=== PATIENT | female | born 1945 | race Hispanic/Latino ===

== ENCOUNTER 2018-05-22 11:59 | Emergency (ER) | payer OTHER ==
--- OUTSIDE RECORDS SUMMARY | 2018-05-22 12:01 | XMS REPORT | Clinical Summary ---
:1945 Author Organization [facility] Address [address] [place] [address] Phone Care Team Providers Name Role Phone Unavailable Primary Care Provider Unavailable Allergies Active Allergy Reactions Severity Noted Date Comments Penicillins 11/24/2016 Current Medications Prescription Sig. Disp. Refills Start Date End Date Status lisinopril Take 20 mg by mouth Active (PRINIVIL,ZESTRIL) 20 MG daily. tablet saxagliptin-metformin Take by mouth. Active (KOMBIGLYZE XR) 2.5-1,000 mg TM24 gabapentin (NEURONTIN) Take 400 mg by Active 400 MG capsule mouth 2 (two) times daily. propranolol (INDERAL) 10 Take 10 mg by mouth Active MG tablet 3 (three) times daily. omeprazole (PRILOSEC) 40 Take 40 mg by mouth Active MG capsule daily. dicyclomine (BENTYL) 10 Take 10 mg by mouth Active MG capsule 4 (four) times daily before meals and nightly. rifAXIMin 550 mg Tab Take 550 mg by Active mouth 2 (two) times daily. Active Problems Problem Noted Date Cirrhosis (HCC) 11/24/2016 Last Assessment & Plan: Not biopsy proven, but diagnosis was based on radiology. Presumably from [place]. She has risk factors with DM type 2, Hypertension, hyperlipidemia, and she has family history of cirrhosis. We will do labs to exclude other causes of liver disease and calculate MELD score. We will do contrast imaging of liver. Portal hypertension (HCC) 11/24/2016 Last Assessment & Plan: No ascites; advised low sodium diet. 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 Will need repeat EGD in 4 weeks Screening for cancer 11/24/2016 Last Assessment & Plan: Cirrhosis, regardless of etiology, is a risk factor for development of hepatocellular carcinoma. The annual incidence of HCC varies from 1.5-7%. Thus, we recommend surveillance for HCC be performed using contrast MRI or CT imaging and alphafetoprotein every 6 months. Screening for endocrine/metabolic/immunity disorders 11/24/2016 Last Assessment & Plan: Serological tests will be completed to determine the presence of immunity to hepatitis A and B. If found susceptible she will be referred to her primary care provider to consider the administration of the appropriate vaccines. Metabolic syndrome 11/24/2016 Last Assessment & Plan: She has features of metabolic syndrome. She has lost 15 lbs recently with life style modification. Advised low carb high protein diet. Fatigue 11/24/2016 Family History Medical History Relation Name Comments Cirrhosis Brother Diabetes Sister Relation Name Status Comments Brother Sister Social History Tobacco Use Types Packs/Day Years Used Date Never Smoker Alcohol Use Drinks/Week oz/Week Comments No Sex Assigned at Date Recorded Not on file Last Filed Vital Signs Not on file Plan of Treatment Health Maintenance Due Date Last Done Comments INFLUENZA VACCINE 05/15/2018 Results Not on fileafter 05/21/2017
--- OUTSIDE RECORDS SUMMARY | 2018-05-22 12:02 | XMS REPORT ---
:1945 Author Organization [facility] Address [address] [place] [address] Dr. Villa [address] [place] [id number] Care Team Providers Name Role Phone KEEVIOLET ARAVIND VARELA Unavailable Unavailable Problems This patient has no known problems. Allergies, Adverse Reactions, Alerts This patient has no known allergies or adverse reactions. Medications This patient has no known medications. Results Test Description Test Time Test Comments Text Results Atomic Results Result Comments MARCO TITER AND PATTERN 2016-11-29 15:09:00 Test Item Value Reference Range Comments MARCO TITER (BEAKER) (test trpl=2902) >=:2560 MARCO PATTERN (BEAKER) (test dqji=8312) Homogeneous ANTI-NUCLEAR ANTIBODY (MARCO)2016-11-29 15:08:00 Test Item Value Reference Range Comments ANTI-NUCLEAR ANTIBODY (MARCO) (BEAKER) (test Positive Negative bboj=706) [id number] 14:16:00 Test Item Value Reference Range Comments THYROID STIMULATING HORMONE (BEAKER) (test 2.05 uIU/mL 0.35-4.94 edbn=209) [id number] 14:00:00 Test Item Value Reference Range Comments FERRITIN (BEAKER) (test nbub=009) 8 ng/mL 5-275 Effective 07/02/2014: Reference Range ChangeNew: Male 5-275 Previous: Male 22-322 Female 5-275 Female 10-291CBC W/PLT COUNT & AUTO [id number] 13:04:00 Test Item Value Reference Range Comments WHITE BLOOD CELL COUNT (BEAKER) (test iinw=504) 6.0 K/ L 4.0-10.0 RED BLOOD CELL COUNT (BEAKER) (test vbcc=652) 3.28 M/ L 4.00-5.00 HEMOGLOBIN (BEAKER) (test iurv=611) 7.4 GM/DL 12.0-15.0 HEMATOCRIT (BEAKER) (test wvfx=145) 21.4 % 36.0-45.0 MEAN CORPUSCULAR VOLUME (BEAKER) (test nnre=068) 65.0 fL 82.0-99.0 MEAN CORPUSCULAR HEMOGLOBIN (BEAKER) (test 22.5 pg 27.0-33.0 wcqt=978) MEAN CORPUSCULAR HEMOGLOBIN CONC (BEAKER) (test 34.6 GM/DL 32.0-36.0 drqj=596) RED CELL DISTRIBUTION WIDTH (BEAKER) (test 18.1 % 10.3-14.2 gxcb=377) PLATELET COUNT (BEAKER) (test htbi=021) 128 K/CU MM 150-430 MEAN PLATELET VOLUME (BEAKER) (test gary=163) 5.6 fL 6.5-10.5 NUCLEATED RED BLOOD CELLS (BEAKER) (test 0 /100 WBC 0-0 ejyh=235) NEUTROPHILS RELATIVE PERCENT (BEAKER) (test 77 % zaya=965) LYMPHOCYTES RELATIVE PERCENT (BEAKER) (test 13 % dbrq=037) MONOCYTES RELATIVE PERCENT (BEAKER) (test 8 % uqol=767) EOSINOPHILS RELATIVE PERCENT (BEAKER) (test 2 % rjae=220) BASOPHILS RELATIVE PERCENT (BEAKER) (test 0 % abrb=293) NEUTROPHILS ABSOLUTE COUNT (BEAKER) (test 4.56 K/ L 1.80-8.00 miar=257) LYMPHOCYTES ABSOLUTE COUNT (BEAKER) (test 0.79 K/ L 1.48-4.50 nhkv=574) MONOCYTES ABSOLUTE COUNT (BEAKER) (test 0.46 K/ L 0.00-1.30 bour=246) EOSINOPHILS ABSOLUTE COUNT (BEAKER) (test 0.12 K/ L 0.00-0.50 dvdf=378) BASOPHILS ABSOLUTE COUNT (BEAKER) (test 0.03 K/ L 0.00-0.20 fprv=800) 0.00ALPHA FETOPROTEIN (AFP), TUMOR [id number] 12:58:00 Test Item Value Reference Range Comments ALPHA-FETOPROTEIN (BEAKER) (test yybc=4114) < ng/mL <10.0 Effective 07/02/2014: Reference Range ChangeNew: <10.0 Previous: 0.0- 8.0HEPATITIS B SURFACE [id number] 12:57:00 Test Item Value Reference Range Comments HEPATITIS B SURFACE ANTIGEN (2) (BEAKER) (test Nonreactive Nonreactive pmzz=8553) HEPATITIS C [id number] 12:57:00 Test Item Value Reference Range Comments HEPATITIS C ANTIBODY (BEAKER) (test mpjg=487) Nonreactive Nonreactive HEPATITIS B SURFACE [id number] 12:57:00 Test Item Value Reference Range Comments HEPATITIS B SURFACE ANTIBODY (BEAKER) (test < mIU/mL <8.0 trvt=519) HEPATITIS A ANTIBODY, [id number] 12:57:00 Test Item Value Reference Range Comments HEPATITIS A IGG ANTIBODY (BEAKER) (test ybha=9090) Reactive Nonreactive IMMUNOGLOBULIN G (IGG)2016-11-24 12:55:00 Test Item Value Reference Range Comments IMMUNOGLOBULIN G (IGG) (BEAKER) (test wejk=981) 1397 mg/dL 540-1822 IRON, TIBC, % SAT. (WITHOUT FERRITIN)2016-11-24 12:55:00 Test Item Value Reference Range Comments IRON (BEAKER) (test krbp=844) 23 ug/dL 40-160 TOTAL IRON BINDING CAPACITY (BEAKER) (test 429 ug/dL 250-450 qgxd=104) IRON % SATURATION (2) (BEAKER) (test ullj=8650) 5 % 20-55 HEPATITIS A ANTIBODY, [id number] 12:54:00 Test Item Value Reference Range Comments HEPATITIS A IGM ANTIBODY (BEAKER) (test Nonreactive Nonreactive zbmr=424) HEPATITIS B CORE ANTIBODY, [id number] 12:54:00 Test Item Value Reference Range Comments HEPATITIS B CORE TOTAL ANTIBODY (BEAKER) (test Nonreactive Nonreactive dflm=769) COMPREHENSIVE METABOLIC [id number] 12:25:00 Test Item Value Reference Range Comments TOTAL PROTEIN (BEAKER) 8.4 gm/dL 6.0-8.3 (test qshb=875) ALBUMIN (BEAKER) (test 4.0 g/dL 3.5-5.0 gefe=3472) ALKALINE PHOSPHATASE 100 U/L 40-150 (BEAKER) (test svub=433) BILIRUBIN TOTAL (BEAKER) 0.9 mg/dL 0.2-1.2 (test ohoe=457) SODIUM (BEAKER) (test 135 meq/L 136-145 ilgm=490) POTASSIUM (BEAKER) (test 4.1 meq/L 3.5-5.1 rpne=086) CHLORIDE (BEAKER) (test 101 meq/L 98-107 nxnw=536) CO2 (BEAKER) (test 19 meq/L 22-29 jaew=712) BLOOD UREA NITROGEN 16 mg/dL 7-21 (BEAKER) (test ikum=939) CREATININE (BEAKER) (test 0.74 mg/dL 0.57-1.25 scdu=912) GLUCOSE RANDOM (BEAKER) 138 mg/dL 70-105 (test yewk=376) CALCIUM (BEAKER) (test 9.7 mg/dL 8.4-10.2 bzwc=691) AST (SGOT) (BEAKER) (test 33 U/L 5-34 zguc=661) ALT (SGPT) (BEAKER) (test 29 U/L 6-55 vssz=450) EGFR (BEAKER) (test 77 mL/min/1.73 sq m ESTIMATED GFR IS NOT mgbo=8574) ACCURATE CREATININE CLEARANCE IN PREDICTING GLOMERULAR FILTRATION RATE. ESTIMATED GFR IS NOT APPLICABLE FOR DIALYSIS PATIENTS. BILIRUBIN, [id number] 12:25:00 Test Item Value Reference Range Comments BILIRUBIN DIRECT (BEAKER) (test uxyn=665) 0.5 mg/dL 0.1-0.5 PROTHROMBIN [id number] 12:15:00 Test Item Value Reference Range Comments PROTIME (BEAKER) (test bixd=211) 14.3 seconds 11.7-14.7 INR (BEAKER) (test roel=436) 1.1 <=5.9 RECOMMENDED COUMADIN/WARFARIN INR THERAPY RANGESSTANDARD DOSE: 2.0 - 3.0 Includes: PROPHYLAXIS forvenous thrombosis, systemic embolization; TREATMENT for venous thrombosis and/or pulmonary embolus.HIGH RISK: Target INR is 2.5-3.5 for patients with mechanical heart valves.[id number] 11:49:00 Test Item Value Reference Range Comments POC-CREATININE (BEAKER) 0.5 mg/dL 0.6-1.3 TESTED AT [facility] 6720 (test vzuq=5196) [facility] [address] POC-EGFR (BEAKER) (test 121 mL/min/1.73M2 dpuj=1011)
[2018-05-22] MEDS ORDERED: NA CHLORIDE 0.9% 1,000 ML ONE (12:39)
[2018-05-22 13:03] LABS: Protime INR 1.18
[2018-05-22 13:10] LABS: ALT/SGPT 33 U/L (12-78); AST/SGOT 38 U/L (15-37); Albumin 3.6 g/dL (3.4-5.0); Alkaline Phosphatase 101 U/L (45-117); BUN Blood Urea Nitrogen 16 mg/dL (7-18); Bicarbonate 27 mmol/L (21-32); Bilirubin Direct 0.6 mg/dL (0-0.2); Bilirubin Total 1.4 mg/dL (0.2-1.0); Glucose Level 162 mg/dL (74-106); Lipase 153 U/L (73-393); Potassium 3.9 mmol/L (3.5-5.1); Protein, Total 8.7 g/dL (6.4-8.2); Sodium Level 140 mmol/L (136-145)
[2018-05-22 13:14] LABS: Absolute Lymphocytes (CBC) 0.7 K/uL (0.7-4.9); Absolute Monocytes 0.3 K/uL (0.1-1.3); Absolute Neutrophil 2.4 K/uL (1.8-8.0); Basophils % 1.1 % (0-1.3); Eosinophils % 2.3 % (0-4.4); Lymphocytes % 19.3 % (15.3-44.8); MCH 21.8 pg (27.0-35.0); MCV 65.8 fL (80-100); MPV 8.6 fL (7.6-11.3)
--- NOTE | 2018-05-22 13:18 | ER ---
Nurse's Notes [facility] Name: Vijaya Oneal Age: 72 yrs Sex: Female : 1945 Arrival Date: 05/22/2018 Time: 12:03 Bed 5 Private MD: Bharat Hernandez Diagnosis: Esophageal varices Presentation: 05/22 12:05 Presenting complaint: Pt's daughter states "she has esophageal banding every 2 months aa5 and yesterday she felt like something got stuck in her throat since yesterday and every time she eats something she's throwing it back up, this has happened to her before and Dr. Servin said to take her to the ER next time it happened so here we are". Pt c/o throat pain, pt states "it feels like I am choking at times". Transition of care: patient was not received from another setting of care. Onset of symptoms was May 21, 2018. Risk Assessment: Do you want to hurt yourself or someone else? Patient reports no desire to harm self or others. Initial Sepsis Screen: Does the patient meet any 2 criteria? No. Patient's initial sepsis screen is negative. Does the patient have a suspected source of infection? No. Patient's initial sepsis screen is negative. Care prior to arrival: None. 12:05 Method Of Arrival: Ambulatory aa5 12:05 Acuity: NELLY 2 aa5 Historical: - Allergies: 12:07 PENICILLINS; aa5 - PMHx: 12:07 Anemia; Cirrhosis; Diabetes - NIDDM; Hypertension; neuropathy; aa5 - PSHx: 12:07 ; Hysterectomy; Cholecystectomy; Tonsillectomy; aa5 - Immunization history:: Adult Immunizations unknown. - Social history:: Smoking status: Patient/guardian denies using tobacco. - Ebola Screening: : No symptoms or risks identified at this time. Screenin:18 Abuse screen: Denies threats or abuse. Denies injuries from another. Nutritional bp screening: No deficits noted. Tuberculosis screening: No symptoms or risk factors identified. Fall Risk None identified. Assessment: 12:16 General: Appears in no apparent distress. comfortable, Behavior is calm, cooperative, bp appropriate for age. Pain: Denies pain. Neuro: Level of Consciousness is awake, alert, obeys commands, Oriented to person, place, time, situation, Appropriate for age. Cardiovascular: Rhythm is sinus tachycardia. Respiratory: Airway is patent Respiratory effort is even, unlabored, Respiratory pattern is regular, symmetrical. GI: No signs and/or symptoms were reported involving the gastrointestinal system. : No signs and/or symptoms were reported regarding the genitourinary system. EENT: NO DROOLING, HOARSENESS OR ALTERED VOICE TONES NOTED. Derm: No deficits noted. Musculoskeletal: Circulation, motion, and sensation intact. Range of motion: intact in all extremities. 13:41 Reassessment: Patient and/or family updated on plan of care and expected duration. Pain hj level reassessed. Patient is alert, oriented x 3, equal unlabored respirations, skin warm/dry/pink. D/C instructions given;. Vital Signs: 12:08 BP 150 / 85; Pulse 109; Resp 18 S; Temp 97.6(TE); Pulse Ox 99% on R/A; Weight 52.16 kg aa5 (R); Height 5 ft. 1 in. (154.94 cm) (R); Pain 10/10; 13:40 BP 148 / 86; Pulse 92; Resp 18; Pulse Ox 100% on R/A; hj 12:08 Body Mass Index 21.73 (52.16 kg, 154.94 cm) aa5 ED Course: 12:03 Patient arrived in ED. mr 12:03 Bhraat Hernandez MD is Private Physician. mr 12:07 Triage completed. aa5 12:07 Arm band placed on. aa5 12:10 Jose Juan Duval RN is Primary Nurse. hj 12:11 Jose Juan Duval RN is Primary Nurse. hj 12:11 Tonny Cardenas MD is Attending Physician. gs 12:15 Primary Nurse role handed off by Jose Juan Duval RN bp 12:15 Chester Malcolm, LC is Primary Nurse. bp 12:18 Patient has correct armband on for positive identification. Placed in gown. Bed in low bp position. Call light in reach. Side rails up X2. Adult w/ patient. 12:47 Initial lab(s) drawn, by me, sent to lab. Inserted saline lock: 22 gauge in right hj antecubital area, using aseptic technique. Blood collected. 13:16 Cally Servin MD is Referral Physician. gs 13:39 No provider procedures requiring assistance completed. IV discontinued, intact, hj bleeding controlled, No redness/swelling at site. Pressure dressing applied. Administered Medications: 12:23 Drug: NS 0.9% 1000 ml Route: IV; Rate: 125 ml/hr; Site: right antecubital; hj 13:41 Follow up: IV Status: Order to discontinue infusion; IV Intake: 400ml hj Intake: 13:41 IV: 400ml; Total: 400ml. hj Outcome: 13:17 Discharge ordered by MD. 13:39 Discharged to home via wheelchair, with family. 13:39 Condition: stable 13:39 Discharge instructions given to patient, family, Instructed on discharge instructions, follow up and referral plans. Demonstrated understanding of instructions, follow-up care. 13:47 Patient left the ED. Signatures: Mary IveyderNorma bernard, RN RN aa5 Jose Juan Duval RN RN hj Starr, Gregory, MD MD Chester Malcolm RN RN bp Corrections: (The following items were deleted from the chart) 12:09 12:05 Presenting complaint: Pt's daughter states "she has esophageal banding every 2 aa5 months and yesterday she felt like something got stuck in her throat since yesterday and every time she eats something she's throwing it back up, this has happened to her before and Dr. Servin said to take her to the ER next time it happened so here we are" aa5 12:09 12:05 Acuity: NELLY 3 aa5 aa5
--- NOTE | 2018-05-22 13:18 | EDPHYS ---
Physician Documentation [facility] Name: Vijaya Oneal Age: 72 yrs Sex: Female : 1945 Arrival Date: 05/22/2018 Time: 12:03 Bed 5 Private MD: Bharat Hernandez ED Physician Tonny Cardenas HPI: 05/22 13:23 This 72 yrs old Female presents to ER via Ambulatory with complaints of gs Difficulty Swallowing. 13:23 The patient presents with dysphagia, of both solids and liquids. The patient describes gs throat pain as scratchy. Onset: The symptoms/episode began/occurred 2 day(s) ago, after eating. Severity of symptoms: At their worst the symptoms were moderate, in the emergency department the symptoms are unchanged. Associated signs and symptoms: Pertinent positives: vomiting. The patient has experienced similar episodes in the past, multiple times. The patient has not recently seen a physician. Historical: - Allergies: 12:07 PENICILLINS; aa5 - PMHx: 12:07 Anemia; Cirrhosis; Diabetes - NIDDM; Hypertension; neuropathy; aa5 - PSHx: 12:07 ; Hysterectomy; Cholecystectomy; Tonsillectomy; aa5 - Immunization history:: Adult Immunizations unknown. - Social history:: Smoking status: Patient/guardian denies using tobacco. - Ebola Screening: : No symptoms or risks identified at this time. ROS: 13:23 All other systems are negative. gs Exam: 13:23 Head/Face: Normocephalic, atraumatic. Eyes: Pupils equal round and reactive to light, gs extra-ocular motions intact. Lids and lashes normal. Conjunctiva and sclera are non-icteric and not injected. Cornea within normal limits. Periorbital areas with no swelling, redness, or edema. ENT: Nares patent. No nasal discharge, no septal abnormalities noted. Tympanic membranes are normal and external auditory canals are clear. Oropharynx with no redness, swelling, or masses, exudates, or evidence of obstruction, uvula midline. Mucous membranes moist. Neck: Trachea midline, no thyromegaly or masses palpated, and no cervical lymphadenopathy. Supple, full range of motion without nuchal rigidity, or vertebral point tenderness. No Meningismus. Chest/axilla: Normal chest wall appearance and motion. Nontender with no deformity. No lesions are appreciated. Cardiovascular: Regular rate and rhythm with a normal S1 and S2. No gallops, murmurs, or rubs. Normal PMI, no JVD. No pulse deficits. Respiratory: Lungs have equal breath sounds bilaterally, clear to auscultation and percussion. No rales, rhonchi or wheezes noted. No increased work of breathing, no retractions or nasal flaring. Abdomen/GI: Soft, non-tender, with normal bowel sounds. No distension or tympany. No guarding or rebound. No evidence of tenderness throughout. Back: No spinal tenderness. No costovertebral tenderness. Full range of motion. Skin: Warm, dry with normal turgor. Normal color with no rashes, no lesions, and no evidence of cellulitis. MS/ Extremity: Pulses equal, no cyanosis. Neurovascular intact. Full, normal range of motion. Neuro: Awake and alert, GCS 15, oriented to person, place, time, and situation. Cranial nerves II-XII grossly intact. Motor strength 5/5 in all extremities. Sensory grossly intact. Cerebellar exam normal. Normal gait. 13:23 Constitutional: The patient appears alert, awake. Vital Signs: 12:08 BP 150 / 85; Pulse 109; Resp 18 S; Temp 97.6(TE); Pulse Ox 99% on R/A; Weight 52.16 kg aa5 (R); Height 5 ft. 1 in. (154.94 cm) (R); Pain 10/10; 13:40 BP 148 / 86; Pulse 92; Resp 18; Pulse Ox 100% on R/A; hj 12:08 Body Mass Index 21.73 (52.16 kg, 154.94 cm) aa5 MDM: 12:21 Patient medically screened. 13:23 Differential diagnosis: stricture, esophageal fb, pharyngeal abrasion. Data reviewed: vital signs, nurses notes. Physician consultation: Leroy Quiñonez MD and will see patient in office, later today, for egd. 13:25 ED course: no active vomiting well hydrated. 05/22 12:23 Order name: Basic Metabolic Panel; Complete Time: 13:15 05/22 12:23 Order name: CBC with Diff 05/22 12:23 Order name: Hepatic Function; Complete Time: 13:15 05/22 12:23 Order name: Lipase; Complete Time: 13:15 05/22 12:23 Order name: PT-INR; Complete Time: 13:15 05/22 13:16 Order name: CBC Smear Scan EDKS 05/22 12:23 Order name: IV Saline Lock; Complete Time: 12:47 05/22 12:23 Order name: Labs collected and sent; Complete Time: 12:47 Administered Medications: 12:23 Drug: NS 0.9% 1000 ml Route: IV; Rate: 125 ml/hr; Site: right antecubital; hj 13:41 Follow up: IV Status: Order to discontinue infusion; IV Intake: 400ml hj Disposition: 05/22/18 13:17 Discharged to Home. Impression: Esophageal varices. - Condition is Stable. - Discharge Instructions: Dysphagia, Esophageal Varices. - Medication Reconciliation Form, Thank You Letter, Antibiotic Education, Prescription Opioid Use form. - Follow up: Cally Servin MD; When: Today. Signatures: Dispatcher [employer] [facility] Norma Carrington RN RN aa5 Jose Juan Duval RN RN hj Starr, Gregory, MD MD Corrections: (The following items were deleted from the chart) 13:47 13:17 05/22/2018 13:17 Discharged to Home. Impression: Esophageal varices. Condition is hj Stable. Forms are Medication Reconciliation Form, Thank You Letter, Antibiotic Education, Prescription Opioid Use. Follow up: Cally Servin; When: Today. gs
[2018-05-22 13:52] VITALS: TEMP 97.6
[2018-05-22 13:53] VITALS: BP 148/86; O2SAT 100
[2018-05-22 16:04] LABS: Anisocytosis 1+; Blood Morphology Comment NOTED (NOT SEEN); Hypochromasia 1+; Platelet Estimate DECR; Poikilocytosis 1+; Urine White Blood Cell Casts OK
[2018-05-22 16:05] LABS: Target Cells 1+
== END 2018-05-22 13:47 | disposition home or self-care (01) ==
LOC: ER 11:59
DX: I85.00 Esophageal varices without bleeding (principal); I10 Essential (primary) hypertension; K74.60 Unspecified cirrhosis of liver; Z88.0 Allergy status to penicillin
CPT/HCPCS: 36415; 80048; 80076; 83690; 85025; 85610; 96360; 99284; J7030

== ENCOUNTER 2018-09-11 09:29 | Day surgery (SDC) | payer OTHER ==
--- OUTSIDE RECORDS SUMMARY | 2018-09-11 09:32 | XMS REPORT | Clinical Summary ---
:1945 Author Organization [facility] Address [address] [place] [address] Care Team Providers Name Role Phone Unavailable Primary Care Provider Unavailable Allergies Active Allergy Reactions Severity Noted Date Comments Penicillins 11/24/2016 Medications Medication Sig Dispensed Refills Start Date End Date Status lisinopril Take 20 mg by 0 Active (PRINIVIL,ZESTRIL) 20 mouth daily. MG tablet saxagliptin-metformin Take by mouth. 0 Active (KOMBIGLYZE XR) 2.5-1,000 mg TM24 gabapentin (NEURONTIN) Take 400 mg by 0 Active 400 MG capsule mouth 2 (two) times daily. propranolol (INDERAL) Take 10 mg by 0 Active 10 MG tablet mouth 3 (three) times daily. omeprazole (PRILOSEC) Take 40 mg by 0 Active 40 MG capsule mouth daily. dicyclomine (BENTYL) 10 Take 10 mg by 0 Active MG capsule mouth 4 (four) times daily before meals and nightly. rifAXIMin 550 mg Tab Take 550 mg by 0 Active mouth 2 (two) times daily. Active Problems Problem Noted Date Cirrhosis 11/24/2016 Last Assessment & Plan: Not biopsy proven, but diagnosis was based on radiology. Presumably from [place]. She has risk factors with DM type 2, Hypertension, hyperlipidemia, and she has family history of cirrhosis. We will do labs to exclude other causes of liver disease and calculate MELD score. We will do contrast imaging of liver. Portal hypertension 11/24/2016 Last Assessment & Plan: No ascites; [...] Assigned at Date Recorded Not on file Job Start Date Occupation Industry Not on file Not on file Not on file Travel History Travel Start Travel End No recent travel history available. Last Filed Vital Signs Not on file Plan of Treatment Health Maintenance Due Date Last Done Comments INFLUENZA VACCINE 05/15/2018 Results Not on fileafter 09/10/2017 Insurance Payer Benefit Plan / Group Subscriber ID Type Phone Address MEDICARE MEDICARE A B xxxxxxxxxx Medicare MEDICAID MEDICAID [facility] xxxxxxxxx Medicaid
--- OUTSIDE RECORDS SUMMARY | 2018-09-11 09:33 | XMS REPORT ---
:1945 [facility] Address [address] [place] [address] Dr. Villa [address] [place] [id number] Care Team Providers Name Role Phone KEEADÁNEfrain ARAVIND VARELA Unavailable Unavailable Problems This patient has no known problems. Allergies, Adverse Reactions, Alerts This patient has no known allergies or adverse reactions. Medications This patient has no known medications. Results Test Description Test Time Test Comments Text Results Atomic Results Result Comments MARCO TITER AND PATTERN 2016-11-29 15:09:00 Test Item Value Reference Range Comments MARCO TITER (BEAKER) (test vvzq=9735) >=:2560 MARCO PATTERN (BEAKER) (test hubq=9565) Homogeneous ANTI-NUCLEAR ANTIBODY (MARCO)2016-11-29 15:08:00 Test Item Value Reference Range Comments ANTI-NUCLEAR ANTIBODY (MARCO) (BEAKER) (test Positive Negative rjbw=794) [id number] 14:16:00 Test Item Value Reference Range Comments THYROID STIMULATING HORMONE (BEAKER) (test 2.05 uIU/mL 0.35-4.94 akop=099) [id number] 14:00:00 Test Item Value Reference Range Comments FERRITIN (BEAKER) (test mbdt=812) 8 ng/mL 5-275 Effective 07/02/2014: Reference Range ChangeNew: Male 5-275 Previous: Male 22-322 Female 5-275 Female 10-291CBC W/PLT COUNT & AUTO [id number] 13:04:00 Test Item Value Reference Range Comments WHITE BLOOD CELL COUNT (BEAKER) (test syao=099) 6.0 K/ L 4.0-10.0 RED BLOOD CELL COUNT (BEAKER) (test itdn=568) 3.28 M/ L 4.00-5.00 HEMOGLOBIN (BEAKER) (test ovzn=874) 7.4 GM/DL 12.0-15.0 HEMATOCRIT (BEAKER) (test pksp=036) 21.4 % 36.0-45.0 MEAN CORPUSCULAR VOLUME (BEAKER) (test fwtf=034) 65.0 fL 82.0-99.0 MEAN CORPUSCULAR HEMOGLOBIN (BEAKER) (test 22.5 pg 27.0-33.0 ccui=642) MEAN CORPUSCULAR HEMOGLOBIN CONC (BEAKER) (test 34.6 GM/DL 32.0-36.0 azaz=777) RED CELL DISTRIBUTION WIDTH (BEAKER) (test 18.1 % 10.3-14.2 bkvp=333) PLATELET COUNT (BEAKER) (test dcxb=432) 128 K/CU MM 150-430 MEAN PLATELET VOLUME (BEAKER) (test siip=861) 5.6 fL 6.5-10.5 NUCLEATED RED BLOOD CELLS (BEAKER) (test 0 /100 WBC 0-0 otxl=058) NEUTROPHILS RELATIVE PERCENT (BEAKER) (test 77 % gbsa=806) LYMPHOCYTES RELATIVE PERCENT (BEAKER) (test 13 % ynoh=633) MONOCYTES RELATIVE PERCENT (BEAKER) (test 8 % gdtd=704) EOSINOPHILS RELATIVE PERCENT (BEAKER) (test 2 % cyby=502) BASOPHILS RELATIVE PERCENT (BEAKER) (test 0 % pkui=946) NEUTROPHILS ABSOLUTE COUNT (BEAKER) (test 4.56 K/ L 1.80-8.00 tkgv=419) LYMPHOCYTES ABSOLUTE COUNT (BEAKER) (test 0.79 K/ L 1.48-4.50 stwh=994) MONOCYTES ABSOLUTE COUNT (BEAKER) (test 0.46 K/ L 0.00-1.30 gtnw=405) EOSINOPHILS ABSOLUTE COUNT (BEAKER) (test 0.12 K/ L 0.00-0.50 sksq=465) BASOPHILS ABSOLUTE COUNT (BEAKER) (test 0.03 K/ L 0.00-0.20 yecu=810) 0.00ALPHA FETOPROTEIN (AFP), TUMOR [id number] 12:58:00 Test Item Value Reference Range Comments ALPHA-FETOPROTEIN (BEAKER) (test qnql=6744) < ng/mL <10.0 Effective 07/02/2014: Reference Range ChangeNew: <10.0 Previous: 0.0- 8.0HEPATITIS B SURFACE [id number] 12:57:00 Test Item Value Reference Range Comments HEPATITIS B SURFACE ANTIGEN (2) (BEAKER) (test Nonreactive Nonreactive leiv=3467) HEPATITIS C [id number] 12:57:00 Test Item Value Reference Range Comments HEPATITIS C ANTIBODY (BEAKER) (test gljf=115) Nonreactive Nonreactive HEPATITIS B SURFACE [id number] 12:57:00 Test Item Value Reference Range Comments HEPATITIS B SURFACE ANTIBODY (BEAKER) (test < mIU/mL <8.0 ofzd=259) HEPATITIS A ANTIBODY, [id number] 12:57:00 Test Item Value Reference Range Comments HEPATITIS A IGG ANTIBODY (BEAKER) (test pomr=2738) Reactive Nonreactive IMMUNOGLOBULIN G (IGG)2016-11-24 12:55:00 Test Item Value Reference Range Comments IMMUNOGLOBULIN G (IGG) (BEAKER) (test tkro=263) 1397 mg/dL 540-1822 IRON, TIBC, % SAT. (WITHOUT FERRITIN)2016-11-24 12:55:00 Test Item Value Reference Range Comments IRON (BEAKER) (test zxli=036) 23 ug/dL 40-160 TOTAL IRON BINDING CAPACITY (BEAKER) (test 429 ug/dL 250-450 jqum=447) IRON % SATURATION (2) (BEAKER) (test ekbb=7100) 5 % 20-55 HEPATITIS A ANTIBODY, [id number] 12:54:00 Test Item Value Reference Range Comments HEPATITIS A IGM ANTIBODY (BEAKER) (test Nonreactive Nonreactive teob=545) HEPATITIS B CORE ANTIBODY, [id number] 12:54:00 Test Item Value Reference Range Comments HEPATITIS B CORE TOTAL ANTIBODY (BEAKER) (test Nonreactive Nonreactive mqgc=956) COMPREHENSIVE METABOLIC [id number] 12:25:00 Test Item Value Reference Range Comments TOTAL PROTEIN (BEAKER) 8.4 gm/dL 6.0-8.3 (test ylnx=226) ALBUMIN (BEAKER) (test 4.0 g/dL 3.5-5.0 fhxn=8894) ALKALINE PHOSPHATASE 100 U/L 40-150 (BEAKER) (test ugjn=909) BILIRUBIN TOTAL (BEAKER) 0.9 mg/dL 0.2-1.2 (test qpan=912) SODIUM (BEAKER) (test 135 meq/L 136-145 udcc=933) POTASSIUM (BEAKER) (test 4.1 meq/L 3.5-5.1 krvn=968) CHLORIDE (BEAKER) (test 101 meq/L 98-107 ipyh=184) CO2 (BEAKER) (test 19 meq/L 22-29 lkwy=700) BLOOD UREA NITROGEN 16 mg/dL 7-21 (BEAKER) (test riip=442) CREATININE (BEAKER) (test 0.74 mg/dL 0.57-1.25 decq=309) GLUCOSE RANDOM (BEAKER) 138 mg/dL 70-105 (test bjzh=856) CALCIUM (BEAKER) (test 9.7 mg/dL 8.4-10.2 lqtq=493) AST (SGOT) (BEAKER) (test 33 U/L 5-34 qecx=142) ALT (SGPT) (BEAKER) (test 29 U/L 6-55 mtaw=038) EGFR (BEAKER) (test 77 mL/min/1.73 sq m ESTIMATED GFR IS NOT fylg=2329) ACCURATE CREATININE CLEARANCE IN PREDICTING GLOMERULAR FILTRATION RATE. ESTIMATED GFR IS NOT APPLICABLE FOR DIALYSIS PATIENTS. BILIRUBIN, [id number] 12:25:00 Test Item Value Reference Range Comments BILIRUBIN DIRECT (BEAKER) (test thfa=963) 0.5 mg/dL 0.1-0.5 PROTHROMBIN [id number] 12:15:00 Test Item Value Reference Range Comments PROTIME (BEAKER) (test yjnx=876) 14.3 seconds 11.7-14.7 INR (BEAKER) (test tdny=439) 1.1 <=5.9 RECOMMENDED COUMADIN/WARFARIN INR THERAPY RANGESSTANDARD DOSE: 2.0 - 3.0 Includes: PROPHYLAXIS forvenous thrombosis, systemic embolization; TREATMENT for venous thrombosis and/or pulmonary embolus.HIGH RISK: Target INR is 2.5-3.5 for patients with mechanical heart valves.[id number] 11:49:00 Test Item Value Reference Range Comments POC-CREATININE (BEAKER) 0.5 mg/dL 0.6-1.3 TESTED AT [facility] 6720 (test xbge=0916) [facility] [address] POC-EGFR (BEAKER) (test 121 mL/min/1.73M2 olmu=3905)
[2018-09-11] MEDS ORDERED: NA CHLORIDE 0.9% 500 ML ONE (09:49)
[2018-09-11] MEDS ORDERED: CYCLOPENTOLATE 1% OPTH 2 ML ONE (09:49)
[2018-09-11] MEDS ORDERED: TETRACAINE HCL 0.5% 2ML OPTH ONE (09:49)
[2018-09-11] MEDS ORDERED: LIDOCAINE 2% MPF 5 ML VIAL ONE (09:49)
[2018-09-11] MEDS ORDERED: BUPIVACAINE 0.25% PF 10 ML VIAL ONE (09:49)
[2018-09-11] MEDS ORDERED: LIDOCAINE HCL/PF 3.5% OPTH GEL ONE (09:49)
[2018-09-11] MEDS ORDERED: PHENYLEPHRINE 10% OPTH 5ML ONE (09:49)
[2018-09-11] MEDS ORDERED: NS 0.9% VIAL 10 ML ONE (09:58)
[2018-09-11] MEDS ORDERED: CYCLOPENTOLATE 1% OPTH 2 ML OPTH ONE ×2 (10:10→10:15)
[2018-09-11] MEDS ORDERED: PHENYLEPHRINE 10% OPTH 5ML OPTH ONE ×2 (10:10→10:15)
[2018-09-11] MEDS ORDERED: LIDOCAINE 1% MPF 2 ML AMPULE ONE (10:16)
[2018-09-11] MEDS ORDERED: FENTANYL CITR 100 MCG/2 ML ONE (11:36)
[2018-09-11] MEDS ORDERED: MIDAZOLAM HCL 2 MG/2 ML INJ ONE (11:36)
[2018-09-11] MEDS: EPINEPHRINE/PF 1 MG/ML AMP ONE ×2 (11:37→11:49)
[2018-09-11] MEDS: BALANCED SALT IRRIG PLAIN 500 ML BTL IRR ONE ×2 (11:37→11:49)
[2018-09-11] MEDS: DUOVISC 1 KIT OPTH ONE ×2 (11:39→11:49)
[2018-09-11] MEDS: MOXIFLOXACIN HCL 10 DROPS/ML **OR USE OPTH ONE ×2 (11:39→11:52)
--- NOTE | 2018-09-11 12:20 | P.BOP ---
Preoperative diagnosis: Nuclear sclerotic and cortical cataract OD Postoperative diagnosis: Same Primary procedure: Phacoemulsification with IOL OD Estimated blood loss: None Anesthesia: Local (Topical with anesthesia for cataract surgery) Complications: None Implants: ZCB00 +25.5 Transferred to: Other (Day surgery) Condition: Good
[2018-09-11 12:47] VITALS: BP 128/77; TEMP 98; O2SAT 98
--- NOTE | 2018-09-11 23:11 | OP ---
Date of Procedure: 09/11/2018 Surgeon: Amisha Yu MD Anesthesiologist: Evelio Carter CRNA and Ethan Arguelles MD. Preoperative Diagnoses: Nuclear sclerotic and cortical cataract, right eye. Operation Performed: Phacoemulsification with intraocular lens implant, right eye. Anesthesia: Per cataract surgery. Complications: None. Description Of Procedure: In the operating room the patient was prepped and draped in the usual ster ile fashion for ophthalmic surgery. A lid speculum was placed in the right eye. Two paracentesis si richar were made superiorly and inferiorly in the limbal cornea. Viscoat was placed in the anterior luna mber and a crescent blade was used to make a corneal groove and tunnel, and a keratome was used to en ter the anterior chamber. Provisc was placed in the anterior chamber and a 360 degree capsulotomy wa s performed with a cystitome. The lens was hydrodissected with BSS and rotated freely. The lens was removed with a stop and chop technique. 11.97 Phaco CDE was used to remove the lens. Residual tessa ex was removed with the irrigation and aspiration. Provisc was placed in the capsular bag. A ZCB00 +25.5 lens was placed in the capsular bag without complications. Irrigation and aspiration was used to remove residual viscoelastic. The paracentesis sites were hydrated with BSS. The wound and parac entesis sites were inspected and found to be watertight. Vigamox 0.07 cc was placed intracamerally a t the end of the procedure. The eye was irrigated with balanced salt solution. The eye was patched with a soft cotton patch and Stock metal shield. The patient was returned to day surgery in good condition. Comments: Akten was placed in the eye in Day Surgery and irrigated out of the eye with BSS in the OR . Preservative-free 1% lidocaine was placed in the anterior chamber prior to Viscoat. Discharge Instructions: Ms. Oneal is discharged to home in good condition and is to follow up with Rina Yu in the morning. GENE/FUENTES Voice ID: [id number] Report ID: [id number]
== END 2018-09-11 12:45 | disposition home or self-care (01) ==
LOC: OR 09:29
PROVIDERS: ATTEND Ophthalmology Retina Specialist
PROC: 08RJ3JZ Replacement of Right Lens with Synthetic Substitute, Percutaneous Approach (ICD-10-PCS; principal; 2018-09-11 10:45)
DX: H25.11 Age-related nuclear cataract, right eye (principal); H25.011 Cortical age-related cataract, right eye; E11.9 Type 2 diabetes mellitus without complications; I10 Essential (primary) hypertension; K21.9 Gastro-esophageal reflux disease without esophagitis; E78.5 Hyperlipidemia, unspecified; Z88.0 Allergy status to penicillin; Z83.3 Family history of diabetes mellitus; Z82.49 Family history of ischemic heart disease and other diseases of the circulatory system
CPT/HCPCS: 66984; 82962; J0171; J2001; J2250; J3010

== ENCOUNTER 2018-09-15 13:39 | Observation (INO) | payer OTHER ==
--- OUTSIDE RECORDS SUMMARY | 2018-09-15 13:42 | XMS REPORT ---
:1945 [facility] Address [address] [place] [address] Dr. Villa [phone] [id number] Care Team Providers Name Role Phone ARAVIND CABA AVERY Unavailable Unavailable Problems This patient has no known problems. Allergies, Adverse Reactions, Alerts This patient has no known allergies or adverse reactions. Medications This patient has no known medications. Results Test Description Test Time Test Comments Text Results Atomic Results Result Comments MARCO TITER AND PATTERN 2016-11-29 15:09:00 Test Item Value Reference Range Comments MARCO TITER (BEAKER) (test drks=5962) >=:2560 MARCO PATTERN (BEAKER) (test pfje=2314) Homogeneous ANTI-NUCLEAR ANTIBODY (MARCO)2016-11-29 15:08:00 Test Item Value Reference Range Comments ANTI-NUCLEAR ANTIBODY (MARCO) (BEAKER) (test Positive Negative omut=822) [id number] 14:16:00 Test Item Value Reference Range Comments THYROID STIMULATING HORMONE (BEAKER) (test 2.05 uIU/mL 0.35-4.94 fcvt=651) [id number] 14:00:00 Test Item Value Reference Range Comments FERRITIN (BEAKER) (test tvic=580) 8 ng/mL 5-275 Effective 07/02/2014: Reference Range ChangeNew: Male 5-275 Previous: Male 22-322 Female 5-275 Female 10-291CBC W/PLT COUNT & AUTO [id number] 13:04:00 Test Item Value Reference Range Comments WHITE BLOOD CELL COUNT (BEAKER) (test ulmu=454) 6.0 K/ L 4.0-10.0 RED BLOOD CELL COUNT (BEAKER) (test pwyf=666) 3.28 M/ L 4.00-5.00 HEMOGLOBIN (BEAKER) (test jryq=718) 7.4 GM/DL 12.0-15.0 HEMATOCRIT (BEAKER) (test gawr=515) 21.4 % 36.0-45.0 MEAN CORPUSCULAR VOLUME (BEAKER) (test zljz=646) 65.0 fL 82.0-99.0 MEAN CORPUSCULAR HEMOGLOBIN (BEAKER) (test 22.5 pg 27.0-33.0 nmvy=570) MEAN CORPUSCULAR HEMOGLOBIN CONC (BEAKER) (test 34.6 GM/DL 32.0-36.0 lctn=460) RED CELL DISTRIBUTION WIDTH (BEAKER) (test 18.1 % 10.3-14.2 lmjw=873) PLATELET COUNT (BEAKER) (test cfxk=541) 128 K/CU MM 150-430 MEAN PLATELET VOLUME (BEAKER) (test bipj=792) 5.6 fL 6.5-10.5 NUCLEATED RED BLOOD CELLS (BEAKER) (test 0 /100 WBC 0-0 jmpa=290) NEUTROPHILS RELATIVE PERCENT (BEAKER) (test 77 % kpql=553) LYMPHOCYTES RELATIVE PERCENT (BEAKER) (test 13 % cbjp=944) MONOCYTES RELATIVE PERCENT (BEAKER) (test 8 % boqx=756) EOSINOPHILS RELATIVE PERCENT (BEAKER) (test 2 % hiqy=025) BASOPHILS RELATIVE PERCENT (BEAKER) (test 0 % pfar=462) NEUTROPHILS ABSOLUTE COUNT (BEAKER) (test 4.56 K/ L 1.80-8.00 brot=247) LYMPHOCYTES ABSOLUTE COUNT (BEAKER) (test 0.79 K/ L 1.48-4.50 wvpt=941) MONOCYTES ABSOLUTE COUNT (BEAKER) (test 0.46 K/ L 0.00-1.30 mqhg=146) EOSINOPHILS ABSOLUTE COUNT (BEAKER) (test 0.12 K/ L 0.00-0.50 pkqq=342) BASOPHILS ABSOLUTE COUNT (BEAKER) (test 0.03 K/ L 0.00-0.20 vlzu=127) 0.00ALPHA FETOPROTEIN (AFP), TUMOR [id number] 12:58:00 Test Item Value Reference Range Comments ALPHA-FETOPROTEIN (BEAKER) (test gvni=4684) < ng/mL <10.0 Effective 07/02/2014: Reference Range ChangeNew: <10.0 Previous: 0.0- 8.0HEPATITIS B SURFACE [id number] 12:57:00 Test Item Value Reference Range Comments HEPATITIS B SURFACE ANTIGEN (2) (BEAKER) (test Nonreactive Nonreactive nqib=4515) HEPATITIS C [id number] 12:57:00 Test Item Value Reference Range Comments HEPATITIS C ANTIBODY (BEAKER) (test acgu=107) Nonreactive Nonreactive HEPATITIS B SURFACE [id number] 12:57:00 Test Item Value Reference Range Comments HEPATITIS B SURFACE ANTIBODY (BEAKER) (test < mIU/mL <8.0 tqye=620) HEPATITIS A ANTIBODY, [id number] 12:57:00 Test Item Value Reference Range Comments HEPATITIS A IGG ANTIBODY (BEAKER) (test svqc=9246) Reactive Nonreactive IMMUNOGLOBULIN G (IGG)2016-11-24 12:55:00 Test Item Value Reference Range Comments IMMUNOGLOBULIN G (IGG) (BEAKER) (test cvtd=591) 1397 mg/dL 540-1822 IRON, TIBC, % SAT. (WITHOUT FERRITIN)2016-11-24 12:55:00 Test Item Value Reference Range Comments IRON (BEAKER) (test dguu=657) 23 ug/dL 40-160 TOTAL IRON BINDING CAPACITY (BEAKER) (test 429 ug/dL 250-450 ulax=114) IRON % SATURATION (2) (BEAKER) (test hunt=5732) 5 % 20-55 HEPATITIS A ANTIBODY, [id number] 12:54:00 Test Item Value Reference Range Comments HEPATITIS A IGM ANTIBODY (BEAKER) (test Nonreactive Nonreactive vonv=028) HEPATITIS B CORE ANTIBODY, [id number] 12:54:00 Test Item Value Reference Range Comments HEPATITIS B CORE TOTAL ANTIBODY (BEAKER) (test Nonreactive Nonreactive emnf=874) COMPREHENSIVE METABOLIC [id number] 12:25:00 Test Item Value Reference Range Comments TOTAL PROTEIN (BEAKER) 8.4 gm/dL 6.0-8.3 (test ckim=576) ALBUMIN (BEAKER) (test 4.0 g/dL 3.5-5.0 bpnh=5504) ALKALINE PHOSPHATASE 100 U/L 40-150 (BEAKER) (test uwuu=836) BILIRUBIN TOTAL (BEAKER) 0.9 mg/dL 0.2-1.2 (test kweq=005) SODIUM (BEAKER) (test 135 meq/L 136-145 wjqq=134) POTASSIUM (BEAKER) (test 4.1 meq/L 3.5-5.1 jcvw=970) CHLORIDE (BEAKER) (test 101 meq/L 98-107 fnxu=469) CO2 (BEAKER) (test 19 meq/L 22-29 zbgm=812) BLOOD UREA NITROGEN 16 mg/dL 7-21 (BEAKER) (test ljnc=766) CREATININE (BEAKER) (test 0.74 mg/dL 0.57-1.25 nygr=280) GLUCOSE RANDOM (BEAKER) 138 mg/dL 70-105 (test snyq=233) CALCIUM (BEAKER) (test 9.7 mg/dL 8.4-10.2 rpyy=810) AST (SGOT) (BEAKER) (test 33 U/L 5-34 gowe=082) ALT (SGPT) (BEAKER) (test 29 U/L 6-55 pyii=943) EGFR (BEAKER) (test 77 mL/min/1.73 sq m ESTIMATED GFR IS NOT jlpr=1875) ACCURATE CREATININE CLEARANCE IN PREDICTING GLOMERULAR FILTRATION RATE. ESTIMATED GFR IS NOT APPLICABLE FOR DIALYSIS PATIENTS. BILIRUBIN, [id number] 12:25:00 Test Item Value Reference Range Comments BILIRUBIN DIRECT (BEAKER) (test luxn=003) 0.5 mg/dL 0.1-0.5 PROTHROMBIN [id number] 12:15:00 Test Item Value Reference Range Comments PROTIME (BEAKER) (test jjqj=002) 14.3 seconds 11.7-14.7 INR (BEAKER) (test twto=342) 1.1 <=5.9 RECOMMENDED COUMADIN/WARFARIN INR THERAPY RANGESSTANDARD DOSE: 2.0 - 3.0 Includes: PROPHYLAXIS forvenous thrombosis, systemic embolization; TREATMENT for venous thrombosis and/or pulmonary embolus.HIGH RISK: Target INR is 2.5-3.5 for patients with mechanical heart valves.[id number] 11:49:00 Test Item Value Reference Range Comments POC-CREATININE (BEAKER) 0.5 mg/dL 0.6-1.3 TESTED AT [facility] 6720 (test qnto=9289) [facility] [address] POC-EGFR (BEAKER) (test 121 mL/min/1.73M2 icva=9147)
--- OUTSIDE RECORDS SUMMARY | 2018-09-15 13:42 | XMS REPORT | Clinical Summary ---
:1945 Author Organization [facility] Address [address] [place] [address] Care Team Providers Name Role Phone Unavailable [...] INFLUENZA VACCINE 05/15/2018 Results Not on fileafter 09/14/2017 Insurance Payer Benefit Plan / Group Subscriber ID Type Phone Address MEDICARE MEDICARE A B xxxxxxxxxx Medicare MEDICAID MEDICAID [facility] xxxxxxxxx Medicaid
--- NOTE | 2018-09-15 15:30 | RAD REPORT ---
EXAM DESCRIPTION: RAD - Chest Single View - 09/15/2018 3:16 pm CLINICAL HISTORY: shortness of breath, cough Chest pain. COMPARISON: CHEST PA AND LAT 2 VIEW dated 10/05/2015; Thorax Wo Con dated 07/19/2016 FINDINGS: Portable technique limits examination quality. The lungs are grossly clear. The heart is normal in size. No displaced fractures. IMPRESSION: No acute intrathoracic process suspected.
[2018-09-15 15:55] LABS: Absolute Lymphocytes (CBC) 0.6 K/uL (0.7-4.9); Absolute Monocytes 0.4 K/uL (0.1-1.3); Basophils % 1.5 % (0-1.3); Eosinophils % 3.2 % (0-4.4); Lymphocytes % 14.8 % (15.3-44.8); MPV 8.5 fL (7.6-11.3); RBC Red Blood Cell Count 3.54 M/uL (3.86-4.86)
[2018-09-15 15:59] LABS: ALT/SGPT 31 U/L (12-78); AST/SGOT 26 U/L (15-37); Albumin 3.4 g/dL (3.4-5.0); Alkaline Phosphatase 106 U/L (45-117); BUN Blood Urea Nitrogen 12 mg/dL (7-18); Bicarbonate 22 mmol/L (21-32); Bilirubin Direct 0.4 mg/dL (0-0.2); Bilirubin Total 0.7 mg/dL (0.2-1.0); Glucose Level 128 mg/dL (74-106); Magnesium 1.6 mg/dL (1.8-2.4); NT PRO-BNP 147 pg/mL (<450); Potassium 4.1 mmol/L (3.5-5.1); Protein, Total 8.3 g/dL (6.4-8.2); Sodium Level 140 mmol/L (136-145); Troponin (Emerg Dept Use Only) < 0.02 ng/mL (0.0-0.045)
[2018-09-15 16:07] LABS: Protime INR 1.18
--- NOTE | 2018-09-15 16:14 | EKG ---
Test Date: 2018-09-15 Test Time: 14:02:30 Algology Teacher: RONAN MEASUREMENT RESULTS: Intervals: Rate: 97 AR: 150 QRSD: 70 QT: 348 QTc: 441 [place]: P: 26 AR: 150 QRS: 18 T: 51 INTERPRETIVE STATEMENTS: Normal sinus rhythm Normal ECG No previous ECG available for comparison Electronically Signed On 09-15-18 16:13:40 COLOR RECEIVER by Reese Knight
[2018-09-15 16:23] LABS: Anisocytosis 2+; Blood Morphology Comment NOTED (NOT SEEN); Hypochromasia 1+; Platelet Estimate DECR; Target Cells 1+; Urine White Blood Cell Casts OK
--- NOTE | 2018-09-15 17:53 | ER ---
Nurse's Notes [facility] Name: Vijaya Oneal Age: 73 yrs Sex: Female : 1945 Arrival Date: 09/15/2018 Time: 13:43 Bed 14 Private MD: Cally Servin M Diagnosis: Anemia;Acute upper respiratory infection, unspecified;Hypomagnesemia Presentation: 09/15 13:45 Presenting complaint: Patient states: Generalized weakness, back pain, dizziness and aj1 palpitations for the past 2 days. Denies chest pain, denies SOB. Transition of care: patient was not received from another setting of care. Onset of symptoms was September 13, 2018. Risk Assessment: Do you want to hurt yourself or someone else? Patient reports no desire to harm self or others. Initial Sepsis Screen: Does the patient meet any 2 criteria? No. Patient's initial sepsis screen is negative. Does the patient have a suspected source of infection? No. Patient's initial sepsis screen is negative. Care prior to arrival: None. 13:45 Method Of Arrival: Wheelchair aj1 13:45 Acuity: NELLY 3 aj1 Triage Assessment: 13:47 General: Appears in no apparent distress. comfortable, Behavior is calm, cooperative, aj1 appropriate for age. Pain: Complains of pain in back Pain does not radiate. Pain currently is 9 out of 10 on a pain scale. Neuro: Level of Consciousness is awake, alert, obeys commands, Reports generalized weakness. Cardiovascular: Patient's skin is warm and dry. Respiratory: Airway is patent Respiratory effort is even, unlabored, Respiratory pattern is regular, symmetrical. Historical: - Allergies: 13:47 PENICILLINS; aj1 - PMHx: 13:47 Anemia; Cirrhosis; Diabetes - NIDDM; Hypertension; neuropathy; aj1 - Immunization history:: Flu vaccine is not up to date. - Social history:: Smoking status: Patient/guardian denies using tobacco. - Ebola Screening: : Patient denies travel to an Ebola-affected area in the 21 days before illness onset. Screenin:57 Abuse screen: Denies threats or abuse. Denies injuries from another. Nutritional ls4 screening: No deficits noted. Tuberculosis screening: No symptoms or risk factors identified. 14:27 Fall Risk Secondary diagnosis (15 points) IV access (20 points). Ambulatory Aid- ls4 None/Bed Rest/Nurse Assist (0 pts). Gait- Weak (10 pts.). Assessment: 14:26 General: Appears uncomfortable, Behavior is calm, cooperative. ls4 15:53 Reassessment: No changes from previously documented assessment. Patient is alert, ls4 oriented x 3, equal unlabored respirations, skin warm/dry/pink. Neuro: No deficits noted. Cardiovascular: Capillary refill < 3 seconds Pulses are 2+ in right radial artery and left radial artery Chest pain is denied. Respiratory: Airway is patent Trachea midline Respiratory effort is even, unlabored, Respiratory pattern is regular. GI: Abdomen is round distended, noted to have ascites, Bowel sounds present X 4 quads. 16:57 Reassessment: Patient and/or family updated on plan of care and expected duration. Pain ls4 level reassessed. Patient is alert, oriented x 3, equal unlabored respirations, skin warm/dry/pink. Vital Signs: 13:47 BP 136 / 63; Pulse 99; Resp 18; Temp 97.7; Pulse Ox 98% on R/A; Weight 53.52 kg (R); aj1 Height 5 ft. 2 in. (157.48 cm) (R); 15:52 BP 133 / 59; Pulse 100; Resp 18; Temp 98.6(O); Pulse Ox 98% on R/A; Pain 3/10; ls4 19:50 BP 146 / 48; Pulse 89; Resp 18 S; Pulse Ox 97% on R/A; bb 13:47 Body Mass Index 21.58 (53.52 kg, 157.48 cm) aj1 ED Course: 13:43 Patient arrived in ED. mr 13:43 Cally Servin MD is Private Physician. mr 13:47 Triage completed. aj1 13:51 Dilia Almanza, RN is Primary Nurse. ls4 14:12 EKG done, by bicycle repair technician. reviewed by Felix Hernandez MD. at1 14:22 Jerzy Quintana PA is PHCP. jm 14:22 Felix Hernandez MD is Attending Physician. jmm 14:27 Arm band placed on right wrist. ls4 14:28 Patient has correct armband on for positive identification. Fall risk band placed. Bed ls4 in low position. Call light in reach. Side rails up X 1. storage and backup administrator on. NIBP on. Warm blanket given. 15:18 XRAY Chest (1 view) In Process Unspecified. EDMS 15:29 No provider procedures requiring assistance completed. Inserted saline lock: 20 gauge ls4 in right antecubital area, using aseptic technique. Blood collected. Patient maintains SpO2 saturation greater than 95% on room air. 15:42 Basic Metabolic Panel Sent. ls4 15:42 CBC with Diff Sent. ls4 15:42 LFT's Sent. ls4 17:32 Occult Blood Sent. ls4 17:52 Bharat Hernandez MD is Hospitalizing Provider. jmm 17:57 EKG done, by bicycle repair technician. dt2 19:17 Patient admitted, IV remains in place. ak1 Administered Medications: 18:03 Drug: Magnesium 400 mg Route: PO; ls4 19:18 Follow up: Response: No adverse reaction ak1 Outcome: 17:53 Decision to Hospitalize by Provider. jmm 18:04 Condition: stable ls4 19:17 Instructed on the need for admit. ak1 19:51 Admitted to Tele accompanied by tech, via stretcher, room 409, with chart, Report bb called to Katlyn PLATT 20:14 Patient left the ED. ak1 Signatures: Dispatcher [employer] EDMS Yvonne Schaffer, RN RN Jerzy Cadena PA PA jmm Rivera, Mary mr Ballard, Brenda RN RN Judy Vargas, display designer outside EKG Tat1 Jenelle Castle RN RN ak1 Charleen Brown dt2 Dilia Almanza, RN RN ls4
--- NOTE | 2018-09-15 17:53 | EDPHYS ---
Physician Documentation [facility] Name: Vijaya Oneal Age: 73 yrs Sex: Female : 1945 Arrival Date: 09/15/2018 Time: 13:43 Bed 14 Private MD: Cally Servin M ED Physician Felix Hernandez HPI: 09/15 14:54 This 73 yrs old Female presents to ER via Wheelchair with complaints of jmm Weakness, cough. 14:54 The patient or guardian reports cough. Onset: The symptoms/episode began/occurred jmm gradually, 1 day(s) ago. This is a 73 year old female with a history of dm, htn, cirrhosis that presents to the ED complaints of cough, weakness, chest pain with cough, back pain beginning yesterday. Daughter states she has similar symptoms. Patient had cataract surgery this past Tuesday. . Historical: - Allergies: 13:47 PENICILLINS; aj1 - PMHx: 13:47 Anemia; Cirrhosis; Diabetes - NIDDM; Hypertension; neuropathy; aj1 - Immunization history:: Flu vaccine is not up to date. - Social history:: Smoking status: Patient/guardian denies using tobacco. - Ebola Screening: : Patient denies travel to an Ebola-affected area in the 21 days before illness onset. ROS: 14:54 Abdomen/GI: Negative for abdominal pain, nausea, vomiting, diarrhea, and constipation. jmm 14:54 Constitutional: Positive for body aches, fatigue. 14:54 Cardiovascular: Positive for chest pain, with cough. 14:54 Respiratory: Positive for cough, shortness of breath. 14:54 Neuro: Positive for weakness. 14:54 All other systems are negative. Exam: 14:54 Constitutional: This is a well developed, well nourished patient who is awake, alert, jmm and in no acute distress. Head/Face: atraumatic. Eyes: EOMI, no conjunctival erythema appreciated 14:54 ENT: Posterior pharynx: is normal. 14:54 Cardiovascular: Rate: normal, Rhythm: regular. 14:54 Respiratory: the patient does not display signs of respiratory distress, Respirations: normal, Breath sounds: are clear throughout. 14:54 Abdomen/GI: Inspection: abdomen appears normal, Bowel sounds: normal, Palpation: abdomen is soft and non-tender, in all quadrants, soft. 14:54 Back: ROM is normal. 14:54 Musculoskeletal/extremity: ROM: intact in all extremities. 14:54 Skin: Appearance: Color: normal in color. 14:54 Neuro: Orientation: is normal, Mentation: is normal, Memory: is normal. 14:54 Psych: Behavior/mood is pleasant, cooperative. Vital Signs: 13:47 BP 136 / 63; Pulse 99; Resp 18; Temp 97.7; Pulse Ox 98% on R/A; Weight 53.52 kg (R); aj1 Height 5 ft. 2 in. (157.48 cm) (R); 15:52 BP 133 / 59; Pulse 100; Resp 18; Temp 98.6(O); Pulse Ox 98% on R/A; Pain 3/10; ls4 19:50 BP 146 / 48; Pulse 89; Resp 18 S; Pulse Ox 97% on R/A; bb 13:47 Body Mass Index 21.58 (53.52 kg, 157.48 cm) aj1 MDM: 14:54 Patient medically screened. casandra 17:30 Data reviewed: vital signs, nurses notes. casandra 17:51 Data reviewed: lab test result(s), EKG, radiologic studies, plain films. Counseling: I casandra had a detailed discussion with the patient and/or guardian regarding: the historical points, exam findings, and any diagnostic results supporting the discharge/admit diagnosis, lab results, radiology results, the need for further work-up and treatment in the hospital. ED course: I discussed the patient with Dr. Hernandez whom requests admission with observation. . 09/15 14:56 Order name: Basic Metabolic Panel [facility] 09/15 14:56 Order name: CBC with Diff [facility] 09/15 14:56 Order name: LFT's [facility] 09/15 14:56 Order name: Magnesium; Complete Time: 16:03 [facility] 09/15 14:56 Order name: NT PRO-BNP; Complete Time: 16:03 [facility] 09/15 14:56 Order name: PT-INR; Complete Time: 16:18 [facility] 09/15 14:56 Order name: Troponin (emerg Dept Use Only); Complete Time: 16:03 [facility] 09/15 14:56 Order name: Procalcitonin; Complete Time: 16:18 [facility] 09/15 14:56 Order name: Blood Culture Adult (2) [facility] 09/15 14:56 Order name: Flu; Complete Time: 16:03 [facility] 09/15 14:57 Order name: Basic Metabolic Panel; Complete Time: 16:03 [facility] 09/15 14:57 Order name: CBC with Automated Diff; Complete Time: 17:05 [facility] 09/15 14:57 Order name: Liver (Hepatic) Function; Complete Time: 16:03 [facility] 09/15 16:09 Order name: CBC Smear Scan; Complete Time: 17:05 [facility] 09/15 14:56 Order name: XRAY Chest (1 view); Complete Time: 15:36 [facility] 09/15 14:56 Order name: EKG; Complete Time: 14:57 [facility] 09/15 14:56 Order name: Cardiac monitoring; Complete Time: 15:07 [facility] 09/15 14:56 Order name: EKG - Nurse/Tech; Complete Time: 15:07 [facility] 09/15 14:56 Order name: IV Saline Lock; Complete Time: 15:07 [facility] 09/15 14:56 Order name: Labs collected and sent; Complete Time: 15:07 [facility] 09/15 16:18 Order name: Occult Blood [facility] 09/15 17:32 Order name: EKG; Complete Time: 17:32 [facility] 09/15 17:38 Order name: Type And Screen [facility] 09/15 17:48 Order name: Retic Count; Complete Time: 19:52 [facility] 09/15 17:59 Order name: Heart Healthy [facility] 09/15 17:59 Order name: Basic Metabolic Panel [facility] 09/15 17:59 Order name: Basic Metabolic Panel [facility] 09/15 17:59 Order name: CBC with Automated Diff [facility] 09/15 17:59 Order name: CBC with Automated Diff [facility] 09/15 14:56 Order name: O2 Per Protocol; Complete Time: 15:07 [facility] 09/15 14:56 Order name: O2 Sat Monitoring; Complete Time: 15:41 [facility] Administered Medications: 18:03 Drug: Magnesium 400 mg Route: PO; ls4 19:18 Follow up: Response: No adverse reaction ak1 Disposition: 09/15/18 17:53 Hospitalization ordered by Bharat Hernandez for Observation. Preliminary diagnosis are Anemia, Acute upper respiratory infection, unspecified, Hypomagnesemia. - Bed requested for Telemetry/MedSurg (observation). - Status is Observation. ak1 - Condition is Stable. - Problem is an acute exacerbation. - Symptoms are unchanged. UTI on Admission? No Addendum: 09/18/2018 07:00 Co-signature as Attending Physician, Felix Hernandez MD I agree with the assessment and k dr plan of care. Signatures: Dispatcher [employer] EDMS Yvonne Schaffer RN RN aj1 Justa Tavera RN RN dw Felix Hernandez MD MD [facility] Jerzy Quintana PA PA m Jenelle Castle RN RN ak1 Dilia Almanza RN RN ls4 Corrections: (The following items were deleted from the chart) 09/15 15:13 14:54 This 73 yrs old Female presents to ER via Wheelchair with complaints of jmm Weakness. [facility] 18:21 17:53 Hospitalization Ordered by Bharat Hernandez MD for Observation. Preliminary diagnosis dw is Anemia; Acute upper respiratory infection, unspecified; Hypomagnesemia. Bed requested for Telemetry/MedSurg (observation). Status is Observation. Condition is Stable. Problem is an acute exacerbation. Symptoms are unchanged. UTI on Admission? No. [facility] 20:14 18:21 09/15/2018 17:53 Hospitalization Ordered by Bharat Hernandez MD for Observation. ak1 Preliminary diagnosis is Anemia; Acute upper respiratory infection, unspecified; Hypomagnesemia. Bed requested for Telemetry/MedSurg (observation). Status is Observation. Condition is Stable. Problem is an acute exacerbation. Symptoms are unchanged. UTI on Admission? No. dw
[2018-09-15] MEDS ORDERED: ACETAMINOPHEN 500 MG TAB PO PRN (17:55)
[2018-09-15] MEDS ORDERED: MAGNESIUM OXIDE 400 MG TAB ONE (18:12)
[2018-09-15 19:27] LABS: RBC Red Blood Cell Count 3.47 M/uL (3.86-4.86)
[2018-09-15 20:17] VITALS: BMI 19.9
[2018-09-15] MEDS: NA CHLORIDE 0.9% 1,000 ML IV SCH (20:34)
--- NOTE | 2018-09-15 23:14 | EKG ---
Test Date: 2018-09-15 Test Time: 17:32:11 Program Eligibility Specialist: SHANNEN MEASUREMENT RESULTS: Intervals: Rate: 89 PA: 156 QRSD: 74 QT: 368 QTc: 447 [place]: P: 40 PA: 156 QRS: 14 T: 31 INTERPRETIVE STATEMENTS: Sinus rhythm with premature atrial complexes Otherwise normal ECG Compared to ECG 09/15/2018 14:02:30 Atrial premature complex(es) now present Electronically Signed On 09-15-18 23:13:42 PULLING UNIT OPERATOR by Reese Knight
[2018-09-15 23:28] LABS: Urine Appearance CLEAR; Urine Bilirubin NEGATIVE (NEG); Urine Blood NEGATIVE (NEG); Urine Color YELLOW; Urine Glucose NEGATIVE (NEG); Urine Protein NEGATIVE (NEG); Urine Specific Gravity 1.015 (1.005-1.030)
[2018-09-15 23:36] LABS: Urine Microscopic Reflex NO UMIC
[2018-09-16] MEDS: NA CHLORIDE 0.9% 1,000 ML IV SCH (03:44)
[2018-09-16 06:16] LABS: BUN Blood Urea Nitrogen 12 mg/dL (7-18); Bicarbonate 26 mmol/L (21-32); Glucose Level 118 mg/dL (74-106); Potassium 3.8 mmol/L (3.5-5.1); Sodium Level 141 mmol/L (136-145)
[2018-09-16 06:31] LABS: Absolute Lymphocytes (CBC) 0.8 K/uL (0.7-4.9); Absolute Monocytes 0.4 K/uL (0.1-1.3); Absolute Neutrophil 1.9 K/uL (1.8-8.0); Basophils % 1.1 % (0-1.3); Lymphocytes % 24.5 % (15.3-44.8); MPV 8.5 fL (7.6-11.3); Monocytes % 10.7 % (3.3-12.3); RBC Red Blood Cell Count 3.34 M/uL (3.86-4.86)
[2018-09-16 06:36] LABS: Hematocrit 20.9 % (36.0-45.0)
[2018-09-16 08:31] LABS: RBC Red Blood Cell Count 3.4 M/uL (3.86-4.86)
[2018-09-16] MEDS ORDERED: INFLUENZA VACCINE (for 3y+) 0.5 ML DOSE IMVAC ONE (09:00)
[2018-09-16] MEDS ORDERED: NA CHLORIDE 0.9% 250 ML ONE (09:50)
[2018-09-16] MEDS ORDERED: D50W 25 GM/50 ML SYRINGE IV PRN (10:46)
[2018-09-16] MEDS ORDERED: GLUCAGON 1 MG/VIAL IM PRN (10:46)
[2018-09-16] MEDS ORDERED: LORATADINE 10 MG TAB PO PRN (10:47)
--- NOTE | 2018-09-16 10:56 | P.HP ---
Certification for Inpatient Patient admitted to: Inpatient With expected LOS: >2 Midnights Patient will require the following post-hospital care: None Practitioner: I am a practitioner with admitting privileges, knowledge of patient current condition, hospital course, and medical plan of care. 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 she has a pmh of cirrhosis and diabetes. The patient was feeling very weak, tired and back pain yesterday. She also has some congestion. Her daughter was recently suffering from similar symptoms. The patient was continuing to feel weak. She came to the ER. Was found to have a hb of 7.3 However it decreased to 6.8 this morning. She has been staying in the 8-9 range. She has not noticed any dark stool. Direct bilirubin is slightly high at 0.4 Reticulocyte count is very low at 0.05. She has an absolute reticulocyte production index of 0. Allergies Penicillins Allergy (Mild, Verified 09/15/18 21:23) Rash Home Medications: Gabapentin [Neurontin*] 400 mg PO BID 04/04/17 Omeprazole [Prilosec] 40 mg PO DAILY 04/04/17 Rifaximin [Xifaxan] 550 mg PO BID 04/04/17 Saxagliptin HCl/Metformin HCl [Kombiglyze Xr 2.5-1,000 mg Tab] 1 tab PO DAILY Glimepiride 2 mg PO DAILY 09/08/18 Prednisolone Gatifloxacin Bromfenac 1 drop OPTH QID 09/15/18 - Past Medical/Surgical History Has patient received pneumonia vaccine in the past: Yes Diabetic: Yes -: Anemia -: Cirrhosis -: DM NIDDM -: Nueropathy -: Hemorrhoids -: Esophageal Varices -: Gall Bladder SX -: Csection x 3 -: Tonsillectomy -: Tubes tied - Family History Mother -: Hypertension Brother -: Diabetes Sister -: Diabetes - Social History Smoking Status: Never smoker Alcohol use: No CD- Drugs: No Caffeine use: Yes Place of Residence: Home Review of Systems 10-point ROS is otherwise unremarkable General: Weakness, Malaise ENT: Nose Congestion Physical Examination - Vital Signs Temperature: 97.5 F Blood Pressure: 145/77 Pulse: 89 Respirations: 18 Pulse Ox (%): 98 - Physical Exam General: Alert, In no apparent distress, Other (\) HEENT: Atraumatic, PERRLA, Mucous membr. moist/pink, EOMI, Sclerae nonicteric Neck: Supple, 2+ carotid pulse no bruit, No LAD, Without JVD or thyroid abnormality Respiratory: Clear to auscultation bilaterally, Normal air movement Cardiovascular: Regular rate/rhythm, Normal S1 S2 Gastrointestinal: Normal bowel sounds, No tenderness Musculoskeletal: No tenderness Integumentary: No rashes Neurological: Normal gait, Normal speech, Normal strength at 5/5 x4 extr, Normal tone, Normal affect Lymphatics: No axilla or inguinal lymphadenopathy - Studies Laboratory Data (last 24 hrs) 09/15/18 15:17: PT 13.9 H, INR 1.18 09/15/18 15:17: WBC 4.2 L, Hgb 7.3 L*, Hct 23.0 L, Plt Count 86 L 09/15/18 15:17: Sodium 140, Potassium 4.1, BUN 12, Creatinine 0.82, Glucose 128 H, Magnesium 1.6 L, Total Bilirubin 0.7, AST 26, ALT 31, Alkaline Phosphatase 106 Microbiology Data (last 24 hrs): 09/15/18 15:17 Nasopharnyx Influenza Type A Antigen Screen - Final 09/15/18 15:17 Nasopharnyx Influenza Type B Antigen Screen - Final Assessment and Plan - Problems (Diagnosis) (1) Anemia Current Visit: No Status: Acute Plan: Will check a stool guiac. However she has a low bilirubin. Do not believe this is hemolytic. Rather low production. Will transfuse a unit. She does have a history of varices. However no active bleeding. Will consider an outpatient hemotology consult. 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 She sees Dr. Servin (3) Diabetes 1.5, managed as type 2 Current Visit: Yes Status: Acute Plan: will hold her home medications. Cover her with a sliding scale. Considering restart her medications tomorrow Discharge Plan: Home Plan to discharge in: 48 Hours - Advance Directives Does patient have a Living Will: Yes Does patient have a Durable POA for Healthcare: Yes - Code Status/Comfort Care Code Status Assessed: No Code Status: Full Code Physician Review: Patient Assessed, Agree with Above Assessment and Plan Critical Care: No Time Spent Managing Pts Care (In Minutes): 55
[2018-09-16] MEDS: INSULIN -REGULAR HUMAN 50 UNIT/0.5 ML ML SQ SCH ×3 (12:48→21:00)
[2018-09-16] MEDS: PANTOPRAZOLE 40MG TABLET PO SCH (12:49)
[2018-09-16] MEDS: GABAPENTIN 400 MG CAP PO SCH ×2 (12:49→22:15)
[2018-09-16] MEDS ORDERED: [UNRECOGNIZED DRUG - OTHER] OPTH SCH (13:00)
[2018-09-16 14:30] LABS: Hematocrit 24.8 % (36.0-45.0)
[2018-09-16] MEDS: ENOXAPARIN 30 MG/0.3 ML SQ SCH (16:42)
[2018-09-16] MEDS ORDERED: RIFAXIMIN 550 MG PO SCH (21:00)
[2018-09-17 06:03] LABS: Absolute Lymphocytes (CBC) 0.5 K/uL (0.7-4.9); Absolute Monocytes 0.4 K/uL (0.1-1.3); Absolute Neutrophil 3.3 K/uL (1.8-8.0); Basophils % 1.2 % (0-1.3); Eosinophils % 4.7 % (0-4.4); Hematocrit 24.7 % (36.0-45.0); Lymphocytes % 11.3 % (15.3-44.8); MPV 8.4 fL (7.6-11.3); Monocytes % 9.9 % (3.3-12.3); RBC Red Blood Cell Count 3.81 M/uL (3.86-4.86)
[2018-09-17 06:17] LABS: ALT/SGPT 33 U/L (12-78); AST/SGOT 36 U/L (15-37); Albumin 3.3 g/dL (3.4-5.0); Alkaline Phosphatase 94 U/L (45-117); BUN Blood Urea Nitrogen 12 mg/dL (7-18); Bicarbonate 27 mmol/L (21-32); Bilirubin Total 0.9 mg/dL (0.2-1.0); Glucose Level 146 mg/dL (74-106); Potassium 3.7 mmol/L (3.5-5.1); Protein, Total 7.7 g/dL (6.4-8.2); Sodium Level 140 mmol/L (136-145)
[2018-09-17] MEDS: INSULIN -REGULAR HUMAN 50 UNIT/0.5 ML ML SQ SCH ×4 (07:30→21:00)
[2018-09-17] MEDS: PANTOPRAZOLE 40MG TABLET PO SCH (08:06)
[2018-09-17] MEDS: GABAPENTIN 400 MG CAP PO SCH ×2 (08:06→22:05)
[2018-09-17] MEDS: FLUTICASONE 50MCG NASAL SPRAY NAS SCH (08:07)
[2018-09-17] MEDS ORDERED: HOME MED 1 EA UNK (Omeprazole [Prilosec] 40 MG) PO SCH (09:00)
--- NOTE | 2018-09-17 12:34 | P.PN ---
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 Subjective: Improving Review of Systems 10-point ROS is otherwise unremarkable Physical Examination - Vital Signs Temperature: 98.7 F Blood Pressure: 142/65 Pulse: 90 Respirations: 16 Pulse Ox (%): 95 - Physical Exam General: Alert, In no apparent distress HEENT: Atraumatic, PERRLA, EOMI Neck: Supple, JVD not distended Respiratory: Clear to auscultation bilaterally, Normal air movement Cardiovascular: Regular rate/rhythm, Normal S1 S2 Gastrointestinal: Normal bowel sounds, No tenderness Musculoskeletal: No tenderness Integumentary: No rashes Neurological: Normal speech, Normal tone, Normal affect Lymphatics: No axilla or inguinal lymphadenopathy Assessment & Plan - Problems (Diagnosis) (1) Anemia Current Visit: No Status: Acute Plan: Guiac negative. Hb Stable. Will keep her for another day. Start oral iron therapy. Will consider an outpatient hemotology consult. 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 She sees Dr. Servin (3) Diabetes 1.5, managed as type 2 Current Visit: Yes Status: Acute Plan: will hold her home medications. Cover her with a sliding scale. Considering restart her medications tomorrow Discharge Plan: Home Plan to discharge in: 24 Hours - Code Status/Comfort Care Code Status Assessed: No Code Status: Full Code Physician Review: Patient Assessed, Agree with Above Assessment and Plan Critical Care: No Time Spent Managing Pts Care (In Minutes): 20
[2018-09-17] MEDS: FERROUS GLUCONATE 300 MG TAB PO SCH (13:10)
[2018-09-17] MEDS: ENOXAPARIN 30 MG/0.3 ML SQ SCH (17:18)
[2018-09-18 04:01] VITALS: O2SAT 95
[2018-09-18 06:27] LABS: Absolute Lymphocytes (CBC) 0.9 K/uL (0.7-4.9); Absolute Monocytes 0.4 K/uL (0.1-1.3); Absolute Neutrophil 1.7 K/uL (1.8-8.0); Basophils % 1.3 % (0-1.3); Eosinophils % 6.5 % (0-4.4); Lymphocytes % 26.9 % (15.3-44.8); MPV 8.7 fL (7.6-11.3); Monocytes % 13.2 % (3.3-12.3); RBC Red Blood Cell Count 3.66 M/uL (3.86-4.86)
[2018-09-18 06:30] LABS: ALT/SGPT 38 U/L (12-78); AST/SGOT 37 U/L (15-37); Alkaline Phosphatase 94 U/L (45-117); BUN Blood Urea Nitrogen 13 mg/dL (7-18); Bicarbonate 26 mmol/L (21-32); Bilirubin Total 0.7 mg/dL (0.2-1.0); Glucose Level 145 mg/dL (74-106); Potassium 3.7 mmol/L (3.5-5.1); Protein, Total 7.3 g/dL (6.4-8.2); Sodium Level 141 mmol/L (136-145)
[2018-09-18] MEDS: INSULIN -REGULAR HUMAN 50 UNIT/0.5 ML ML SQ SCH ×3 (07:30→16:15)
[2018-09-18 08:01] LABS: Platelet Estimate DECR; Urine White Blood Cell Casts OK
[2018-09-18 08:02] LABS: Anisocytosis 2+; Blood Morphology Comment NOTED (NOT SEEN); Hypochromasia 1+
[2018-09-18] MEDS: FERROUS GLUCONATE 300 MG TAB PO SCH (08:39)
[2018-09-18] MEDS: GABAPENTIN 400 MG CAP PO SCH (08:39)
[2018-09-18] MEDS: PANTOPRAZOLE 40MG TABLET PO SCH (08:40)
[2018-09-18] MEDS: FLUTICASONE 50MCG NASAL SPRAY NAS SCH (08:40)
--- NOTE | 2018-09-18 09:07 | P.PN ---
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 No symptoms this morning) Review of Systems 10-point ROS is otherwise unremarkable Physical Examination - Vital Signs Temperature: 97 F Blood Pressure: 132/63 Pulse: 79 Respirations: 18 Pulse Ox (%): 96 - Physical Exam General: Alert, In no apparent distress HEENT: Atraumatic, PERRLA, EOMI Neck: Supple, JVD not distended Respiratory: Clear to auscultation bilaterally, Normal air movement Cardiovascular: Regular rate/rhythm, Normal S1 S2 Gastrointestinal: Normal bowel sounds, No tenderness Musculoskeletal: No tenderness Integumentary: No rashes Neurological: Normal speech, Normal tone, Normal affect Lymphatics: No axilla or inguinal lymphadenopathy Assessment & Plan - Problems (Diagnosis) (1) Anemia Current Visit: No Status: Acute Plan: Guiac negative. Hb Stable. Will keep her for another day. Start oral iron therapy. Recheck her hb/hct at noon. If there is no significant decrease. Will discharge her on oral therapy. Have her follow up with Dr. 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 She sees Dr. Servin (3) Diabetes 1.5, managed as type 2 Current Visit: Yes Status: Acute Plan: Restart her home medications. Discharge Plan: Home Plan to discharge in: 24 Hours - Code Status/Comfort Care Code Status Assessed: No Physician Review: Patient Assessed, Agree with Above Assessment and Plan Critical Care: No Time Spent Managing Pts Care (In Minutes): 20
[2018-09-18 12:22] LABS: Hematocrit 24.8 % (36.0-45.0)
[2018-09-18 12:32] VITALS: BP 119/56; TEMP 97.2
--- NOTE | 2018-09-18 14:37 | P.DS ---
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 she has a pmh of cirrhosis and diabetes. The patient was feeling very weak, tired and back pain yesterday. She also has some congestion. Her daughter was recently suffering from similar symptoms. The patient was continuing to feel weak. She came to the ER. Was found to have a hb of 7.3 However it decreased to 6.8 this morning. She has been staying in the 8-9 range. She has not noticed any dark stool. Direct bilirubin is slightly high at 0.4 Reticulocyte count is very low at 0.05. She has an absolute reticulocyte production index of 0. Hospital Course: Patient was admitted transfused a unit of blood. Negative guiac. Spoke with her PCP Rina Martínez NP, who states that 8 is a good hb for her. The patient hb stayed stable. Will have her also follow up with Dr Servin Vital Signs/Physical Exam: Temp Pulse Resp BP Pulse Ox 97.2 F 84 18 119/56 L 94 09/18/18 12:00 09/18/18 12:00 09/18/18 12:00 09/18/18 12:00 09/18/18 12:00 General: Alert, In no apparent distress HEENT: Atraumatic, PERRLA, EOMI Neck: Supple, JVD not distended Respiratory: Clear to auscultation bilaterally, Normal air movement Cardiovascular: Regular rate/rhythm, Normal S1 S2 Gastrointestinal: Normal bowel sounds, No tenderness Musculoskeletal: No tenderness Integumentary: No rashes Neurological: Normal speech, Normal tone, Normal affect Lymphatics: No axilla or inguinal lymphadenopathy Laboratory Data at Discharge: WBC 3.3 K/uL (4.3-10.9) L D 09/18/18 05:41 Hgb 8.1 g/dL (12.0-15.0) L 09/18/18 12:00 Hct 24.8 % (36.0-45.0) L 09/18/18 12:00 Plt Count 85 K/uL (152-406) L 09/18/18 05:41 PT 13.9 SECONDS (9.5-12.5) H 09/15/18 15:17 INR 1.18 09/15/18 15:17 Sodium 141 mmol/L (136-145) 09/18/18 05:41 Potassium 3.7 mmol/L (3.5-5.1) 09/18/18 05:41 BUN 13 mg/dL (7-18) 09/18/18 05:41 Creatinine 0.54 mg/dL (0.55-1.3) L 09/18/18 05:41 Glucose 145 mg/dL (74-106) H 09/18/18 05:41 Magnesium 1.6 mg/dL (1.8-2.4) L 09/15/18 15:17 Total Bilirubin 0.7 mg/dL (0.2-1.0) 09/18/18 05:41 AST 37 U/L (15-37) 09/18/18 05:41 ALT 38 U/L (12-78) 09/18/18 05:41 Alkaline Phosphatase 94 U/L (45-117) 09/18/18 05:41 Home Medications: Gabapentin [Neurontin*] 400 mg PO BID 04/04/17 Omeprazole [Prilosec] 40 mg PO DAILY 04/04/17 Rifaximin [Xifaxan] 550 mg PO BID 04/04/17 Saxagliptin HCl/Metformin HCl [Kombiglyze Xr 2.5-1,000 mg Tab] 1 tab PO DAILY Glimepiride 2 mg PO DAILY 09/08/18 Prednisolone Gatifloxacin Bromfenac 1 drop OPTH QID 09/15/18 Ferrous Gluconate 240 mg PO DAILY 90 Days #90 tablet 09/18/18 New Medications: Ferrous Gluconate 240 mg PO DAILY 90 Days #90 tablet Diet: [place] Activity: Ad vikash Followup: Yuly Martínez, PERCUSSION TEACHER [ALLIED HEALTH PROFESSIONAL] - 1-2 Weeks Cally Servin MD [Primary Care Provider] - 1 Week Time spent managing pt's care (in minutes): 35
[2018-09-18] MEDS: ENOXAPARIN 30 MG/0.3 ML SQ SCH (16:18)
[2018-09-19] MEDS ORDERED: GLIMEPIRIDE 2 MG TABLET PO SCH (08:00)
[2018-09-19] MEDS ORDERED: METFORMIN HCL PO SCH (09:00)
[2018-09-19] MEDS ORDERED: SAXAGLIPTIN HCL PO SCH (09:00)
[2018-09-19] MEDS ORDERED: [UNRECOGNIZED DRUG - OTHER] PO SCH (09:00)
== END 2018-09-18 16:35 | disposition home or self-care (01) ==
LOC: ER 13:39 → ERHOLD 17:54 → 4TH 19:55
PROVIDERS: ADMIT Internal Medicine; ATTEND Internal Medicine
DX: D61.9 Aplastic anemia, unspecified (principal); K75.81 Nonalcoholic steatohepatitis (NASH); E13.9 Other specified diabetes mellitus without complications; Z88.0 Allergy status to penicillin
CPT/HCPCS: 36415 ×3; 36430; 71045; 80048 ×2; 80053 ×2; 80076; 81003; 82274; 82728; 82962 ×12; 83735; 83880; 84145; 84466; 84484; 85014 ×2; 85018 ×2; 85025 ×4; 85044 ×2; 85610; 86850; 86900; 86901; 87040 ×2; 87804 ×2; 93005 ×2; 99285; J1650 ×2; J7030 ×3; P9016

== ENCOUNTER 2019-01-16 18:46 | Emergency (ER) | payer OTHER ==
--- OUTSIDE RECORDS SUMMARY | 2019-01-16 18:47 | XMS REPORT ---
:1945 [facility] Address [address] [place] [address] Dr. Villa [address] [place] [id number] Care Team Providers Name Role Phone KEEADÁNEfrain [...] Reference Range Comments MARCO TITER (BEAKER) (test fnxk=4793) >=:2560 MARCO PATTERN (BEAKER) (test yviu=3089) Homogeneous ANTI-NUCLEAR ANTIBODY (MARCO)2016-11-29 15:08:00 Test Item Value Reference Range Comments ANTI-NUCLEAR ANTIBODY (MARCO) (BEAKER) (test Positive Negative ebhr=456) [id number] 14:16:00 Test Item Value Reference Range Comments THYROID STIMULATING HORMONE (BEAKER) (test 2.05 uIU/mL 0.35-4.94 zbzf=994) [id number] 14:00:00 Test Item Value Reference Range Comments FERRITIN (BEAKER) (test ffza=334) 8 ng/mL 5-275 Effective 07/02/2014: Reference Range ChangeNew: Male 5-275 Previous: Male 22-322 Female 5-275 Female 10-291CBC W/PLT COUNT & AUTO [id number] 13:04:00 Test Item Value Reference Range Comments WHITE BLOOD CELL COUNT (BEAKER) (test lhbu=628) 6.0 K/ L 4.0-10.0 RED BLOOD CELL COUNT (BEAKER) (test lkpg=530) 3.28 M/ L 4.00-5.00 HEMOGLOBIN (BEAKER) (test zpjm=281) 7.4 GM/DL 12.0-15.0 HEMATOCRIT (BEAKER) (test mslm=351) 21.4 % 36.0-45.0 MEAN CORPUSCULAR VOLUME (BEAKER) (test jhlr=576) 65.0 fL 82.0-99.0 MEAN CORPUSCULAR HEMOGLOBIN (BEAKER) (test 22.5 pg 27.0-33.0 ncrm=361) MEAN CORPUSCULAR HEMOGLOBIN CONC (BEAKER) (test 34.6 GM/DL 32.0-36.0 aygn=523) RED CELL DISTRIBUTION WIDTH (BEAKER) (test 18.1 % 10.3-14.2 aemm=676) PLATELET COUNT (BEAKER) (test ifhp=439) 128 K/CU MM 150-430 MEAN PLATELET VOLUME (BEAKER) (test yftz=531) 5.6 fL 6.5-10.5 NUCLEATED RED BLOOD CELLS (BEAKER) (test 0 /100 WBC 0-0 dtmt=413) NEUTROPHILS RELATIVE PERCENT (BEAKER) (test 77 % vmsh=488) LYMPHOCYTES RELATIVE PERCENT (BEAKER) (test 13 % tilu=773) MONOCYTES RELATIVE PERCENT (BEAKER) (test 8 % pewa=461) EOSINOPHILS RELATIVE PERCENT (BEAKER) (test 2 % mqev=909) BASOPHILS RELATIVE PERCENT (BEAKER) (test 0 % gxao=778) NEUTROPHILS ABSOLUTE COUNT (BEAKER) (test 4.56 K/ L 1.80-8.00 doaz=378) LYMPHOCYTES ABSOLUTE COUNT (BEAKER) (test 0.79 K/ L 1.48-4.50 dybb=023) MONOCYTES ABSOLUTE COUNT (BEAKER) (test 0.46 K/ L 0.00-1.30 sdva=610) EOSINOPHILS ABSOLUTE COUNT (BEAKER) (test 0.12 K/ L 0.00-0.50 iwqn=786) BASOPHILS ABSOLUTE COUNT (BEAKER) (test 0.03 K/ L 0.00-0.20 tlay=537) 0.00ALPHA FETOPROTEIN (AFP), TUMOR [id number] 12:58:00 Test Item Value Reference Range Comments ALPHA-FETOPROTEIN (BEAKER) (test wcnw=4038) < ng/mL <10.0 Effective 07/02/2014: Reference Range ChangeNew: <10.0 Previous: 0.0- 8.0HEPATITIS B SURFACE [id number] 12:57:00 Test Item Value Reference Range Comments HEPATITIS B SURFACE ANTIGEN (2) (BEAKER) (test Nonreactive Nonreactive ytus=2999) HEPATITIS C [id number] 12:57:00 Test Item Value Reference Range Comments HEPATITIS C ANTIBODY (BEAKER) (test rdhy=023) Nonreactive Nonreactive HEPATITIS B SURFACE [id number] 12:57:00 Test Item Value Reference Range Comments HEPATITIS B SURFACE ANTIBODY (BEAKER) (test < mIU/mL <8.0 lled=813) HEPATITIS A ANTIBODY, [id number] 12:57:00 Test Item Value Reference Range Comments HEPATITIS A IGG ANTIBODY (BEAKER) (test pgnw=9400) Reactive Nonreactive IMMUNOGLOBULIN G (IGG)2016-11-24 12:55:00 Test Item Value Reference Range Comments IMMUNOGLOBULIN G (IGG) (BEAKER) (test spka=733) 1397 mg/dL 540-1822 IRON, TIBC, % SAT. (WITHOUT FERRITIN)2016-11-24 12:55:00 Test Item Value Reference Range Comments IRON (BEAKER) (test wmht=833) 23 ug/dL 40-160 TOTAL IRON BINDING CAPACITY (BEAKER) (test 429 ug/dL 250-450 loyk=310) IRON % SATURATION (2) (BEAKER) (test usdx=1636) 5 % 20-55 HEPATITIS A ANTIBODY, [id number] 12:54:00 Test Item Value Reference Range Comments HEPATITIS A IGM ANTIBODY (BEAKER) (test Nonreactive Nonreactive jxmy=651) HEPATITIS B CORE ANTIBODY, [id number] 12:54:00 Test Item Value Reference Range Comments HEPATITIS B CORE TOTAL ANTIBODY (BEAKER) (test Nonreactive Nonreactive tajd=290) COMPREHENSIVE METABOLIC [id number] 12:25:00 Test Item Value Reference Range Comments TOTAL PROTEIN (BEAKER) 8.4 gm/dL 6.0-8.3 (test cmxa=806) ALBUMIN (BEAKER) (test 4.0 g/dL 3.5-5.0 tygj=9360) ALKALINE PHOSPHATASE 100 U/L 40-150 (BEAKER) (test lvls=658) BILIRUBIN TOTAL (BEAKER) 0.9 mg/dL 0.2-1.2 (test agcy=974) SODIUM (BEAKER) (test 135 meq/L 136-145 tkjp=234) POTASSIUM (BEAKER) (test 4.1 meq/L 3.5-5.1 nqkq=224) CHLORIDE (BEAKER) (test 101 meq/L 98-107 azqq=705) CO2 (BEAKER) (test 19 meq/L 22-29 hcvt=182) BLOOD UREA NITROGEN 16 mg/dL 7-21 (BEAKER) (test nojr=780) CREATININE (BEAKER) (test 0.74 mg/dL 0.57-1.25 jfip=928) GLUCOSE RANDOM (BEAKER) 138 mg/dL 70-105 (test dvmy=420) CALCIUM (BEAKER) (test 9.7 mg/dL 8.4-10.2 xevx=196) AST (SGOT) (BEAKER) (test 33 U/L 5-34 pgkb=366) ALT (SGPT) (BEAKER) (test 29 U/L 6-55 wkui=187) EGFR (BEAKER) (test 77 mL/min/1.73 sq m ESTIMATED GFR IS NOT ddfd=1814) ACCURATE CREATININE CLEARANCE IN PREDICTING GLOMERULAR FILTRATION RATE. ESTIMATED GFR IS NOT APPLICABLE FOR DIALYSIS PATIENTS. BILIRUBIN, [id number] 12:25:00 Test Item Value Reference Range Comments BILIRUBIN DIRECT (BEAKER) (test lqao=449) 0.5 mg/dL 0.1-0.5 PROTHROMBIN [id number] 12:15:00 Test Item Value Reference Range Comments PROTIME (BEAKER) (test bqbu=666) 14.3 seconds 11.7-14.7 INR (BEAKER) (test asam=882) 1.1 <=5.9 RECOMMENDED COUMADIN/WARFARIN INR THERAPY RANGESSTANDARD DOSE: 2.0 - 3.0 Includes: PROPHYLAXIS forvenous thrombosis, systemic embolization; TREATMENT for venous thrombosis and/or pulmonary embolus.HIGH RISK: Target INR is 2.5-3.5 for patients with mechanical heart valves.[id number] 11:49:00 Test Item Value Reference Range Comments POC-CREATININE (BEAKER) 0.5 mg/dL 0.6-1.3 TESTED AT [facility] 6720 (test jjzl=6241) [facility] [address] POC-EGFR (BEAKER) (test 121 mL/min/1.73M2 ahtn=2862)
--- OUTSIDE RECORDS SUMMARY | 2019-01-16 18:47 | XMS REPORT | Clinical Summary ---
:1945 Author Organization [facility] Address [address] [place] [address] Care Team Providers Name Role Phone Unavailable [...] INFLUENZA VACCINE 05/15/2018 Results Not on fileafter 01/15/2018 Insurance Payer Benefit Plan / Group Subscriber ID Type Phone Address MEDICARE MEDICARE A B xxxxxxxxxx Medicare MEDICAID MEDICAID [facility] xxxxxxxxx Medicaid
[2019-01-16 20:58] LABS: Absolute Lymphocytes (CBC) 0.7 K/uL (0.7-4.9); Absolute Monocytes 0.4 K/uL (0.1-1.3); Absolute Neutrophil 2.2 K/uL (1.8-8.0); Basophils % 0.8 % (0-1.3); Eosinophils % 5.8 % (0-4.4); Lymphocytes % 19.6 % (15.3-44.8); MPV 8.6 fL (7.6-11.3); Monocytes % 10.9 % (3.3-12.3); RBC Red Blood Cell Count 3.24 M/uL (3.86-4.86)
[2019-01-16 21:07] LABS: Albumin 3.2 g/dL (3.4-5.0); Bilirubin Direct 0.3 mg/dL (0-0.2); Bilirubin Total 0.6 mg/dL (0.2-1.0); Potassium 4.5 mmol/L (3.5-5.1); Protein, Total 7.9 g/dL (6.4-8.2)
[2019-01-16] MEDS ORDERED: OCTREOTIDE ACETATE 100 MCG/ML ONE ×2 (21:28→22:23)
[2019-01-16 21:55] LABS: Protime INR 1.12
[2019-01-16] MEDS ORDERED: NA CHLORIDE 0.9% 500 ML ONE ×2 (22:23→23:19)
[2019-01-16 22:57] LABS: Anisocytosis 1+; Blood Morphology Comment NOTED (NOT SEEN); Platelet Estimate DECR; Urine White Blood Cell Casts OK
--- NOTE | 2019-01-16 23:25 | EDPHYS ---
Physician Documentation [facility] Name: Vijaya Oneal Age: 73 yrs Sex: Female : 1945 Arrival Date: 01/16/2019 Time: 18:54 Bed 6 Private MD: Bharat Hernandez ED Physician Tonny Cardenas HPI: 01/16 23:20 This 73 yrs old Female presents to ER via Wheelchair with complaints of Rectal gs Bleeding. 23:20 The patient presents to the emergency department with bleeding from the rectum/anus, gs that is moderate. Onset: The symptoms/episode began/occurred today. Context: the patient has no known special context relating to the rectal area complaint(s). Modifying factors: The symptoms are alleviated by nothing, The symptoms are aggravated by nothing. Associate signs and symptoms: Pertinent positives: lower GI bleeding, bright red, Pertinent negatives: abdominal pain, constipation. The patient has experienced similar episodes in the past, a few times. The patient has not recently seen a physician. Historical: - Allergies: 19:10 PENICILLINS; lp1 - PMHx: 19:10 Anemia; Cirrhosis; Diabetes - NIDDM; Hypertension; neuropathy; lp1 - PSHx: 19:10 Cholecystectomy; ; Tonsillectomy; lp1 - Immunization history:: Adult Immunizations up to date. - Social history:: Smoking status: Patient/guardian denies using tobacco. - Ebola Screening: : No symptoms or risks identified at this time. ROS: 23:20 All other systems are negative. gs Exam: 23:20 Head/Face: Normocephalic, atraumatic. Eyes: Pupils equal round and reactive to light, gs extra-ocular motions intact. Lids and lashes normal. Conjunctiva and sclera are non-icteric and not injected. Cornea within normal limits. Periorbital areas with no swelling, redness, or edema. ENT: Nares patent. No nasal discharge, no septal abnormalities noted. Tympanic membranes are normal and external auditory canals are clear. Oropharynx with no redness, swelling, or masses, exudates, or evidence of obstruction, uvula midline. Mucous membranes moist. Neck: Trachea midline, no thyromegaly or masses palpated, and no cervical lymphadenopathy. Supple, full range of motion without nuchal rigidity, or vertebral point tenderness. No Meningismus. Chest/axilla: Normal chest wall appearance and motion. Nontender with no deformity. No lesions are appreciated. Cardiovascular: Regular rate and rhythm with a normal S1 and S2. No gallops, murmurs, or rubs. Normal PMI, no JVD. No pulse deficits. Respiratory: Lungs have equal breath sounds bilaterally, clear to auscultation and percussion. No rales, rhonchi or wheezes noted. No increased work of breathing, no retractions or nasal flaring. Back: No spinal tenderness. No costovertebral tenderness. Full range of motion. Skin: Warm, dry with normal turgor. Normal color with no rashes, no lesions, and no evidence of cellulitis. MS/ Extremity: Pulses equal, no cyanosis. Neurovascular intact. Full, normal range of motion. Neuro: Awake and alert, GCS 15, oriented to person, place, time, and situation. Cranial nerves II-XII grossly intact. Motor strength 5/5 in all extremities. Sensory grossly intact. Cerebellar exam normal. Normal gait. 23:20 Constitutional: The patient appears alert, awake, pale. 23:20 Abdomen/GI: Palpation: abdomen is soft and non-tender, in all quadrants, Rectal exam: Stool: grossly bloody, hemorrhoid(s), external, without bleeding, SMALL ANAL FISSURE NOT BLEEDING. Vital Signs: 19:09 BP 145 / 74; Pulse 97; Resp 18; Temp 98(O); Pulse Ox 98% on R/A; Weight 53.52 kg; lp1 Height 5 ft. 2 in. (157.48 cm); Pain 0/10; 20:00 BP 141 / 59; Pulse 86; Resp 17; Pulse Ox 100% on R/A; rr5 21:00 BP 125 / 66; Pulse 90; Resp 17; Pulse Ox 99% on R/A; Pain 0/10; rr5 22:00 BP 129 / 66; Pulse 79; Resp 18; Pulse Ox 100% on R/A; ea 23:35 BP 123 / 73; Pulse 92; Resp 18; Temp 98.2; Pulse Ox 100% on R/A; ea 06/05 00:55 BP 124 / 75; Pulse 83; Resp 17; Temp 97.6; Pulse Ox 100% on R/A; ea 01:15 BP 124 / 70; Pulse 80; Resp 18; Pulse Ox 98% ; ea 01/16 19:09 Body Mass Index 21.58 (53.52 kg, 157.48 cm) lp1 MDM: 01/16 21:03 Patient medically screened. 23:20 Differential diagnosis: hemorrhoids, fissure, DIVERTICULAR BLEED. Data reviewed: vital gs signs, nurses notes, lab test result(s), EKG, radiologic studies. Counseling: I had a detailed discussion with the patient and/or guardian regarding: the historical points, exam findings, and any diagnostic results supporting the discharge/admit diagnosis, the need to transfer to another facility. Response to treatment: the patient's symptoms have mildly improved after treatment. 01/16 20:13 Order name: Basic Metabolic Panel; Complete Time: 21:57 01/16 20:13 Order name: CBC with Diff; Complete Time: 23:12 01/16 20:13 Order name: Creatinine for Radiology; Complete Time: 21:57 01/16 20:13 Order name: Hepatic Function; Complete Time: 21:57 01/16 20:13 Order name: Lipase; Complete Time: 21:57 01/16 21:05 Order name: Type And Screen 01/16 21:05 Order name: PT-INR; Complete Time: 22:37 01/16 21:05 Order name: Ptt, Activated; Complete Time: 22:37 01/16 22:34 Order name: Packed RBC Leukored [facility] 01/16 22:54 Order name: AMMONIA 01/16 22:58 Order name: CBC Smear Scan; Complete Time: 23:12 [facility] 01/16 20:13 Order name: IV Saline Lock; Complete Time: 20:42 01/16 20:13 Order name: Labs collected and sent; Complete Time: 20:42 01/16 23:25 Order name: EKG - Nurse/Tech; Complete Time: 23:55 Administered Medications: 21:36 Drug: Octreotide 50 mcg Route: IV; Rate: calculated rate; Site: right forearm; ea 22:00 Follow up: Response: No adverse reaction; IV Status: Completed infusion ea 22:20 Drug: Octreotide Infusion (50 mcg/hr) - (Octreotide 500 mcg, NS 0.9% 500 ml) Route: IV; ea Rate: 50 ml/hr; Site: right forearm; 01/17 01:30 Follow up: Response: No adverse reaction; IV Status: Infusion continued upon transfer ea Disposition: 01/16/19 23:24 Transfer ordered to [facility]. Diagnosis is Gastrointestinal hemorrhage, unspecified. - Reason for transfer: Higher level of care. - Accepting physician is HEMA. - Condition is Stable. - Problem is an acute exacerbation. - Symptoms have improved. Critical care time excluding procedures: 01/16 23:20 Critical care time: Bedside Care: 10 minutes, Consultation: 10 minutes, Family gs Intervention: 10 minutes. Total time: 30 minutes Signatures: Dispatcher [employer] EDMS Pema Gtz RN RN Madeline Vasques RN RN lp1 Kylee Sewell RN RN ea Starr, Gregory, MD MD gs Corrections: (The following items were deleted from the chart) 22:33 22:01 PACKED RBC LEUKORED -1+BB.LAB.BRZ ordered. EDID EDMS 22:33 22:01 ABO/RH typing ordered. EDID EDMS 22:33 22:01 Antibody Screen ordered. EDID EDMS 01/17 01:53 01/16 23:24 01/16/2019 23:24 Transfer ordered to [facility]. ea Diagnosis is Gastrointestinal hemorrhage, unspecified. Reason for transfer: Higher level of care. Accepting physician is HEMA. Condition is Stable. Problem is an acute exacerbation. Symptoms have improved. gs
--- NOTE | 2019-01-16 23:25 | ER ---
Nurse's Notes [facility] Name: Vijaya Oneal Age: 73 yrs Sex: Female : 1945 Arrival Date: 01/16/2019 Time: 18:54 Bed 6 Private MD: Bharat Hernandez Diagnosis: Gastrointestinal hemorrhage, unspecified Presentation: 01/16 19:08 Presenting complaint: Patient states: Rectal bleeding that began about 1700 with dark lp1 brown and bright red clots; States feeling like needing to have BM but only blood, denies any pain; Hx of cirrhosis. Transition of care: patient was not received from another setting of care. Onset of symptoms was January 16, 2019 at 17:00. Risk Assessment: Do you want to hurt yourself or someone else? Patient reports no desire to harm self or others. Initial Sepsis Screen: Does the patient meet any 2 criteria? No. Patient's initial sepsis screen is negative. Does the patient have a suspected source of infection? No. Patient's initial sepsis screen is negative. Care prior to arrival: None. 19:08 Method Of Arrival: Wheelchair lp1 19:08 Acuity: NELLY 3 lp1 Historical: - Allergies: 19:10 PENICILLINS; lp1 - PMHx: 19:10 Anemia; Cirrhosis; Diabetes - NIDDM; Hypertension; neuropathy; lp1 - PSHx: 19:10 Cholecystectomy; ; Tonsillectomy; lp1 - Immunization history:: Adult Immunizations up to date. - Social history:: Smoking status: Patient/guardian denies using tobacco. - Ebola Screening: : No symptoms or risks identified at this time. Screenin:58 Abuse screen: Denies threats or abuse. Denies injuries from another. Nutritional rr5 screening: No deficits noted. Tuberculosis screening: No symptoms or risk factors identified. Fall Risk IV access (20 points). Total Chery Fall Scale indicates No Risk (0-24 pts). Assessment: 19:20 General: Appears in no apparent distress. comfortable, Behavior is calm, cooperative, rr5 appropriate for age. 19:20 Pain: Denies pain. Neuro: Level of Consciousness is awake, alert, obeys commands, rr5 Oriented to person, place, time, situation, Appropriate for age. Cardiovascular: Capillary refill < 3 seconds Patient's skin is warm and dry. Respiratory: Airway is patent Respiratory effort is even, unlabored, Respiratory pattern is regular, symmetrical. GI: Abdomen is distended, Reports bloating, bloody stool. : No signs and/or symptoms were reported regarding the genitourinary system. EENT: No signs and/or symptoms were reported regarding the EENT system. Derm: Skin is intact, Skin temperature is warm. Musculoskeletal: Capillary refill < 3 seconds, Range of motion: intact in all extremities. 20:20 Reassessment: Patient appears in no apparent distress at this time. No changes from rr5 previously documented assessment. awaiting for provider charge nurse aware. 21:00 Reassessment: Patient appears in no apparent distress at this time. No changes from rr5 previously documented assessment. Patient is alert, oriented x 3, equal unlabored respirations, skin warm/dry/pink. seen and examined by provider with order made and carried out. 21:36 Reassessment: Patient is alert, oriented x 3, equal unlabored respirations, skin ea warm/dry/pink. Awaiting on lab results. 22:00 Reassessment: Patient and/or family updated on plan of care and expected duration. Pain ea level reassessed. Patient is alert, oriented x 3, equal unlabored respirations, skin warm/dry/pink. 23:00 Reassessment: Patient and/or family updated on plan of care and expected duration. Pain ea level reassessed. Patient is alert, oriented x 3, equal unlabored respirations, skin warm/dry/pink. 23:56 Reassessment: Report called to [facility] at [facility]. ea 01/17 00:00 Reassessment: Patient and/or family updated on plan of care and expected duration. Pain ea level reassessed. Patient is alert, oriented x 3, equal unlabored respirations, skin warm/dry/pink. 01:30 Reassessment: Patient and/or family updated on plan of care and expected duration. Pain ea level reassessed. Patient is alert, oriented x 3, equal unlabored respirations, skin warm/dry/pink. [facility] at facility for transfer, report given to EMS. Pt taken via stretcher per EMS with IV medications and blood transfusion, pt tolerating well. Vital Signs: 01/16 19:09 BP 145 / 74; Pulse 97; Resp 18; Temp 98(O); Pulse Ox 98% on R/A; Weight 53.52 kg; lp1 Height 5 ft. 2 in. (157.48 cm); Pain 0/10; 20:00 BP 141 / 59; Pulse 86; Resp 17; Pulse Ox 100% on R/A; rr5 21:00 BP 125 / 66; Pulse 90; Resp 17; Pulse Ox 99% on R/A; Pain 0/10; rr5 22:00 BP 129 / 66; Pulse 79; Resp 18; Pulse Ox 100% on R/A; ea 23:35 BP 123 / 73; Pulse 92; Resp 18; Temp 98.2; Pulse Ox 100% on R/A; ea 01/17 00:55 BP 124 / 75; Pulse 83; Resp 17; Temp 97.6; Pulse Ox 100% on R/A; ea 01:15 BP 124 / 70; Pulse 80; Resp 18; Pulse Ox 98% ; ea 01/16 19:09 Body Mass Index 21.58 (53.52 kg, 157.48 cm) lp1 ED Course: 01/16 18:54 Patient arrived in ED. mr 18:54 Bharat Hernandez MD is Private Physician. mr 19:09 Triage completed. lp1 19:09 Arm band placed on right wrist. lp1 19:35 Herminio Bui RN is Primary Nurse. rr5 20:30 Inserted saline lock: 20 gauge in right forearm, using aseptic technique. Blood rr5 collected. 20:35 Tonny Cardenas MD is Attending Physician. gs 21:08 Notified ED physician of a critical lab result(s). HGB of 7.2 Dr Cardenas notified. bb 22:00 Patient has correct armband on for positive identification. Placed in gown. Bed in low ea position. Call light in reach. Side rails up X2. 23:21 Inserted saline lock: 22 gauge in left forearm, using aseptic technique. bb 01/17 01:49 No provider procedures requiring assistance completed. Patient transferred, IV remains ea in place. Administered Medications: 01/16 21:36 Drug: Octreotide 50 mcg Route: IV; Rate: calculated rate; Site: right forearm; ea 22:00 Follow up: Response: No adverse reaction; IV Status: Completed infusion ea 22:20 Drug: Octreotide Infusion (50 mcg/hr) - (Octreotide 500 mcg, NS 0.9% 500 ml) Route: IV; ea Rate: 50 ml/hr; Site: right forearm; 01/17 01:30 Follow up: Response: No adverse reaction; IV Status: Infusion continued upon transfer ea Outcome: 01/16 23:24 ER care complete, transfer ordered by . 01/17 00:00 Instructed on the need for admit. ea 01:30 Transferred by ground EMS to [facility], Transfer form completed. ea 01:30 Condition: stable 01:53 Patient left the ED. ea Signatures: Mary Ivey mr GtzPema, RN RN bb Madeline Wetzel, RN RN lp1 Kylee Sewell RN RN Tonny Vazquez MD MD gs Roque, Raymond RN RN rr5 Corrections: (The following items were deleted from the chart) 01:49 01:43 Reassessment: Patient and/or family updated on plan of care and expected ea duration. Pain level reassessed. Patient is alert, oriented x 3, equal unlabored respirations, skin warm/dry/pink. [facility] at facility for transfer, report given to EMS. Pt taken via stretcher per EMS with IV medications and blood transfusion, pt tolerating well ea 01:49 01:20 Reassessment: Patient and/or family updated on plan of care and expected ea duration. Pain level reassessed. Patient is alert, oriented x 3, equal unlabored respirations, skin warm/dry/pink. [facility] at facility for transfer, report given to EMS. Pt taken via stretcher per EMS with IV medications and blood transfusion, pt tolerating well ea 01:50 01:30 Transferred by ground EMS to [facility], Transfer form ea completed. ea
[2019-01-17 02:07] VITALS: TEMP 97.6
[2019-01-17 02:09] VITALS: BP 124/70; O2SAT 98
--- NOTE | 2019-01-17 15:57 | EKG ---
Test Date: 2019-01-16 Test Time: 23:54:00 Supervisor [employer]: RR MEASUREMENT RESULTS: Intervals: Rate: 90 TN: 172 QRSD: 70 QT: 368 QTc: 450 [place]: P: 51 TN: 172 QRS: -1 T: -15 INTERPRETIVE STATEMENTS: Sinus rhythm with premature atrial complexes Voltage criteria for left ventricular hypertrophy Inferior infarct, age undetermined Abnormal ECG Compared to ECG 09/15/2018 17:32:11 Left ventricular hypertrophy now present Myocardial infarct finding now present Electronically Signed On 01-17-19 15:56:18 CDT by Reese Knight
== END 2019-01-17 01:53 | disposition short-term general hospital (02) ==
LOC: ER 18:46
PROC: 30233N1 Transfusion of Nonautologous Red Blood Cells into Peripheral Vein, Percutaneous Approach (ICD-10-PCS; principal; 2019-01-17)
DX: K92.2 Gastrointestinal hemorrhage, unspecified (principal); I10 Essential (primary) hypertension; Z88.0 Allergy status to penicillin
CPT/HCPCS: 96365; 96367; 93005; 85025; 80048; 36415; 82140; 86900; 86850; 85610; 86901; 80076; 85730; 83690; 99285; 96366; 36430; J2354 ×2; P9016

== ENCOUNTER 2019-03-21 15:36 | Emergency (ER) | payer OTHER ==
--- OUTSIDE RECORDS SUMMARY | 2019-03-21 15:45 | XMS REPORT | Clinical Summary ---
:1945 Author Organization [facility] Address [address] [place] [address] Care Team Providers Name Role Phone Bharat Hernandez MD Primary Care Provider Allergies Active Allergy Reactions Severity Noted Date Comments Penicillins 11/24/2016 fainted Medications Medication Sig Dispensed Refills Start Date End Date Status lisinopril Take 20 mg by 0 Active (PRINIVIL,ZESTRIL) mouth daily. 20 MG tablet saxagliptin-metform Take 1 tablet by 0 Active in (KOMBIGLYZE XR) mouth 2 (two) 2.5-1,000 mg TM24 times daily . gabapentin Take 400 mg by 0 Active (NEURONTIN) 400 MG mouth 2 (two) capsule times daily. propranolol Take 10 mg by 0 Active (INDERAL) 10 MG mouth 2 (two) tablet times daily . rifAXIMin 550 mg Take 550 mg by 0 Active Tab mouth 2 (two) times daily. spironolactone Take 25 mg by 0 Active (ALDACTONE) 25 MG mouth every tablet other day. senna (SENOKOT) 8.6 Take 1 tablet by 0 Active mg tablet mouth as needed . PROCTOZONE-HC 2.5 % Place 1 2 11/28/2018 Active rectal cream application rectally as needed. ursodiol (ACTIGALL) Take 300 mg by 1 12/14/2018 Active 300 mg capsule mouth daily. psyllium (METAMUCIL Take 1 packet by 30 each 12 01/21/2019 Active SUGAR-FREE) 3.4 mouth daily. gram packet omeprazole Take 40 mg by 0 Discontinued (PRILOSEC) 40 MG mouth daily. 9 capsule dicyclomine Take 10 mg by 0 Discontinued (BENTYL) 10 MG mouth 2 (two) 9 capsule times daily . glimepiride Take 2 mg by 0 Discontinued (AMARYL) 1 MG mouth nightly 9 tablet Does not remember the dose . lactulose Take 20 g by 0 Discontinued (CHRONULAC) 10 mouth every 9 gram/15 mL (15 mL) other day. solution docusate sodium Take 100 mg by 0 Discontinued (COLACE) 100 MG mouth daily. 9 capsule lactulose Take 30 mLs (20 1800 mL 0 01/19/2019 (CHRONULAC) 10 g total) by 9 gram/15 mL (15 mL) mouth 2 (two) solution times daily as needed for up to 30 days. pantoprazole Take 1 tablet 60 tablet 1 01/19/2019 Discontinued (PROTONIX) 40 MG (40 mg total) by 9 tablet mouth 2 (two) times daily before meals for 30 days. pantoprazole Take 1 tablet 30 tablet 2 01/20/2019 (PROTONIX) 40 MG (40 mg total) by 9 tablet mouth daily for 30 days. Active Problems Problem Noted Date Lower GI bleed 01/17/2019 Cirrhosis 11/24/2016 Last Assessment & Plan: Not [...] low carb high protein diet. Fatigue 11/24/2016 Encounters Date Type Specialty Care Team Description 02/14/2019 Anesthesia Event Gastroenterology Shonna Riley MD 02/14/2019 Surgery Gastroenterology Jos You COLONOSCOPY,FNA MD Jorge W/ULTRASOUND 02/14/2019 Hospital Gastroenterology Jos You Encounter MD Jorge 01/26/2019 [facility] Pre-Admission Testing Resource, [facility] Encounter Preadmit Phone 01/18/2019 Surgery Gastroenterology Keith Wilcox MD 01/18/2019 Anesthesia Event Gastroenterology Prudence Mendez CRNA 01/17/2019 [facility] General Internal Brann, Cirrhosis of liver without ascites, unspecified hepatic cirrhosis type (HCC) (Primary Dx); - Encounter Medicine Yury Lower GI bleed; 01/20/2019 MD Reese Portal hypertension (HCC); Meggan, Gastrointestinal hemorrhage, unspecified gastrointestinal hemorrhage type; MD Pam Metabolic syndrome; Screening for malignant neoplasm; Screening for cancer; Immunity status testing; Immunization counseling; Hepatic encephalopathy (HCC) 01/17/2019 Travel 01/16/2019 Telephone Gastroenterology Davie Jin Transfer Request [facility] after 03/20/2018 Family History Medical History Relation Name Comments Cirrhosis Brother Diabetes Sister Relation Name Status Comments Brother Sister Social History Tobacco Use Types Packs/Day Years Used Date Never Smoker Smokeless Tobacco: Never Used Alcohol Use Drinks/Week oz/Week Comments No Sex Assigned at Date Recorded Female 02/01/2019 11:45 AM CDT Job Start Date Occupation Industry Not on file Not on file Not on file Travel History Travel Start Travel End No recent travel history available. Last Filed Vital Signs Vital Sign Reading Time Taken Blood Pressure 133/62 02/14/2019 5:30 PM CDT Pulse 89 02/14/2019 5:30 PM CDT Temperature 36.3 C (97.4 F) 02/14/2019 5:30 PM CDT Respiratory Rate 18 02/14/2019 5:30 PM CDT Oxygen Saturation 96% 02/14/2019 5:30 PM CDT Inhaled Oxygen Concentration - - Weight 49.1 kg (108 lb 3.9 oz) 02/14/2019 12:44 PM CDT Height 157.5 cm (5' 2") 02/14/2019 12:44 PM CDT Body Mass Index 19.8 02/14/2019 12:44 PM CDT Plan of Treatment Date Type Specialty Care Team Description 05/16/2019 Hospital Encounter Gastroenterology Jos You MD [address] [address] [phone] 05/16/2019 Surgery Gastroenterology Jos You, UPPER ENDOSCOPY [address] [address] [phone] Implants Implanted Type Area Desk Representative Device Shelf Expiration Model / Identifier Date Serial / Lot Micronester Embolization Coil 8mm [employer] RE[employer] [id number] / Implanted: Qty: 1 on 02/14/2019 by Jos You MD / [id number] Micronester Embolization Coil [employer] [id number] / Implanted: Qty: 1 on 02/14/2019 by Jos You MD / [id number] Procedures Procedure Name Priority Date/Time Associated Diagnosis Comments RHYTHM STRIP - SCAN 02/16/2019 10:52 AM CDT REPORT OF PROCEDURE - 02/14/2019 3:51 PM ENDOSCOPY URL CDT REPORT OF PROCEDURE - 02/14/2019 3:45 PM ENDOSCOPY URL CDT UPPER 02/14/2019 2:00 PM Esophageal varices ENDOSCOPY,BANDING CDT without bleeding, unspecified esophageal varices type (HCC) Rectal varices Special Needs (LINEAR SCOPE) COLONOSCOPY,FNA W/ULTRASOUND 02/14/2019 2:00 PM CDT Esophageal varices without bleeding, unspecified esophageal varices type (HCC) Rectal varices Special Needs (LINEAR SCOPE) POCT-GLUCOSE METER Routine 02/14/2019 12:59 Results for this PM CDT procedure are in the results section. POCT-HEMOGLOBIN Routine 02/14/2019 12:58 Results for this METER PM CDT procedure are in the results section. RHYTHM STRIP - SCAN 01/26/2019 2:30 PM CDT RHYTHM STRIP - SCAN 01/22/2019 8:50 AM CDT HEMOGLOBIN AND Routine 01/20/2019 9:34 Results for this HEMATOCRIT AM CDT procedure are in the results section. POCT-GLUCOSE METER Routine 01/20/2019 6:26 Results for this AM CDT procedure are in the results section. POCT-GLUCOSE METER Routine 01/19/2019 11:26 Results for this PM CDT procedure are in the results section. HEMOGLOBIN AND Routine 01/19/2019 6:28 Results for this HEMATOCRIT PM CDT procedure are in the results section. POCT-GLUCOSE METER Routine 01/19/2019 5:10 Results for this PM CDT procedure are in the results section. HEMOGLOBIN AND Routine 01/19/2019 1:49 Results for this HEMATOCRIT PM CDT procedure are in the results section. REPORT OF PROCEDURE 01/19/2019 12:49 - ENDOSCOPY URL PM CDT REPORT OF PROCEDURE 01/19/2019 12:48 - ENDOSCOPY URL PM CDT POCT-GLUCOSE METER Routine 01/19/2019 12:03 Results for this PM CDT procedure are in the results section. HEMOGLOBIN AND Routine 01/19/2019 8:40 Results for this HEMATOCRIT AM CDT procedure are in the results section. HEPATIC FUNCTION Routine 01/19/2019 4:49 Results for this PANEL AM CDT procedure are in the results section. PROTHROMBIN TIME/INR Routine 01/19/2019 4:49 Results for this AM CDT procedure are in the results section. BASIC METABOLIC Routine 01/19/2019 4:49 Results for this PANEL (7) AM CDT procedure are in the results section. HEMOGLOBIN AND Routine 01/19/2019 4:49 Results for this HEMATOCRIT AM CDT procedure are in the results section. US ABDOMEN COMPLETE Routine 01/18/2019 10:28 Results for this PM CDT procedure are in the results section. POCT-GLUCOSE METER Routine 01/18/2019 9:35 Results for this PM CDT procedure are in the results section. HEMOGLOBIN AND Routine 01/18/2019 8:45 Results for this HEMATOCRIT PM CDT procedure are in the results section. POCT-GLUCOSE METER Routine 01/18/2019 6:11 Results for this PM CDT procedure are in the results section. TRANSFUSION SERVICE 01/18/2019 5:41 REPORT - SCAN PM CDT POCT-GLUCOSE METER Routine 01/18/2019 12:26 Results for this PM CDT procedure are in the results section. UPPER 01/18/2019 11:30 Gastrointestinal ENDOSCOPY,BANDING AM CDT hemorrhage, unspecified gastrointestinal hemorrhage type UPPER ENDOSCOPY 01/18/2019 11:30 Gastrointestinal AM CDT hemorrhage, unspecified gastrointestinal hemorrhage type COLONOSCOPY 01/18/2019 11:30 Gastrointestinal AM CDT hemorrhage, unspecified gastrointestinal hemorrhage type POCT-GLUCOSE METER Routine 01/18/2019 10:35 Results for this AM CDT procedure are in the results section. HEMOGLOBIN AND Routine 01/18/2019 6:18 Results for this HEMATOCRIT AM CDT procedure are in the results section. ALPHA FETOPROTEIN Routine 01/18/2019 6:18 Results for this (AFP), TUMOR MARKER AM CDT procedure are in the results section. HEPATITIS A Routine 01/18/2019 6:18 Results for this ANTIBODY, IGG AM CDT procedure are in the results section. HEPATITIS B SURFACE Routine 01/18/2019 6:18 Results for this ANTIBODY AM CDT procedure are in the results section. HEPATIC FUNCTION Routine 01/18/2019 6:18 Results for this PANEL AM CDT procedure are in the results section. PROTHROMBIN TIME/INR Routine 01/18/2019 6:18 Results for this AM CDT procedure are in the results section. BASIC METABOLIC Routine 01/18/2019 6:18 Results for this PANEL (7) AM CDT procedure are in the results section. POCT-GLUCOSE METER Routine 01/18/2019 6:17 Results for this AM CDT procedure are in the results section. POCT-GLUCOSE METER Routine 01/18/2019 12:37 Results for this AM CDT procedure are in the results section. HEMOGLOBIN AND Routine 01/17/2019 6:19 Results for this HEMATOCRIT PM CDT procedure are in the results section. POCT-GLUCOSE METER Routine 01/17/2019 4:40 Results for this PM CDT procedure are in the results section. HEMOGLOBIN AND Routine 01/17/2019 1:31 Results for this HEMATOCRIT PM CDT procedure are in the results section. POCT-GLUCOSE METER Routine 01/17/2019 12:17 Results for this PM CDT procedure are in the results section. POCT-GLUCOSE METER Routine 01/17/2019 7:06 Results for this AM CDT procedure are in the results section. ABORH, MANUAL STAT 01/17/2019 5:57 Results for this AM CDT procedure are in the results section. CBC W/PLT COUNT & Routine 01/17/2019 5:06 Results for this AUTO DIFFERENTIAL AM CDT procedure are in the results section. TYPE AND SCREEN, Routine 01/17/2019 5:06 Results for this AUTOMATED AM CDT procedure are in the results section. HEMOGLOBIN A1C Routine 01/17/2019 5:06 Results for this AM CDT procedure are in the results section. CBC W/PLT COUNT & Routine 01/17/2019 5:06 Results for this AUTO DIFFERENTIAL AM CDT procedure are in the results section. HEPATIC FUNCTION Routine 01/17/2019 5:06 Results for this PANEL AM CDT procedure are in the results section. PROTHROMBIN TIME/INR Routine 01/17/2019 5:06 Results for this AM CDT procedure are in the results section. BASIC METABOLIC Routine 01/17/2019 5:06 Results for this PANEL (7) AM CDT procedure are in the results section. after 03/20/2018 Results RHYTHM STRIP - SCAN (02/16/2019 10:52 AM CDT)Only the most recent of3 resultswithin the time period is included. Narrative Performed At REPORT OF PROCEDURE - ENDOSCOPY URL (02/14/2019 3:51 PM CDT) Narrative Performed At REPORT OF PROCEDURE - ENDOSCOPY URL (02/14/2019 3:45 PM CDT) Narrative Performed At POC-Glucose meter (02/14/2019 12:59 PM CDT)Only the most recent of14 resultswithin the time period is included. POC-Glucose Meter 136 (H)Comment: TESTED AT 70 - 110 mg/dL [place] [id number] [facility] [id number] Specimen Blood Performing Organization Address City/State/Zipcode Phone Number [address] [address] [phone] CENTER POC-Hemoglobin meter (02/14/2019 12:58 PM CDT) POC-Hemoglobin Meter 8.8 (L)Comment: TESTED 12.0 - 15.0 g/dL [facility] [address] [place] [address] [place] [address] Specimen Blood Performing Organization Address City/[facility]/Zipcode Phone Number [address] [address] CENTER Hemoglobin and hematocrit (01/20/2019 9:34 AM CDT)Only the most recent of9 resultswithin the time period is included. Hemoglobin 8.1 (L) 11.2 - 15.7 GM/DL [facility] Hematocrit 25.6 (L) 34.1 - 44.9 % [facility] Specimen Blood Performing Organization Address [facility]/[place] Phone Number [address] [address] [place] REPORT OF PROCEDURE - ENDOSCOPY URL (01/19/2019 12:49 PM CDT) Narrative Performed At REPORT OF PROCEDURE - ENDOSCOPY URL (01/19/2019 12:48 PM CDT) Narrative Performed At Prothrombin time/INR (01/19/2019 4:49 AM CDT)Only the most recent of3 resultswithin the time period is included. Protime 15.6 (H) 11.9 - 14.2 seconds [facility] INR 1.3 <=5.9 [facility] Specimen Blood Narrative Performed At Effective 01/10/2019: PT Reference Range [facility] Change New: 11.9-14.2Previous: 11.7-14.7 RECOMMENDED COUMADIN/WARFARIN INR THERAPY RANGES STANDARD DOSE: 2.0-3.0Includes: PROPHYLAXIS for venous thrombosis, systemic embolization; TREATMENT for venous thrombosis and/or pulmonary embolus. HIGH RISK: Target INR is 2.5-3.5 for patients wiht mechanical heart valves. Performing Organization Address City/State/Zipcode Phone Number [address] [address] [place] Hepatic function panel (01/19/2019 4:49 AM CDT)Only the most recent of3 resultswithin the time period is included. Protein, Total 7.0 6.0 - 8.3 gm/dL [facility] Albumin 3.2 (L) 3.5 - 5.0 g/dL [facility] Total Bilirubin 1.1 0.2 - 1.2 mg/dL [facility] Bilirubin, Direct 0.6 (H) 0.1 - 0.5 mg/dL [facility] Alkaline Phosphatase 74 40 - 150 U/L [facility] AST 50 (H) 5 - 34 U/L [facility] ALT 34 6 - 55 U/L [facility] Specimen Blood Performing Organization Address City/State/Zipcode Phone Number [facility] [address] [place] [address] CENTER Basic metabolic panel (01/19/2019 4:49 AM CDT)Only the most recent of3 resultswithin the time period is included. Sodium 137 136 - 145 meq/L [facility] Potassium 3.6 3.5 - 5.1 meq/L [facility] Chloride 106 98 - 107 meq/L [facility] CO2 23 22 - 29 meq/L [facility] BUN 5 (L) 7 - 21 mg/dL [facility] Creatinine 0.66 0.57 - 1.25 mg/dL [facility] Glucose 128 (H) 70 - 105 mg/dL [facility] Calcium 8.1 (L) 8.4 - 10.2 mg/dL [facility] EGFR 87Comment: ESTIMATED GFR IS mL/min/1.73 sq m [facility] NOT ACCURATE [facility] CLEARANCE IN PREDICTING GLOMERULAR FILTRATION RATE. ESTIMATED GFR IS NOT APPLICABLE FOR DIALYSIS PATIENTS. Specimen Blood Performing Organization Address City/State/Zipcode Phone Number [facility] [address] [place] [address] [phone] CENTER US abdomen complete (01/18/2019 10:28 PM CDT) Specimen Narrative Performed At FINAL REPORT [facility] INDICATION: cirrhosis COMPARISON: None. TECHNIQUE:Real-time transabdominal martin scale and color Doppler ultrasound of the abdomen. FINDINGS: Liver: Size: 12.3cm. Echogenicity: Normal. Masses/lesions: None. Surface Nodularity: Present. Intrahepatic bile ducts: Normal. Common bile duct: 0.8 cm. MPV: 1.7cm. Gallbladder: Surgically absent. Pancreas: Head and uncinate process: Not well seen secondary to poor acoustic windowing. Body and tail: Not well-seen. Spleen: Size: 15.2cm. Echogenicity: Unremarkable. Right kidney: Size: 9.6 x 5.2 x 4.9 cm. Parenchyma: Normal echogenicity. No cysts. No stones. Hydronephrosis: None. Left kidney: Size: 9.8 x 4.0 x 4.5 cm. Parenchyma: Normal echogenicity. No cysts. No stones. Hydronephrosis: None. Ascites: None. Regional Vasculature: The visible abdominal aorta, IVC and hepatic veins are patent. The aorta measures 2.1 cm proximally, 1.9 cm in the midportion 1.3 cm distally. Additional findings: None. IMPRESSION: Morphologic changes of cirrhosis with sequela of portal hypertension including splenomegaly. No intra-abdominal ascites. Post surgical changes of a cholecystectomy. Signed: Jessy Driscoll MD Report Verified Date/Time:01/19/2019 01:25:12 Procedure Note Interface, External Ris In - 01/19/2019 1:27 AM CDT FINAL REPORT INDICATION: cirrhosis COMPARISON: None. TECHNIQUE: Real-time transabdominal martin scale and color Doppler ultrasound of the abdomen. FINDINGS: Liver: Size: 12.3cm. Echogenicity: Normal. Masses/lesions: None. Surface Nodularity: Present. Intrahepatic bile ducts: Normal. Common bile duct: 0.8 cm. MPV: 1.7cm. Gallbladder: Surgically absent. Pancreas: Head and uncinate process: Not well seen secondary to poor acoustic windowing. Body and tail: Not well-seen. Spleen: Size: 15.2cm. Echogenicity: Unremarkable. Right kidney: Size: 9.6 x 5.2 x 4.9 cm. Parenchyma: Normal echogenicity. No cysts. No stones. Hydronephrosis: None. Left kidney: Size: 9.8 x 4.0 x 4.5 cm. Parenchyma: Normal echogenicity. No cysts. No stones. Hydronephrosis: None. Ascites: None. Regional Vasculature: The visible abdominal aorta, IVC and hepatic veins are patent. The aorta measures 2.1 cm proximally, 1.9 cm in the midportion 1.3 cm distally. Additional findings: None. IMPRESSION: Morphologic changes of cirrhosis with sequela of portal hypertension including splenomegaly. No intra-abdominal ascites. Post surgical changes of a cholecystectomy. Signed: Jessy Driscoll MD Report Verified Date/Time: 01/19/2019 01:25:12 Performing Organization Address [facility]/[place] Phone Number [facility] TRANSFUSION SERVICE REPORT - SCAN (01/18/2019 5:41 PM CDT) Narrative Performed At Hepatitis A antibody, IgG (01/18/2019 6:18 AM CDT) Hep A IgG Reactive (A) Nonreactive [facility] Specimen Blood Performing Organization Address City/[facility]/Zipcode Phone Number [address] [address] [phone] CENTER Alpha fetoprotein (AFP), tumor marker (01/18/2019 6:18 AM CDT) Alpha-Fetoprotein <2.0 <10.0 ng/mL [facility] Specimen Blood Performing Organization Address [facility]/Zipcode Phone Number [address] [address] CENTER Hepatitis B surface antibody (01/18/2019 6:18 AM CDT) Hep B S Ab <8.0 <8.0 mIU/mL [facility] Specimen Blood Performing Organization Address City/[facility]/Zipcode Phone Number [address] [address] [phone] CENTER ABORH, manual (01/17/2019 5:57 AM CDT) ABO Grouping O [facility] Rh Factor POS [facility] Specimen Blood Performing Organization Address City/[facility]/Zipcode Phone Number [address] [address] Type and screen, automated (01/17/2019 5:06 AM CDT) ABO/RH AUTOMATED (BEAKER) O POSITIVE [facility] Ab Scrn NEGATIVE [facility] Specimen Blood Performing Organization Address [facility]/[place] Phone Number [address] [phone] CBC with platelet count + automated diff (01/17/2019 5:06 AM CDT) WBC 3.4 (L) 3.5 - 10.5 K/L [facility] RBC 3.54 (L) 3.93 - 5.22 M/L [facility] Hemoglobin 8.1 (L) 11.2 - 15.7 GM/DL [facility] Hematocrit 24.1 (L) 34.1 - 44.9 % [facility] MCV 68.1 (L) 79.4 - 94.8 fL [facility] MCH 22.9 (L) 25.6 - 32.2 pg [facility] MCHC 33.6 32.2 - 35.5 GM/DL [facility] RDW 19.8 (H) 11.7 - 14.4 % [facility] Platelets 98 (L) 150 - 450 K/CU MM [facility] MPV 9.4 9.4 - 12.3 fL [facility] nRBC 0 0 - 0 /100 WBC [facility] % Neutros 63 % [facility] % Lymphs 17 % [facility] % Monos 11 % [facility] % Eos 7 % [facility] % Baso 1 % [facility] # Neutros 2.14 1.56 - 6.13 K/L [facility] # Lymphs 0.58 (L) 1.18 - 3.74 K/L [facility] # Monos 0.38 (H) 0.24 - 0.36 K/L [facility] # Eos 0.22 0.04 - 0.36 K/L [facility] # Baso 0.03 0.01 - 0.08 K/L [facility] Immature Granulocytes-Relative 1 0 - 1 % [facility] Specimen Blood Performing Organization Address City/State/Zipcode Phone Number [facility] [address] [place] [address] [place] Hemoglobin A1c (01/17/2019 5:06 AM CDT) Hemoglobin A1C 5.4Comment: POSSIBLE HEMOGLOBIN 4.3 - 6.1 % [facility] C VARIANT NOTED IN HEMOGLOBIN MEDICAL CENTER A1C CHROMATOGRAPH. SUGGEST HEMOGLOBIN ELECTROPHORESIS IF CLINICALLY INDICATED. Specimen Blood Performing Organization Address City/State/Zipcode Phone Number [facility] [address] [place] [address] CENTER after 03/20/2018 Insurance Payer Benefit Plan / Group Subscriber ID Type Phone Address MEDICARE MEDICARE A B xxxxxxxxxxx Medicare MEDICAID MEDICAID [facility] xxxxxxxxx Medicaid Advance Directives For more information, please contact:[address] [phone] Code Status Date Activated Date Inactivated Comments Full Code 01/17/2019 3:53 AM 01/20/2019 2:57 PM This code status was determined by: Patient
--- OUTSIDE RECORDS SUMMARY | 2019-03-21 15:45 | XMS REPORT ---
:1945 [facility] Address [address] [place] [address] Care Team Providers Name Role Phone CALISTA ADHIKARIPESH REHAN Unavailable Unavailable CHRISTIANO GARRIDO Unavailable Unavailable ARAVIND CABA Unavailable Unavailable Problems This patient has no known problems. Allergies, Adverse Reactions, Alerts This patient has no known allergies or adverse reactions. Medications This patient has no known medications. Results Test Description Test Time Test Comments Text Results Atomic Results Result Comments POCT-HEMOGLOBIN METER 2019-02-21 05:44:00 Test Item Value Reference Range Comments POC-HEMOGLOBIN METER (BEAKER) (test 8.8 g/dL 12.0-15.0 TESTED AT [address] onlo=1718) [place] [id number] POCT-GLUCOSE [id number] 13:01:00 Test Item Value Reference Range Comments POC-GLUCOSE METER (BEAKER) 136 mg/dL 70-110 TESTED AT [address] (test fqpy=8461) [place] [address] HEMOGLOBIN AND [id number] 09:47:00 Test Item Value Reference Range Comments HEMOGLOBIN (BEAKER) (test nhat=918) 8.1 GM/DL 11.2-15.7 HEMATOCRIT (BEAKER) (test zryo=802) 25.6 % 34.1-44.9 POCT-GLUCOSE [id number] 06:27:00 Test Item Value Reference Range Comments POC-GLUCOSE METER (BEAKER) 157 mg/dL 70-110 TESTED AT [address] (test bupa=3450) [facility] [address] POCT-GLUCOSE [id number] 23:31:00 Test Item Value Reference Range Comments POC-GLUCOSE METER (BEAKER) 185 mg/dL 70-110 TESTED AT [address] (test fmob=4373) [facility] [address] HEMOGLOBIN AND [id number] 18:45:00 Test Item Value Reference Range Comments HEMOGLOBIN (BEAKER) (test svpa=712) 7.5 GM/DL 11.2-15.7 HEMATOCRIT (BEAKER) (test edgi=161) 23.9 % 34.1-44.9 POCT-GLUCOSE [id number] 17:19:00 Test Item Value Reference Range Comments POC-GLUCOSE METER (BEAKER) 188 mg/dL 70-110 TESTED AT [address] (test ueou=9472) [facility] [address] HEMOGLOBIN AND [id number] 14:30:00 Test Item Value Reference Range Comments HEMOGLOBIN (BEAKER) (test ntzv=102) 7.3 GM/DL 11.2-15.7 HEMATOCRIT (BEAKER) (test lqdr=661) 23.3 % 34.1-44.9 POCT-GLUCOSE [id number] 12:08:00 Test Item Value Reference Range Comments POC-GLUCOSE METER (BEAKER) 224 mg/dL 70-110 TESTED AT [address] (test evox=0837) [facility] [address] POCT-GLUCOSE [id number] 12:06:00 Test Item Value Reference Range Comments POC-GLUCOSE METER (BEAKER) 367 mg/dL 70-110 TESTED AT [address] (test aazg=7168) [facility] [address] HEMOGLOBIN AND [id number] 08:57:00 Test Item Value Reference Range Comments HEMOGLOBIN (BEAKER) (test wbnv=203) 8.4 GM/DL 11.2-15.7 HEMATOCRIT (BEAKER) (test lmnd=475) 26.5 % 34.1-44.9 HEPATIC FUNCTION [id number] 06:27:00 Test Item Value Reference Range Comments TOTAL PROTEIN (BEAKER) (test lcna=513) 7.0 gm/dL 6.0-8.3 ALBUMIN (BEAKER) (test tvra=5123) 3.2 g/dL 3.5-5.0 BILIRUBIN TOTAL (BEAKER) (test oprw=858) 1.1 mg/dL 0.2-1.2 BILIRUBIN DIRECT (BEAKER) (test cacq=591) 0.6 mg/dL 0.1-0.5 ALKALINE PHOSPHATASE (BEAKER) (test zqdm=572) 74 U/L 40-150 AST (SGOT) (BEAKER) (test hwna=702) 50 U/L 5-34 ALT (SGPT) (BEAKER) (test bqsz=097) 34 U/L 6-55 BASIC METABOLIC [id number] 06:27:00 Test Item Value Reference Range Comments SODIUM (BEAKER) (test 137 meq/L 136-145 vmks=786) POTASSIUM (BEAKER) (test 3.6 meq/L 3.5-5.1 pwqi=317) CHLORIDE (BEAKER) (test 106 meq/L 98-107 xick=970) CO2 (BEAKER) (test 23 meq/L 22-29 iygm=589) BLOOD UREA NITROGEN 5 mg/dL 7-21 (BEAKER) (test aylk=173) CREATININE (BEAKER) (test 0.66 mg/dL 0.57-1.25 orxk=670) GLUCOSE RANDOM (BEAKER) 128 mg/dL 70-105 (test nwvd=576) CALCIUM (BEAKER) (test 8.1 mg/dL 8.4-10.2 okzo=101) EGFR (BEAKER) (test 87 mL/min/1.73 sq m ESTIMATED GFR IS NOT kgzc=4782) ACCURATE CREATININE CLEARANCE IN PREDICTING GLOMERULAR FILTRATION RATE. ESTIMATED GFR IS NOT APPLICABLE FOR DIALYSIS PATIENTS. PROTHROMBIN [id number] 06:09:00 Test Item Value Reference Range Comments PROTIME (BEAKER) (test muyt=506) 15.6 seconds 11.9-14.2 INR (BEAKER) (test tskr=230) 1.3 <=5.9 Effective 01/10/2019: PT Reference Range ChangeNew: 11.9-14.2 Previous: 11.7- 14.7RECOMMENDED COUMADIN/WARFARIN INR THERAPY RANGESSTANDARD DOSE: 2.0-3.0 Includes: PROPHYLAXIS for venous thrombosis, systemic embolization; TREATMENT for venous thrombosis and/or pulmonary embolus.HIGH RISK: Target INR is2.5-3.5 for patients wiht mechanical heart valves.HEMOGLOBIN AND [id number] 06 :02:00 Test Item Value Reference Range Comments HEMOGLOBIN (BEAKER) (test lkqg=603) 7.6 GM/DL 11.2-15.7 HEMATOCRIT (BEAKER) (test fiql=047) 23.8 % 34.1-44.9 U/S, ABDOMINAL, [id number] 01:25:00Referring: Dr. Cally Ewing for exam:->cirrhosisFINAL REPORT INDICATION: cirrhosis COMPARISON: None. TECHNIQUE: Real-time transabdominal martin scale and color Doppler ultrasound of the abdomen. FINDINGS:Liver: Size: 12.3cm. Echogenicity: Normal. Masses/lesions: None. Surface Nodularity: Present. Intrahepatic bile ducts: Normal. Common bile duct: 0.8 cm. MPV: 1.7cm. Gallbladder: Surgically absent. Pancreas: Head and uncinate process: Not well seen secondary to poor acoustic windowing.Body and tail: Not well-seen. Spleen: Size: 15.2cm. [...] changes of a cholecystectomy. Signed: Jessy Driscoll [facility] Verified Date /Time: 01/19/2019 01:25:12 POCT-GLUCOSE [id number] 21:37:00 Test Item Value Reference Range Comments POC-GLUCOSE METER (BEAKER) 245 mg/dL 70-110 TESTED AT [facility] [address] [facility] (test dlrj=6105) [facility] [address] HEMOGLOBIN AND [id number] 21:02:00 Test Item Value Reference Range Comments HEMOGLOBIN (BEAKER) (test ygrj=555) 7.8 GM/DL 11.2-15.7 HEMATOCRIT (BEAKER) (test tegn=636) 24.3 % 34.1-44.9 POCT-GLUCOSE [id number] 14:17:00 Test Item Value Reference Range Comments POC-GLUCOSE METER (BEAKER) 198 mg/dL 70-110 TESTED AT [facility] [address] [facility] (test svul=9432) [facility] [address] POCT-GLUCOSE [id number] 10:41:00 Test Item Value Reference Range Comments POC-GLUCOSE METER (BEAKER) 190 mg/dL 70-110 TESTED AT [address] (test zjwz=1373) [facility] [address] ALPHA FETOPROTEIN (AFP), TUMOR [id number] 07:30:00 Test Item Value Reference Range Comments ALPHA-FETOPROTEIN (BEAKER) (test ygys=1867) < ng/mL <10.0 HEPATITIS A ANTIBODY, [id number] 07:30:00 Test Item Value Reference Range Comments HEPATITIS A IGG ANTIBODY (BEAKER) (test fafc=8244) Reactive Nonreactive HEPATITIS B SURFACE [id number] 07:30:00 Test Item Value Reference Range Comments HEPATITIS B SURFACE ANTIBODY (BEAKER) (test < mIU/mL <8.0 ddwz=526) HEPATIC FUNCTION [id number] 07:13:00 Test Item Value Reference Range Comments TOTAL PROTEIN (BEAKER) (test axzq=908) 7.5 gm/dL 6.0-8.3 ALBUMIN (BEAKER) (test mqxr=9870) 3.4 g/dL 3.5-5.0 BILIRUBIN TOTAL (BEAKER) (test tqet=561) 1.3 mg/dL 0.2-1.2 BILIRUBIN DIRECT (BEAKER) (test cqyj=025) 0.8 mg/dL 0.1-0.5 ALKALINE PHOSPHATASE (BEAKER) (test scnp=024) 79 U/L 40-150 AST (SGOT) (BEAKER) (test gevd=200) 59 U/L 5-34 ALT (SGPT) (BEAKER) (test xsyn=380) 35 U/L 6-55 BASIC METABOLIC [id number] 07:13:00 Test Item Value Reference Range Comments SODIUM (BEAKER) (test 140 meq/L 136-145 uisz=746) POTASSIUM (BEAKER) (test 4.1 meq/L 3.5-5.1 xsmt=182) CHLORIDE (BEAKER) (test 106 meq/L 98-107 gfoc=979) CO2 (BEAKER) (test 25 meq/L 22-29 ncuc=091) BLOOD UREA NITROGEN 6 mg/dL 7-21 (BEAKER) (test cgbk=319) CREATININE (BEAKER) (test 0.66 mg/dL 0.57-1.25 awoe=357) GLUCOSE RANDOM (BEAKER) 146 mg/dL 70-105 (test xlkn=866) CALCIUM (BEAKER) (test 8.4 mg/dL 8.4-10.2 dbsc=521) EGFR (BEAKER) (test 87 mL/min/1.73 sq m ESTIMATED GFR IS NOT lwsz=6926) ACCURATE CREATININE CLEARANCE IN PREDICTING GLOMERULAR FILTRATION RATE. ESTIMATED GFR IS NOT APPLICABLE FOR DIALYSIS PATIENTS. PROTHROMBIN [id number] 06:53:00 Test Item Value Reference Range Comments PROTIME (BEAKER) (test evlo=076) 15.5 seconds 11.9-14.2 INR (BEAKER) (test rfqy=607) 1.3 <=5.9 Effective 01/10/2019: PT Reference Range ChangeNew: 11.9-14.2 Previous: 11.7- 14.7RECOMMENDED COUMADIN/WARFARIN INR THERAPY RANGESSTANDARD DOSE: 2.0-3.0 Includes: PROPHYLAXIS for venous thrombosis, systemic embolization; TREATMENT for venous thrombosis and/or pulmonary embolus.HIGH RISK: Target INR is2.5-3.5 for patients wiht mechanical heart valves.POCT-GLUCOSE [id number] 06:40:00 Test Item Value Reference Range Comments POC-GLUCOSE METER (BEAKER) 169 mg/dL 70-110 TESTED AT [facility] [address] [facility] (test xhcf=1521) [facility] [address] HEMOGLOBIN AND [id number] 06:36:00 Test Item Value Reference Range Comments HEMOGLOBIN (BEAKER) (test hmhg=369) 8.2 GM/DL 11.2-15.7 HEMATOCRIT (BEAKER) (test hjjg=479) 24.2 % 34.1-44.9 POCT-GLUCOSE [id number] 00:40:00 Test Item Value Reference Range Comments POC-GLUCOSE METER (BEAKER) 166 mg/dL 70-110 TESTED AT [address] (test uwqc=3202) [place] [address] HEMOGLOBIN AND [id number] 18:38:00 Test Item Value Reference Range Comments HEMOGLOBIN (BEAKER) (test fsxv=645) 8.9 GM/DL 11.2-15.7 HEMATOCRIT (BEAKER) (test ozhe=245) 27.8 % 34.1-44.9 POCT-GLUCOSE [id number] 16:43:00 Test Item Value Reference Range Comments POC-GLUCOSE METER (BEAKER) 276 mg/dL 70-110 TESTED AT [address] (test wnuj=2918) [place] [address] HEMOGLOBIN AND [id number] 14:19:00 Test Item Value Reference Range Comments HEMOGLOBIN (BEAKER) (test gnne=741) 8.4 GM/DL 11.2-15.7 HEMATOCRIT (BEAKER) (test sczl=100) 25.5 % 34.1-44.9 POCT-GLUCOSE [id number] 12:30:00 Test Item Value Reference Range Comments POC-GLUCOSE METER (BEAKER) 176 mg/dL 70-110 TESTED AT [address] (test ybbj=8224) [place] [address] HEMOGLOBIN [id number] 08:25:00 Test Item Value Reference Range Comments HEMOGLOBIN A1C (BEAKER) (test 5.4 % 4.3-6.1 POSSIBLE HEMOGLOBIN C VARIANT uhha=682) NOTED IN HEMOGLOBIN A1C CHROMATOGRAPH. SUGGEST HEMOGLOBIN ELECTROPHORESIS IF CLINICALLY INDICATED. POCT-GLUCOSE [id number] 07:09:00 Test Item Value Reference Range Comments POC-GLUCOSE METER (BEAKER) 212 mg/dL 70-110 TESTED AT [address] (test fiao=1889) [place] [address] BASIC METABOLIC [id number] 05:56:00 Test Item Value Reference Range Comments SODIUM (BEAKER) (test 137 meq/L 136-145 mhxm=177) POTASSIUM (BEAKER) (test 4.2 meq/L 3.5-5.1 hspv=811) CHLORIDE (BEAKER) (test 105 meq/L 98-107 kshd=301) CO2 (BEAKER) (test 25 meq/L 22-29 ydkk=667) BLOOD UREA NITROGEN 12 mg/dL 7-21 (BEAKER) (test mpys=504) CREATININE (BEAKER) (test 0.70 mg/dL 0.57-1.25 rtae=764) GLUCOSE RANDOM (BEAKER) 189 mg/dL 70-105 (test nese=705) CALCIUM (BEAKER) (test 8.9 mg/dL 8.4-10.2 lwgk=886) EGFR (BEAKER) (test 82 mL/min/1.73 sq m ESTIMATED GFR IS NOT ydqd=5992) ACCURATE CREATININE CLEARANCE IN PREDICTING GLOMERULAR FILTRATION RATE. ESTIMATED GFR IS NOT APPLICABLE FOR DIALYSIS PATIENTS. Specimen slightly ictericHEPATIC FUNCTION [id number] 05:56:00 Test Item Value Reference Range Comments TOTAL PROTEIN (BEAKER) (test ycpr=890) 7.6 gm/dL 6.0-8.3 ALBUMIN (BEAKER) (test ihnw=6343) 3.5 g/dL 3.5-5.0 BILIRUBIN TOTAL (BEAKER) (test fbnh=279) 2.3 mg/dL 0.2-1.2 BILIRUBIN DIRECT (BEAKER) (test qkpk=587) 1.2 mg/dL 0.1-0.5 ALKALINE PHOSPHATASE (BEAKER) (test kepo=331) 96 U/L 40-150 AST (SGOT) (BEAKER) (test guez=596) 33 U/L 5-34 ALT (SGPT) (BEAKER) (test vbht=438) 26 U/L 6-55 Specimen slightly ictericPROTHROMBIN [id number] 05:44:00 Test Item Value Reference Range Comments PROTIME (BEAKER) (test qnvm=197) 15.1 seconds 11.9-14.2 INR (BEAKER) (test yvgt=453) 1.2 <=5.9 Effective 01/10/2019: PT Reference Range ChangeNew: 11.9-14.2 Previous: 11.7- 14.7RECOMMENDED COUMADIN/WARFARIN INR THERAPY RANGESSTANDARD DOSE: 2.0-3.0 Includes: PROPHYLAXIS for venous thrombosis, systemic embolization; TREATMENT for venous thrombosis and/or pulmonary embolus.HIGH RISK: Target INR is2.5-3.5 for patients wiht mechanical heart valves.CBC W/PLT COUNT & AUTO [id number] 05:28:00 Test Item Value Reference Range Comments WHITE BLOOD CELL COUNT (BEAKER) (test xnva=980) 3.4 K/ L 3.5-10.5 RED BLOOD CELL COUNT (BEAKER) (test fpbf=280) 3.54 M/ L 3.93-5.22 HEMOGLOBIN (BEAKER) (test ernm=218) 8.1 GM/DL 11.2-15.7 HEMATOCRIT (BEAKER) (test njzo=411) 24.1 % 34.1-44.9 MEAN CORPUSCULAR VOLUME (BEAKER) (test kdey=291) 68.1 fL 79.4-94.8 MEAN CORPUSCULAR HEMOGLOBIN (BEAKER) (test 22.9 pg 25.6-32.2 htau=683) MEAN CORPUSCULAR HEMOGLOBIN CONC (BEAKER) (test 33.6 GM/DL 32.2-35.5 vwrk=867) RED CELL DISTRIBUTION WIDTH (BEAKER) (test 19.8 % 11.7-14.4 kctk=125) PLATELET COUNT (BEAKER) (test clvy=068) 98 K/CU MM 150-450 MEAN PLATELET VOLUME (BEAKER) (test emxs=939) 9.4 fL 9.4-12.3 NUCLEATED RED BLOOD CELLS (BEAKER) (test 0 /100 WBC 0-0 ycnh=241) NEUTROPHILS RELATIVE PERCENT (BEAKER) (test 63 % cixd=844) LYMPHOCYTES RELATIVE PERCENT (BEAKER) (test 17 % xfgg=842) MONOCYTES RELATIVE PERCENT (BEAKER) (test 11 % nhfa=094) EOSINOPHILS RELATIVE PERCENT (BEAKER) (test 7 % wqlk=648) BASOPHILS RELATIVE PERCENT (BEAKER) (test 1 % jisk=259) NEUTROPHILS ABSOLUTE COUNT (BEAKER) (test 2.14 K/ L 1.56-6.13 kxcu=563) LYMPHOCYTES ABSOLUTE COUNT (BEAKER) (test 0.58 K/ L 1.18-3.74 sylb=677) MONOCYTES ABSOLUTE COUNT (BEAKER) (test xclb=970) 0.38 K/ L 0.24-0.36 EOSINOPHILS ABSOLUTE COUNT (BEAKER) (test 0.22 K/ L 0.04-0.36 blrq=688) BASOPHILS ABSOLUTE COUNT (BEAKER) (test ywbq=360) 0.03 K/ L 0.01-0.08 IMMATURE GRANULOCYTES-RELATIVE PERCENT (BEAKER) 1 % 0-1 (test wgih=8163) MARCO TITER AND [id number] 15:09:00 Test Item Value Reference Range Comments MARCO TITER (BEAKER) (test bcmf=0987) >=:2560 MARCO PATTERN (BEAKER) (test knfh=0167) Homogeneous ANTI-NUCLEAR ANTIBODY (MARCO)2016-11-29 15:08:00 Test Item Value Reference Range Comments ANTI-NUCLEAR ANTIBODY (MARCO) (BEAKER) (test Positive Negative cexo=733) [id number] 14:16:00 Test Item Value Reference Range Comments THYROID STIMULATING HORMONE (BEAKER) (test 2.05 uIU/mL 0.35-4.94 glaa=602) [id number] 14:00:00 Test Item Value Reference Range Comments FERRITIN (BEAKER) (test vrkx=848) 8 ng/mL 5-275 Effective 07/02/2014: Reference Range ChangeNew: Male 5-275 Previous: Male 22-322 Female 5-275 Female 10-291CBC W/PLT COUNT & AUTO [id number] 13:04:00 Test Item Value Reference Range Comments WHITE BLOOD CELL COUNT (BEAKER) (test yewf=354) 6.0 K/ L 4.0-10.0 RED BLOOD CELL COUNT (BEAKER) (test tukr=952) 3.28 M/ L 4.00-5.00 HEMOGLOBIN (BEAKER) (test fzfl=328) 7.4 GM/DL 12.0-15.0 HEMATOCRIT (BEAKER) (test ypco=822) 21.4 % 36.0-45.0 MEAN CORPUSCULAR VOLUME (BEAKER) (test dcdt=949) 65.0 fL 82.0-99.0 MEAN CORPUSCULAR HEMOGLOBIN (BEAKER) (test 22.5 pg 27.0-33.0 mebt=531) MEAN CORPUSCULAR HEMOGLOBIN CONC (BEAKER) (test 34.6 GM/DL 32.0-36.0 wfkb=990) RED CELL DISTRIBUTION WIDTH (BEAKER) (test 18.1 % 10.3-14.2 pyvw=259) PLATELET COUNT (BEAKER) (test drvx=241) 128 K/CU MM 150-430 MEAN PLATELET VOLUME (BEAKER) (test mufx=196) 5.6 fL 6.5-10.5 NUCLEATED RED BLOOD CELLS (BEAKER) (test 0 /100 WBC 0-0 dljv=929) NEUTROPHILS RELATIVE PERCENT (BEAKER) (test 77 % loaz=087) LYMPHOCYTES RELATIVE PERCENT (BEAKER) (test 13 % lhdu=207) MONOCYTES RELATIVE PERCENT (BEAKER) (test 8 % hhki=055) EOSINOPHILS RELATIVE PERCENT (BEAKER) (test 2 % fwxu=981) BASOPHILS RELATIVE PERCENT (BEAKER) (test 0 % qfol=264) NEUTROPHILS ABSOLUTE COUNT (BEAKER) (test 4.56 K/ L 1.80-8.00 gfvw=851) LYMPHOCYTES ABSOLUTE COUNT (BEAKER) (test 0.79 K/ L 1.48-4.50 vgki=603) MONOCYTES ABSOLUTE COUNT (BEAKER) (test 0.46 K/ L 0.00-1.30 lehq=936) EOSINOPHILS ABSOLUTE COUNT (BEAKER) (test 0.12 K/ L 0.00-0.50 gelp=602) BASOPHILS ABSOLUTE COUNT (BEAKER) (test 0.03 K/ L 0.00-0.20 xewa=675) 0.00ALPHA FETOPROTEIN (AFP), TUMOR [id number] 12:58:00 Test Item Value Reference Range Comments ALPHA-FETOPROTEIN (BEAKER) (test mmyj=8711) < ng/mL <10.0 Effective 07/02/2014: Reference Range ChangeNew: <10.0 Previous: 0.0- 8.0HEPATITIS B SURFACE [id number] 12:57:00 Test Item Value Reference Range Comments HEPATITIS B SURFACE ANTIGEN (2) (BEAKER) (test Nonreactive Nonreactive kwhz=8901) HEPATITIS C [id number] 12:57:00 Test Item Value Reference Range Comments HEPATITIS C ANTIBODY (BEAKER) (test gevz=236) Nonreactive Nonreactive HEPATITIS B SURFACE [id number] 12:57:00 Test Item Value Reference Range Comments HEPATITIS B SURFACE ANTIBODY (BEAKER) (test < mIU/mL <8.0 mvtb=317) HEPATITIS A ANTIBODY, [id number] 12:57:00 Test Item Value Reference Range Comments HEPATITIS A IGG ANTIBODY (BEAKER) (test iyww=3039) Reactive Nonreactive IMMUNOGLOBULIN G (IGG)2016-11-24 12:55:00 Test Item Value Reference Range Comments IMMUNOGLOBULIN G (IGG) (BEAKER) (test brzl=532) 1397 mg/dL 540-1822 IRON, TIBC, % SAT. (WITHOUT FERRITIN)2016-11-24 12:55:00 Test Item Value Reference Range Comments IRON (BEAKER) (test msae=329) 23 ug/dL 40-160 TOTAL IRON BINDING CAPACITY (BEAKER) (test 429 ug/dL 250-450 jzcp=785) IRON % SATURATION (2) (BEAKER) (test arrr=3188) 5 % 20-55 HEPATITIS A ANTIBODY, [id number] 12:54:00 Test Item Value Reference Range Comments HEPATITIS A IGM ANTIBODY (BEAKER) (test Nonreactive Nonreactive ivvw=947) HEPATITIS B CORE ANTIBODY, [id number] 12:54:00 Test Item Value Reference Range Comments HEPATITIS B CORE TOTAL ANTIBODY (BEAKER) (test Nonreactive Nonreactive smxt=313) COMPREHENSIVE METABOLIC [id number] 12:25:00 Test Item Value Reference Range Comments TOTAL PROTEIN (BEAKER) 8.4 gm/dL 6.0-8.3 (test fllw=238) ALBUMIN (BEAKER) (test 4.0 g/dL 3.5-5.0 vfep=5088) ALKALINE PHOSPHATASE 100 U/L 40-150 (BEAKER) (test qlvt=732) BILIRUBIN TOTAL (BEAKER) 0.9 mg/dL 0.2-1.2 (test supd=328) SODIUM (BEAKER) (test 135 meq/L 136-145 mfvh=095) POTASSIUM (BEAKER) (test 4.1 meq/L 3.5-5.1 zwtf=539) CHLORIDE (BEAKER) (test 101 meq/L 98-107 qfsw=637) CO2 (BEAKER) (test 19 meq/L 22-29 urha=238) BLOOD UREA NITROGEN 16 mg/dL 7-21 (BEAKER) (test ctjp=599) CREATININE (BEAKER) (test 0.74 mg/dL 0.57-1.25 igqu=886) GLUCOSE RANDOM (BEAKER) 138 mg/dL 70-105 (test wdsq=556) CALCIUM (BEAKER) (test 9.7 mg/dL 8.4-10.2 wlpt=139) AST (SGOT) (BEAKER) (test 33 U/L 5-34 nmrc=660) ALT (SGPT) (BEAKER) (test 29 U/L 6-55 cgrq=246) EGFR (BEAKER) (test 77 mL/min/1.73 sq m ESTIMATED GFR IS NOT xqbh=9649) ACCURATE CREATININE CLEARANCE IN PREDICTING GLOMERULAR FILTRATION RATE. ESTIMATED GFR IS NOT APPLICABLE FOR DIALYSIS PATIENTS. BILIRUBIN, [id number] 12:25:00 Test Item Value Reference Range Comments BILIRUBIN DIRECT (BEAKER) (test fwob=587) 0.5 mg/dL 0.1-0.5 PROTHROMBIN [id number] 12:15:00 Test Item Value Reference Range Comments PROTIME (BEAKER) (test oafz=097) 14.3 seconds 11.7-14.7 INR (BEAKER) (test jxar=867) 1.1 <=5.9 RECOMMENDED COUMADIN/WARFARIN INR THERAPY RANGESSTANDARD DOSE: 2.0 - 3.0 Includes: PROPHYLAXIS forvenous thrombosis, systemic embolization; TREATMENT for venous thrombosis and/or pulmonary embolus.HIGH RISK: Target INR is 2.5-3.5 for patients with mechanical heart valves.[id number] 11:49:00 Test Item Value Reference Range Comments POC-CREATININE (BEAKER) 0.5 mg/dL 0.6-1.3 TESTED AT [facility] [address] (test oyau=4969) [facility] [address] POC-EGFR (BEAKER) (test 121 mL/min/1.73M2 wlya=1387)
[2019-03-21] MEDS ORDERED: PANTOPRAZOLE 40 MG INJ ONE (16:02)
[2019-03-21] MEDS ORDERED: PANTOPRAZOLE INJ 80 MG in NA CHLORIDE 0.9% 250 ML IV SCH (16:30)
[2019-03-21 16:34] LABS: Absolute Lymphocytes (CBC) 0.5 K/uL (0.7-4.9); Basophils % 0.4 % (0-1.3); Hematocrit 25.5 % (36.0-45.0); Lymphocytes % 14.7 % (15.3-44.8); MPV 8.7 fL (7.6-11.3); RBC Red Blood Cell Count 3.67 M/uL (3.86-4.86)
[2019-03-21 16:35] LABS: Protime INR 1.11
[2019-03-21 17:07] LABS: Anisocytosis 1+; Blood Morphology Comment NOTED (NOT SEEN); Platelet Estimate ADEQ; Rouleau NOTED; Target Cells FEW; Urine White Blood Cell Casts OK
[2019-03-21 17:17] LABS: Bilirubin Direct 0.4 mg/dL (0-0.2); Bilirubin Total 0.7 mg/dL (0.2-1.0); Potassium 4.2 mmol/L (3.5-5.1); Protein, Total 7.8 g/dL (6.4-8.2)
--- NOTE | 2019-03-21 17:23 | EDPHYS ---
Physician Documentation [facility] Name: Vijaya Oneal Age: 73 yrs Sex: Female : 1945 Arrival Date: 03/21/2019 Time: 15:37 Bed 18 Private MD: Bharat Hernandez ED Physician Olman Gore HPI: 03/21 16:33 This 73 yrs old Female presents to ER via Ambulatory with complaints of Rectal pm1 Bleeding. 16:33 The patient presents to the emergency department with bleeding from the rectum/anus, pm1 Black tarry stool with clots. Onset: The symptoms/episode began/occurred yesterday. Context: the patient History of ANDERSON, cirrhosis, rectal and esophageal varices. Rectal varices embolization and esophageal varices banding performed at [facility] with Dr. Jos You on 02/14/2019. Modifying factors: The symptoms are alleviated by nothing, The symptoms are aggravated by nothing. Associate signs and symptoms: The patient has no apparent associated signs or symptoms, Pertinent negatives: dysuria, fever. last treated for similar episode on 02/14/2019. Historical: - Allergies: 15:44 PENICILLINS; aj - PMHx: 15:44 Anemia; Cirrhosis; Diabetes - NIDDM; Hypertension; neuropathy; aj - PSHx: 15:44 Cholecystectomy; ; Tonsillectomy; aj - Immunization history:: Adult Immunizations up to date. - Social history:: Smoking status: Patient/guardian denies using tobacco. - Ebola Screening: : Patient negative for fever greater than or equal to 101.5 degrees Fahrenheit, and additional compatible Ebola Virus Disease symptoms Patient denies exposure to infectious person Patient denies travel to an Ebola-affected area in the 21 days before illness onset No symptoms or risks identified at this time. ROS: 16:33 Constitutional: Negative for fever, chills, and weight loss, Eyes: Negative for injury, pm1 pain, redness, and discharge, ENT: Negative for injury, pain, and discharge, Neck: Negative for injury, pain, and swelling, Cardiovascular: Negative for chest pain, palpitations, and edema, Respiratory: Negative for shortness of breath, cough, wheezing, and pleuritic chest pain. 16:33 Back: Negative for injury and pain, MS/Extremity: Negative for injury and deformity, Skin: Negative for injury, rash, and discoloration, Neuro: Negative for headache, weakness, numbness, tingling, and seizure. 16:33 Abdomen/GI: Positive for black/tarry stool, Negative for abdominal pain, nausea and vomiting. Exam: 16:33 Constitutional: This is a well developed, well nourished patient who is awake, alert, pm1 and in no acute distress. Head/Face: Normocephalic, atraumatic. Eyes: Pupils equal round and reactive to light, extra-ocular motions intact. Lids and lashes normal. Conjunctiva and sclera are non-icteric and not injected. Cornea within normal limits. Periorbital areas with no swelling, redness, or edema. ENT: Nares patent. No nasal discharge, no septal abnormalities noted. Tympanic membranes are normal and external auditory canals are clear. Oropharynx with no redness, swelling, or masses, exudates, or evidence of obstruction, uvula midline. Mucous membranes moist. Neck: Trachea midline, no thyromegaly or masses palpated, and no cervical lymphadenopathy. Supple, full range of motion without nuchal rigidity, or vertebral point tenderness. No Meningismus. Chest/axilla: Normal chest wall appearance and motion. Nontender with no deformity. No lesions are appreciated. Cardiovascular: Regular rate and rhythm with a normal S1 and S2. No gallops, murmurs, or rubs. Normal PMI, no JVD. No pulse deficits. Respiratory: Lungs have equal breath sounds bilaterally, clear to auscultation and percussion. No rales, rhonchi or wheezes noted. No increased work of breathing, no retractions or nasal flaring. 16:33 Back: No spinal tenderness. No costovertebral tenderness. Full range of motion. Skin: Warm, dry with normal turgor. Normal color with no rashes, no lesions, and no evidence of cellulitis. MS/ Extremity: Pulses equal, no cyanosis. Neurovascular intact. Full, normal range of motion. 16:33 Abdomen/GI: Inspection: distension, Bowel sounds: normal, Palpation: abdomen is soft and non-tender, in all quadrants. 16:33 Neuro: Orientation: is normal, Motor: is normal, moves all fours, Sensation: is normal, no obvious gross deficits. 16:52 Abdomen/GI: Rectal exam: Stool: brown, guaiac negative, hemorrhoid(s), external, pm1 without bleeding, without inflammation, without thrombosis, without pain. 17:58 Abdomen/GI: Small amount of bright red blood present on toilet paper with patient pm1 attempting to have a bowel movement. Vital Signs: 15:44 BP 157 / 78; Pulse 100; Resp 20; Temp 97.5; Pulse Ox 99% on R/A; Weight 51.26 kg; aj Height 5 ft. 1 in. (154.94 cm); 16:30 BP 147 / 65; Pulse 94; Resp 15; Pulse Ox 99% ; hb 17:30 BP 125 / 62; Pulse 85; Resp 17; Pulse Ox 100% on R/A; hb 19:10 BP 141 / 75; Pulse 94; Resp 16 S; Temp 99.4(O); Pulse Ox 100% on R/A; cc3 19:15 BP 136 / 68; Pulse 92; Resp 20 S; Temp 98.3(O); Pulse Ox 98% on R/A; cc3 19:20 BP 132 / 59; Pulse 90; Resp 19 S; Temp 98.3(O); Pulse Ox 97% on R/A; cc3 19:25 BP 131 / 62; Pulse 91; Resp 19 S; Temp 98.3(O); Pulse Ox 97% on R/A; cc3 19:40 BP 129 / 69; Pulse 91; Resp 18 S; Temp 98.6(O); Pulse Ox 98% on R/A; cc3 20:10 BP 124 / 59; Pulse 92; Resp 20 S; Temp 98(O); Pulse Ox 98% on R/A; cc3 20:40 BP 131 / 61; Pulse 89; Resp 17 S; Temp 97.8(O); Pulse Ox 99% on R/A; cc3 21:10 BP 129 / 71; Pulse 88; Resp 17 S; Pulse Ox 98% on R/A; cc3 15:44 Body Mass Index 21.35 (51.26 kg, 154.94 cm) aj MDM: 15:50 Patient medically screened. pm1 16:35 Physician consultation: Bharat Hernandez MD after a discussion of the case, a pm1 recommendation for transfer for higher level of care is made, in the emergency department to see patient at 16:35, No GI available here so requests transfer to [facility]. 16:45 Data reviewed: vital signs. Data interpreted: Pulse oximetry: on room air is 99 %. pm1 Interpretation: normal. 16:52 ED course: Stool guaiac negative but daughter presents with picture of black tarry pm1 stool with clots and she washed black tarry stool from patient prior to arrival. No OTC medications like Pepto Bismol taken . 17:21 Counseling: I had a detailed discussion with the patient and/or guardian regarding: the pm1 historical points, exam findings, and any diagnostic results supporting the discharge/admit diagnosis, lab results, the need to transfer to another facility, [facility] does not immediately have the required specialist. 17:22 ED course: Discussed case with Attending MD and recommended octreotide bolus and drip pm1 in addition to Protonix, transfuse 1 unit of blood. 17:44 Physician consultation: ICU emission specialist Sherice was contacted at 17:42, regarding pm1 regarding transfer, patient's condition, and will see patient would like medications started, Rocephin IV. 03/21 15:59 Order name: Basic Metabolic Panel; Complete Time: 17:18 pm1 03/21 15:59 Order name: CBC with Diff; Complete Time: 17:08 pm1 03/21 15:59 Order name: Creatinine for Radiology; Complete Time: 17:15 pm1 03/21 15:59 Order name: Hepatic Function; Complete Time: 17:18 pm1 03/21 15:59 Order name: Lipase; Complete Time: 17:18 pm1 03/21 15:59 Order name: Type And Screen pm1 03/21 15:59 Order name: PT-INR; Complete Time: 16:46 pm1 03/21 15:59 Order name: AMMONIA; Complete Time: 17:28 pm1 03/21 16:39 Order name: CBC Smear Scan; Complete Time: 17:08 EDMS 03/21 17:19 Order name: Bb Add On bd 03/21 17:21 Order name: Packed RBC Leukored EDMS 03/21 17:22 Order name: Occult Blood--Ancillary; Complete Time: 17:44 ss 03/21 18:22 Order name: Urine Dipstick--Ancillary (enter results) bd 03/21 15:59 Order name: IV Saline Lock; Complete Time: 16:19 pm1 03/21 15:59 Order name: Labs collected and sent; Complete Time: 16:19 pm1 03/21 16:02 Order name: NPO; Complete Time: 16:18 pm1 03/21 16:37 Order name: Labs - recollect needed; Complete Time: 16:48 bd 03/21 17:14 Order name: Transfuse: 1 Unit PRBC; Complete Time: 19:17 pm1 Administered Medications: 16:29 Drug: ProTONIX 40 mg Route: IVP; Site: right antecubital; hb 18:38 Follow up: Response: No adverse reaction hb 16:49 Drug: ProTONIX 8 mg/hr Route: IV; Rate: 25 ml/hr; Site: right antecubital; wh 21:00 Follow up: Response: No adverse reaction; IV Status: Infusion continued upon transfer cc3 17:44 Drug: ProTONIX 40 mg Route: IVP; Site: left subclavian; hb 18:37 Follow up: Response: No adverse reaction hb 17:50 Drug: Octreotide 50 mcg Route: IV; Rate: bolus; Site: right antecubital; hb 17:51 Drug: Octreotide Infusion (50 mcg/hr) - (Octreotide 500 mcg, NS 0.9% 500 ml) Route: IV; hb Rate: 50 ml/hr; Site: right antecubital; 21:00 Follow up: Response: No adverse reaction; IV Status: Infusion continued upon transfer cc3 18:37 Drug: Rocephin 1 grams Route: IV; Rate: calculated rate; Site: right forearm; hb Disposition: 03/22 09:10 Co-signature as Attending Physician, Olman Gore MD I agree with the assessment and luna plan of care. Disposition: 03/21/19 17:[address] [facility]. Diagnosis is Gastrointestinal hemorrhage, unspecified. - Reason for transfer: Higher level of care. - Accepting physician is [facility]. - Condition is Stable. - Problem is new. - Symptoms have improved. Signatures: Dispatcher [employer] EDAdriana Kilgore Amanda, RN RN aj Anderson, Corey, MD MD cha Marinas, Patrick, ASSOCIATE ACCOUNTANT ASSOCIATE ACCOUNTANT pm1 Colbert, Lana, RN RN Noah Santos Charlene cc3 Corrections: (The following items were deleted from the chart) 03/21 21:27 17:22 03/21/2019 17:[address] [facility]. Diagnosis is cc3 Gastrointestinal hemorrhage, unspecified. Reason for transfer: Higher level of care. Accepting physician is [facility]. Condition is Stable. Problem is new. Symptoms have improved. pm1
--- NOTE | 2019-03-21 17:23 | ER ---
Nurse's Notes [facility] Name: Vijaya Oneal Age: 73 yrs Sex: Female : 1945 Arrival Date: 03/21/2019 Time: 15:37 Bed 18 Private MD: Bharat Hernandez Diagnosis: Gastrointestinal hemorrhage, unspecified Presentation: 03/21 15:44 Presenting complaint: Patient states: Dark red rectal bleeding with clots since aj yesterday. Transition of care: patient was not received from another setting of care. Onset of symptoms was March 20, 2019. Risk Assessment: Do you want to hurt yourself or someone else? Patient reports no desire to harm self or others. Initial Sepsis Screen: Does the patient meet any 2 criteria? No. Patient's initial sepsis screen is negative. Does the patient have a suspected source of infection? No. Patient's initial sepsis screen is negative. Care prior to arrival: None. 15:44 Method Of Arrival: Ambulatory 15:44 Acuity: NELLY 3 aj Triage Assessment: 15:44 General: Appears in no apparent distress. comfortable, Behavior is calm, cooperative, aj appropriate for age. Pain: Complains of pain in epigastric area. Neuro: Level of Consciousness is awake, alert, obeys commands, Oriented to person, place, time, situation, Appropriate for age. Respiratory: Airway is patent Trachea midline Respiratory effort is even, unlabored, Respiratory pattern is regular, symmetrical. GI: Reports bloody stool, epigastric pain. Derm: Skin is intact, is healthy with good turgor, Skin is pink, warm \T\ dry. normal. Historical: - Allergies: 15:44 PENICILLINS; aj - PMHx: 15:44 Anemia; Cirrhosis; Diabetes - NIDDM; Hypertension; neuropathy; aj - PSHx: 15:44 Cholecystectomy; ; Tonsillectomy; aj - Immunization history:: Adult Immunizations up to date. - Social history:: Smoking status: Patient/guardian denies using tobacco. - Ebola Screening: : Patient negative for fever greater than or equal to 101.5 degrees Fahrenheit, and additional compatible Ebola Virus Disease symptoms Patient denies exposure to infectious person Patient denies travel to an Ebola-affected area in the 21 days before illness onset No symptoms or risks identified at this time. Screenin:21 Abuse screen: Denies threats or abuse. Denies injuries from another. Nutritional hb screening: No deficits noted. Tuberculosis screening: No symptoms or risk factors identified. Fall Risk Total Chery Fall Scale indicates Low Risk Score (25-44 pts). Fall prevention measures have been instituted. Side Rails Up X 2 Frequent Obs/Assesments occuring Family Present and informed to notify staff if they need to leave bedside As available Patient and Family Educated on Fall Prevention Program and strategies. Assessment: 14:12 General: Appears in no apparent distress. Behavior is calm, cooperative. Pain: Denies hb pain. Neuro: Level of Consciousness is awake, alert, obeys commands, Oriented to person, place, time, situation. Cardiovascular: Heart tones S1 S2 present Capillary refill < 3 seconds Patient's skin is warm and dry. Respiratory: Airway is patent Respiratory effort is even, unlabored, Respiratory pattern is regular, symmetrical, Breath sounds are clear bilaterally. GI: Abdomen is non-distended, Bowel sounds present X 4 quads. Reports rectal bleeding. : No signs and/or symptoms were reported regarding the genitourinary system. EENT: No signs and/or symptoms were reported regarding the EENT system. Derm: Skin is intact, is healthy with good turgor, Skin is pink, warm \T\ dry. Musculoskeletal: No signs and/or symptoms reported regarding the musculoskeletal system. 15:00 Reassessment: Patient appears in no apparent distress at this time. No changes from hb previously documented assessment. Patient and/or family updated on plan of care and expected duration. Pain level reassessed. Patient is alert, oriented x 3, equal unlabored respirations, skin warm/dry/pink. 16:00 Reassessment: Patient appears in no apparent distress at this time. No changes from hb previously documented assessment. Patient and/or family updated on plan of care and expected duration. Pain level reassessed. Patient is alert, oriented x 3, equal unlabored respirations, skin warm/dry/pink. 17:00 Reassessment: Patient appears in no apparent distress at this time. No changes from hb previously documented assessment. Patient and/or family updated on plan of care and expected duration. Pain level reassessed. Patient is alert, oriented x 3, equal unlabored respirations, skin warm/dry/pink. 17:20 Reassessment: Initiating transfer now to [facility]. ss 18:00 Reassessment: Patient appears in no apparent distress at this time. No changes from previously documented assessment. Patient and/or family updated on plan of care and expected duration. Pain level reassessed. Patient is alert, oriented x 3, equal unlabored respirations, skin warm/dry/pink. 18:12 Reassessment: Report called to Devan PLATT at [facility], Awaiting blood from blood bank at this time. Per RADIATION THERAPIST Juan pt to receive blood before transfer. Pt and daughter updated on plan of care,both verbalized understanding of plan. 19:10 Reassessment: Patient appears in no apparent distress at this time. Patient and/or cc3 family updated on plan of care and expected duration. Pain level reassessed. Patient is alert, oriented x 3, equal unlabored respirations, skin warm/dry/pink. Received this female patient from morning shift LC Schwartz as a case of gastrointestinal hemorrhage for transfer to [facility] after 1 unit of PRBC transfusion, report was already handed over to [facility] as endorsed. Patient with IV cannula gauge 20 at the right ACV with ongoing IV of Pantoprazole infusion 8 mg/hr at 25 mL/hr and Octreotide infusion 50 mcg/hr at 50 mL/hr infusing well. Another IV cannula gauge 22 at the right forearm saline locked. LC Schwartz received 1 unit of PRBC from blood bank; counterchecked and countersigned with LC Schwartz then started the 1 unit of PRBC, monitored patient closely for any untoward blood transfusion reactions. Vital signs charted in the blood transfusion record form. Patient tolerated well. Patient denies pain at this time. General: Appears in no apparent distress. comfortable, Behavior is calm, cooperative, appropriate for age. Pain: Denies pain. Neuro: Level of Consciousness is awake, alert, obeys commands, Oriented to person, place, time, situation, Appropriate for age. Cardiovascular: Denies chest pain, Heart tones S1 S2 present Capillary refill < 3 seconds Patient's skin is warm and dry. Respiratory: Airway is patent Respiratory effort is even, unlabored, Respiratory pattern is regular, symmetrical. GI: Abdomen is non-distended, Bowel sounds present X 4 quads. : No signs and/or symptoms were reported regarding the genitourinary system. EENT: No signs and/or symptoms were reported regarding the EENT system. Derm: Skin is intact, is healthy with good turgor, Skin is pink, warm \T\ dry. normal. Musculoskeletal: Circulation, motion, and sensation intact. Range of motion: intact in all extremities. 19:25 Reassessment: Patient appears in no apparent distress at this time. Patient and/or cc3 family updated on plan of care and expected duration. Pain level reassessed. Patient is alert, oriented x 3, equal unlabored respirations, skin warm/dry/pink. Continuously monitoring the patient for any untoward blood transfusion reaction. Patient tolerating the blood transfusion very well. 20:40 Reassessment: Patient appears in no apparent distress at this time. Patient and/or cc3 family updated on plan of care and expected duration. Pain level reassessed. Patient is alert, oriented x 3, equal unlabored respirations, skin warm/dry/pink. 1 unit of PRBC transfusion completed, patient tolerated very well. ED weave defect charting clerk Go informed and he said he'll contact EMS for patient transport. Patient denies pain at this time. Patient states feeling better. 21:15 Reassessment: Patient appears in no apparent distress at this time. Patient and/or cc3 family updated on plan of care and expected duration. Pain level reassessed. Patient is alert, oriented x 3, equal unlabored respirations, skin warm/dry/pink. [facility] came for patient transport. Patient left ER vitally stable by EMS stretcher with her family. No valuables left in the patient's room. Patient denies pain at this time. Patient states feeling better. Patient states symptoms have improved. Vital Signs: 15:44 BP 157 / 78; Pulse 100; Resp 20; Temp 97.5; Pulse Ox 99% on R/A; Weight 51.26 kg; aj Height 5 ft. 1 in. (154.94 cm); 16:30 BP 147 / 65; Pulse 94; Resp 15; Pulse Ox 99% ; hb 17:30 BP 125 / 62; Pulse 85; Resp 17; Pulse Ox 100% on R/A; hb 19:10 BP 141 / 75; Pulse 94; Resp 16 S; Temp 99.4(O); Pulse Ox 100% on R/A; cc3 19:15 BP 136 / 68; Pulse 92; Resp 20 S; Temp 98.3(O); Pulse Ox 98% on R/A; cc3 19:20 BP 132 / 59; Pulse 90; Resp 19 S; Temp 98.3(O); Pulse Ox 97% on R/A; cc3 19:25 BP 131 / 62; Pulse 91; Resp 19 S; Temp 98.3(O); Pulse Ox 97% on R/A; cc3 19:40 BP 129 / 69; Pulse 91; Resp 18 S; Temp 98.6(O); Pulse Ox 98% on R/A; cc3 20:10 BP 124 / 59; Pulse 92; Resp 20 S; Temp 98(O); Pulse Ox 98% on R/A; cc3 20:40 BP 131 / 61; Pulse 89; Resp 17 S; Temp 97.8(O); Pulse Ox 99% on R/A; cc3 21:10 BP 129 / 71; Pulse 88; Resp 17 S; Pulse Ox 98% on R/A; cc3 15:44 Body Mass Index 21.35 (51.26 kg, 154.94 cm) ED Course: 15:37 Patient arrived in ED. as 15:38 Bharat Hernandez MD is Private Physician. as 15:44 Triage completed. aj 15:44 Arm band placed on right wrist. Patient placed in an exam room. aj 15:49 Juan Vance, MARIO is PHCP. pm1 15:49 Olman Gore MD is Attending Physician. pm1 16:01 Lana Colbert, LC is Primary Nurse. hb 16:20 Inserted saline lock: 20 gauge in right antecubital area, using aseptic technique. wh Blood collected. 16:21 Patient has correct armband on for positive identification. Placed in gown. Bed in low hb position. Call light in reach. Side rails up X2. 17:00 Served as a washer off during rectal exam. ss 17:10 Lab(s) recollected, by me, sent to lab. 3 17:30 attempted transfer to [facility]. bd 18:07 Urine collected: hat, clear with sediment. dh3 21:15 Patient transferred, IV remains in place. cc3 Administered Medications: 16:29 Drug: ProTONIX 40 mg Route: IVP; Site: right antecubital; hb 18:38 Follow up: Response: No adverse reaction hb 16:49 Drug: ProTONIX 8 mg/hr Route: IV; Rate: 25 ml/hr; Site: right antecubital; 21:00 Follow up: Response: No adverse reaction; IV Status: Infusion continued upon transfer cc3 17:44 Drug: ProTONIX 40 mg Route: IVP; Site: left subclavian; hb 18:37 Follow up: Response: No adverse reaction hb 17:50 Drug: Octreotide 50 mcg Route: IV; Rate: bolus; Site: right antecubital; hb 17:51 Drug: Octreotide Infusion (50 mcg/hr) - (Octreotide 500 mcg, NS 0.9% 500 ml) Route: IV; hb Rate: 50 ml/hr; Site: right antecubital; 21:00 Follow up: Response: No adverse reaction; IV Status: Infusion continued upon transfer cc3 18:37 Drug: Rocephin 1 grams Route: IV; Rate: calculated rate; Site: right forearm; hb Outcome: 17:22 ER care complete, transfer ordered by MD. pm1 21:15 Transferred by ground EMS to [facility], Transfer form completed. cc3 21:15 Condition: stable 21:15 Instructed on the need for transfer, Demonstrated understanding of instructions. 21:27 Patient left the ED. cc3 Signatures: Adriana Rivas Amanda, RN Elyssa Monsivais Shelby, RN RN ss Marinas, Patrick, MARIO RADIATION THERAPIST pm1 Lana Colbert RN RN hb Herrera, Deanna [facility] Noah Avina Corina Andrews cc3 Corrections: (The following items were deleted from the chart) 16:21 16:21 Fall Risk Total Chery Fall Scale indicates Low Risk Score (25-44 pts). Fall hb prevention measures have been instituted. Side Rails Up X 2 1:1 attendant Assigned to Pt. Frequent Obs/Assesments occuring Family Present and informed to notify staff if they need to leave bedside As available Patient and Family Educated on Fall Prevention Program and strategies. hb 21:11 19:10 Reassessment: Patient appears in no apparent distress at this time. Patient cc3 and/or family updated on plan of care and expected duration. Pain level reassessed. Patient is alert, oriented x 3, equal unlabored respirations, skin warm/dry/pink. Received this female patient from morning shift LC Schwartz as a case of gastrointestinal hemorrhage for transfer to [facility] after 1 unit of PRBC transfusion, report was already handed over to [facility] as endorsed. Patient with IV cannula gauge 20 at the right ACV with ongoing IV of Pantoprazole infusion 80 mg at 25 mL/hr and Octreotide infusion 500 mcg at 50 mL/hr infusing well. LC Schwartz received 1 unit of PRBC from blood bank; counterchecked and countersigned with LC Schwartz then started the 1 unit of PRBC, monitored patient closely for any untoward blood transfusion reactions. Vital signs charted in the blood transfusion record form. Patient tolerated well. Patient denies pain at this time. cc3
[2019-03-21] MEDS ORDERED: OCTREOTIDE ACETATE 100 MCG/ML IV ONE (17:30)
[2019-03-21] MEDS ORDERED: OCTREOTIDE 500 MCG in NA CHLORIDE 0.9% 500 ML IV ONE (17:30)
--- NOTE | 2019-03-21 18:03 | P.CNS ---
Date of Consult: 03/21/19 Patient of Yuly Martínez. Daughter called the office. She has been having clots per rectum. Approx 1/2 a coffee cup per the daughter. She was told to go to the ER. Have discussed the patient with Dr. Parada(Meah is her primary GI). She has been having repeated gastric banding. However was sent to [facility] for the colon in the beging of January. Went back February 14 for embolization. ER has called Dr. Bruna You her GI in [place]. Who would like her sent that way. Considering we do not have the ability to band colonic varices this would be the prudent course of action. The patient agreed.
[2019-03-21] MEDS ORDERED: CEFTRIAXONE/SWI 1gm 1 GM/10 ML SYR ONE (18:30)
[2019-03-21] MEDS ORDERED: NA CHLORIDE 0.9% 250 ML ONE (18:45)
[2019-03-21 19:12] LABS: Urine Blood NEGATIVE (NEG); Urine Glucose 2+ (NEG); Urine Protein NEGATIVE (NEG); Urine Specific Gravity 1.015 (1.005-1.030)
[2019-03-21 22:01] VITALS: BP 131/61; TEMP 97.8; O2SAT 99
== END 2019-03-21 21:27 | disposition short-term general hospital (02) ==
LOC: ER 15:36
DX: K92.2 Gastrointestinal hemorrhage, unspecified (principal); D64.9 Anemia, unspecified; E11.9 Type 2 diabetes mellitus without complications; I10 Essential (primary) hypertension; Z88.0 Allergy status to penicillin
CPT/HCPCS: 85025; 80048; 36415; 82140; 86900; 86850; 85610; 86901; 80076; 82272; 81003; 83690; J2354 ×2; C9113 ×2; J0696; P9016; 99285

== ENCOUNTER 2020-07-06 16:18 | Emergency (ER) | payer OTHER ==
--- OUTSIDE RECORDS SUMMARY | 2020-07-06 16:19 | XMS REPORT | Clinical Summary ---
:1945 Author Organization [facility] Address [address] [place] [address] Care Team Providers Name Role Phone Katharine Hernandez MD Primary Care Provider Adeline Martínez Primary Care Provider Allergies Active Allergy Reactions Severity Noted Date Comments Penicillins 11/24/2016 fainted Medications Medication Sig Dispensed Refills Start End Date Status Date gabapentin Take 400 mg by 0 Acti ve (NEURONTIN) 400 MG mouth 2 (two) capsule times daily. propranolol Take 10 mg by 0 Acti ve (INDERAL) 10 MG mouth 2 (two) tablet times daily . rifAXIMin 550 mg Take 550 mg by 0 Active Tab mouth 2 (two) times daily. spironolactone Take 25 mg by 0 A ctive (ALDACTONE) 25 MG mouth as needed tablet . PROCTOZONE-HC 2.5 [address] 1 2 Ac tive % rectal cream application 9 rectally as needed. psyllium Take 1 packet 30 each 12 Active (METAMUCIL by mouth daily. 9 SUGAR-FREE) 3.4 gram packet ursodiol Take 500 mg by 0 Activ e (ACTIGALL) 500 MG mouth daily. tablet lactulose Take 10 g by 0 Active (CHRONULAC) 10 mouth every gram/15 mL (15 mL) other day. solution lisinopril Take 10 mg by 0 Activ e (PRINIVIL,ZESTRIL) mouth daily. 10 MG tablet linaCLOtide Take by mouth 0 Acti ve (LINZESS) 72 mcg daily . Cap metFORMIN Take 1,000 mg 0 Active (GLUCOPHAGE) 1000 by mouth 2 MG tablet (two) times daily with breakfast and dinner. sAXagliptin-metFOR Take 1 tablet 0 Active MIN (KOMBIGLYZE by mouth 2 ER) 2.5-1,000 mg (two) times TM24 daily. senna (SENOKOT) Take 1 tablet 0 07/24/20 Discontinued 8.6 mg tablet by mouth as 19 (Err or) needed . dicyclomine Take 10 mg by 0 07/24/20 Disc ontinued (BENTYL) 10 MG mouth 2 (two) 19 ( Error) capsule times daily. omeprazole Take 1 capsule 60 capsule 0 07/24/20 Dis continued (PRILOSEC) 40 MG (40 mg total) 9 19 (Error) capsule by mouth 2 (two) times daily. glyBURIDE Take 2.5 mg by 0 07/24/20 Disco ntinued (DIABETA) 2.5 MG mouth 2 (two) 19 (Error) tablet times daily. Active Problems Problem Noted Date Intractable cyclical vomiting without nausea 9 Stage 2 chronic kidney disease 03/22/2019 Anemia associated with acute blood loss 03/22/2019 Thrombocytopenia 03/22/2019 Pancytopenia 03/22/2019 GI bleed 03/21/2019 Lower GI bleed 01/17/2019 Cirrhosis 11/24/2016 Last Assessment & Plan: Not biopsy proven, but diagnosis was based on radiology. Presumably from [facility]. She has risk factors with DM type 2, Hyp ertension, hyperlipidemia, and she has family history of cirrhosis. We will do labs to exclude other causes of liver disease and calculate MELD score. We will do contrast imaging of liver. Portal hypertension 11/24/2016 Last Assessment & Plan: No ascites; advised low sodium diet. 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 Will need repeat EGD in 4 weeks Screening for cancer 11/24/2016 Last Assessment & Plan: Cirrhosis, regardless of etiology, is a risk factor for development of hepatocellular carcinoma. The annual incidence of HCC v serafin from 1.5-7%. Thus, we recommend surveillance for HCC be performed using contrast MRI or CT imaging and alphafetoprotein every 6 months. Immunity status testing 11/24/2016 Last Assessment & Plan: Serological tests will be completed to d keonermine the presence of immunity to hepatitis A [...] Encounters Date Type Specialty Care Team Description 07/25/2019 Anesthesia Event Gastroenterology Greg Link MD James, Heather Lee, GRNA 07/25/2019 Surgery Gastroenterology Jos You UPPER END OSCOPY MD Jorge 07/25/2019 Hospital Encounter Gastroenterology Jos You MD 07/24/2019 Hospital Encounter Pre-Admission Testing after 07/06/2019 Immunizations Name Administration Dates Next Due Tdap 05/04/2011 Family History Medical History Relation Name Comments Cirrhosis Brother Diabetes Sister Relation Name Status Comments Brother Sister Social History Tobacco Use Types Packs/Day Years Used Date Never Smoker Smokeless Tobacco: Never Used Alcohol Use Drinks/Week oz/Week Comments No Sex Assigned at Date Recorded Female 02/01/2019 11:45 AM CDT Last Filed Vital Signs Vital Sign Reading Time Taken Comments Blood Pressure 120/61 07/25/2019 11:18 AM [facility] Pulse 98 07/25/2019 11:18 AM [facility] Temperature 36.3 C (97.4 F) 07/25/2019 11:18 AM [facility] Respiratory Rate 16 07/25/2019 11:18 AM [facility] Oxygen Saturation 95% 07/25/2019 11:18 AM [facility] Inhaled Oxygen Concentration - - Weight 52.2 kg (115 lb 1.6 oz) 07/25/2019 9:07 AM [facility] Height 157.5 cm (5' 2") 07/25/2019 9:07 AM [facility] Body Mass Index 21.05 07/25/2019 9:07 AM [facility] Plan of Treatment Health Maintenance Due Date Last Done Comments DIABETIC EYE EXAM 1955 URINE MICROALBUMIN 1955 PNEUMOCOCCAL 65+ YRS (1 of 1 - [id number]) 2008 MEDICARE ANNUAL WELLNESS (YEAR 2 or FIRST YEAR if no 07/16/2009 IPPE) HEMOGLOBIN A1C 07/19/2019 01/17/2019 INFLUENZA VACCINE (#1) 2020 Implants Implanted Type Area Display Coordinator Device Shelf Expiration Model / Identifier Date Serial / Lot Micronester Embolization Coil 8mm [employer] [id number] / Implanted: Qty: 1 on 02/14/2019 by Jos You MD at [facility] / [id number] Micronester Embolization Coil [employer] [id number] / Implanted: Qty: 1 on 02/14/2019 by Jos You MD at [facility] / [id number] Description:Colon varice Procedures Procedure Name Priority Date/Time Associated Diagnosis Comme nts REPORT OF PROCEDURE 07/25/2019 11:00 AM - ENDOSCOPY URL [facility] UPPER ENDOSCOPY 07/25/2019 10:20 AM Esophageal varices [facility] without bleeding, unspecified esophageal varices type (HCC) Varices of esophagus determined by endoscopy (HCC) POCT-GLUCOSE METER Routine 07/25/2019 9:32 AM Re sults for this [facility] procedure are i n the results section. after 07/06/2019 Results REPORT OF PROCEDURE - ENDOSCOPY URL (07/25/2019 11:00 AM [facility]) Narrative Performed At This result has an attachment that is no t available. 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
--- OUTSIDE RECORDS SUMMARY | 2020-07-06 16:21 | XMS REPORT | Continuity of Care Document ---
:[address] [facility] t Address [address] [place] [address] Care Team Providers Name Role Phone Katharine Hernandez MD Primary Care Physician Rehan You MD Attending Clinician Vidya Link MD Attending Clinician Ghassan Batres Attending Clinician REHAN YOU Attending Clinician Unavailable Bernie HATFIELD Attending Clinician Unavailable DUNIA ABEBE Attending Clinician Unavailable ALDA GARRIDO Attending Clinician Unavailable AVERY CABA Attending Clinician Unavailable REHAN YOU Admitting Clinician Unavailable HANNA RAMSAY Admitting Clinician Unavailable DUNIA ABEBE Admitting Clinician Unavailable ALDA GARRIDO Admitting Clinician Unavailable Payers Payer Name Policy Type Policy Effective Date Expiration Date Sour ce Number MEDICAREMEDICARE A [id number] 2008 FARIDEH Wei [id number] 2007- 00:00:00 - Medical [facility] MEDICAIDMEDICAID OF [id number] 2018 FARIDEH Wei [id number] 00:00:00 - Medical [address] [place], [place] [address]Medicaid Center Problems Condition Condition Condition Status Onset Resolution Last Treating Co mments Source Name Details Category Date Date Treatment Clinician Date Intractabl Intractabl Disease Active [facility] cyclical e cyclical - Dana kes - vomiting vomiting 00:00: Medica l without without 00 Center nausea nausea Stage 2 Stage [address] [facility]22 [facility] - kidney kidney 00:00: Medical disease disease 00 Center Anemia Anemia Disease Active [facility] associated associated 03-22 [facility] - with acute with acute 00:00: Me dical blood loss blood loss 00 Ce nter Thrombocyt Thrombocyt Disease Active [facility] openia openia 03-22 [facility] - 00:00: Medical 00 Center Pancytopen Pancytopen Disease Active [facility] ia ia 03-22 [facility] - 00:00: Medical 00 Center GI bleed GI bleed Disease [facility] - 00:00: Medical 00 Center Lower GI Lower GI Disease Active [facility] bleed bleed 01-17 [facility] - 00:00: Medical 00 Center Cirrhosis Cirrhosis Disease Active Last [facility] St 4-12 Assessmen Danakes - 00:00: t & Plan: Medical 00 Not Center biopsy proven, but diagnosis was based on radiology . Presumabl y from [place].She has risk factors with DM type 2, Hypertens ion, hyperlipi demia, and she has family history of cirrhosis .We will do labs to exclude other causes of liver disease and calculate MELD score.We will do contrast imaging of liver. 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 Will need repeat EGD in 4 weeks Immunity Immunity Disease Active [facility] - testing testing 00:00: t & Plan: Medic al 00 Serologic Center al tests will be completed to determine the presence of immunity to hepatitis A and B. If found susceptib le she will be referred to her primary care provider to consider the administr ation of the appropria te vaccines. Metabolic Metabolic Disease Active [facility] syndrome syndrome 4-12 Assessmen Kristine es - 00:00: t & Plan: Medical 00 She has Center features of metabolic syndrome. She has lost 15 lbs recently with life style modificat ion.Advis ed low carb high protein diet. Fatigue Fatigue Disease Active [facility] 11[facility]24 [facility] - 00:00: Medical 00 Center Allergies, Adverse Reactions, Alerts Allergy Allergy Status Severity Reaction(s) Onset Inactive Treating Comm ents Source Name Type Date Date Clinician Shantal Rios Active [facility]ed [facility] - adverse 00:00: Medical reaction 00 Center s Family History Family Member Diagnosis Comments Start Date Stop Date Source Natural brother Cirrhosis [facility] Natural sister Diabetes [facility] Social History Social Habit Start Date Stop Date Quantity Comments Source Sex Assigned At F [facility] Tobacco use and 2019-07-25 2019-07-25 Never used [facility] exposure 00:00:00 00:00:00 [facility] Alcohol intake 2019-07-25 2019-07-25 Current [facility] - 00:00:00 00:00:00 non-drinker of Medical Ce nter alcohol (finding) Smoking Status Start Date Stop Date Source Never smoker [facility] edical [place] Medications Ordered Filled Start Stop Current Ordering Indication Dosage Frequency Signature Comments Components Source Medication Medication Date Date Medication? Clinician (SIG) Name Name gabapentin 2018-08 Yes 400mg Q.5D Take [address] (NEURONTIN) 2-11 mg by [facility] - 400 MG 11:49: mouth 2 Medical capsule 30 (two) Center times daily. propranolol 2018-08 Yes 10mg Q.5D Take [address] (INDERAL) 2-11 by mouth 2 Luke s - 10 MG 11:49: (two) Medical tablet 30 times Center daily . rifAXIMin 2018-08 Yes 550mg Q.5D Take [address] 550 mg Tab 2-11 mg by [facility] - 11:49: mouth 2 Medical 30 (two) Center times daily. spironolact 2018-08 Yes 25mg Take [address] one 2-11 by mouth [facility] - (ALDACTONE) 11:49: as needed M edical 25 MG 30 . [facility] tablet ursodiol 2018-08 Yes 500mg QD Take [address] (ACTIGALL) 2-11 mg by [facility] - 500 MG 11:49: mouth Medical tablet 30 daily. [facility] lactulose 2018-08 Yes 10g Take [address] (CHRONULAC) 2-11 by mouth Luke s - 10 gram/15 11:49: every Medica l mL (15 mL) [address] solution lisinopril 2018-08 Yes 10mg QD Take [address] (PRINIVIL,Z 2-11 by mouth Luke s - ESTRIL) 10 11:49: daily. Medic al MG tablet 30 Center linaCLOtide 2018-08 Yes QD Take by [facility] (LINZESS) 2-11 mouth [facility] - 72 mcg Cap 11:49: daily . Medi hannah 30 Center metFORMIN 2018-08 Yes 1000mg Take 1,[address] (GLUCOPHAGE 2-11 mg by [facility] - ) 1000 MG 11:49: mouth 2 Medic al tablet 30 (two) Center times daily with breakfast and dinner. sAXagliptin 2018-08 Yes 1{tbl} Q.5D Take [address] -metFORMIN 2-11 tablet by Luke s - (KOMBIGLYZE 11:49: mouth 2 Med ical ER) 30 (two) Center 2.5-1,000 times mg TM24 daily. senna 2018-08 2019- No 1{tbl} Take [address] (SENOKOT) 2-10 12-10 tablet by Luke s - 8.6 mg 15:14: 00:00 mouth as Medica l tablet 31 :00 needed . [place] glyBURIDE 2018-08 2019- No 2.5mg Q.5D Take 2.[address] (DIABETA) 2-10 12-10 mg by [facility] - 2.5 MG 15:12: 00:00 mouth 2 Medical tablet 42 :00 (two) Center times daily. dicyclomine 2018-08 2019- No 10mg Q.5D Take [address] (BENTYL) 10 2-10 12-10 by mouth 2 L ukes - MG capsule 15:12: 00:00 (two) Medic al 13 :00 times Center daily. omeprazole 2019- No 40mg Q.5D Take [address] (PRILOSEC) 8-27 12-10 capsule [facility] - 40 MG 00:00: 00:00 (40 mg Medical capsule 00 :00 total) by Center mouth 2 (two) times daily. psyllium Yes 1{packe QD Take [address] (METAMUCIL 6-09 t} packet by Luke s - SUGAR-FREE) 00:00: mouth Medic al 3.4 gram 00 daily. Center packet PROCTOZONE- 2019-0 Yes 1{appli Place 1 [facility] 2.5 % 4-16 cation} applicatio Dana kes - rectal 00:00: n rectally Medic al cream 00 as needed. Center Immunizations Ordered Immunization Filled Immunization Date Status Commen ts Source Name Name Tdap 2011-05-04 Completed [facility] - 00:00:00 Medical Center Vital Signs Vital Name Observation Time Observation Value Comments Source Systolic blood 2019-07-25 11:18:00 120 mm[Hg] [facility] Diastolic blood 2019-07-25 11:18:00 61 mm[Hg] [facility] Heart rate 2019-07-25 11:18:00 98 /min [facility] Body temperature 2019-07-25 11:18:00 36.33 Cathy [facility] Respiratory rate 2019-07-25 11:18:00 16 /min [facility] Oxygen saturation in 2019-07-25 11:18:00 95 /min [facility] Arterial blood by Medical Ce nter Pulse oximetry Body height 2019-07-25 09:07:00 157.5 cm [facility] Body weight 2019-07-25 09:07:00 52.209 kg [facility] BMI 2019-07-25 09:07:00 21.05 kg/m2 [facility] Procedures Procedure Date / Time Performed Performing Clinician [facility] e REPORT OF PROCEDURE - 2019-07-25 11:00:[address] [facility] - ENDOSCOPY [facility] UPPER ENDOSCOPY 2019-07-25 10:20:00 Jos You [facility] POCT-GLUCOSE METER 2019-07-25 09:32:00 Jos You Rehan [facility] Plan of Care Planned Activity Planned Date Details Comments Source Future Scheduled 2020-04-15 INFLUENZA [facility]ACCINE [facility] [code = INFLUENZA Medical Ce nter VACCINE (#1)] Future Scheduled 2019-07-[address] Dana kes - Test 00:00:00 measurement Medical Center (procedure) [code = 31698773] Future Scheduled 2009-07-[address] [facility] ukes - Test 00:00:00 WELLNESS (YEAR 2 or Medical Center FIRST YEAR if no IPPE) [code = MEDICARE ANNUAL WELLNESS (YEAR 2 or FIRST YEAR if no IPPE)] Future Scheduled 2008 PNEUMOCOCCAL 65+ YRS [facility] - Test 00:00:00 (1 of 1 - Medical Center [id number] PCV13) [code = PNEUMOCOCCAL 65+ YRS (1 of 1 - [id number] PCV13)] Future Scheduled 1953 DIABETIC EYE EXAM [facility] - Test 00:00:00 [code = DIABETIC EYE Medical Center EXAM] Future Scheduled 1955 Urine screening for [facility] Wei - Test 00:00:00 protein (procedure) [facility] Center [code = 302950446] Results Test Description Test Time Test Comments Results Result Comments Source POC-Glucose meter 2019-07-25 09:43:00 Test Item Value Reference Range Interpretation Comme nts POC-Glucose Meter (test code = 147 mg/dL 70-110 H : TESTED AT [address] [address], [facility] 30: Surgery Technician/Techni kathia ID = [id number] for LANA CHRISTIANSEN Lab Interpretation (test code = Abnormal 05955-4) [facility] [place] [id number] 09:43:00 Test Item Value Reference Range Interpretation Comments POC-GLUCOSE METER 147 mg/dL 70-110 H : TESTED A T [place] [address] ([facility]) (test code = NUSRATNH Will [facility], 1538) [address]: Surgery Technician/Techni kathia ID = [id number] for LANA RIVERA POCT-GLUCOSE [id number] 10:07:00 Test Item Value Reference Range Interpretation Comments POC-GLUCOSE METER 191 mg/dL 70-110 H TESTED AT [place] [address] ([facility]) (test code = [facility] 1538) [id number] POCT-GLUCOSE [id number] 12:06:00 Test Item Value Reference Range Interpretation Comments POC-GLUCOSE METER 307 mg/dL 70-110 H Notified Will Vincent MD/TESTED ([facility]) (test code = AT [facility] [address] [facility] 1532) [facility] [id number] CBC (HEMOGRAM ONLY)2019-04-10 07:37:00 Test Item Value Reference Range Interpretation Comments WHITE BLOOD CELL COUNT (BEAKER) 3.4 K/ L 3.5-10.5 L (test code = 775) RED BLOOD CELL COUNT (BEAKER) 3.70 M/ L 3.93-5.22 L (test code = 761) HEMOGLOBIN (BEAKER) (test code = 8.6 GM/DL 11.2-15.7 L 410) HEMATOCRIT (BEAKER) (test code = 26.6 % 34.1-44.9 L 411) MEAN CORPUSCULAR VOLUME (BEAKER) 71.9 fL 79.4-94.8 L (test code = 753) MEAN CORPUSCULAR HEMOGLOBIN 23.2 pg 25.6-32.2 L (BEAKER) (test code = 751) MEAN CORPUSCULAR HEMOGLOBIN CONC 32.3 GM/DL 32.2-35.5 (BEAKER) (test code = 752) RED CELL DISTRIBUTION WIDTH 21.1 % 11.7-14.4 H (BEAKER) (test code = 412) PLATELET COUNT (BEAKER) (test code 68 K/CU MM 150-450 L = 756) MEAN PLATELET VOLUME (BEAKER) 10.0 fL 9.4-12.3 (test code = 754) NUCLEATED RED BLOOD CELLS (BEAKER) 0 /100 WBC 0-0 (test code = 413) COMPREHENSIVE METABOLIC [id number] 07:34:00 Test Item Value Reference Range Interpretation Comments TOTAL PROTEIN 7.1 gm/dL 6.0-8.3 (BEAKER) (test code = 770) ALBUMIN (BEAKER) 3.1 g/dL 3.5-5.0 L (test code = 1145) ALKALINE PHOSPHATASE 81 U/L 40-150 (BEAKER) (test code = 346) BILIRUBIN TOTAL 1.2 mg/dL 0.2-1.2 (BEAKER) (test code = 377) SODIUM (BEAKER) (test 138 meq/L 136-145 code = 381) POTASSIUM (BEAKER) 4.0 meq/L 3.5-5.1 (test code = 379) CHLORIDE (BEAKER) 110 meq/L 98-107 H (test code = 382) CO2 ([facility]) (test 22 meq/L 22-29 code = 355) BLOOD UREA NITROGEN 5 mg/dL 7-21 L ([facility]) (test code = 354) CREATININE ([facility]) 0.62 mg/dL 0.57-1.25 (test code = 358) GLUCOSE RANDOM 157 mg/dL 70-105 H ([facility]) (test code = 652) CALCIUM ([facility]) 8.4 mg/dL 8.4-10.2 (test code = 697) AST (SGOT) ([facility]) 30 U/L 5-34 (test code = 353) ALT (SGPT) ([facility]) 22 U/L 6-55 (test code = 347) EGFR ([facility]) (test 94 mL/min/1.73 ESTIMA BRIDGER GFR IS code = 1092) sq m NOT ACCURATE CREATININE CLEARANCE IN PREDICTING GLOMERULAR FILTRATION RATE . ESTIMATED GFR I S NOT APPLICABLE FOR DIALYSIS PATIEN TS. POCT-GLUCOSE [id number] 22:15:00 Test Item Value Reference Range Interpretation Comments POC-GLUCOSE METER 162 mg/dL 70-110 H TESTED AT [place] [address] ([facility]) (test code = NUSRATNIKHIL Solis [facility] 1538) [id number] POCT-GLUCOSE [id number] 17:11:00 Test Item Value Reference Range Interpretation Comments POC-GLUCOSE METER 153 mg/dL 70-110 H TESTED AT [place] [address] ([facility]) (test code = NUSRATNIKHIL Solis [facility] 1538) [id number] POCT-GLUCOSE [id number] 13:56:00 Test Item Value Reference Range Interpretation Comments POC-GLUCOSE METER 309 mg/dL 70-110 H Notified R Melisa PLEITEZ/TESTED ([facility]) (test code = AT [address] [address]) [facility] [id number] POCT-GLUCOSE [id number] 08:45:00 Test Item Value Reference Range Interpretation Comments POC-GLUCOSE METER 155 mg/dL 70-110 H TESTED AT [place] [address] ([facility]) (test code = NUSRATNIKHIL Solis [facility] 1538) [id number] 07:13:00 Test Item Value Reference Range Interpretation Comments MAGNESIUM ([facility]) (test code = 1.4 mg/dL 1.6-2.6 L 627) HEPATIC FUNCTION [id number] 07:13:00 Test Item Value Reference Range Interpretation Comments TOTAL PROTEIN (BEAKER) (test code = 7.2 gm/dL 6.0-8.3 770) ALBUMIN (BEAKER) (test code = 1145) 3.2 g/dL 3.5-5.0 L BILIRUBIN TOTAL (BEAKER) (test code 1.3 mg/dL 0.2-1.2 H = 377) BILIRUBIN DIRECT (BEAKER) (test 0.8 mg/dL 0.1-0.5 H code = 706) ALKALINE PHOSPHATASE (BEAKER) (test 78 U/L 40-150 code = 346) AST (SGOT) (BEAKER) (test code = 33 U/L 5-34 353) ALT (SGPT) (BEAKER) (test code = 21 U/L 6-55 347) COMPREHENSIVE METABOLIC [id number] 07:13:00 Test Item Value Reference Range Interpretation Comments TOTAL PROTEIN 7.2 gm/dL 6.0-8.3 (BEAKER) (test code = 770) ALBUMIN (BEAKER) 3.2 g/dL 3.5-5.0 L (test code = 1145) ALKALINE PHOSPHATASE 78 U/L 40-150 (BEAKER) (test code = 346) BILIRUBIN TOTAL 1.3 mg/dL 0.2-1.2 H (BEAKER) (test code = 377) SODIUM (BEAKER) (test 137 meq/L 136-145 code = 381) POTASSIUM (BEAKER) 3.4 meq/L 3.5-5.1 L (test code = 379) CHLORIDE (BEAKER) 107 meq/L 98-107 (test code = 382) CO2 (BEAKER) (test 24 meq/L 22-29 code = 355) BLOOD UREA NITROGEN 7 mg/dL 7-21 (BEAKER) (test code = 354) CREATININE (BEAKER) 0.71 mg/dL 0.57-1.25 (test code = 358) GLUCOSE RANDOM 153 mg/dL 70-105 H (BEAKER) (test code = 652) CALCIUM (BEAKER) 8.2 mg/dL 8.4-10.2 L (test code = 697) AST (SGOT) (BEAKER) 33 U/L 5-34 (test code = 353) ALT (SGPT) (BEAKER) 21 U/L 6-55 (test code = 347) EGFR (BEAKER) (test 80 mL/min/1.73 ESTIMA BRIDGER GFR IS code = 1092) sq m NOT ACCURATE CREATININE CLEARANCE IN PREDICTING GLOMERULAR FILTRATION RATE . ESTIMATED GFR I S NOT APPLICABLE FOR DIALYSIS PATIEN TS. CBC W/PLT COUNT & AUTO [id number] 07:04:00 Test Item Value Reference Range Interpretation Comments WHITE BLOOD CELL COUNT (BEAKER) 3.3 K/ L 3.5-10.5 L (test code = 775) RED BLOOD CELL COUNT (BEAKER) 3.66 M/ L 3.93-5.22 L (test code = 761) HEMOGLOBIN (BEAKER) (test code = 8.4 GM/DL 11.2-15.7 L 410) HEMATOCRIT (BEAKER) (test code = 26.5 % 34.1-44.9 L 411) MEAN CORPUSCULAR VOLUME (BEAKER) 72.4 fL 79.4-94.8 L (test code = 753) MEAN CORPUSCULAR HEMOGLOBIN 23.0 pg 25.6-32.2 L (BEAKER) (test code = 751) MEAN CORPUSCULAR HEMOGLOBIN CONC 31.7 GM/DL 32.2-35.5 L (BEAKER) (test code = 752) RED CELL DISTRIBUTION WIDTH 20.7 % 11.7-14.4 H (BEAKER) (test code = 412) PLATELET COUNT (BEAKER) (test code 70 K/CU MM 150-450 L = 756) MEAN PLATELET VOLUME (BEAKER) 10.1 fL 9.4-12.3 (test code = 754) NUCLEATED RED BLOOD CELLS (BEAKER) 0 /100 WBC 0-0 (test code = 413) NEUTROPHILS RELATIVE PERCENT 56 % (BEAKER) (test code = 429) LYMPHOCYTES RELATIVE PERCENT 25 % (BEAKER) (test code = 430) MONOCYTES RELATIVE PERCENT 11 % (BEAKER) (test code = 431) EOSINOPHILS RELATIVE PERCENT 7 % (BEAKER) (test code = 432) BASOPHILS RELATIVE PERCENT 1 % (BEAKER) (test code = 437) NEUTROPHILS ABSOLUTE COUNT 1.85 K/ L 1.56-6.13 (BEAKER) (test code = 670) LYMPHOCYTES ABSOLUTE COUNT 0.84 K/ L 1.18-3.74 L (BEAKER) (test code = 414) MONOCYTES ABSOLUTE COUNT (BEAKER) 0.36 K/ L 0.24-0.36 (test code = 415) EOSINOPHILS ABSOLUTE COUNT 0.24 K/ L 0.04-0.36 (BEAKER) (test code = 416) BASOPHILS ABSOLUTE COUNT (BEAKER) 0.02 K/ L 0.01-0.08 (test code = 417) IMMATURE GRANULOCYTES-RELATIVE 0 % 0-1 PERCENT (AKER) (test code = 2801) PROTHROMBIN [id number] 06:23:00 Test Item Value Reference Range Interpretation Comments PROTIME ([facility]) (test code = 17.5 seconds 11.9-14.2 H 759) INR ([facility]) (test code = 370) 1.5 <=5.9 Effective 01/10/2019: PT Reference Range ChangeNew: 11.9-14.2 Previous: 11.7- 14.7RECOMMENDED COUMADIN/WARFARIN INR THERAPY RANGESSTANDARD DOSE: 2.0-3.0 Includes: PROPHYLAXIS for venous thrombosis, systemic embolization; TREATMENT for venous thrombosis and/or pulmonary embolus.HIGH RISK: Target INR is2.5-3.5 for patients wiht mechanical heart valves.POCT-GLUCOSE [id number] 05:58:00 Test Item Value Reference Range Interpretation Comments POC-GLUCOSE METER 172 mg/dL 70-110 H TESTED AT [place] [address] ([facility]) (test code = DUSTIN Solis [facility] 1538) [id number] POCT-GLUCOSE [id number] 23:59:00 Test Item Value Reference Range Interpretation Comments POC-GLUCOSE METER 145 mg/dL 70-110 H TESTED AT [place] [address] ([facility]) (test code = DUSTIN Solis [place] 1538) [id number] POCT-GLUCOSE [id number] 15:09:00 Test Item Value Reference Range Interpretation Comments POC-GLUCOSE METER 135 mg/dL 70-110 H TESTED AT [place] [address] ([facility]) (test code = DUSTIN Solis [facility] 1538) [id number] U/S, HEPATIC PORTAL VESSEL WITH [id number] 11:51:00Referring: Dr. Cally Servin Reason for exam:->Portal Vein Doppler to assess for portal vein thrombos isFINAL REPORT TECHNIQUE: Grayscale ultrasound of the right abdomen with color Doppler and spectral Doppler ultrasound of the portal/hepatic vasculature. INDICATION: 73-year-old woman with portal vein thrombosis. COMPARISON: Abdomen and pelvis CT from earlier same date. FINDINGS: LIVER: The liver is normal in size with nodular contour, consistent with cirrhosis. No focal liver lesions. HEPATIC VASCULATURE: Main portal vein measures 1.1 cm in diameter. Portal veins are patent with normal waveform and directionality. Flow velocity in the main portal vein is within normal limits. The hepatic arteries are patent. Resistive index and acceleration time in the proper hepatic artery is elevated at 0.8 and 0.11 seconds, respectively. Resistive indices in the right and left hepatic arteries are within normal limits. The hepatic veins and confluence are patent. BILIARY:Gallbladder: Prior cholecystectomy.Common bile duct measures 0.3 cm, within normal limits. No intrahepatic biliary ductal dilatation. PANCREAS: Visualized portions of the pancreas are unremarkable. PERITONEUM: No freefluid. RIGHT KIDNEY: The right kidney measures 9.4 x 5.2 x 5 cm with cortical thickness of 0.8 cm. No hydronephrosis. No sonographically evident solid mass lesion. MIDLINE VASCULATURE: The visualized inferior vena cava is patent. The maximum visualized aortic diameter is 2 cm. Visualized portions of the splenic artery and vein are patent. IMPRESSION:Cirrhosis. No focal liver lesion. Patent portal veins. Elevated resistive index and acceleration time in the proper hepatic artery is likely related tocirrhosis. Signed: Gabriele Watson MDReport Verified Date/Time: 04/08/2019 11:51:50 Reading Location: [facility] C013Y CT Body Reading Room CT, CHEST, WITH [id number] 10:27:00Referring: Dr. Cally ServinHUT[facility] of the Chest, abdomen and pelvis dated 04/08/2019 Clinical information: Nausea/vomiting Comment: Axial images of the chest, abdomen, and pelvis were obtained from thoracic inlet to the pubic symphysis with intravenous contrast. This exam was performed according to our departmental dose-optimization program, which includes automated exposure control, adjustment of the mA and/or kV according to patient size and/or use of interactive reconstruction technique.Heart is normal in size. Great vessels are unremarkable. No adenopathy in the mediastinum or perihilar region. Trachea and mainstem bronchi are patent. The esophagus is distended with fluid and air. Both lungs are clear. No nodular, mass lesion or airspace disease is noted. No interstitial disease or bronchiectasis is present. No pleural effusion or pleural based mass is seen. Liver is cirrhotic in appearance with irregular margins. No suspicious mass is seen in the liver. Spleen is enlarged measuring approximately 16.3 x 5.9 x 11.3 cm. The splenic, superior mesenteric, portal, and hepatic veinsare patent. Main portal vein measures 1.4 cm in size. There is recannulization periumbilical vein. Paraesophageal varices is noted. Gallbladder is noted visualized. No biliary dilatation is noted. Pancreas and adrenals are unremarkable. Both kidneys are normal in size and functioning with bilateral exc retion. No hydronephrosis, hydroureter, or urolithiasis is noted. The opacified small and large bowel are suboptimally evaluated secondary to lack of GI contrast. There is nonspecific wall thickening in the transverse, descending and sigmoid colon secondary to nondistention or colitis. The small bowel and appendix are normal in caliber. Uterus surgically absent. Both ovaries not seen. Prominent collateral veins are seen in the perirectal fascia and submucosal of the rectum. No mass, adenopathy or ascites is present in the abdomen or pelvis. Impression: 1. Unremarkable CT of the chest.2. Distended esophagus with air and fluid suggestive of gastroesophageal reflux or distal esophageal obstruction.2. Cirrhosis with splenomegaly and portal hypertension.4. No suspicious hepatic mass.5. Nonspecific wall thickening in the large bowel suggestive of colitis or from nondistention.6. Prominent collateral veins in the perirectal fascia and rectal wall suggestive internal hemorrhoid. Signed: Marilee Figueroa MDReport Verified Date/Time: 04/08/2019 10:27:05 Reading Location: [facility] C013X [facility] Consult Reading Room CT, [id number] 10:27:00Referring: Dr. [facility] of the Chest, abdomen and pelvis dated 04/08/2019 Clinical information: Nausea/vomiting Comment: Axial images of the chest, abdomen, and pelvis were obtained from thoracic inlet to the pubic symphysis with intravenous contrast. This exam was performed according to our departmental dose-optimization program, which includes automated exposure control, adjustment of the mA and/or kV according to patient size and/or use of interactive reconstruction technique.Heart is normal in size. Great vessels are unremarkable. No adenopathy in the mediastinum or perihilar region. Trachea and mainstem bronchi are patent. The esophagus is distended with fluid and air. Both lungs are clear. No nodular, mass lesion or airspace disease is noted. No interstitial disease or bronchiectasis is present. No pleural effusion or pleural based mass is seen. Liver is cirrhotic in appearance with irregular margins. No suspicious mass is seen in the liver. Spleen is enlarged measuring approximately 16.3 x 5.9 x 11.3 cm. The splenic, superior mesenteric, portal, and hepatic veinsare patent. Main portal vein measures 1.4 cm in size. There is recannulization periumbilical vein. Paraesophageal varices is noted. Gallbladder is noted visualized. No biliary dilatation is noted. Pancreas and adrenals are unremarkable. Both kidneys are normal in size and functioning with bilateral exc retion. No hydronephrosis, hydroureter, or urolithiasis is noted. The opacified small and large bowel are suboptimally evaluated secondary to lack of GI contrast. There is nonspecific wall thickening in the transverse, descending and sigmoid colon secondary to nondistention or colitis. The small bowel and appendix are normal in caliber. Uterus surgically absent. Both ovaries not seen. Prominent collateral veins are seen in the perirectal fascia and submucosal of the rectum. No mass, adenopathy or ascites is present in the abdomen or pelvis. Impression: 1. Unremarkable CT of the chest.2. Distended esophagus with air and fluid suggestive of gastroesophageal reflux or distal esophageal obstruction.2. Cirrhosis with splenomegaly and portal hypertension.4. No suspicious hepatic mass.5. Nonspecific wall thickening in the large bowel suggestive of colitis or from nondistention.6. Prominent collateral veins in the perirectal fascia and rectal wall suggestive internal hemorrhoid. Signed: Marilee Figueroa MDReport Verified Date/Time: 04/08/2019 10:27:05 Reading Location: [facility] [id number] Ortho Consult Reading Room [id number] 07:38:00 Test Item Value Reference Range Interpretation Comments FERRITIN (BEAKER) (test code = 361) 11 ng/mL 5-275 HEPATIC FUNCTION [id number] 07:24:00 Test Item Value Reference Range Interpretation Comments TOTAL PROTEIN (BEAKER) (test code = 8.1 gm/dL 6.0-8.3 770) ALBUMIN (BEAKER) (test code = 1145) 3.6 g/dL 3.5-5.0 BILIRUBIN TOTAL (BEAKER) (test code 1.6 mg/dL 0.2-1.2 H = 377) BILIRUBIN DIRECT (BEAKER) (test 1.0 mg/dL 0.1-0.5 H code = 706) ALKALINE PHOSPHATASE (BEAKER) (test 84 U/L 40-150 code = 346) AST (SGOT) (BEAKER) (test code = 36 U/L 5-34 H 353) ALT (SGPT) (BEAKER) (test code = 23 U/L 6-55 347) COMPREHENSIVE METABOLIC [id number] 07:24:00 Test Item Value Reference Range Interpretation Comments TOTAL PROTEIN 8.1 gm/dL 6.0-8.3 (BEAKER) (test code = 770) ALBUMIN (BEAKER) 3.6 g/dL 3.5-5.0 (test code = 1145) ALKALINE PHOSPHATASE 84 U/L 40-150 (BEAKER) (test code = 346) BILIRUBIN TOTAL 1.6 mg/dL 0.2-1.2 H (BEAKER) (test code = 377) SODIUM (BEAKER) (test 137 meq/L 136-145 code = 381) POTASSIUM (BEAKER) 3.2 meq/L 3.5-5.1 L (test code = 379) CHLORIDE (BEAKER) 106 meq/L 98-107 (test code = 382) CO2 (BEAKER) (test 20 meq/L 22-29 L code = 355) BLOOD UREA NITROGEN 10 mg/dL 7-21 (BEAKER) (test code = 354) CREATININE (BEAKER) 0.67 mg/dL 0.57-1.25 (test code = 358) GLUCOSE RANDOM 136 mg/dL 70-105 H (BEAKER) (test code = 652) CALCIUM (BEAKER) 8.4 mg/dL 8.4-10.2 (test code = 697) AST (SGOT) (BEAKER) 36 U/L 5-34 H (test code = 353) ALT (SGPT) (BEAKER) 23 U/L 6-55 (test code = 347) EGFR (BEAKER) (test 86 mL/min/1.73 ESTIMA BRIDGER GFR IS code = 1092) sq m NOT ACCURATE CREATININE CLEARANCE IN PREDICTING GLOMERULAR FILTRATION RATE . ESTIMATED GFR I S NOT APPLICABLE FOR DIALYSIS PATIEN TS. IRON, TIBC, % SAT. (WITHOUT FERRITIN)2019-04-08 07:18:00 Test Item Value Reference Range Interpretation Comments IRON (BEAKER) (test code = 547) 40.0 ug/dL 40.0-160.0 TOTAL IRON BINDING CAPACITY 394 ug/dL 250-450 (BEAKER) (test code = 769) IRON % SATURATION (2) (BEAKER) 10 % 20-55 L (test code = 2590) CBC W/PLT COUNT & AUTO [id number] 06:59:00 Test Item Value Reference Range Interpretation Comments WHITE BLOOD CELL COUNT (BEAKER) 3.5 K/ L 3.5-10.5 (test code = 775) RED BLOOD CELL COUNT (BEAKER) 3.85 M/ L 3.93-5.22 L (test code = 761) HEMOGLOBIN (BEAKER) (test code = 9.0 GM/DL 11.2-15.7 L 410) HEMATOCRIT (BEAKER) (test code = 28.0 % 34.1-44.9 L 411) MEAN CORPUSCULAR VOLUME (BEAKER) 72.7 fL 79.4-94.8 L (test code = 753) MEAN CORPUSCULAR HEMOGLOBIN 23.4 pg 25.6-32.2 L (BEAKER) (test code = 751) MEAN CORPUSCULAR HEMOGLOBIN CONC 32.1 GM/DL 32.2-35.5 L (BEAKER) (test code = 752) RED CELL DISTRIBUTION WIDTH 21.0 % 11.7-14.4 H (BEAKER) (test code = 412) PLATELET COUNT (BEAKER) (test code 78 K/CU MM 150-450 L = 756) MEAN PLATELET VOLUME (BEAKER) 10.6 fL 9.4-12.3 (test code = 754) NUCLEATED RED BLOOD CELLS (BEAKER) 0 /100 WBC 0-0 (test code = 413) NEUTROPHILS RELATIVE PERCENT 61 % (BEAKER) (test code = 429) LYMPHOCYTES RELATIVE PERCENT 23 % (BEAKER) (test code = 430) MONOCYTES RELATIVE PERCENT 10 % (BEAKER) (test code = 431) EOSINOPHILS RELATIVE PERCENT 4 % (BEAKER) (test code = 432) BASOPHILS RELATIVE PERCENT 1 % (BEAKER) (test code = 437) NEUTROPHILS ABSOLUTE COUNT 2.14 K/ L 1.56-6.13 (BEAKER) (test code = 670) LYMPHOCYTES ABSOLUTE COUNT 0.80 K/ L 1.18-3.74 L (BEAKER) (test code = 414) MONOCYTES ABSOLUTE COUNT (BEAKER) 0.35 K/ L 0.24-0.36 (test code = 415) EOSINOPHILS ABSOLUTE COUNT 0.15 K/ L 0.04-0.36 (BEAKER) (test code = 416) BASOPHILS ABSOLUTE COUNT (BEAKER) 0.03 K/ L 0.01-0.08 (test code = 417) IMMATURE GRANULOCYTES-RELATIVE 0 % 0-1 PERCENT (BEAKER) (test code = 2801) PROTHROMBIN [id number] 06:50:00 Test Item Value Reference Range Interpretation Comments PROTIME (BEAKER) (test code = 16.3 seconds 11.9-14.2 H 759) INR (BEAKER) (test code = 370) 1.4 <=5.9 Effective 01/10/2019: PT Reference Range ChangeNew: 11.9-14.2 Previous: 11.7- 14.7RECOMMENDED COUMADIN/WARFARIN INR THERAPY RANGESSTANDARD DOSE: 2.0-3.0 Includes: PROPHYLAXIS for venous thrombosis, systemic embolization; TREATMENT for venous thrombosis and/or pulmonary embolus.HIGH RISK: Target INR is2.5-3.5 for patients wiht mechanical heart valves.POCT-GLUCOSE [id number] 06:14:00 Test Item Value Reference Range Interpretation Comments POC-GLUCOSE METER 154 mg/dL 70-110 H TESTED AT [facility] 67[address] ([facility]) (test code = DUSTIN HARD[place] 1538) [id number] POCT-GLUCOSE [id number] 00:08:00 Test Item Value Reference Range Interpretation Comments POC-GLUCOSE METER 140 mg/dL 70-110 H TESTED AT [place] [address] ([facility]) (test code = [facility] Will [facility] 1538) [id number] 19:20:00 Test Item Value Reference Range Interpretation Comments FERRITIN (BEAKER) (test code = 361) 11 ng/mL 5-275 IRON, TIBC, % SAT. (WITHOUT FERRITIN)2019-04-07 19:00:00 Test Item Value Reference Range Interpretation Comments IRON (BEAKER) (test code = 547) 44.0 ug/dL 40.0-160.0 TOTAL IRON BINDING CAPACITY 413 ug[facility]dL 250-[facility] (test code = 769) IRON % SATURATION (2) ([facility]) 11 % 20-55 L (test code = 2590) POCT-GLUCOSE [id number] 17:35:00 Test Item Value Reference Range Interpretation Comments POC-GLUCOSE METER 181 mg/dL 70-110 H TESTED AT [place] [address] ([facility]) (test code = [facility] 1538) [id number] POCT-GLUCOSE [id number] 12:55:00 Test Item Value Reference Range Interpretation Comments POC-GLUCOSE METER 191 mg/dL 70-110 H TESTED AT [place] [address] ([facility]) (test code = [facility] 1538) [address] POCT-GLUCOSE [id number] 08:11:00 Test Item Value Reference Range Interpretation Comments POC-GLUCOSE METER 175 mg/dL 70-110 H TESTED AT [place] [address] ([facility]) (test code = [facility] 1538) [id number] POCT-GLUCOSE [id number] 07:18:00 Test Item Value Reference Range Interpretation Comments POC-GLUCOSE METER 159 mg/dL 70-110 H TESTED AT [place] [address] ([facility]) (test code = [facility] 1538) [address] HEPATIC FUNCTION [id number] 06:49:00 Test Item Value Reference Range Interpretation Comments TOTAL PROTEIN (BEAKER) (test code = 7.3 gm/dL 6.0-8.3 770) ALBUMIN (BEAKER) (test code = 1145) 3.3 g/dL 3.5-5.0 L BILIRUBIN TOTAL (BEAKER) (test code 1.4 mg/dL 0.2-1.2 H = 377) BILIRUBIN DIRECT (BEAKER) (test 0.8 mg/dL 0.1-0.5 H code = 706) ALKALINE PHOSPHATASE (BEAKER) (test 80 U/L 40-150 code = 346) AST (SGOT) (BEAKER) (test code = 36 U/L 5-34 H 353) ALT (SGPT) (BEAKER) (test code = 23 U/L 6-55 347) BASIC METABOLIC [id number] 06:49:00 Test Item Value Reference Range Interpretation Comments SODIUM (BEAKER) 139 meq/L 136-145 (test code = 381) POTASSIUM (BEAKER) 3.6 meq/L 3.5-5.1 (test code = 379) CHLORIDE (BEAKER) 109 meq/L 98-107 H (test code = 382) CO2 (BEAKER) (test 21 meq/L 22-29 L code = 355) BLOOD UREA NITROGEN 14 mg/dL 7-21 (BEAKER) (test code = 354) CREATININE (BEAKER) 0.71 mg/dL 0.57-1.25 (test code = 358) GLUCOSE RANDOM 131 mg/dL 70-105 H (BEAKER) (test code = 652) CALCIUM (BEAKER) 8.3 mg/dL 8.4-10.2 L (test code = 697) EGFR (BEAKER) (test 80 mL/min/1.73 ESTIMA BRIDGER GFR IS code = 1092) sq m NOT ACCURATE CREATININE CLEARANCE IN PREDICTING GLOMERULAR FILTRATION RATE . ESTIMATED GFR I S NOT APPLICABLE FOR DIALYSIS PATIEN TS. PROTHROMBIN [id number] 05:57:00 Test Item Value Reference Range Interpretation Comments PROTIME (BEAKER) (test code = 16.1 seconds 11.9-14.2 H 759) INR (BEAKER) (test code = 370) 1.4 <=5.9 Effective 01/10/2019: PT Reference Range ChangeNew: 11.9-14.2 Previous: 11.7- 14.7RECOMMENDED COUMADIN/WARFARIN INR THERAPY RANGESSTANDARD DOSE: 2.0-3.0 Includes: PROPHYLAXIS for venous thrombosis, systemic embolization; TREATMENT for venous thrombosis and/or pulmonary embolus.HIGH RISK: Target INR is2.5-3.5 for patients wiht mechanical heart valves.CBC W/PLT COUNT & AUTO [id number] 05:45:00 Test Item Value Reference Range Interpretation Comments WHITE BLOOD CELL COUNT 3.6 K/ L 3.5-10.5 (BEAKER) (test code = 775) RED BLOOD CELL COUNT 3.52 M/ L 3.93-5.22 L (BEAKER) (test code = 761) HEMOGLOBIN (BEAKER) 8.2 GM/DL 11.2-15.7 L (test code = 410) HEMATOCRIT (BEAKER) 24.9 % 34.1-44.9 L (test code = 411) MEAN CORPUSCULAR VOLUME 70.7 fL 79.4-94.8 L (BEAKER) (test code = 753) MEAN CORPUSCULAR 23.3 pg 25.6-32.2 L HEMOGLOBIN (BEAKER) (test code = 751) MEAN CORPUSCULAR 32.9 GM/DL 32.2-35.5 HEMOGLOBIN CONC (BEAKER) (test code = 752) RED CELL DISTRIBUTION 20.8 % 11.7-14.4 H WIDTH (BEAKER) (test code = 412) PLATELET COUNT (BEAKER) 85 K/CU MM 150-450 L (test code = 756) MEAN PLATELET VOLUME Unable to report due (BEAKER) (test code = to abn ormal Platelet 754) population distribution. NUCLEATED RED BLOOD 0 /100 WBC 0-0 CELLS (BEAKER) (test code = 413) NEUTROPHILS RELATIVE 53 % PERCENT (BEAKER) (test code = 429) LYMPHOCYTES RELATIVE 29 % PERCENT (BEAKER) (test code = 430) MONOCYTES RELATIVE 12 % PERCENT (BEAKER) (test code = 431) EOSINOPHILS RELATIVE 6 % PERCENT (BEAKER) (test code = 432) BASOPHILS RELATIVE 1 % PERCENT (BEAKER) (test code = 437) NEUTROPHILS ABSOLUTE 1.90 K/ L 1.56-6.13 COUNT (BEAKER) (test code = 670) LYMPHOCYTES ABSOLUTE 1.04 K/ L 1.18-3.74 L COUNT (BEAKER) (test code = 414) MONOCYTES ABSOLUTE 0.41 K/ L 0.24-0.36 H COUNT (BEAKER) (test code = 415) EOSINOPHILS ABSOLUTE 0.20 K/ L 0.04-0.36 COUNT (BEAKER) (test code = 416) BASOPHILS ABSOLUTE 0.02 K/ L 0.01-0.08 COUNT (BEAKER) (test code = 417) IMMATURE 0 % 0-1 GRANULOCYTES-RELATIVE PERCENT (BEAKER) (test code = 2801) POCT-GLUCOSE [id number] 23:27:00 Test Item Value Reference Range Interpretation Comments POC-GLUCOSE METER 122 mg/dL 70-110 H TESTED AT [facility] 6720 (BEAKER) (test code = [place] 1538) [id number] URINALYSIS W/ REFLEX URINE [id number] 22:28:00 Test Item Value Reference Range Interpretation Comments COLOR (BEAKER) (test code = 470) Dark Yellow CLARITY (BEAKER) (test code = Clear 469) SPECIFIC GRAVITY UA (BEAKER) 1.023 1.001-1.035 (test code = 468) PH UA (BEAKER) (test code = 467) 6.0 5.0-8.0 PROTEIN UA (BEAKER) (test code = 30 mg/dL Negative A 464) GLUCOSE UA (BEAKER) (test code = Negative Negative 365) KETONES UA (BEAKER) (test code = 60 mg/dL Negative A 371) BILIRUBIN UA (BEAKER) (test code Positive Negative A = 462) BLOOD UA (BEAKER) (test code = Negative Negative 461) NITRITE UA (BEAKER) (test code = Negative Negative 465) LEUKOCYTE ESTERASE UA (BEAKER) Trace Negative A (test code = 466) UROBILINOGEN UA (BEAKER) (test 12.0 mg/dL 0.2-1.0 H code = 463) RBC UA (BEAKER) (test code = 519) 1 /HPF WBC UA (BEAKER) (test code = 520) 3 /HPF MUCUS (BEAKER) (test code = 1574) Many SQUAMOUS EPITHELIAL (BEAKER) 1 /HPF (test code = 516) SOURCE(BEAKER) (test code = 2795) [id number] 20:06:00 Test Item Value Reference Range Interpretation Comments LIPASE (BEAKER) (test code = 749) 29 U/L 8-78 [id number] 20:06:00 Test Item Value Reference Range Interpretation Comments AMYLASE (BEAKER) (test code = 349) 48 U/L 25-125 BASIC METABOLIC [id number] 20:06:00 Test Item Value Reference Range Interpretation Comments SODIUM (BEAKER) 137 meq/L 136-145 (test code = 381) POTASSIUM (BEAKER) 3.7 meq/L 3.5-5.1 (test code = 379) CHLORIDE (BEAKER) 104 meq/L 98-107 (test code = 382) CO2 (BEAKER) (test 22 meq/L 22-29 code = 355) BLOOD UREA NITROGEN 16 mg/dL 7-21 (BEAKER) (test code = 354) CREATININE (BEAKER) 0.75 mg/dL 0.57-1.25 (test code = 358) GLUCOSE RANDOM 140 mg/dL 70-105 H (BEAKER) (test code = 652) CALCIUM (BEAKER) 8.9 mg/dL 8.4-10.2 (test code = 697) EGFR (BEAKER) (test 75 mL/min/1.73 ESTIMA BRIDGER GFR IS code = 1092) sq m NOT ACCURATE CREATININE CLEARANCE IN PREDICTING GLOMERULAR FILTRATION RATE . ESTIMATED GFR I S NOT APPLICABLE FOR DIALYSIS PATIEN TS. HEPATIC FUNCTION [id number] 20:06:00 Test Item Value Reference Range Interpretation Comments TOTAL PROTEIN (BEAKER) (test code = 8.6 gm/dL 6.0-8.3 H 770) ALBUMIN (BEAKER) (test code = 1145) 3.7 g/dL 3.5-5.0 BILIRUBIN TOTAL (BEAKER) (test code 1.5 mg/dL 0.2-1.2 H = 377) BILIRUBIN DIRECT (BEAKER) (test 0.9 mg/dL 0.1-0.5 H code = 706) ALKALINE PHOSPHATASE (BEAKER) (test 93 U/L 40-150 code = 346) AST (SGOT) (BEAKER) (test code = 39 U/L 5-34 H 353) ALT (SGPT) (BEAKER) (test code = 23 U/L 6-55 347) CBC W/PLT COUNT & AUTO [id number] 19:47:00 Test Item Value Reference Range Interpretation Comments WHITE BLOOD CELL COUNT (BEAKER) 4.5 K/ L 3.5-10.5 (test code = 775) RED BLOOD CELL COUNT (BEAKER) 4.10 M/ L 3.93-5.22 (test code = 761) HEMOGLOBIN (BEAKER) (test code = 9.5 GM/DL 11.2-15.7 L 410) HEMATOCRIT (BEAKER) (test code = 29.0 % 34.1-44.9 L 411) MEAN CORPUSCULAR VOLUME (BEAKER) 70.7 fL 79.4-94.8 L (test code = 753) MEAN CORPUSCULAR HEMOGLOBIN 23.2 pg 25.6-32.2 L (BEAKER) (test code = 751) MEAN CORPUSCULAR HEMOGLOBIN CONC 32.8 GM/DL 32.2-35.5 (BEAKER) (test code = 752) RED CELL DISTRIBUTION WIDTH 20.8 % 11.7-14.4 H (BEAKER) (test code = 412) PLATELET COUNT (BEAKER) (test 100 K/CU MM 150-450 L code = 756) MEAN PLATELET VOLUME (BEAKER) 9.4 fL 9.4-12.3 (test code = 754) NUCLEATED RED BLOOD CELLS 0 /100 WBC 0-0 (BEAKER) (test code = 413) NEUTROPHILS RELATIVE PERCENT 60 % (BEAKER) (test code = 429) LYMPHOCYTES RELATIVE PERCENT 23 % (BEAKER) (test code = 430) MONOCYTES RELATIVE PERCENT 11 % (BEAKER) (test code = 431) EOSINOPHILS RELATIVE PERCENT 4 % (BEAKER) (test code = 432) BASOPHILS RELATIVE PERCENT 1 % (BEAKER) (test code = 437) NEUTROPHILS ABSOLUTE COUNT 2.72 K/ L 1.56-6.13 (BEAKER) (test code = 670) LYMPHOCYTES ABSOLUTE COUNT 1.06 K/ L 1.18-3.74 L (BEAKER) (test code = 414) MONOCYTES ABSOLUTE COUNT (BEAKER) 0.51 K/ L 0.24-0.36 H (test code = 415) EOSINOPHILS ABSOLUTE COUNT 0.20 K/ L 0.04-0.36 (BEAKER) (test code = 416) BASOPHILS ABSOLUTE COUNT (BEAKER) 0.03 K/ L 0.01-0.08 (test code = 417) IMMATURE GRANULOCYTES-RELATIVE 0 % 0-1 PERCENT (BEAKER) (test code = 2801) RAD, ABDOMEN SERIES W/ UPRIGHT PA [id number] 18:40:00Referring: Dr. Cally Ewing for exam:->abdominal painShould this be performed at the bedside?- >NoFINAL REPORT TECHNIQUE: Abdomen series with upright PA chest INDICATION: abdominal pain. COMPARISON: None. FINDINGS: LINES/TUBES: None. LUNGS: The lungs are well inflated and clear. No consolidation or pulmonary edema. PLEURA: No pneumothorax or significant pleural effusion. HEART AND MEDIASTINUM: The cardiomediastinal silhouette is at the upper limit of normal in size. SOFT TISSUES AND BONES: Moderate degenerative changes of the lumbar spine. ABDOMEN: Coils over the pelvis. Gas in the colon. Possibly of gas in the small bowel. This is likely a nonobstructive bowel gas pattern. No acute bony abnormality. IMPRESSION: No acute intrathoracic abnormalities. There is a paucity of small bowel gas. However, this is likely a nonobstructive bowel gas pattern. Signed: Doroteo Jimenez MDReport Verified Date/Time: 04/06/2019 18:40:31 Reading Location: [facility] C0W Consult Reading Room POCT-GLUCOSE [id number] 11:11:00 Test Item Value Reference Range Interpretation Comments POC-GLUCOSE METER 309 mg/dL 70-110 H TESTED AT [facility] 67[address] ([facility]) (test code = DUSTIN Solis [facility] 1538) [address] [id number] 05:42:00 Test Item Value Reference Range Interpretation Comments MAGNESIUM (BEAKER) (test code = 1.8 mg/dL 1.6-2.6 627) COMPREHENSIVE METABOLIC [id number] 05:42:00 Test Item Value Reference Range Interpretation Comments TOTAL PROTEIN 7.4 gm/dL 6.0-8.3 (BEAKER) (test code = 770) ALBUMIN (BEAKER) 3.2 g/dL 3.5-5.0 L (test code = 1145) ALKALINE PHOSPHATASE 81 U/L 40-150 (BEAKER) (test code = 346) BILIRUBIN TOTAL 1.2 mg/dL 0.2-1.2 (BEAKER) (test code = 377) SODIUM (BEAKER) (test 138 meq/L 136-145 code = 381) POTASSIUM (BEAKER) 4.0 meq/L 3.5-5.1 (test code = 379) CHLORIDE (BEAKER) 106 meq/L 98-107 (test code = 382) CO2 (BEAKER) (test 27 meq/L 22-29 code = 355) BLOOD UREA NITROGEN 6 mg/dL 7-21 L (BEAKER) (test code = 354) CREATININE (BEAKER) 0.70 mg/dL 0.57-1.25 (test code = 358) GLUCOSE RANDOM 135 mg/dL 70-105 H (BEAKER) (test code = 652) CALCIUM (BEAKER) 8.8 mg/dL 8.4-10.2 (test code = 697) AST (SGOT) (BEAKER) 59 U/L 5-34 H (test code = 353) ALT (SGPT) (BEAKER) 36 U/L 6-55 (test code = 347) EGFR (BEAKER) (test 82 mL/min/1.73 ESTIMA BRIDGER GFR IS code = 1092) sq m NOT ACCURATE CREATININE CLEARANCE IN PREDICTING GLOMERULAR FILTRATION RATE . ESTIMATED GFR I S NOT APPLICABLE FOR DIALYSIS PATIEN TS. [id number] 05:35:00 Test Item Value Reference Range Interpretation Comments PROTIME (BEAKER) (test code = 15.6 seconds 11.9-14.2 H 759) INR (BEAKER) (test code = 370) 1.3 <=5.9 PARTIAL THROMBOPLASTIN TIME 28.9 seconds 22.5-36.0 (BEAKER) (test code = 760) Effective 01/10/2019: PT Reference Range ChangeNew: 11.9-14.2 Previous: 11.7- 14.7RECOMMENDED COUMADIN/WARFARIN INR THERAPY RANGESSTANDARD DOSE: 2.0-3.0 Includes: PROPHYLAXIS for venous thrombosis, systemic embolization; TREATMENT for venous thrombosis and/or pulmonary embolus.HIGH RISK: Target INR is2.5-3.5 for patients wiht mechanical heart valves.[id number] 05:35:00 Test Item Value Reference Range Interpretation Comments FIBRINOGEN LEVEL (BEAKER) (test 237 mg/dl 225-434 code = 658) CBC W/PLT COUNT & AUTO [id number] 05:01:00 Test Item Value Reference Range Interpretation Comments WHITE BLOOD CELL COUNT (BEAKER) 3.5 K/ L 3.5-10.5 (test code = 775) RED BLOOD CELL COUNT (BEAKER) 3.81 M/ L 3.93-5.22 L (test code = 761) HEMOGLOBIN (BEAKER) (test code = 8.8 GM/DL 11.2-15.7 L 410) HEMATOCRIT (BEAKER) (test code = 27.1 % 34.1-44.9 L 411) MEAN CORPUSCULAR VOLUME (BEAKER) 71.1 fL 79.4-94.8 L (test code = 753) MEAN CORPUSCULAR HEMOGLOBIN 23.1 pg 25.6-32.2 L (BEAKER) (test code = 751) MEAN CORPUSCULAR HEMOGLOBIN CONC 32.5 GM/DL 32.2-35.5 (BEAKER) (test code = 752) RED CELL DISTRIBUTION WIDTH 19.9 % 11.7-14.4 H (BEAKER) (test code = 412) PLATELET COUNT (BEAKER) (test code 87 K/CU MM 150-450 L = 756) MEAN PLATELET VOLUME (BEAKER) 9.5 fL 9.4-12.3 (test code = 754) NUCLEATED RED BLOOD CELLS (BEAKER) 0 /100 WBC 0-0 (test code = 413) NEUTROPHILS RELATIVE PERCENT 54 % (BEAKER) (test code = 429) LYMPHOCYTES RELATIVE PERCENT 24 % (BEAKER) (test code = 430) MONOCYTES RELATIVE PERCENT 11 % (BEAKER) (test code = 431) EOSINOPHILS RELATIVE PERCENT 10 % (BEAKER) (test code = 432) BASOPHILS RELATIVE PERCENT 1 % (BEAKER) (test code = 437) NEUTROPHILS ABSOLUTE COUNT 1.90 K/ L 1.56-6.13 (BEAKER) (test code = 670) LYMPHOCYTES ABSOLUTE COUNT 0.85 K/ L 1.18-3.74 L (BEAKER) (test code = 414) MONOCYTES ABSOLUTE COUNT (BEAKER) 0.37 K/ L 0.24-0.36 H (test code = 415) EOSINOPHILS ABSOLUTE COUNT 0.34 K/ L 0.04-0.36 (BEAKER) (test code = 416) BASOPHILS ABSOLUTE COUNT (BEAKER) 0.02 K/ L 0.01-0.08 (test code = 417) IMMATURE GRANULOCYTES-RELATIVE 1 % 0-1 PERCENT (BEAKER) (test code = 2801) POCT-GLUCOSE [id number] 04:43:00 Test Item Value Reference Range Interpretation Comments POC-GLUCOSE METER 144 mg/dL 70-110 H TESTED AT [facility] 67 (BEAKER) (test code = DUSTIN [place] 1538) [id number] POCT-GLUCOSE [id number] 23:21:00 Test Item Value Reference Range Interpretation Comments POC-GLUCOSE METER 246 mg/dL 70-110 H TESTED AT [place] [address] (BEAKER) (test code = DUSTIN Solis [place] 1538) [id number] HEMOGLOBIN AND [id number] 19:53:00 Test Item Value Reference Range Interpretation Comments HEMOGLOBIN (BEAKER) (test code = 8.5 GM/DL 11.2-15.7 L 410) HEMATOCRIT (BEAKER) (test code = 26.3 % 34.1-44.9 L 411) POCT-GLUCOSE [id number] 17:49:00 Test Item Value Reference Range Interpretation Comments POC-GLUCOSE METER 182 mg/dL 70-110 H TESTED AT [place] [address] (BEAKER) (test code = NUSRATNH Will [place] 1538) [id number] HEMOGLOBIN AND [id number] 12:42:00 Test Item Value Reference Range Interpretation Comments HEMOGLOBIN (BEAKER) (test code = 8.4 GM/DL 11.2-15.7 L 410) HEMATOCRIT (BEAKER) (test code = 26.7 % 34.1-44.9 L 411) [id number] 06:38:00 Test Item Value Reference Range Interpretation Comments MAGNESIUM (BEAKER) (test code = 2.3 mg/dL 1.6-2.6 627) COMPREHENSIVE METABOLIC [id number] 06:38:00 Test Item Value Reference Range Interpretation Comments TOTAL PROTEIN 7.6 gm/dL 6.0-8.3 (BEAKER) (test code = 770) ALBUMIN (BEAKER) 3.3 g/dL 3.5-5.0 L (test code = 1145) ALKALINE PHOSPHATASE 87 U/L 40-150 (BEAKER) (test code = 346) BILIRUBIN TOTAL 1.3 mg/dL 0.2-1.2 H (BEAKER) (test code = 377) SODIUM (BEAKER) (test 137 meq/L 136-145 code = 381) POTASSIUM (BEAKER) 4.5 meq/L 3.5-5.1 (test code = 379) CHLORIDE (BEAKER) 104 meq/L 98-107 (test code = 382) CO2 (BEAKER) (test 26 meq/L 22-29 code = 355) BLOOD UREA NITROGEN 6 mg/dL 7-21 L (BEAKER) (test code = 354) CREATININE (BEAKER) 0.69 mg/dL 0.57-1.25 (test code = 358) GLUCOSE RANDOM 197 mg/dL 70-105 H (BEAKER) (test code = 652) CALCIUM (BEAKER) 8.5 mg/dL 8.4-10.2 (test code = 697) AST (SGOT) (BEAKER) 52 U/L 5-34 H (test code = 353) ALT (SGPT) (BEAKER) 30 U/L 6-55 (test code = 347) EGFR (BEAKER) (test 83 mL/min/1.73 ESTIMA BRIDGER GFR IS code = 1092) sq m NOT ACCURATE CREATININE CLEARANCE IN PREDICTING GLOMERULAR FILTRATION RATE . ESTIMATED GFR I S NOT APPLICABLE FOR DIALYSIS PATIEN TS. POCT-GLUCOSE [id number] 06:34:00 Test Item Value Reference Range Interpretation Comments POC-GLUCOSE METER 237 mg/dL 70-110 H TESTED AT [facility] (test code = [place] 1538) [id number] PROTHROMBIN [id number] 05:40:00 Test Item Value Reference Range Interpretation Comments PROTIME (BEAKER) (test code = 15.2 seconds 11.9-14.2 H 759) INR (BEAKER) (test code = 370) 1.3 <=5.9 Effective 01/10/2019: PT Reference Range ChangeNew: 11.9-14.2 Previous: 11.7- 14.7RECOMMENDED COUMADIN/WARFARIN INR THERAPY RANGESSTANDARD DOSE: 2.0-3.0 Includes: PROPHYLAXIS for venous thrombosis, systemic embolization; TREATMENT for venous thrombosis and/or pulmonary embolus.HIGH RISK: Target INR is2.5-3.5 for patients wiht mechanical heart valves.CBC W/PLT COUNT & AUTO [id number] 05:22:00 Test Item Value Reference Range Interpretation Comments WHITE BLOOD CELL COUNT (BEAKER) 3.1 K/ L 3.5-10.5 L (test code = 775) RED BLOOD CELL COUNT (BEAKER) 3.60 M/ L 3.93-5.22 L (test code = 761) HEMOGLOBIN (BEAKER) (test code = 8.3 GM/DL 11.2-15.7 L 410) HEMATOCRIT (BEAKER) (test code = 25.8 % 34.1-44.9 L 411) MEAN CORPUSCULAR VOLUME (BEAKER) 71.7 fL 79.4-94.8 L (test code = 753) MEAN CORPUSCULAR HEMOGLOBIN 23.1 pg 25.6-32.2 L (BEAKER) (test code = 751) MEAN CORPUSCULAR HEMOGLOBIN CONC 32.2 GM/DL 32.2-35.5 (BEAKER) (test code = 752) RED CELL DISTRIBUTION WIDTH 19.9 % 11.7-14.4 H (BEAKER) (test code = 412) PLATELET COUNT (BEAKER) (test code 82 K/CU MM 150-450 L = 756) MEAN PLATELET VOLUME (BEAKER) 10.0 fL 9.4-12.3 (test code = 754) NUCLEATED RED BLOOD CELLS (BEAKER) 0 /100 WBC 0-0 (test code = 413) NEUTROPHILS RELATIVE PERCENT 61 % (BEAKER) (test code = 429) LYMPHOCYTES RELATIVE PERCENT 21 % (BEAKER) (test code = 430) MONOCYTES RELATIVE PERCENT 11 % (BEAKER) (test code = 431) EOSINOPHILS RELATIVE PERCENT 6 % (BEAKER) (test code = 432) BASOPHILS RELATIVE PERCENT 1 % (BEAKER) (test code = 437) NEUTROPHILS ABSOLUTE COUNT 1.90 K/ L 1.56-6.13 (BEAKER) (test code = 670) LYMPHOCYTES ABSOLUTE COUNT 0.65 K/ L 1.18-3.74 L (BEAKER) (test code = 414) MONOCYTES ABSOLUTE COUNT (BEAKER) 0.35 K/ L 0.24-0.36 (test code = 415) EOSINOPHILS ABSOLUTE COUNT 0.18 K/ L 0.04-0.36 (BEAKER) (test code = 416) BASOPHILS ABSOLUTE COUNT (BEAKER) 0.02 K/ L 0.01-0.08 (test code = 417) IMMATURE GRANULOCYTES-RELATIVE 0 % 0-1 PERCENT (BEAKER) (test code = 2801) COMPREHENSIVE METABOLIC [id number] 00:27:00 Test Item Value Reference Range Interpretation Comments TOTAL PROTEIN 6.9 gm/dL 6.0-8.3 (BEAKER) (test code = 770) ALBUMIN (BEAKER) 3.0 g/dL 3.5-5.0 L (test code = 1145) ALKALINE PHOSPHATASE 77 U/L 40-150 (BEAKER) (test code = 346) BILIRUBIN TOTAL 1.6 mg/dL 0.2-1.2 H (BEAKER) (test code = 377) SODIUM (BEAKER) (test 140 meq/L 136-145 code = 381) POTASSIUM (BEAKER) 3.7 meq/L 3.5-5.1 (test code = 379) CHLORIDE (BEAKER) 110 meq/L 98-107 H (test code = 382) CO2 (BEAKER) (test 22 meq/L 22-29 code = 355) BLOOD UREA NITROGEN 7 mg/dL 7-21 (BEAKER) (test code = 354) CREATININE (BEAKER) 0.63 mg/dL 0.57-1.25 (test code = 358) GLUCOSE RANDOM 148 mg/dL 70-105 H (BEAKER) (test code = 652) CALCIUM (BEAKER) 7.9 mg/dL 8.4-10.2 L (test code = 697) AST (SGOT) (BEAKER) 33 U/L 5-34 (test code = 353) ALT (SGPT) (BEAKER) 22 U/L 6-55 (test code = 347) EGFR (BEAKER) (test 92 mL/min/1.73 ESTIMA BRIDGER GFR IS code = 1092) sq m NOT ACCURATE CREATININE CLEARANCE IN PREDICTING GLOMERULAR FILTRATION RATE . ESTIMATED GFR I S NOT APPLICABLE FOR DIALYSIS PATIEN TS. [id number] 00:04:00 Test Item Value Reference Range Interpretation Comments MAGNESIUM (BEAKER) (test code = 1.4 mg/dL 1.6-2.6 L 627) PROTHROMBIN [id number] 23:49:00 Test Item Value Reference Range Interpretation Comments PROTIME (BEAKER) (test code = 15.8 seconds 11.9-14.2 H 759) INR (BEAKER) (test code = 370) 1.3 <=5.9 Effective 01/10/2019: PT Reference Range ChangeNew: 11.9-14.2 Previous: 11.7- 14.7RECOMMENDED COUMADIN/WARFARIN INR THERAPY RANGESSTANDARD DOSE: 2.0-3.0 Includes: PROPHYLAXIS for venous thrombosis, systemic embolization; TREATMENT for venous thrombosis and/or pulmonary embolus.HIGH RISK: Target INR is2.5-3.5 for patients wiht mechanical heart valves.CBC W/PLT COUNT & AUTO [id number] 23:41:00 Test Item Value Reference Range Interpretation Comments WHITE BLOOD CELL COUNT (BEAKER) 2.6 K/ L 3.5-10.5 L (test code = 775) RED BLOOD CELL COUNT (BEAKER) 3.22 M/ L 3.93-5.22 L (test code = 761) HEMOGLOBIN (BEAKER) (test code = 7.4 GM/DL 11.2-15.7 L 410) HEMATOCRIT (BEAKER) (test code = 22.8 % 34.1-44.9 L 411) MEAN CORPUSCULAR VOLUME (BEAKER) 70.8 fL 79.4-94.8 L (test code = 753) MEAN CORPUSCULAR HEMOGLOBIN 23.0 pg 25.6-32.2 L (BEAKER) (test code = 751) MEAN CORPUSCULAR HEMOGLOBIN CONC 32.5 GM/DL 32.2-35.5 (BEAKER) (test code = 752) RED CELL DISTRIBUTION WIDTH 19.7 % 11.7-14.4 H (BEAKER) (test code = 412) PLATELET COUNT (BEAKER) (test code 68 K/CU MM 150-450 L = 756) MEAN PLATELET VOLUME (BEAKER) 9.3 fL 9.4-12.3 L (test code = 754) NUCLEATED RED BLOOD CELLS (BEAKER) 0 /100 WBC 0-0 (test code = 413) NEUTROPHILS RELATIVE PERCENT 53 % (BEAKER) (test code = 429) LYMPHOCYTES RELATIVE PERCENT 28 % (BEAKER) (test code = 430) MONOCYTES RELATIVE PERCENT 11 % (BEAKER) (test code = 431) EOSINOPHILS RELATIVE PERCENT 8 % (BEAKER) (test code = 432) BASOPHILS RELATIVE PERCENT 1 % (BEAKER) (test code = 437) NEUTROPHILS ABSOLUTE COUNT 1.35 K/ L 1.56-6.13 L (BEAKER) (test code = 670) LYMPHOCYTES ABSOLUTE COUNT 0.71 K/ L 1.18-3.74 L (BEAKER) (test code = 414) MONOCYTES ABSOLUTE COUNT (BEAKER) 0.28 K/ L 0.24-0.36 (test code = 415) EOSINOPHILS ABSOLUTE COUNT 0.21 K/ L 0.04-0.36 (BEAKER) (test code = 416) BASOPHILS ABSOLUTE COUNT (BEAKER) 0.02 K/ L 0.01-0.08 (test code = 417) IMMATURE GRANULOCYTES-RELATIVE 0 % 0-1 PERCENT (BEAKER) (test code = 2801) POCT-HEMOGLOBIN [id number] 05:44:00 Test Item Value Reference Range Interpretation Comments POC-HEMOGLOBIN METER 8.8 g/dL 12.0-15.0 L TESTED AT [place] [address] (BEAKER) ([facility] [address] 1539) POCT-GLUCOSE [id number] 13:01:00 Test Item Value Reference Range Interpretation Comments POC-GLUCOSE METER 136 mg/dL 70-110 H [facility] [place] [address] [facility] (test code = [facility] [place] 1538) [id number] HEMOGLOBIN AND [id number] 09:47:00 Test Item Value Reference Range Interpretation Comments HEMOGLOBIN (BEAKER) (test code = 8.1 GM/DL 11.2-15.7 L 410) HEMATOCRIT (BEAKER) (test code = 25.6 % 34.1-44.9 L 411) POCT-GLUCOSE [id number] 06:27:00 Test Item Value Reference Range Interpretation Comments POC-GLUCOSE METER 157 mg/dL 70-110 H TESTED AT [place] [address] (BEAKER) (test code = [facility] [place] 1538) [id number] POCT-GLUCOSE [id number] 23:31:00 Test Item Value Reference Range Interpretation Comments POC-GLUCOSE METER 185 mg/dL 70-110 H TESTED AT [place] [address] (BEAKER) (test code = [facility] [place] 1538) [address] HEMOGLOBIN AND [id number] 18:45:00 Test Item Value Reference Range Interpretation Comments HEMOGLOBIN (BEAKER) (test code = 7.5 GM/DL 11.2-15.7 L 410) HEMATOCRIT (BEAKER) (test code = 23.9 % 34.1-44.9 L 411) POCT-GLUCOSE [id number] 17:19:00 Test Item Value Reference Range Interpretation Comments POC-GLUCOSE METER 188 mg/dL 70-110 H TESTED AT [place] [address] (BEAKER) (test code = [facility] 1538) [address] HEMOGLOBIN AND [id number] 14:30:00 Test Item Value Reference Range Interpretation Comments HEMOGLOBIN (BEAKER) (test code = 7.3 GM/DL 11.2-15.7 L 410) HEMATOCRIT (BEAKER) (test code = 23.3 % 34.1-44.9 L 411) POCT-GLUCOSE [id number] 12:08:00 Test Item Value Reference Range Interpretation Comments POC-GLUCOSE METER 224 mg/dL 70-110 H TESTED AT [place] [address] ([facility]) (test code = [facility] 1538) [address] POCT-GLUCOSE [id number] 12:06:00 Test Item Value Reference Range Interpretation Comments POC-GLUCOSE METER 367 mg/dL 70-110 H [facility] AT [place] [address] [facility] (test code = [facility] 1538) [address] HEMOGLOBIN AND [id number] 08:57:00 Test Item Value Reference Range Interpretation Comments HEMOGLOBIN (BEAKER) (test code = 8.4 GM/DL 11.2-15.7 L 410) HEMATOCRIT (BEAKER) (test code = 26.5 % 34.1-44.9 L 411) HEPATIC FUNCTION [id number] 06:27:00 Test Item Value Reference Range Interpretation Comments TOTAL PROTEIN (BEAKER) (test code = 7.0 gm/dL 6.0-8.3 770) ALBUMIN (BEAKER) (test code = 1145) 3.2 g/dL 3.5-5.0 L BILIRUBIN TOTAL (BEAKER) (test code 1.1 mg/dL 0.2-1.2 = 377) BILIRUBIN DIRECT (BEAKER) (test 0.6 mg/dL 0.1-0.5 H code = 706) ALKALINE PHOSPHATASE (BEAKER) (test 74 U/L 40-150 code = 346) AST (SGOT) (BEAKER) (test code = 50 U/L 5-34 H 353) ALT (SGPT) (BEAKER) (test code = 34 U/L 6-55 347) BASIC METABOLIC [id number] 06:27:00 Test Item Value Reference Range Interpretation Comments SODIUM (BEAKER) 137 meq/L 136-145 (test code = 381) POTASSIUM (BEAKER) 3.6 meq/L 3.5-5.1 (test code = 379) CHLORIDE (BEAKER) 106 meq/L 98-107 (test code = 382) CO2 (BEAKER) (test 23 meq/L 22-29 code = 355) BLOOD UREA NITROGEN 5 mg/dL 7-21 L (BEAKER) (test code = 354) CREATININE (BEAKER) 0.66 mg/dL 0.57-1.25 (test code = 358) GLUCOSE RANDOM 128 mg/dL 70-105 H (BEAKER) (test code = 652) CALCIUM (BEAKER) 8.1 mg/dL 8.4-10.2 L (test code = 697) EGFR (BEAKER) (test 87 mL/min/1.73 ESTIMA BRIDGER GFR IS code = 1092) sq m NOT ACCURATE CREATININE CLEARANCE IN PREDICTING GLOMERULAR FILTRATION RATE . ESTIMATED GFR I S NOT APPLICABLE FOR DIALYSIS PATIEN TS. PROTHROMBIN [id number] 06:09:00 Test Item Value Reference Range Interpretation Comments PROTIME (BEAKER) (test code = 15.6 seconds 11.9-14.2 H 759) INR (BEAKER) (test code = 370) 1.3 <=5.9 Effective 01/10/2019: PT Reference Range ChangeNew: 11.9-14.2 Previous: 11.7- 14.7RECOMMENDED COUMADIN/WARFARIN INR THERAPY RANGESSTANDARD DOSE: 2.0-3.0 Includes: PROPHYLAXIS for venous thrombosis, systemic embolization; TREATMENT for venous thrombosis and/or pulmonary embolus.HIGH RISK: Target INR is2.5-3.5 for patients wiht mechanical heart valves.HEMOGLOBIN AND [id number] 06:02:00 Test Item Value Reference Range Interpretation Comments HEMOGLOBIN (BEAKER) (test code = 7.6 GM/DL 11.2-15.7 L 410) HEMATOCRIT (BEAKER) (test code = 23.8 % 34.1-44.9 L 411) U/S, ABDOMINAL, [id number] 01:25:00Referring: Dr. Cally Ewing for exam:->cirrhosisFINAL REPORT [...] changes of a cholecystectomy. Signed: Jessy Driscoll Verified Date/Time: 01/19/2019 01:25:12 -GLUCOSE [id number] 21:37:00 Test Item Value Reference Range Interpretation Comments POC-GLUCOSE METER 245 mg/dL 70-110 H TESTED AT [facility] 6720 (DARIUS) (test code = [facility] [place] 1538) [address] HEMOGLOBIN AND [id number] 21:02:00 Test Item Value Reference Range Interpretation Comments HEMOGLOBIN (DARIUS) (test code = 7.8 GM/DL 11.2-15.7 L 410) HEMATOCRIT (BEAKER) (test code = 24.3 % 34.1-44.9 L 411) POCT-GLUCOSE [id number] 14:17:00 Test Item Value Reference Range Interpretation Comments POC-GLUCOSE METER 198 mg/dL 70-110 H TESTED AT [facility] 6720 (BEAKER) (test code = [facility] [place] 1538) [address] POCT-GLUCOSE [id number] 10:41:00 Test Item Value Reference Range Interpretation Comments POC-GLUCOSE METER 190 mg/dL 70-110 H TESTED AT [facility] (test code = [facility] [place] 1538) [address] ALPHA FETOPROTEIN (AFP), TUMOR [id number] 07:30:00 Test Item Value Reference Range Interpretation Comments ALPHA-FETOPROTEIN (BEAKER) (test code < ng/mL <10.0 = 1094) HEPATITIS A ANTIBODY, [id number] 07:30:00 Test Item Value Reference Range Interpretation Comments HEPATITIS A IGG ANTIBODY (BEAKER) Reactive Nonreactive A (test code = 2797) HEPATITIS B SURFACE [id number] 07:30:00 Test Item Value Reference Range Interpretation Comments HEPATITIS B SURFACE ANTIBODY < mIU/mL <8.0 (BEAKER) (test code = 647) HEPATIC FUNCTION [id number] 07:13:00 Test Item Value Reference Range Interpretation Comments TOTAL PROTEIN (BEAKER) (test code = 7.5 gm/dL 6.0-8.3 770) ALBUMIN (BEAKER) (test code = 1145) 3.4 g/dL 3.5-5.0 L BILIRUBIN TOTAL (BEAKER) (test code 1.3 mg/dL 0.2-1.2 H = 377) BILIRUBIN DIRECT (BEAKER) (test 0.8 mg/dL 0.1-0.5 H code = 706) ALKALINE PHOSPHATASE (BEAKER) (test 79 U/L 40-150 code = 346) AST (SGOT) (BEAKER) (test code = 59 U/L 5-34 H 353) ALT (SGPT) (BEAKER) (test code = 35 U/L 6-55 347) BASIC METABOLIC [id number] 07:13:00 Test Item Value Reference Range Interpretation Comments SODIUM (BEAKER) 140 meq/L 136-145 (test code = 381) POTASSIUM (BEAKER) 4.1 meq/L 3.5-5.1 (test code = 379) CHLORIDE (BEAKER) 106 meq/L 98-107 (test code = 382) CO2 (BEAKER) (test 25 meq/L 22-29 code = 355) BLOOD UREA NITROGEN 6 mg/dL 7-21 L (BEAKER) (test code = 354) CREATININE (BEAKER) 0.66 mg/dL 0.57-1.25 (test code = 358) GLUCOSE RANDOM 146 mg/dL 70-105 H (BEAKER) (test code = 652) CALCIUM (BEAKER) 8.4 mg/dL 8.4-10.2 (test code = 697) EGFR (BEAKER) (test 87 mL/min/1.73 ESTIMA BRIDGER GFR IS code = 1092) sq m NOT ACCURATE CREATININE CLEARANCE IN PREDICTING GLOMERULAR FILTRATION RATE . ESTIMATED GFR I S NOT APPLICABLE FOR DIALYSIS PATIEN TS. PROTHROMBIN [id number] 06:53:00 Test Item Value Reference Range Interpretation Comments PROTIME (BEAKER) (test code = 15.5 seconds 11.9-14.2 H 759) INR (BEAKER) (test code = 370) 1.3 <=5.9 Effective 01/10/2019: PT Reference Range ChangeNew: 11.9-14.2 Previous: 11.7- 14.7RECOMMENDED COUMADIN/WARFARIN INR THERAPY RANGESSTANDARD DOSE: 2.0-3.0 Includes: PROPHYLAXIS for venous thrombosis, systemic embolization; TREATMENT for venous thrombosis and/or pulmonary embolus.HIGH RISK: Target INR is2.5-3.5 for patients wiht mechanical heart valves.POCT-GLUCOSE [id number] 06:40:00 Test Item Value Reference Range Interpretation Comments POC-GLUCOSE METER 169 mg/dL 70-110 H TESTED AT [facility] 6720 (BEAKER) (test code = [facility] [place] 6237) [address] HEMOGLOBIN AND [id number] 06:36:00 Test Item Value Reference Range Interpretation Comments HEMOGLOBIN (BEAKER) (test code = 8.2 GM/DL 11.2-15.7 L 410) HEMATOCRIT (BEAKER) (test code = 24.2 % 34.1-44.9 L 411) POCT-GLUCOSE [id number] 00:40:00 Test Item Value Reference Range Interpretation Comments POC-GLUCOSE METER 166 mg/dL 70-110 H TESTED AT [place] [address] ([facility]) (test code = [facility] 1538) [address] HEMOGLOBIN AND [id number] 18:38:00 Test Item Value Reference Range Interpretation Comments HEMOGLOBIN (BEAKER) (test code = 8.9 GM/DL 11.2-15.7 L 410) HEMATOCRIT (BEAKER) (test code = 27.8 % 34.1-44.9 L 411) POCT-GLUCOSE [id number] 16:43:00 Test Item Value Reference Range Interpretation Comments POC-GLUCOSE METER 276 mg/dL 70-110 H TESTED AT [place] [address] ([facility]) (test code = [facility] 1538) [address] HEMOGLOBIN AND [id number] 14:19:00 Test Item Value Reference Range Interpretation Comments HEMOGLOBIN (BEAKER) (test code = 8.4 GM/DL 11.2-15.7 L 410) HEMATOCRIT (BEAKER) (test code = 25.5 % 34.1-44.9 L 411) POCT-GLUCOSE [id number] 12:30:00 Test Item Value Reference Range Interpretation Comments POC-GLUCOSE METER 176 mg/dL 70-110 H TESTED AT [place] [address] ([facility]) (test code = [facility] 1538) [address] HEMOGLOBIN [id number] 08:25:00 Test Item Value Reference Range Interpretation Comments HEMOGLOBIN A1C 5.4 % 4.3-6.1 POSSIBLE HEMO GLOBIN C (AKER) (test code = VARIAN T NOTED IN 368) HEMOGLOBIN A1C CHROMATOGRAPH. SUGGEST HEMOGLOBIN ELEC TROPHORESIS IF CLINICALLY I NDICATED. POCT-GLUCOSE [id number] 07:09:00 Test Item Value Reference Range Interpretation Comments POC-GLUCOSE METER 212 mg/dL 70-110 H TESTED AT [place] [address] ([facility]) (test code = [facility] 1538) [address] BASIC METABOLIC [id number] 05:56:00 Test Item Value Reference Range Interpretation Comments SODIUM (BEAKER) 137 meq/L 136-145 (test code = 381) POTASSIUM (BEAKER) 4.2 meq/L 3.5-5.1 (test code = 379) CHLORIDE (BEAKER) 105 meq/L 98-107 (test code = 382) CO2 (BEAKER) (test 25 meq/L 22-29 code = 355) BLOOD UREA NITROGEN 12 mg/dL 7-21 (BEAKER) (test code = 354) CREATININE (BEAKER) 0.70 mg/dL 0.57-1.25 (test code = 358) GLUCOSE RANDOM 189 mg/dL 70-105 H (BEAKER) (test code = 652) CALCIUM (BEAKER) 8.9 mg/dL 8.4-10.2 (test code = 697) EGFR (BEAKER) (test 82 mL/min/1.73 ESTIMA BRIDGER GFR IS code = 1092) sq m NOT ACCURATE CREATININE CLEARANCE IN PREDICTING GLOMERULAR FILTRATION RATE . ESTIMATED GFR I S NOT APPLICABLE FOR DIALYSIS PATIEN TS. Specimen slightly ictericHEPATIC FUNCTION [id number] 05:56:00 Test Item Value Reference Range Interpretation Comments TOTAL PROTEIN (BEAKER) (test code = 7.6 gm/dL 6.0-8.3 770) ALBUMIN (BEAKER) (test code = 1145) 3.5 g/dL 3.5-5.0 BILIRUBIN TOTAL (BEAKER) (test code 2.3 mg/dL 0.2-1.2 H = 377) BILIRUBIN DIRECT (BEAKER) (test 1.2 mg/dL 0.1-0.5 H code = 706) ALKALINE PHOSPHATASE (BEAKER) (test 96 U/L 40-150 code = 346) AST (SGOT) (BEAKER) (test code = 33 U/L 5-34 353) ALT (SGPT) (BEAKER) (test code = 26 U/L 6-55 347) Specimen slightly ictericPROTHROMBIN [id number] 05:44:00 Test Item Value Reference Range Interpretation Comments PROTIME (BEAKER) (test code = 15.1 seconds 11.9-14.2 H 759) INR (BEAKER) (test code = 370) 1.2 <=5.9 Effective 01/10/2019: PT Reference Range ChangeNew: 11.9-14.2 Previous: 11.7- 14.7RECOMMENDED COUMADIN/WARFARIN INR THERAPY RANGESSTANDARD DOSE: 2.0-3.0 Includes: PROPHYLAXIS for venous thrombosis, systemic embolization; TREATMENT for venous thrombosis and/or pulmonary embolus.HIGH RISK: Target INR is2.5-3.5 for patients wiht mechanical heart valves.CBC W/PLT COUNT & AUTO [id number] 05:28:00 Test Item Value Reference Range Interpretation Comments WHITE BLOOD CELL COUNT (BEAKER) 3.4 K/ L 3.5-10.5 L (test code = 775) RED BLOOD CELL COUNT (BEAKER) 3.54 M/ L 3.93-5.22 L (test code = 761) HEMOGLOBIN (BEAKER) (test code = 8.1 GM/DL 11.2-15.7 L 410) HEMATOCRIT (BEAKER) (test code = 24.1 % 34.1-44.9 L 411) MEAN CORPUSCULAR VOLUME (BEAKER) 68.1 fL 79.4-94.8 L (test code = 753) MEAN CORPUSCULAR HEMOGLOBIN 22.9 pg 25.6-32.2 L (BEAKER) (test code = 751) MEAN CORPUSCULAR HEMOGLOBIN CONC 33.6 GM/DL 32.2-35.5 (BEAKER) (test code = 752) RED CELL DISTRIBUTION WIDTH 19.8 % 11.7-14.4 H (BEAKER) (test code = 412) PLATELET COUNT (BEAKER) (test code 98 K/CU MM 150-450 L = 756) MEAN PLATELET VOLUME (BEAKER) 9.4 fL 9.4-12.3 (test code = 754) NUCLEATED RED BLOOD CELLS (BEAKER) 0 /100 WBC 0-0 (test code = 413) NEUTROPHILS RELATIVE PERCENT 63 % (BEAKER) (test code = 429) LYMPHOCYTES RELATIVE PERCENT 17 % (BEAKER) (test code = 430) MONOCYTES RELATIVE PERCENT 11 % (BEAKER) (test code = 431) EOSINOPHILS RELATIVE PERCENT 7 % (BEAKER) (test code = 432) BASOPHILS RELATIVE PERCENT 1 % (BEAKER) (test code = 437) NEUTROPHILS ABSOLUTE COUNT 2.14 K/ L 1.56-6.13 (BEAKER) (test code = 670) LYMPHOCYTES ABSOLUTE COUNT 0.58 K/ L 1.18-3.74 L (BEAKER) (test code = 414) MONOCYTES ABSOLUTE COUNT (BEAKER) 0.38 K/ L 0.24-0.36 H (test code = 415) EOSINOPHILS ABSOLUTE COUNT 0.22 K/ L 0.04-0.36 (BEAKER) (test code = 416) BASOPHILS ABSOLUTE COUNT (BEAKER) 0.03 K/ L 0.01-0.08 (test code = 417) IMMATURE GRANULOCYTES-RELATIVE 1 % 0-1 PERCENT (BEAKER) (test code = 2801) MARCO TITER AND [id number] 15:09:00 Test Item Value Reference Range Interpretation Comments MARCO TITER (BEAKER) (test code = >=:2560 1541) MARCO PATTERN (BEAKER) (test code = Homogeneous 1781) ANTI-NUCLEAR ANTIBODY (MARCO)[id number] 15:08:00 Test Item Value Reference Range Interpretation Comments ANTI-NUCLEAR ANTIBODY (MARCO) (BEAKER) Positive Negative A (test code = 418) [id number] 14:16:00 Test Item Value Reference Range Interpretation Comments THYROID STIMULATING HORMONE 2.05 uIU/mL 0.35-4.94 (BEAKER) (test code = 772) [id number] 14:00:00 Test Item Value Reference Range Interpretation Comments FERRITIN (BEAKER) (test code = 361) 8 ng/mL 5-275 Effective 07/02/2014: Reference Range ChangeNew: Male 5-275 Previous: Male 22-322 Female 5-275 Female 10-291CBC W/PLT COUNT & AUTO [id number] 13:04:00 Test Item Value Reference Range Interpretation Comments WHITE BLOOD CELL COUNT (BEAKER) 6.0 K/ L 4.0-10.0 (test code = 775) RED BLOOD CELL COUNT (BEAKER) 3.28 M/ L 4.00-5.00 L (test code = 761) HEMOGLOBIN (BEAKER) (test code = 7.4 GM/DL 12.0-15.0 L 410) HEMATOCRIT (BEAKER) (test code = 21.4 % 36.0-45.0 L 411) MEAN CORPUSCULAR VOLUME (BEAKER) 65.0 fL 82.0-99.0 L (test code = 753) MEAN CORPUSCULAR HEMOGLOBIN 22.5 pg 27.0-33.0 L (BEAKER) (test code = 751) MEAN CORPUSCULAR HEMOGLOBIN CONC 34.6 GM/DL 32.0-36.0 (BEAKER) (test code = 752) RED CELL DISTRIBUTION WIDTH 18.1 % 10.3-14.2 H (BEAKER) (test code = 412) PLATELET COUNT (BEAKER) (test 128 K/CU MM 150-430 L code = 756) MEAN PLATELET VOLUME (BEAKER) 5.6 fL 6.5-10.5 L (test code = 754) NUCLEATED RED BLOOD CELLS 0 /100 WBC 0-0 (BEAKER) (test code = 413) NEUTROPHILS RELATIVE PERCENT 77 % (BEAKER) (test code = 429) LYMPHOCYTES RELATIVE PERCENT 13 % (BEAKER) (test code = 430) MONOCYTES RELATIVE PERCENT 8 % (BEAKER) (test code = 431) EOSINOPHILS RELATIVE PERCENT 2 % (BEAKER) (test code = 432) BASOPHILS RELATIVE PERCENT 0 % (BEAKER) (test code = 437) NEUTROPHILS ABSOLUTE COUNT 4.56 K/ L 1.80-8.00 (BEAKER) (test code = 670) LYMPHOCYTES ABSOLUTE COUNT 0.79 K/ L 1.48-4.50 L (BEAKER) (test code = 414) MONOCYTES ABSOLUTE COUNT (BEAKER) 0.46 K/ L 0.00-1.30 (test code = 415) EOSINOPHILS ABSOLUTE COUNT 0.12 K/ L 0.00-0.50 (BEAKER) (test code = 416) BASOPHILS ABSOLUTE COUNT (BEAKER) 0.03 K/ L 0.00-0.20 (test code = 417) 0.00ALPHA FETOPROTEIN (AFP), TUMOR [id number] 12:58:00 Test Item Value Reference Range Interpretation Comments ALPHA-FETOPROTEIN (BEAKER) (test code < ng/mL <10.0 = 1094) Effective 07/02/2014: Reference Range ChangeNew: <10.0 Previous: 0.0-8.0 HEPATITIS B SURFACE [id number] 12:57:00 Test Item Value Reference Range Interpretation Comments HEPATITIS B SURFACE ANTIGEN (2) Nonreactive Nonreactive (BEAKER) (test code = 2585) HEPATITIS C [id number] 12:57:00 Test Item Value Reference Range Interpretation Comments HEPATITIS C ANTIBODY (BEAKER) Nonreactive Nonreactive (test code = 367) HEPATITIS B SURFACE [id number] 12:57:00 Test Item Value Reference Range Interpretation Comments HEPATITIS B SURFACE ANTIBODY < mIU/mL <8.0 (BEAKER) (test code = 647) HEPATITIS A ANTIBODY, [id number] 12:57:00 Test Item Value Reference Range Interpretation Comments HEPATITIS A IGG ANTIBODY (BEAKER) Reactive Nonreactive A (test code = 2797) IMMUNOGLOBULIN G (IGG)[id number] 12:55:00 Test Item Value Reference Range Interpretation Comments IMMUNOGLOBULIN G (IGG) (BEAKER) 1397 mg/dL 540-1822 (test code = 427) IRON, TIBC, % SAT. (WITHOUT FERRITIN)2016-11-24 12:55:00 Test Item Value Reference Range Interpretation Comments IRON (BEAKER) (test code = 547) 23 ug/dL 40-160 L TOTAL IRON BINDING CAPACITY 429 ug/dL 250-450 (BEAKER) (test code = 769) IRON % SATURATION (2) (BEAKER) 5 % 20-55 L (test code = 2590) HEPATITIS A ANTIBODY, [id number] 12:54:00 Test Item Value Reference Range Interpretation Comments HEPATITIS A IGM ANTIBODY (BEAKER) Nonreactive Nonreactive (test code = 498) HEPATITIS B CORE ANTIBODY, [id number] 12:54:00 Test Item Value Reference Range Interpretation Comments HEPATITIS B CORE TOTAL ANTIBODY Nonreactive Nonreactive (BEAKER) (test code = 497) COMPREHENSIVE METABOLIC [id number] 12:25:00 Test Item Value Reference Range Interpretation Comments TOTAL PROTEIN 8.4 gm/dL 6.0-8.3 H (BEAKER) (test code = 770) ALBUMIN (BEAKER) 4.0 g/dL 3.5-5.0 (test code = 1145) ALKALINE PHOSPHATASE 100 U/L 40-150 (BEAKER) (test code = 346) BILIRUBIN TOTAL 0.9 mg/dL 0.2-1.2 (BEAKER) (test code = 377) SODIUM (BEAKER) (test 135 meq/L 136-145 L code = 381) POTASSIUM (BEAKER) 4.1 meq/L 3.5-5.1 (test code = 379) CHLORIDE (BEAKER) 101 meq/L 98-107 (test code = 382) CO2 (BEAKER) (test 19 meq/L 22-29 L code = 355) BLOOD UREA NITROGEN 16 mg/dL 7-21 (BEAKER) (test code = 354) CREATININE (BEAKER) 0.74 mg/dL 0.57-1.25 (test code = 358) GLUCOSE RANDOM 138 mg/dL 70-105 H (BEAKER) (test code = 652) CALCIUM (BEAKER) 9.7 mg/dL 8.4-10.2 (test code = 697) AST (SGOT) (BEAKER) 33 U/L 5-34 (test code = 353) ALT (SGPT) (BEAKER) 29 U/L 6-55 (test code = 347) EGFR (BEAKER) (test 77 mL/min/1.73 ESTIMA BRIDGER GFR IS code = 1092) sq m NOT ACCURATE CREATININE CLEARANCE IN PREDICTING GLOMERULAR FILTRATION RATE . ESTIMATED GFR I S NOT APPLICABLE FOR DIALYSIS PATIEN TS. BILIRUBIN, [id number] 12:25:00 Test Item Value Reference Range Interpretation Comments BILIRUBIN DIRECT (BEAKER) (test 0.5 mg/dL 0.1-0.5 code = 706) PROTHROMBIN [id number] 12:15:00 Test Item Value Reference Range Interpretation Comments PROTIME (BEAKER) (test code = 14.3 seconds 11.7-14.7 759) INR (BEAKER) (test code = 370) 1.1 <=5.9 RECOMMENDED COUMADIN/WARFARIN INR THERAPY RANGESSTANDARD DOSE: 2.0 - 3.0 Includes: PROPHYLAXIS forvenous thrombosis, systemic embolization; TREATMENT for venous thrombosis and/or pulmonary embolus.HIGH RISK: Target INR is 2.5-3.5 for patients with mechanical heart valves.[id number] 11:49:00 Test Item Value Reference Range Interpretation Comments POC-CREATININE 0.5 mg/dL 0.6-1.[address] [facility] 6720 (BEAKER) (test [place] code = 3283) [address] POC-EGFR (BEAKER) 121 mL/min/1.73M2 (test code = 0930)
[2020-07-06 17:15] LABS: Absolute Lymphocytes (CBC) 1.4 K/uL (0.7-4.9); Basophils % 0.9 % (0-1.3); Hematocrit 32.2 % (36.0-45.0); MPV 9.2 fL (7.6-11.3); RBC Red Blood Cell Count 4.42 M/uL (3.86-4.86)
[2020-07-06] MEDS ORDERED: PANTOPRAZOLE 40 MG INJ ONE (17:22)
[2020-07-06] MEDS ORDERED: ONDANSETRON 4 MG/2 ML VIAL ONE (17:22)
[2020-07-06] MEDS ORDERED: NA CHLORIDE 0.9% 250 ML ONE (17:22)
[2020-07-06 17:26] LABS: Protime INR 1.23
[2020-07-06 17:35] LABS: Albumin 3.4 g/dL (3.4-5.0); Bilirubin Direct 0.6 mg/dL (0-0.2); Bilirubin Total 1.5 mg/dL (0.2-1.0); Magnesium 1.9 mg/dL (1.8-2.4); Protein, Total 8.6 g/dL (6.4-8.2)
--- NOTE | 2020-07-06 17:44 | RAD REPORT ---
EXAM DESCRIPTION: RAD - Chest Single View - 07/06/2020 5:03 pm CLINICAL HISTORY: dysphagia Chest pain. COMPARISON: Chest Single View dated 09/15/2018; CHEST PA AND LAT 2 VIEW dated 10/05/2015 FINDINGS: Portable technique limits examination quality. The lungs are grossly clear. The heart is normal in size. No displaced fractures. IMPRESSION: No acute intrathoracic process suspected.
[2020-07-06 17:50] LABS: Blood Morphology Comment NOT SEEN (NOT SEEN); Platelet Estimate DECR; White Blood Cell Scan OK (OK)
--- NOTE | 2020-07-06 18:39 | RAD REPORT ---
EXAM DESCRIPTION: CTAbdomen Pelvis W Contrast - 07/06/2020 6:27 pm CLINICAL HISTORY: Abdominal pain. nausea/vomiting COMPARISON: Abdomen Pelvis W Contrast dated 08/11/2016; Abdomen Pelvis W Contrast dated 6; CT ABD PELVIS W CONTRAST dated 01/16/2015 TECHNIQUE: Biphasic CT imaging of the abdomen and pelvis was performed with 100 ml non-ionic IV cont rast. All CT scans are performed using dose optimization technique as appropriate and may include automated exposure control or mA/KV adjustment according to patient size. FINDINGS: Multiple small nodules are noted both posteroinferior lung bases. These nodules demonstrat e long-term stability. Multiple large esophageal varices are seen at the gastroesophageal junction. Cirrhotic liver is prese nt with portal hypertension. Moderate splenomegaly. The pancreas appears atrophic. The adrenal glands and kidneys within normal limits. No bowel obstruction, free air, free fluid or abscess. Stomach wall appears somewhat thickened and ed ematous which can be seen portal gastropathy. The appendix is normal. Sigmoid diverticulosis coli is present without diverticulitis. No evidence of significant lymphadenopathy. Metallic clips are presen t in the region distal rectum. No suspicious bony findings. IMPRESSION: Liver cirrhosis, portal hypertension and splenomegaly is evident. No measurable ascites. Large esophageal varices are present at the gastroesophageal junction. Thickening of the wall of the stomach may indicate portal gastropathy.
--- NOTE | 2020-07-06 19:43 | ER ---
[facility] Name: Vijaya Oneal Age: 74 yrs Sex: Female : 1945 Arrival Date: 07/06/2020 Time: 16:21 Bed 6 Private MD: Diagnosis: Vomiting;Dysphagia, unspecified Presentation: 07/06 16:30 Chief complaint: Pt's daughter states "she has cirrhosis of the liver and her esophagus aa5 is very narrow now so she's hasn't been able to eat much because she kind of chokes on it and can't get food to go down and I think she is dehydrated now because it's been going on since ". pt denies pain, denies diarrhea. 16:30 Coronavirus screen: Client denies travel out of the [place] in the last 14 days. At this aa5 time, the client does not indicate any symptoms associated with coronavirus-19. Ebola Screen: Patient negative for fever greater than or equal to 101.5 degrees Fahrenheit, and additional compatible Ebola Virus Disease symptoms. Initial Sepsis Screen: Does the patient meet any 2 criteria? No. Patient's initial sepsis screen is negative. Does the patient have a suspected source of infection? No. Patient's initial sepsis screen is negative. Risk Assessment: Do you want to hurt yourself or someone else? Patient reports no desire to harm self or others. Onset of symptoms was June 2020. 16:30 Acuity: NELLY 3 aa5 16:30 Method Of Arrival: Ambulatory aa5 Historical: - Allergies: 16:30 PENICILLINS; aa5 - PMHx: 16:30 Anemia; Cirrhosis; Diabetes - NIDDM; Hypertension; neuropathy; aa5 - PSHx: 16:30 Cholecystectomy; ; Tonsillectomy; aa5 - Immunization history:: Adult Immunizations unknown. - Social history:: Smoking status: Patient/guardian denies using. Screenin:00 Abuse screen: Denies threats or abuse. Nutritional screening: No deficits noted. aa5 Tuberculosis screening: No symptoms or risk factors identified. Fall Risk IV access (20 points). Total Chery Fall Scale indicates No Risk (0-24 pts). Assessment: 16:30 General: Appears comfortable, Behavior is calm, cooperative. Pain: Denies pain. Neuro: aa5 Level of Consciousness is awake, alert, obeys commands, Oriented to person, place, time, situation. Cardiovascular: Heart tones S1 S2 present Rhythm is regular. Respiratory: Airway is patent Respiratory effort is even, unlabored, Respiratory pattern is regular, symmetrical. GI: Abdomen is round Reports Difficulty eating solid foods due to narrow esophagus, pt's daughter reports pt declined offer for dilation of esophagus because of risks due to her medical history. Pt's daughter states "she normally drinks meals replacement drinks and lately she's been trying to eat more solid foods but today the caregiver made her some chicken and she was choking on it", pt denies feeling food bolus at this time. Patient currently denies bloody stool, diarrhea, nausea, vomiting. : No signs and/or symptoms were reported regarding the genitourinary system. EENT: No signs and/or symptoms were reported regarding the EENT system. Derm: Skin is pink, warm \\T\\ dry. Musculoskeletal: Range of motion: intact in all extremities. 17:05 Reassessment: Patient is alert, oriented x 3, equal unlabored respirations, skin aa5 warm/dry/pink. Pt notified of wait time for lab results, pt verbalized understanding. Pt declined warm blanket at this time. . 18:35 Reassessment: Patient is alert, oriented x 3, equal unlabored respirations, skin aa5 warm/dry/pink. Pt back from CT. Pt states no complaints at this time.. 19:10 General: Appears in no apparent distress. Behavior is calm, cooperative, appropriate wh for age. Pain: Denies pain. Neuro: Level of Consciousness is awake, alert, obeys commands, Oriented to person, place, time, situation, Appropriate for age. Cardiovascular: Capillary refill < 3 seconds. Respiratory: Airway is patent Respiratory effort is even, unlabored, Respiratory pattern is regular, symmetrical. GI: Abdomen is round Abd is soft and non tender. : No signs and/or symptoms were reported regarding the genitourinary system. EENT: No signs and/or symptoms were reported regarding the EENT system. Derm: Skin is intact, is healthy with good turgor. Musculoskeletal: Circulation, motion, and sensation intact. Vital Signs: 16:31 BP 151 / 62; Pulse 70; Resp 18 S; Temp 98.2(O); Pulse Ox 100% on R/A; Weight 52.62 kg aa5 (R); Pain 0/10; 18:47 BP 138 / 56; Pulse 69; Resp 16 S; Pulse Ox 99% on R/A; aa5 19:24 BP 141 / 63; Pulse 67; Resp 18; Pulse Ox 99% on R/A; ED Course: 16:21 Patient arrived in ED. mr 16:25 Olman Lares PA is PHCP. cp 16:25 Jm Collado MD is Attending Physician. cp 16:30 Arm band placed on Patient placed in an exam room, on a stretcher. aa5 16:30 Patient has correct armband on for positive identification. Bed in low position. Call aa5 light in reach. Side rails up X2. Adult w/ patient. Pulse ox on. NIBP on. 16:37 Triage completed. aa5 16:39 Norma Carrington, LC is Primary Nurse. aa5 17:00 Initial lab(s) drawn, by tx, sent to lab. Inserted saline lock: 20 gauge in right aa5 forearm, using aseptic technique. Blood collected. 17:01 XRAY Chest (1 view) In Process Unspecified. EDMS 18:27 CT Abd/Pelvis - IV Contrast Only In Process Unspecified. EDMS 19:00 Report given to LC Correa and LC Zamora. aa5 19:41 Cally Servin MD is Referral Physician. 19:51 No provider procedures requiring assistance completed. IV discontinued, intact, bleeding controlled, No redness/swelling at site. Administered Medications: 17:10 Drug: NS 0.9% 250 ml Route: IV; Rate: bolus; Site: right forearm; aa5 19:52 Follow up: Response: No adverse reaction; IV Status: Completed infusion 17:10 Drug: Zofran (Ondansetron) 4 mg Route: IVP; Site: right forearm; aa5 19:23 Follow up: Response: No adverse reaction; Nausea is decreased 17:10 Drug: ProTONIX 40 mg Route: IVP; Site: right forearm; aa5 19:23 Follow up: Response: No adverse reaction Outcome: 19:42 Discharge ordered by . cp 19:51 Discharged to home ambulatory, with family. 19:51 Condition: stable 19:51 Discharge instructions given to patient, family, Instructed on discharge instructions, follow up and referral plans. medication usage, POC Demonstrated understanding of instructions, follow-up care, medications, POC Prescriptions given X 1. 19:52 Patient left the ED. Signatures: Dispatcher [employer] MICHELLEND Mary Ivey, Norma, RN RN aa5 Olman Lraes PA PA cp Habalo, Winsy Corrections: (The following items were deleted from the chart) 19:26 19:24 BP 185 / 90; Pulse 67bpm; Resp 18bpm; Pulse Ox 99% RA; [facility]
--- NOTE | 2020-07-06 19:43 | EDPHYS ---
Physician Documentation [facility] Name: Vijaya Oneal Age: 74 yrs Sex: Female : 1945 Arrival Date: 07/06/2020 Time: 16:21 Bed 6 Private MD: ED Physician Jm Collado HPI: 07/06 16:50 This 74 yrs old Female presents to ER via Ambulatory with complaints of cp Vomiting. 16:50 The patient presents to the emergency department with nausea, that is mild, vomiting, cp that is intermittent. 16:50 Onset: The symptoms/episode began/occurred 3 day(s) ago. cp 16:50 Possible causes: esophageal stricture. Associated signs and symptoms: Pertinent cp negatives: abdominal pain, diarrhea, fever, GI bleeding. Historical: - Allergies: 16:30 PENICILLINS; aa5 - PMHx: 16:30 Anemia; Cirrhosis; Diabetes - NIDDM; Hypertension; neuropathy; aa5 - PSHx: 16:30 Cholecystectomy; ; Tonsillectomy; aa5 - Immunization history:: Adult Immunizations unknown. - Social history:: Smoking status: Patient/guardian denies using. ROS: 16:55 Constitutional: Positive for poor PO intake, Negative for body aches, chills, fever. cp 16:55 Eyes: Negative for injury, pain, redness, and discharge. cp 16:55 ENT: Positive for difficulty swallowing, Negative for ear pain, difficulty handling secretions. 16:55 Cardiovascular: Negative for chest pain, edema, palpitations. 16:55 Respiratory: Negative for cough, shortness of breath, wheezing. 16:55 Abdomen/GI: Positive for vomiting, anorexia, Negative for abdominal pain, diarrhea, constipation. 16:55 Skin: Negative for rash. 16:55 Neuro: Negative for altered mental status, headache, weakness. 16:55 All other systems are negative. Exam: 17:00 Constitutional: The patient appears in no acute distress, alert, awake, cp non-diaphoretic, non-toxic, well developed, well nourished. 17:00 Head/Face: Normocephalic, atraumatic. cp 17:00 Eyes: Periorbital structures: appear normal, Conjunctiva: normal, no exudate, no injection, Sclera: no appreciated abnormality, Lids and lashes: appear normal, bilaterally. 17:00 ENT: External ear(s): are unremarkable, Nose: is normal, Mouth: Lips: moist, Oral mucosa: moist, Posterior pharynx: Airway: no evidence of obstruction, patent. 17:00 Chest/axilla: Inspection: normal, Palpation: is normal, no crepitus, no tenderness. 17:00 Cardiovascular: Rate: normal, Rhythm: regular. 17:00 Respiratory: the patient does not display signs of respiratory distress, Respirations: normal, no use of accessory muscles, no retractions, labored breathing, is not present, Breath sounds: are clear throughout, no decreased breath sounds, no stridor, no wheezing. 17:00 Abdomen/GI: Inspection: distension, that is mild, Bowel sounds: active, all quadrants, Palpation: soft, in all quadrants, nontender, in all quadrants, rebound tenderness, is not appreciated, voluntary guarding, is not appreciated, involuntary guarding, is not appreciated. 17:00 Back: CVA tenderness, that is mild, is noted on the left. 17:00 Neuro: Orientation: to person, place \T\ time. Mentation: is normal. Vital Signs: 16:31 BP 151 / 62; Pulse 70; Resp 18 S; Temp 98.2(O); Pulse Ox 100% on R/A; Weight 52.62 kg aa5 (R); Pain 0/10; 18:47 BP 138 / 56; Pulse 69; Resp 16 S; Pulse Ox 99% on R/A; aa5 19:24 BP 141 / 63; Pulse 67; Resp 18; Pulse Ox 99% on R/A; wh MDM: 16:27 Patient medically screened. 19:41 Data reviewed: vital signs, nurses notes, lab test result(s), radiologic studies, CT cp scan. 19:41 Differential diagnosis: gastritis, dehydration, electrolyte abnormality. Counseling: I cp had a detailed discussion with the patient and/or guardian regarding: the historical points, exam findings, and any diagnostic results supporting the discharge/admit diagnosis, lab results, radiology results, the need for outpatient follow up, a web marketing assistant, to return to the emergency department if symptoms worsen or persist or if there are any questions or concerns that arise at home. Response to treatment: the patient's symptoms have markedly improved after treatment, and as a result, I will discharge patient. 07/06 16:45 Order name: Basic Metabolic Panel; Complete Time: 18:07 cp 07/06 19:18 Interpretation: Normal except: CL 108; BUN 21; GFR 72. cp 07/06 16:45 Order name: CBC with Diff; Complete Time: 18:07 cp 07/06 18:07 Interpretation: Normal except: HGB 10.8; HCT 32.2; MCV 72.8; MCH 24.5; PLT 79; RDW cp 18.9; EOSINOPHIL % 4.5. 07/06 16:45 Order name: Hepatic Function; Complete Time: 18:07 cp 07/06 16:45 Order name: Lipase; Complete Time: 18:07 cp 07/06 16:45 Order name: PT-INR; Complete Time: 18:07 07/06 16:45 Order name: Ptt, Activated; Complete Time: 18:07 cp 07/06 16:45 Order name: IV Saline Lock; Complete Time: 17:28 cp 07/06 16:45 Order name: Magnesium; Complete Time: 18:07 07/06 16:45 Order name: XRAY Chest (1 view); Complete Time: 18:07 07/06 17:17 Order name: CT Abd/Pelvis - IV Contrast Only; Complete Time: 18:44 cp 07/06 17:50 Order name: CBC Smear Scan; Complete Time: 18:07 EDMS 07/06 16:45 Order name: Labs collected and sent; Complete Time: 17:28 07/06 18:45 Order name: PO challenge; Complete Time: 19:23 cp Administered Medications: 17:10 Drug: NS 0.9% 250 ml Route: IV; Rate: bolus; Site: right forearm; aa5 19:52 Follow up: Response: No adverse reaction; IV Status: Completed infusion wh 17:10 Drug: Zofran (Ondansetron) 4 mg Route: IVP; Site: right forearm; aa5 19:23 Follow up: Response: No adverse reaction; Nausea is decreased wh 17:10 Drug: ProTONIX 40 mg Route: IVP; Site: right forearm; aa5 19:23 Follow up: Response: No adverse reaction Disposition: 07/06/20 19:42 Discharged to Home. Impression: Vomiting, Dysphagia, unspecified. - Condition is Stable. - Discharge Instructions: Dysphagia, Vomiting, Adult. - Prescriptions for Zofran ODT 4 mg Oral tablet,disintegrating - place 2 tablet by TRANSLINGUAL route every 8 hours As needed; 30 tablet. - Medication Reconciliation Form, Thank You Letter, Antibiotic Education, Prescription Opioid Use form. - Follow up: Cally Servin MD; When: 1 - 2 days; Reason: Recheck today's complaints. - Problem is new. - Symptoms have improved. Signatures: Dispatcher [employer] EDMS Norma Carrington RN RN aa5 Olman Lares PA PA cp Noah Avina wh Corrections: (The following items were deleted from the chart) 17:15 07/05 16:50 This 74 yrs old Female presents to ER via Ambulatory with cp complaints of Vomiting. cp 07/06 17:15 07/05 16:50 The patient presents to the emergency department with nausea, that is mild, cp vomiting, that is intermittent, cp 07/06 19:52 19:42 07/06/2020 19:42 Discharged to Home. Impression: Vomiting; Dysphagia, wh unspecified. Condition is Stable. Forms are Medication Reconciliation Form, Thank You Letter, Antibiotic Education, Prescription Opioid Use. Follow up: Cally Servin; When: 1 - 2 days; Reason: Recheck today's complaints. Problem is new. Symptoms have improved. cp
[2020-07-07 00:52] VITALS: TEMP 98.2
[2020-07-07 00:53] VITALS: O2SAT 99
[2020-07-07 00:55] VITALS: BP 141/63
== END 2020-07-06 19:52 | disposition home or self-care (01) ==
LOC: ER 16:18
DX: R13.10 Dysphagia, unspecified (principal); I10 Essential (primary) hypertension; Z88.0 Allergy status to penicillin
CPT/HCPCS: 96365; 85025; 80048; 36415; 83735; 85610; 80076; 85730; 83690; 74177; 71045; 96375; 99284; 96366; Q9967; C9113; J7050; J2405

== ENCOUNTER 2022-06-06 13:35 | Emergency (ER) | payer OTHER ==
--- OUTSIDE RECORDS SUMMARY | 2022-06-06 13:39 | XMS REPORT | Continuity of Care Document ---
:1945 Author Organization [facility] t Address [address] [place] [address] Care Team Providers Name Role Phone KARLA ALEJANDRO VARGAS Primary Care Physician Unavailable JOS YOU Attending Clinician Unavailable MEGHANN Attending Clinician Unavailable JOS YOU Attending Clinician Unavailable Jos You MD Attending Clinician LO HATFIELD Attending Clinician Unavailable CLARE AVALOS Attending Clinician Unavailable CHRISTIANO GARRIDO Attending Clinician Unavailable ARAVIND CABA Attending Clinician Unavailable JOS YOU Admitting Clinician Unavailable MEGHANN Admitting Clinician Unavailable TEVIN RAMSAY Admitting Clinician Unavailable CLARE AVALOS Admitting Clinician Unavailable CHRISTIANO GARRIDO Admitting Clinician Unavailable Payers Payer Name Policy Type Policy Number Effective Date Expiration Date S mandie MEDICARE A B [id number] 2008 00:00:00 MEDICAID [facility] [id number] 2018 00:00:00 MEDICARE PART A [id number] \T\ [id number] - MEDICARE [facility]-MEDICAID - [id number] MEDICAID Problems Condition Condition Condition Status Onset Resolution Last Treating Co mments Source Name Details Category Date Date Treatment Clinician Date Intractabl Intractabl Disease Active [facility] cyclical e cyclical 8- Dana kes vomiting vomiting 00:00: Medica l without without 00 Center nausea nausea Stage 2 Stage [address] [facility] chronic 03-22 [facility] kidney kidney 00:00: Medical disease disease 00 Center Anemia Anemia Disease Active [facility] associated associated 03-22 Dana kes with acute with acute 00:00: Me dical blood loss blood loss 00 Ce nter Thrombocyt Thrombocyt Disease Active [facility] openia openia 03-22 [facility] 00:00: Medical 00 Marceline Pancytopen Pancytopen Disease Active [facility] ia ia 03-22 [facility] 00:00: Medical 00 Marceline GI bleed GI bleed Disease Active [facility] 00:00: Medical 00 Marceline Lower GI Lower GI Disease Active [facility] bleed bleed 605 [facility] 00:00: Medical 00 Marceline Screening Screening Disease Active Last [facility] for cancer for cancer 11-24 Assessmen kes 00:00: t & Plan: Medical [address] [place] [address] g of this note might be different from the original. Cirrhosis , regardles s of etiology, is a risk factor for developme nt of hepatocel lular carcinoma . The annual incidence of HCC varies from 1.5-7%. Thus, we recommend surveilla nce for HCC be performed using contrast MRI or CT imaging and alphafeto protein every 6 months. Metabolic Metabolic Disease Active Last [facility] St syndrome syndrome 11-24 Assessmen Kristine es 00:00: t & Plan: Medical [address] [place] [address] g of this note might be different from the original. She has features of metabolic syndrome. She has lost 15 lbs recently with life style modificat ion.Advis ed low carb high protein diet. Fatigue Fatigue Disease Active [facility] 11[facility]24 [facility] 00:00: Medical 00 Marceline Cirrhosis Cirrhosis Disease Active Last [facility] St 11-24 Assessmen [facility] 00:00: t & Plan: Medical [address] [place] [address] g of this note might be different from the original. Not biopsy proven, but diagnosis was based on radiology . Presumabl y from [facility].She has risk factors with DM type 2, Hypertens ion, hyperlipi demia, and she has family history of cirrhosis .We will do labs to exclude other causes of liver disease and calculate MELD score.We will do contrast imaging of liver. Portal Portal Disease Active Last [facility] hypertensi hypertensi -12 Assessmen [facility] on on 00:00: t & Plan: Medical 00 [facility] g of this note might be different from the original. 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 Will need repeat EGD in 4 weeks Allergies, Adverse Reactions, Alerts Allergy Allergy Status Severity Reaction(s) Onset Inactive Treating Comm ents Source Name Type Date Date Clinician Penicill Propensi Active Syncope [facility] ins ty to 02-23 [facility] adverse 00:00: of reaction 00 Medicin s to e drug Penicill Propensi Active fainted [facility] ins [facility] to 11-24 [facility] adverse 00:00: Medical reaction 00 Center s PENICILL Allergy Active [facility] INS 11-24 [facility] 00:00: Medical 00 Center Family History Family Member Diagnosis Comments Start Date Stop Date Source Natural brother Cirrhosis [facility] Natural sister Diabetes [facility] Social History Social Habit Start Date Stop Date Quantity Comments Source History [facility] ge Alcohol Std Drinks of Med icine History [facility] Alcohol Binge of Medicine Alcohol intake 2021-03-18 2021-03-18 Current [facility] 00:00:00 00:00:00 non-drinker of Medical Ce nter alcohol (finding) Tobacco use and 2020-08-26 2020-08-26 Never used [facility] [employer] l[employer] exposure 00:00:00 00:00:00 of Medicine History [facility] 2019-02-23 2019-02-23 1 [facility] ge Alcohol Frequency 00:00:00 00:00:00 of Medi cine Sex [birth year] F [facility] 00:00:00 00:00:00 of Medicine Smoking Status Start Date Stop Date Source Never smoker [facility] o f Medicine Medications Ordered Filled Start Stop Current Ordering Indication Dosage Frequency Signature Comments Components Source Medication Medication Date Date Medication? Clinician (SIG) Name Name gabapentin Yes 400mg Q.5D Take [address] (NEURONTIN) 8-04 mg by [facility] 400 MG 09:41: mouth 2 Medical capsule 33 (two) Center times daily. propranolol 2021-0 Yes 10mg Q.5D Take [address] (INDERAL) 8-04 by mouth 2 Luke s 10 MG 09:41: (two) Medical tablet 33 times Center daily . rifAXIMin 0 Yes 550mg Q.5D Take [address] 550 mg Tab 8-04 mg by [facility]ukes 09:41: mouth 2 Medical 33 (two) Center times daily. spironolact Yes 25mg QD Take [address] one 8-04 by mouth [facility] (ALDACTONE) 09:41: daily . Med ical 25 MG 33 Marceline tablet ursodiol Yes 500mg QD Take [address] (ACTIGALL) 8-04 mg by [facility] 500 MG 09:41: mouth Medical tablet 33 daily. Marceline lisinopril Yes 10mg QD Take [address] (PRINIVIL,Z 8-04 by mouth Luke s ESTRIL) 10 09:41: daily. Medic al MG tablet [address] [place] [address] linaCLOtide Yes QD Take by [facility] (LINZESS) 8-04 mouth [facility] 72 mcg Cap 09:41: daily . [facility] hannah [address] [place] [address] insulin Yes 30U QD Inject 30 [facility] t glargine,hu 8-04 Units [facility]ukes m.rec.anlog 09:41: subcutaneo Medical (BASAGLAR [address] [place] [address] Center KWIKPEN nightly . U-100 INSULIN SUBQ) levocetiriz Yes Take by [facility] ine 8-04 mouth as [facility]ukes dihydrochlo 09:41: needed . Me dical ride (XYZAL [address] [place] [address] ORAL) naproxen Yes Take by [facility] sodium 8-04 mouth as [facility]ukes (ALEVE 09:41: needed . Medical ORAL) [address] [place] [address] melatonin 5 0 Yes QD Take by [facility] mg Cap 8-04 mouth [facility]ukes 09:41: nightly. [address] lisinopril 0 Yes 10mg Take 10 mg B [facility]or (PRINIVIL, 1-12 by mouth. Augustus egdavonte ZESTRIL) 10 17:42: of MG tablet 06 Medicin e rifAXIMin 0 Yes 550mg Take 550 M[facility]leary mojgan 550 MG TABS 1-12 mg by College 17:42: mouth. of 06 Medicin e Ursodiol Yes 500mg Take 500 [facility] or 500 MG TABS 1-12 mg by College 17:42: mouth. of Medicin e lactulose Yes 10g Take 10 g Mccleary mojgan (CHRONULAC) 1-12 by mouth. Col lege 10 GM/15ML 17:42: of solution Medicin e BASAGLAR Yes INJECT 22 [facility] or KWIKPEN 100 1-03 UNITS College UNIT/ML 00:00: SUBCUTANEO of SOPN 00 US EVERY Medicin DAY. e propranolol 2019-08 Yes TAKE 1 [facility] (INDERAL) 2-16 TABLET BY Colle ge 10 MG 00:00: MOUTH of tablet 00 TWICE Medicin DAILY e Na 2018-08 Yes [SUPREP] [facility] Sulfate-K 0-01 Take as [facility] Sulfate-Mg 00:00: directed. of Sulf 00 Medicin (SUPREP e BOWEL PREP KIT) 17.5-3.13-1 .6 GM/177ML SOLN sucralfate Yes 1g Take 10 mL B aylor (CARAFATE) 7-12 by mouth Colle ge 1 GM/10ML 00:00: four times of suspension 00 daily. Medicin e linaCLOtide Yes 1{capsu Take 1 Cap [facility] (LINZESS) 7-12 le} by mouth Colleg e 72 MCG CAPS 00:00: daily. of 00 Medicin e gabapentin Yes TK 1 C PO Ba ylor (NEURONTIN) 6-18 BID College 400 MG 00:00: of capsule 00 Medicin e Na Yes [SUPREP] [facility] Sulfate-K 6-12 Take as [facility] Sulfate-Mg 00:00: directed. of Sulf 00 Medicin (SUPREP e BOWEL PREP KIT) 17.5-3.13-1 .6 GM/177ML SOLN psyllium Yes 1{packe QD Take [address] (METAMUCIL 6-09 t} packet by [employer] SUGAR-FREE) 00:00: mouth Medic al 3.4 gram 00 daily. Center packet PROCTOZONE- 2018- Yes 1{appli Place [address] HC 2.5 % 4-16 cation} applicatio Dana parras rectal 00:00: n rectally Medic al cream 00 as needed. Center Immunizations Ordered Immunization Filled Immunization Date Status Commen ts Source Name Name Ye 2011-05-[address] [facility] 00:[facility] Center Vital Signs Vital Name Observation Time Observation Value Comments Source HEIGHT 2021-03-18 06:56:00 157.5 cm WEIGHT 2021-03-18 06:56:00 55.702 kg HEIGHT 2021-03-17 09:15:00 157.5 cm WEIGHT 2021-03-17 09:15:00 53.524 kg HEIGHT 2021-03-18 06:56:00 157.5 cm WEIGHT 2021-03-18 06:56:00 55.702 kg HEIGHT 2021-03-17 09:15:00 157.5 cm WEIGHT 2021-03-17 09:15:00 53.524 kg HEIGHT 2020-09-03 10:19:00 144.8 cm WEIGHT 2020-09-03 10:19:00 53.388 kg HEIGHT 2020-08-28 12:10:00 144.8 cm WEIGHT 2020-08-28 12:10:00 54.432 kg HEIGHT 2020-09-03 10:19:00 144.8 cm WEIGHT 2020-09-03 10:19:00 53.388 kg HEIGHT 2020-08-28 12:10:00 144.8 cm WEIGHT 2020-08-28 12:10:00 54.432 kg Body height 2020-08-26 17:37:00 144.8 cm [facility] Body weight 2020-08-26 17:37:00 54.432 kg [facility] BMI 2020-08-26 17:37:00 25.97 kg/m2 [facility] Body height 2020-08-26 17:37:00 144.8 cm [facility] Body weight 2020-08-26 17:37:00 54.432 kg [facility] BMI 2020-08-26 17:37:00 25.97 kg/m2 [facility] ollege of Medicine Procedures This patient has no known procedures. Plan of Care Planned Activity Planned Date Details Comments Source Future Scheduled 2022-04-[address] [facility] Test 00:00:00 (#1) [code = Medical Center INFLUENZA VACCINE (#1)] Future Scheduled 2021-08-[address] [facility] Test 00:00:00 (12+) [code = Medical Center DEPRESSION SCREENING (12+)] Future Scheduled 2021-08-15 FALLS RISK SCREENING [facility] Test 00:00:00 [code = FALLS RISK Medical C enter SCREENING] Future Scheduled 2021-05-04 DTAP/TDAP/TD [facility] Test 00:00:00 VACCINES (2 - Td or Medical Center Tdap) [code = DTAP/TDAP/TD VACCINES (2 - Td or Tdap)] Future Scheduled 2009-07-[address] [facility] Test 00:00:00 WELLNESS (YEAR 2 or Medical Center FIRST YEAR if no IPPE) [code = MEDICARE ANNUAL WELLNESS (YEAR 2 or FIRST YEAR if no IPPE)] Future Scheduled 2008 PNEUMOCOCCAL 65+ YRS [facility] Test 00:00:00 (1 - PCV) [code = Medical nter PNEUMOCOCCAL 65+ YRS (1 - PCV)] Future Scheduled 1993 SHINGLES VACCINES ([address] [facility] Test 00:00:00 of 2) [code = Medical Center SHINGLES VACCINES (1 of 2)] Future Scheduled 1944-01-20 COVID-[address] [facility] Test 00:00:00 (#1) [code = Medical Center COVID-19 VACCINE (#1)] Future Scheduled 1945 DXA SCAN [code = DXA [facility] Test 00:00:00 SCAN] [facility] Future Scheduled COVID-19 Vaccine [facility] Test Evaluation [code = of Medici ne COVID-19 Vaccine Evaluation] Future Scheduled BMI FOLLOW UP PLAN [facility] Test [code = BMI FOLLOW of Medici ne UP PLAN] Future Scheduled ZOSTER VACCINE (1 of [facility] Test 2) [code = ZOSTER of Medicin e VACCINE (1 of 2)] Future Scheduled FALL SCREEN [code = [facility] or [facility] Test FALL SCREEN] of Medicine Future Scheduled OSTEOPOROSIS [facility] Augustus ege Test SCREENING [code = of Medicin e OSTEOPOROSIS SCREENING] Future Scheduled MEDICARE AWV [facility] ege Test (Initial) [code = of Medicin e MEDICARE AWV (Initial)] Future Scheduled FLU VACCINE > 6 [facility] C ollege Test MONTHS [code = FLU of Medici ne VACCINE > 6 MONTHS] Future Scheduled TETANUS SHOT (ADULT) [facility] Test [code = TETANUS SHOT of Medi cine (ADULT)] Future Scheduled EGD W/MAC - GI DEPT 1 Occurrences [facility] Test [code = 08988] starting of Medicine 08/26/2020 until 02/23/2021 Encounters Start End Encounter Admission Attending Care Care Encounter Source Date/Time Date/Time Type Type Clinicians Facility Department ID 2021-05-24 Outpatient ZEYNEP [facility] Surgery [id number] [facility] 02:51:40 [facility] 2022-03-15 2022-03-15 Outpatient LEANDRO_TORIE TNBIANCA [facility] 101 4- [place] 00:00:00 00:00:00 [id number] [facility] 2021-03-18 2021-03-18 Outpatient JOVANI YOU [id number] [facility] 10:49:00 10:49:00 JOS Ender e of Medicin e 2021-03-17 2021-03-17 Outpatient BESS [facility] [id number] [facility] 00:00:00 00:00:00 2021-03-17 2021-03-17 Outpatient BESS [facility] [id number] [facility] 00:00:00 00:00:00 2021-03-17 2021-03-17 Outpatient [facility] [id number] SLE 00:00:00 00:00:00 2020-09-03 2020-09-03 Outpatient EL ZEYNEP [facility] Surgery [id number] SLE 09:50:00 09:50:00 [facility] 2020-08-28 2020-08-28 Outpatient [facility] [id number] SLE 00:00:00 00:00:00 2020-08-26 2020-08-26 Office JOVANI You [id number] 11:28:11 16:43:34 Visit Jos AMBULATOR 350.1.13.21 Y [id number] 2020-08-26 2020-08-26 Office JOVANI You [id number] [facility] 11:28:11 16:43:34 Visit Jos AMBULATOR [id number] College Y [id number] [facility] 325 e Results Test Description Test Time Test Comments Results Result Comments Source POCT-GLUCOSE METER 2021-03-18 07:32:00 Test Item Value Reference Range Interpretation Comme nts POC-GLUCOSE METER ([facility]) 115 mg/dL 70-110 H : TESTED AT [address] (test code = 1538) [facility] X, [address]: Head Transfer Clerk/Techni kathia ID = [id number] for YULY DECKER POCT-GLUCOSE [id number] 13:15:00 Test Item Value Reference Range Interpretation Comments POC-GLUCOSE METER 126 mg/dL 70-110 H : TESTED A T [facility] 6720 ([facility]) (test code = [facility] Will [facility], 153) [address]: Head Transfer Clerk/Techni kathia ID = [id number] for Eliza juan Kassi POCT-GLUCOSE [id number] 10:50:00 Test Item Value Reference Range Interpretation Comments POC-GLUCOSE METER 151 mg/dL 70-110 H : TESTED A T [facility] 6720 ([facility]) (test code = [facility], 1538) [address]64: Head Transfer Clerk/Techni kathia ID = [id number] for MICHELLE SUSSY MARC POCT-GLUCOSE [id number] 09:43:00 Test Item Value Reference Range Interpretation Comments POC-GLUCOSE METER 147 mg/dL 70-110 H : TESTED A [facility] 6720 ([facility]) (test code = [facility], 1538) 25185: Head Transfer Clerk/Techni kathia ID = [id number] for LANA RIVERA POCT-GLUCOSE [id number] 10:07:00 Test Item Value Reference Range Interpretation Comments POC-GLUCOSE METER 191 mg/dL 70-110 H TESTED AT [place] [address] ([facility]) (test code = [facility] 1538) [id number] POCT-GLUCOSE [id number] 12:06:00 Test Item Value Reference Range Interpretation Comments POC-GLUCOSE METER 307 mg/dL 70-110 H Notified Will Vincent MD/TESTED ([facility]) (test code = AT [facility] 67[address] [facility] 1531) [facility] 7703 0 CBC (HEMOGRAM ONLY)2019-04-10 07:37:00 [...] 0-0 (test code = 413) COMPREHENSIVE METABOLIC [id number] 07:34:00 Test Item Value Reference Range Interpretation [...] 98-107 H (test code = 382) CO2 ([facility]) (test 22 meq/L 22-29 code = 355) BLOOD UREA NITROGEN 5 mg/dL 7-21 L ([facility]) (test code = 354) CREATININE ([facility]) 0.62 mg/dL 0.57-1.25 (test code = 358) GLUCOSE RANDOM 157 mg/dL 70-105 H ([facility]) (test code = 652) CALCIUM ([facility]) 8.4 mg/dL 8.4-10.2 (test code = 697) AST (SGOT) ([facility]) 30 U/L 5-34 (test code = 353) ALT (SGPT) ([facility]) 22 U/L 6-55 (test code = 347) EGFR ([facility]) (test 94 mL/min/1.73 ESTIMA BRIDGER GFR IS code = 1092) sq m NOT ACCURATE CREATININE CLEARANCE IN PREDICTING GLOMERULAR FILTRATION RATE . ESTIMATED GFR I S NOT APPLICABLE FOR DIALYSIS PATIEN TS. POCT-GLUCOSE [id number] 22:15:00 Test Item Value Reference Range Interpretation Comments POC-GLUCOSE METER 162 mg/dL 70-110 H TESTED AT [place] [address] ([facility]) (test code = NUSRATNIKHIL Sol[facility] 1538) [id number] POCT-GLUCOSE [id number] 17:11:00 Test Item Value Reference Range Interpretation Comments POC-GLUCOSE METER 153 mg/dL 70-110 H TESTED AT [place] [address] ([facility]) (test code = NUSRATNIKHIL [facility] 1538) [id number] POCT-GLUCOSE [id number] 13:56:00 Test Item Value Reference Range Interpretation Comments POC-GLUCOSE METER 309 mg/dL 70-110 H Notified R Melisa PLEITEZ/TESTED ([facility]) (test code = AT [address] 1538) [facility] 7703 0 POCT-GLUCOSE [id number] 08:45:00 Test Item Value Reference Range Interpretation Comments POC-GLUCOSE METER 155 mg/dL 70-110 H TESTED AT [place] [address] ([facility]) (test code = NUSRATNIKHIL [facility] 1538) [id number] 07:13:00 Test Item Value Reference Range Interpretation Comments MAGNESIUM ([facility]) (test code = 1.4 mg/dL 1.6-2.6 L 627) HEPATIC FUNCTION [id number] 07:13:00 Test Item Value Reference Range Interpretation [...] = 21 U/L 6-55 347) COMPREHENSIVE METABOLIC [id number] 07:13:00 Test Item Value Reference Range Interpretation [...] PATIEN TS. CBC W/PLT COUNT & AUTO [id number] 07:04:00 Test Item Value Reference Range Interpretation [...] PERCENT (AKER) (test code = 2801) PROTHROMBIN TIME/[id number] 06:23:00 Test Item Value Reference Range Interpretation Comments PROTIME ([facility]) (test code = 17.5 seconds 11.9-14.2 H 759) INR ([facility]) (test code = 370) 1.5 <=5.9 Effective 01/10/2019: PT Reference Range ChangeNew: 11.9-14.2 Previous: 11.7- 14.7RECOMMENDED COUMADIN/WARFARIN INR THERAPY RANGESSTANDARD DOSE: 2.0-3.0 Includes: PROPHYLAXIS for venous thrombosis, systemic embolization; TREATMENT for venous thrombosis and/or pulmonary embolus.HIGH RISK: Target INR is 2.5-3.5 for patients wiht mechanical heart valves.POCT-GLUCOSE [id number] 05:58:00 Test Item Value Reference Range Interpretation Comments POC-GLUCOSE METER 172 mg/dL 70-110 H TESTED AT [place] [address] ([facility]) (test code = DUSTIN [facility] 1538) [id number] POCT-GLUCOSE [id number] 23:59:00 Test Item Value Reference Range Interpretation Comments POC-GLUCOSE METER 145 mg/dL 70-110 H TESTED AT [place] [address] ([facility]) (test code = DUSTIN [facility] [place] 1538) [id number] POCT-GLUCOSE [id number] 15:09:00 Test Item Value Reference Range Interpretation Comments POC-GLUCOSE METER 135 mg/dL 70-110 H TESTED AT [place] [address] ([facility]) (test code = DUSTIN [facility] 1538) [id number] U/S, HEPATIC PORTAL VESSEL WITH [id number] 11:51:00Referring: Dr. Cally Servin Reason for exam:->Portal [...] hepatic veins and confluence are patent. BILIARY:Gallbladder: Priorcholecystectomy.Common bile duct measures 0.3 cm, within normal limits. No intrahepatic biliary ductal dilatation. PANCREAS: Visualized portions of the pancreas are unremarkable. PERITONEUM: No free fluid. RIGHT KIDNEY: The right kidney measures 9.4 x 5.2 x 5 cm with cortical thickness of 0.8 cm. No hydronephrosis. No sonographically evident solid mass lesion. MIDLINE VASCULATURE: The visualized inferior vena cava is patent. The maximum visualized aortic diameter is 2 cm. Visualized portions of the splenic artery and vein are patent. IMPRESSION:Cirrhosis. No focal liver lesion. Patent portal veins.Elevated resistive index and acceleration time in the proper hepatic artery is likely related to cirrhosis. Signed: Gabriele Watson MDReport Verified Date/Time: 04/08/2019 11:51:50 Reading Location: [facility] C013Y CT Body Reading Room CT, CHEST, WITH [id number] 10:27:00Referring: Dr. [facility]ally [facility] of the Chest, abdomen and pelvis dated 04/08/2019 Clinical information: Nausea/vomiting Comment: Axial images of the chest, abdomen, and pelvis were obtained from tho racic inlet to the pubic symphysis with intravenous contrast. This exam was performed according to our departmental dose-optimization program, which includes automated exposure control, adjustment of the mA and/or kV according to patient size and/or use of interactive reconstruction technique. Heart is normal in size. Great vessels are unremarkable. No adenopathy in the mediastinum or perihilar region. Trachea and mainstem bronchi are patent. The esophagus is distended with fluid and air. Both lungsare clear. No nodular, mass lesion or airspace disease is noted. No interstitial disease or bronchiectasis is present. No pleural effusion or pleural based mass is seen. Liver is cirrhotic in appearance with irregular margins. No suspicious mass is seen in the liver. Spleen is enlarged measuring approximately 16.3 x 5.9 x 11.3 cm. The splenic, superior mesenteric, portal, and hepatic veins are patent. Main portal vein measures 1.4 cm in size. There is recannulization periumbilical vein. Paraesophageal varices is noted. Gallbladder is noted visualized. No biliary dilatation is noted. Pancreas and adrenals are unremarkable. Both kidneys are normal in size and functioning with bilateral excretion. Nohydronephrosis, hydroureter, or urolithiasis is noted. The opacified small and large bowel are suboptimally evaluated secondary to lack of GI contrast. There is nonspecific wall thickening in the transverse, descending and sigmoid colon secondary to nondistention or colitis. The small bowel and appendix are normal in caliber. Uterus surgically absent. Both ovaries not seen. Prominent collateral veinsare seen in the perirectal fascia and submucosal [...] or from nondistention.6. Prominent collateral veins in theperirectal fascia and rectal wall suggestive internal hemorrhoid. Signed: Marilee Figueroa MDReport Verified Date/Time: 04/08/2019 10:27:05 Reading Location: [facility] C013X [facility] Consult Reading Room , [id number] 10:27:00Referring: Dr. [facility] of the Chest, abdomen and pelvis dated 04/08/2019 Clinical inform ation: Nausea/vomiting Comment: Axial images of the chest, abdomen, and pelvis were obtained from thoracic inlet to the pubic symphysis with intravenous contrast. This exam was performed according to our departmental dose- optimization program, which includes automated exposure control, adjustment of the mA and/or kV according to patient size and/or use of interactive reconstruction technique. Heart is normal in size. Great vessels are unremarkable. No adenopathy in the mediastinum or perihilar region. Trachea and mainstem bronchi are patent. The esophagus is distended with fluid and air. Both lungsare clear. No nodular, mass lesion or airspace disease is noted. No interstitial disease or bronchiectasis is present. No pleural effusion or pleural based mass is seen. Liver is cirrhotic in appearance with irregular margins. No suspicious mass is seen in the liver. Spleen is enlarged measuring approximately 16.3 x 5.9 x 11.3 cm. The splenic, superior mesenteric, portal, and hepatic veins are patent. Main portal vein measures 1.4 cm in size. There is recannulization periumbilical vein. Paraesophageal varices is noted. Gallbladder is noted visualized. No biliary dilatation is noted. Pancreas and adrenals are unremarkable. Both kidneys are normal in size and functioning with bilateral excretion. Nohydronephrosis, hydroureter, or urolithiasis is noted. The opacified small and large bowel are suboptimally evaluated secondary to lack of GI contrast. There is nonspecific wall thickening in the transverse, descending and sigmoid colon secondary to nondistention or colitis. The small bowel and appendix are normal in caliber. Uterus surgically absent. Both ovaries not seen. Prominent collateral veinsare seen in the perirectal fascia and submucosal [...] or from nondistention.6. Prominent collateral veins in theperirectal fascia and rectal wall suggestive internal hemorrhoid. Signed: Marilee Figueroa MDReport Verifi Date/Time: 04/08/2019 10:27:05 Reading Location: [facility] B1 C013X Ortho Consult Reading Room [id number] 07:38:00 Test Item Value Reference Range Interpretation Comments FERRITIN (BEAKER) (test code = 361) 11 ng/mL 5-275 HEPATIC FUNCTION [id number] 07:24:00 Test Item Value Reference Range Interpretation [...] = 23 U/L 6-55 347) COMPREHENSIVE METABOLIC [id number] 07:24:00 Test Item Value Reference Range Interpretation [...] = 2590) CBC W/PLT COUNT & AUTO [id number] 06:59:00 Test Item Value Reference Range Interpretation [...] PERCENT (BEAKER) (test code = 2801) PROTHROMBIN TIME/[id number] 06:50:00 Test Item Value Reference Range Interpretation [...] is 2.5-3.5 for patients wiht mechanical heart valves.POCT-GLUCOSE [id number] 06:14:00 Test Item Value Reference Range Interpretation Comments POC-GLUCOSE METER 154 mg/dL 70-110 H TESTED AT [facility] 6720 ([facility]) (test code = DUSTIN H[place] 1538) [address] POCT-GLUCOSE [id number] 00:08:00 Test Item Value Reference Range Interpretation Comments POC-GLUCOSE METER 140 mg/dL 70-110 H TESTED AT [place] [address] ([facility]) (test code = DUSTIN Solis [facility] 1538) [address] [id number] 19:20:00 Test Item Value Reference Range Interpretation Comments FERRITIN (BEAKER) (test code = 361) 11 ng/mL 5-275 IRON, TIBC, % SAT. (WITHOUT FERRITIN)2019-04-07 19:00:00 Test Item Value Reference Range Interpretation Comments IRON (BEAKER) (test code = 547) 44.0 ug/dL 40.0-160.0 TOTAL IRON BINDING CAPACITY 413 ug/dL 250-450 (BEAKER) (test code = 769) IRON % SATURATION (2) ([facility]) 11 % 20-55 L (test code = 2590) POCT-GLUCOSE [id number] 17:35:00 Test Item Value Reference Range Interpretation Comments POC-GLUCOSE METER 181 mg/dL 70-110 H TESTED AT [place] [address] ([facility]) (test code = DUSTIN Solis [facility] 1538) [address] POCT-GLUCOSE [id number] 12:55:00 Test Item Value Reference Range Interpretation Comments POC-GLUCOSE METER 191 mg/dL 70-110 H TESTED AT [place] [address] ([facility]) (test code = DUSTIN Solis [facility] 1538) [address] POCT-GLUCOSE [id number] 08:11:00 Test Item Value Reference Range Interpretation Comments POC-GLUCOSE METER 175 mg/dL 70-110 H TESTED AT [place] [address] ([facility]) (test code = DUSTIN Solis [facility] 1538) [address] POCT-GLUCOSE [id number] 07:18:00 Test Item Value Reference Range Interpretation Comments POC-GLUCOSE METER 159 mg/dL 70-110 H TESTED AT [place] [address] ([facility]) (test code = DUSTIN Solis [facility] 1538) [address] HEPATIC FUNCTION [id number] 06:49:00 Test Item Value Reference Range Interpretation [...] = 23 U/L 6-55 347) BASIC METABOLIC [id number] 06:49:00 Test Item Value Reference Range Interpretation [...] NOT APPLICABLE FOR DIALYSIS PATIEN TS. PROTHROMBIN [id number] 05:57:00 Test Item Value Reference Range Interpretation [...] is 2.5-3.5 for patients wiht mechanical heart valves.CBC W/PLT COUNT & AUTO [id number] 05:45:00 Test Item Value Reference Range Interpretation [...] PERCENT (BEAKER) (test code = 2801) POCT-GLUCOSE [id number] 23:27:00 Test Item Value Reference Range Interpretation Comments POC-GLUCOSE METER 122 mg/dL 70-110 H TESTED AT [facility] 6720 (BEAKER) (test code = [place]USTIN [place] 1538) [address] URINALYSIS W/ REFLEX URINE [id number] 22:28:00 Test Item Value Reference Range Interpretation [...] = 516) SOURCE(BEAKER) (test code = 2795) [id number] 20:06:00 Test Item Value Reference Range Interpretation Comments LIPASE (BEAKER) (test code = 749) 29 U/L 8-78 [id number] 20:06:00 Test Item Value Reference Range Interpretation Comments AMYLASE (BEAKER) (test code = 349) 48 U/L 25-125 BASIC METABOLIC [id number] 20:06:00 Test Item Value Reference Range Interpretation [...] APPLICABLE FOR DIALYSIS PATIEN TS. HEPATIC FUNCTION [id number] 20:06:00 Test Item Value Reference Range Interpretation [...] 6-55 347) CBC W/PLT COUNT & AUTO [id number] 19:47:00 Test Item Value Reference Range Interpretation [...] 2801) RAD, ABDOMEN SERIES W/ UPRIGHT PA [id number] 18:40:00Referring: Dr. Cally Ewing for exam:->abdominal painShould [...] lumbar spine. ABDOMEN: Coils over the pelvis. Gasin the colon. Possibly of gas in the small bowel. This is likely a nonobstructive bowel gas pattern.No acute bony abnormality. IMPRESSION: No acute intrathoracic abnormalities. There is a paucity of small bowel gas. However, this is likely a nonobstructive bowel gas pattern. Signed: Piter Jimenez MDReport Verified Date/Time: 04/06/2019 18:40:31 Reading Location: [facility] C013W Consult Reading Room POCT-GLUCOSE [id number] 11:11:00 Test Item Value Reference Range Interpretation Comments POC-GLUCOSE METER 309 mg/dL 70-110 H TESTED AT [facility] 6720 ([facility]) (test code = DUSTIN Solis [facility] 1538) [address] [id number] 05:42:00 Test Item Value Reference Range Interpretation Comments MAGNESIUM (BEAKER) (test code = 1.8 mg/dL 1.6-2.6 627) COMPREHENSIVE METABOLIC [id number] 05:42:00 Test Item Value Reference Range Interpretation [...] S NOT APPLICABLE FOR DIALYSIS PATIEN TS. [id number] 05:35:00 Test Item Value Reference Range Interpretation [...] is 2.5-3.5 for patients wiht mechanical heart valves.[id number] 05:35:00 Test Item Value Reference Range Interpretation Comments FIBRINOGEN LEVEL (BEAKER) (test 237 mg/dl 225-434 code = 658) CBC W/PLT COUNT & AUTO [id number] 05:01:00 Test Item Value Reference Range Interpretation [...] PERCENT (BEAKER) (test code = 2801) POCT-GLUCOSE [id number] 04:43:00 Test Item Value Reference Range Interpretation Comments POC-GLUCOSE METER 144 mg/dL 70-110 H TESTED AT [facility] 67 (BEAKER) (test code = DUSTIN Solis [place] 1538) [address] POCT-GLUCOSE [id number] 23:21:00 Test Item Value Reference Range Interpretation Comments POC-GLUCOSE METER 246 mg/dL 70-110 H TESTED AT [place] [address] (BEAKER) (test code = DUSTIN Solis [place] 1538) [address] HEMOGLOBIN AND [id number] 19:53:00 Test Item Value Reference Range Interpretation Comments HEMOGLOBIN (BEAKER) (test code = 8.5 GM/DL 11.2-15.7 L 410) HEMATOCRIT (BEAKER) (test code = 26.3 % 34.1-44.9 L 411) POCT-GLUCOSE [id number] 17:49:00 Test Item Value Reference Range Interpretation Comments POC-GLUCOSE METER 182 mg/dL 70-110 H TESTED AT [place] [address] (BEAKER) (test code = DUSTIN Solis [place] 1538) [address] HEMOGLOBIN AND [id number] 12:42:00 Test Item Value Reference Range Interpretation Comments HEMOGLOBIN (BEAKER) (test code = 8.4 GM/DL 11.2-15.7 L 410) HEMATOCRIT (BEAKER) (test code = 26.7 % 34.1-44.9 L 411) [id number] 06:38:00 Test Item Value Reference Range Interpretation Comments MAGNESIUM (BEAKER) (test code = 2.3 mg/dL 1.6-2.6 627) COMPREHENSIVE METABOLIC [id number] 06:38:00 Test Item Value Reference Range Interpretation [...] NOT APPLICABLE FOR DIALYSIS PATIEN TS. POCT-GLUCOSE [id number] 06:34:00 Test Item Value Reference Range Interpretation Comments POC-GLUCOSE METER 237 mg/dL 70-110 H TESTED AT [facility] 6720 (BEAKER) (test code = [place] 1538) [address] PROTHROMBIN [id number] 05:40:00 Test Item Value Reference Range Interpretation [...] is 2.5-3.5 for patients wiht mechanical heart valves.CBC W/PLT COUNT & AUTO [id number] 05:22:00 Test Item Value Reference Range Interpretation [...] (BEAKER) (test code = 2801) COMPREHENSIVE METABOLIC [id number] 00:27:00 Test Item Value Reference Range Interpretation [...] S NOT APPLICABLE FOR DIALYSIS PATIEN TS. [id number] 00:04:00 Test Item Value Reference Range Interpretation Comments MAGNESIUM (BEAKER) (test code = 1.4 mg/dL 1.6-2.6 L 627) PROTHROMBIN [id number] 23:49:00 Test Item Value Reference Range Interpretation [...] is 2.5-3.5 for patients wiht mechanical heart valves.CBC W/PLT COUNT & AUTO [id number] 23:41:00 Test Item Value Reference Range Interpretation [...] PERCENT (BEAKER) (test code = 2801) POCT-HEMOGLOBIN [id number] 05:44:00 Test Item Value Reference Range Interpretation Comments POC-HEMOGLOBIN METER 8.8 g/dL 12.0-15.0 L TEST[facility] AT [place] [address] [facility] [address] 1539) POCT-GLUCOSE [id number] 13:01:00 Test Item Value Reference Range Interpretation Comments POC-GLUCOSE METER 136 mg/dL 70-110 H TESTED AT [place] [address] ([facility] (test code = [facility] Will [facility] 1538) [address] HEMOGLOBIN AND [id number] 09:47:00 Test Item Value Reference Range Interpretation Comments HEMOGLOBIN (BEAKER) (test code = 8.1 GM/DL 11.2-15.7 L 410) HEMATOCRIT (BEAKER) (test code = 25.6 % 34.1-44.9 L 411) POCT-GLUCOSE [id number] 06:27:00 Test Item Value Reference Range Interpretation Comments POC-GLUCOSE METER 157 mg/dL 70-110 H TESTED AT [place] [address] ([facility]) (test code = [facility] 1538) [address] POCT-GLUCOSE [id number] 23:31:00 Test Item Value Reference Range Interpretation Comments POC-GLUCOSE METER 185 mg/dL 70-110 H TESTED AT [place] [address] ([facility]) (test code = [facility] Will [place] 1538) [address] HEMOGLOBIN AND [id number] 18:45:00 Test Item Value Reference Range Interpretation Comments HEMOGLOBIN (BEAKER) (test code = 7.5 GM/DL 11.2-15.7 L 410) HEMATOCRIT (BEAKER) (test code = 23.9 % 34.1-44.9 L 411) POCT-GLUCOSE [id number] 17:19:00 Test Item Value Reference Range Interpretation Comments POC-GLUCOSE METER 188 mg/dL 70-110 H TESTED AT [place] [address] ([facility] (test code = [facility] 1538) [address] HEMOGLOBIN AND [id number] 14:30:00 Test Item Value Reference Range Interpretation Comments HEMOGLOBIN (BEAKER) (test code = 7.3 GM/DL 11.2-15.7 L 410) HEMATOCRIT (BEAKER) (test code = 23.3 % 34.1-44.9 L 411) POCT-GLUCOSE [id number] 12:08:00 Test Item Value Reference Range Interpretation Comments POC-GLUCOSE METER 224 mg/dL 70-110 H TESTED AT [place] [address] ([facility]) (test code = [facility] 1538) [address] POCT-GLUCOSE [id number] 12:06:00 Test Item Value Reference Range Interpretation Comments POC-GLUCOSE METER 367 mg/dL 70-110 H TESTED AT [place] [address] ([facility]) (test code = [facility] 1538) [address] HEMOGLOBIN AND [id number] 08:57:00 Test Item Value Reference Range Interpretation Comments HEMOGLOBIN (BEAKER) (test code = 8.4 GM/DL 11.2-15.7 L 410) HEMATOCRIT (BEAKER) (test code = 26.5 % 34.1-44.9 L 411) HEPATIC FUNCTION [id number] 06:27:00 Test Item Value Reference Range Interpretation [...] = 34 U/L 6-55 347) BASIC METABOLIC [id number] 06:27:00 Test Item Value Reference Range Interpretation [...] NOT APPLICABLE FOR DIALYSIS PATIEN TS. PROTHROMBIN [id number] 06:09:00 Test Item Value Reference Range Interpretation [...] is 2.5-3.5 for patients wiht mechanical heart valves.HEMOGLOBIN AND [id number] 06:02:00 Test Item Value Reference Range Interpretation Comments HEMOGLOBIN (BEAKER) (test code = 7.6 GM/DL 11.2-15.7 L 410) HEMATOCRIT (DARIUS) (test code = 23.8 % 34.1-44.9 L 411) U/S, ABDOMINAL, [id number] 01:25:00Referring: Dr. Cally Ewing for exam:->cirrhosisFINAL REPORT [...] windowing. Body and tail: Not well-seen. Spleen: Size:15.2cm. Echogenicity: Unremarkable. Right kidney: Size: 9.6 x [...] Signed: Jessy Driscoll Verified Date/Time: 01/19/2019 01:25:12 POCT-GLUCOSE [id number] 21:37:00 Test Item Value Reference Range Interpretation Comments POC-GLUCOSE METER 245 mg/dL 70-110 H TESTED AT [facility] 67 (DARIUS) (test code = [place] 1538) [address] HEMOGLOBIN AND [id number] 21:02:00 Test Item Value Reference Range Interpretation Comments HEMOGLOBIN (DARIUS) (test code = 7.8 GM/DL 11.2-15.7 L 410) HEMATOCRIT (BEAKER) (test code = 24.3 % 34.1-44.9 L 411) POCT-GLUCOSE [id number] 14:17:00 Test Item Value Reference Range Interpretation Comments POC-GLUCOSE METER 198 mg/dL 70-110 H TESTED AT [facility] 6720 (BEAKER) (test code = DUSTIN Solis [place] 1538) [address] POCT-GLUCOSE [id number] 10:41:00 Test Item Value Reference Range Interpretation Comments POC-GLUCOSE METER 190 mg/dL 70-110 H TESTED AT [facility] 6720 ([facility] (test code = DUSTIN Solis [place] 1538) [address] ALPHA FETOPROTEIN (AFP), TUMOR [id number] 07:30:00 Test Item Value Reference Range Interpretation Comments ALPHA-FETOPROTEIN (BEAKER) (test code < ng/mL <10.0 = 1094) HEPATITIS A ANTIBODY, [id number] 07:30:00 Test Item Value Reference Range Interpretation Comments HEPATITIS A IGG ANTIBODY (BEAKER) Reactive Nonreactive A (test code = 2797) HEPATITIS B SURFACE [id number] 07:30:00 Test Item Value Reference Range Interpretation Comments HEPATITIS B SURFACE ANTIBODY < mIU/mL <8.0 (BEAKER) (test code = 647) HEPATIC FUNCTION [id number] 07:13:00 Test Item Value Reference Range Interpretation [...] = 35 U/L 6-55 347) BASIC METABOLIC [id number] 07:13:00 Test Item Value Reference Range Interpretation [...] NOT APPLICABLE FOR DIALYSIS PATIEN TS. PROTHROMBIN [id number] 06:53:00 Test Item Value Reference Range Interpretation [...] is 2.5-3.5 for patients wiht mechanical heart valves.POCT-GLUCOSE [id number] 06:40:00 Test Item Value Reference Range Interpretation Comments POC-GLUCOSE METER 169 mg/dL 70-110 H TESTED AT [facility] 6720 (BEAKER) (test code = [place] 2787) [address] HEMOGLOBIN AND [id number] 06:36:00 Test Item Value Reference Range Interpretation Comments HEMOGLOBIN (BEAKER) (test code = 8.2 GM/DL 11.2-15.7 L 410) HEMATOCRIT (BEAKER) (test code = 24.2 % 34.1-44.9 L 411) POCT-GLUCOSE [id number] 00:40:00 Test Item Value Reference Range Interpretation Comments POC-GLUCOSE METER 166 mg/dL 70-110 H TESTED AT [place] [address] ([facility]) (test code = DUSTIN Solis [facility] 1538) [address] HEMOGLOBIN AND [id number] 18:38:00 Test Item Value Reference Range Interpretation Comments HEMOGLOBIN (BEAKER) (test code = 8.9 GM/DL 11.2-15.7 L 410) HEMATOCRIT (BEAKER) (test code = 27.8 % 34.1-44.9 L 411) POCT-GLUCOSE [id number] 16:43:00 Test Item Value Reference Range Interpretation Comments POC-GLUCOSE METER 276 mg/dL 70-110 H TESTED AT [place] [address] ([facility]) (test code = [facility] 1538) [address] HEMOGLOBIN AND [id number] 14:19:00 Test Item Value Reference Range Interpretation Comments HEMOGLOBIN (BEAKER) (test code = 8.4 GM/DL 11.2-15.7 L 410) HEMATOCRIT (BEAKER) (test code = 25.5 % 34.1-44.9 L 411) POCT-GLUCOSE [id number] 12:30:00 Test Item Value Reference Range Interpretation Comments POC-GLUCOSE METER 176 mg/dL 70-110 H TESTED AT [place] [address] ([facility]) (test code = [facility] Will [facility] 1538) [address] HEMOGLOBIN [id number] 08:25:00 Test Item Value Reference Range Interpretation Comments HEMOGLOBIN A1C 5.4 % 4.3-6.1 POSSIBLE HEMO GLOBIN C (AKER) (test code = VARIAN T NOTED IN 368) HEMOGLOBIN A1C CHROMATOGRAPH. SUGGEST HEMOGLOBIN ELEC TROPHORESIS IF CLINICALLY I NDICATED. POCT-GLUCOSE [id number] 07:09:00 Test Item Value Reference Range Interpretation Comments POC-GLUCOSE METER 212 mg/dL 70-110 H TESTED AT [place] [address] ([facility]) (test code = [facility] 1538) [address] BASIC METABOLIC [id number] 05:56:00 Test Item Value Reference Range Interpretation [...] DIALYSIS PATIEN TS. Specimen slightly ictericHEPATIC FUNCTION [id number] 05:56:00 Test Item Value Reference Range Interpretation [...] 26 U/L 6-55 347) Specimen slightly ictericPROTHROMBIN TIME/[id number] 05:44:00 Test Item Value Reference Range Interpretation [...] is 2.5-3.5 for patients wiht mechanical heart valves.CBC W/PLT COUNT & AUTO [id number] 05:28:00 Test Item Value Reference Range Interpretation [...] (test code = 2801) MARCO TITER AND [id number] 15:09:00 Test Item Value Reference Range Interpretation Comments MARCO TITER (BEAKER) (test code = >=:2560 1541) MARCO PATTERN (BEAKER) (test code = Homogeneous 1781) ANTI-NUCLEAR ANTIBODY (MARCO)2016-11-29 15:08:00 Test Item Value Reference Range Interpretation Comments ANTI-NUCLEAR ANTIBODY (MARCO) (BEAKER) Positive Negative A (test code = 418) [id number] 14:16:00 Test Item Value Reference Range Interpretation Comments THYROID STIMULATING HORMONE 2.05 uIU/mL 0.35-4.94 (BEAKER) (test code = 772) [id number] 14:00:00 Test Item Value Reference Range Interpretation Comments FERRITIN (BEAKER) (test code = 361) 8 ng/mL 5-275 Effective 07/02/2014: Reference Range ChangeNew: Male 5-275 Previous: Male 22- 322 Female 5-275 Female 10-291CBC W/PLT COUNT & AUTO [id number] 13:04:00 Test Item Value Reference Range Interpretation [...] code = 417) 0.00ALPHA FETOPROTEIN (AFP), TUMOR [id number] 12:58:00 Test Item Value Reference Range Interpretation Comments ALPHA-FETOPROTEIN (BEAKER) (test code < ng/mL <10.0 = 1094) Effective 07/02/2014: Reference Range ChangeNew: <10.0 Previous: 0.0-8.0 HEPATITIS B SURFACE [id number] 12:57:00 Test Item Value Reference Range Interpretation Comments HEPATITIS B SURFACE ANTIGEN (2) Nonreactive Nonreactive (BEAKER) (test code = 2585) HEPATITIS C [id number] 12:57:00 Test Item Value Reference Range Interpretation Comments HEPATITIS C ANTIBODY (BEAKER) Nonreactive Nonreactive (test code = 367) HEPATITIS B SURFACE [id number] 12:57:00 Test Item Value Reference Range Interpretation Comments HEPATITIS B SURFACE ANTIBODY < mIU/mL <8.0 (BEAKER) (test code = 647) HEPATITIS A ANTIBODY, [id number] 12:57:00 Test Item Value Reference Range Interpretation [...] (test code = 2590) HEPATITIS A ANTIBODY, [id number] 12:54:00 Test Item Value Reference Range Interpretation Comments HEPATITIS A IGM ANTIBODY (BEAKER) Nonreactive Nonreactive (test code = 498) HEPATITIS B CORE ANTIBODY, [id number] 12:54:00 Test Item Value Reference Range Interpretation Comments HEPATITIS B CORE TOTAL ANTIBODY Nonreactive Nonreactive (BEAKER) (test code = 497) COMPREHENSIVE METABOLIC [id number] 12:25:00 Test Item Value Reference Range Interpretation [...] NOT APPLICABLE FOR DIALYSIS PATIEN TS. BILIRUBIN, [id number] 12:25:00 Test Item Value Reference Range Interpretation Comments BILIRUBIN DIRECT (BEAKER) (test 0.5 mg/dL 0.1-0.5 code = 706) PROTHROMBIN [id number] 12:15:00 Test Item Value Reference Range Interpretation Comments PROTIME (BEAKER) (test code = 14.3 seconds 11.7-14.7 759) INR (BEAKER) (test code = 370) 1.1 <=5.9 RECOMMENDED COUMADIN/WARFARIN INR THERAPY RANGESSTANDARD DOSE: 2.0 - 3.0 Includes: PROPHYLAXIS for venous thrombosis, systemic embolization; TREATMENT for venous thrombosis and/or pulmonary embolus.HIGH RISK: Target INR is 2.5-3.5 for patients with mechanical heart valves.[id number] 11:49:00 Test Item Value Reference Range Interpretation Comments POC-CREATININE 0.5 mg/dL 0.6-1.3 L TESTED AT [facility] 6720 (B[facility]) (test [place] code = 1072) [address] POC-EGFR (BEAKER) 121 mL/min/1.73M2 (test code = 6412)
[2022-06-06] MEDS ORDERED: NA CHLORIDE 0.9% 1,000 ML ONE (14:24)
[2022-06-06 14:31] LABS: Lymphocytes % 20.6 % (15.3-44.8); MCV 69.9 fL (80-100); MPV 7.6 fL (7.6-11.3); RBC Red Blood Cell Count 3.58 M/uL (3.86-4.86)
[2022-06-06 14:46] LABS: Potassium 4.9 mmol/L (3.5-5.1)
--- NOTE | 2022-06-06 15:16 | ER ---
Nurse's Notes [facility] Name: Vijaya Oneal Age: 76 yrs Sex: Female : 1945 Arrival Date: 06/06/2022 Time: 13:38 Bed 18 Private MD: Yuly Martínez Diagnosis: Food in esophagus-Esophageal stricture Presentation: 06/06 13:46 Chief complaint: Vomiting and difficulty swallowing x 3 days, reports foreign body hb sensation. Coronavirus screen: At this time, the client does not indicate any symptoms associated with coronavirus-19. Ebola Screen: No symptoms or risks identified at this time. Initial Sepsis Screen: Does the patient meet any 2 criteria? No. Patient's initial sepsis screen is negative. Does the patient have a suspected source of infection? No. Patient's initial sepsis screen is negative. Risk Assessment: Do you want to hurt yourself or someone else? Patient reports no desire to harm self or others. Onset of symptoms was June 04, 2022. 13:46 Method Of Arrival: Ambulatory hb 13:46 Acuity: NELLY 3 hb Triage Assessment: 14:28 General: Appears in no apparent distress. comfortable, Behavior is calm, cooperative, kc6 appropriate for age. Pain: Denies pain. EENT: Reports difficulty swallowing since Tuesday06/04/22. Neuro: Stone Agitation-Sedation Scale (RASS): 0 - Alert and Calm Level of Consciousness is awake, alert, obeys commands, Oriented to person, place, time, situation, Appropriate for age. Cardiovascular: Heart tones S1 S2 present Capillary refill < 3 seconds. Respiratory: Airway is patent Respiratory effort is even, unlabored, Respiratory pattern is regular, symmetrical. GI: Abdomen is round non-distended, Bowel sounds present X 4 quads. Abd is soft and non tender X 4 quads. Reports intolerance of fluids, intolerance of food, vomiting, her last bowel movement was 06/03/22. : No signs and/or symptoms were reported regarding the genitourinary system. Derm: No signs and/or symptoms reported regarding the dermatologic system. Skin is intact, Skin is pink, warm \T\ dry. Musculoskeletal: No signs and/or symptoms reported regarding the musculoskeletal system. Circulation, motion, and sensation intact. Capillary refill < 3 seconds, Range of motion: intact in all extremities. Historical: - Allergies: 13:47 PENICILLINS; hb - PMHx: 13:47 Anemia; Cirrhosis; Diabetes - NIDDM; Hypertension; neuropathy; hb - Immunization history:: Adult Immunizations up to date. - Social history:: Smoking status: Patient denies any tobacco usage or history of. - Family history:: not pertinent. - Hospitalizations: : No recent hospitalization is reported. Screenin:35 Abuse screen: Denies threats or abuse. Denies injuries from another. kc6 15:56 Nutritional screening: No deficits noted. Tuberculosis screening: No symptoms or risk kc6 factors identified. Fall Risk No fall in past 12 months (0 pts). No secondary diagnosis (0 pts). IV access (20 points). Ambulatory Aid- None/Bed Rest/Nurse Assist (0 pts). Gait- Normal/Bed Rest/Wheelchair (0 pts) Mental Status- Oriented to own ability (0 pts). Total Chery Fall Scale indicates No Risk (0-24 pts). Assessment: 14:34 Reassessment: see triage assessment. GI: Abdomen is round non-distended, Bowel sounds kc6 present X 4 quads. Abd is soft and non tender X 4 quads. Reports intolerance of fluids, intolerance of food, vomiting, her last bowel movement was 06/03/22. 15:54 Reassessment: Patient appears in no apparent distress at this time. No changes from kc6 previously documented assessment. Patient and/or family updated on plan of care and expected duration. Pain level reassessed. Patient is alert, oriented x 3, equal unlabored respirations, skin warm/dry/pink. Patient states feeling better. Vital Signs: 13:46 BP 140 / 55; Pulse 67; Resp 16; Temp 97.7(O); Pulse Ox 100% on R/A; Weight 58.06 kg; hb Height 5 ft. 2 in. (157.48 cm); Pain 2/10; 14:33 BP 123 / 49; Pulse 70; Resp 16 S; Pulse Ox 99% on R/A; Pain 0/10; kc6 15:30 BP 112 / 52; Pulse 66; Resp 16 S; Pulse Ox 99% on R/A; kc6 13:46 Body Mass Index 23.41 (58.06 kg, 157.48 cm) hb ED Course: 13:38 Patient arrived in ED. mr 13:38 Yuly Martínez is Private Physician. mr 13:42 Jm Collado MD is Attending Physician. rn 13:47 Triage completed. hb 13:47 Arm band placed on. hb 13:48 Daryl Martínez, RN is Primary Nurse. jd3 14:22 Basic Metabolic Panel Sent. kc6 14:22 CBC with Diff Sent. kc6 14:27 Inserted saline lock: 22 gauge in right wrist, using aseptic technique. Blood collected.jd3 15:55 No provider procedures requiring assistance completed. IV discontinued, intact, kc6 bleeding controlled, No redness/swelling at site. Pressure dressing applied. 15:56 Patient has correct armband on for positive identification. Bed in low position. Call kc6 light in reach. Side rails up X2. Adult w/ patient. Administered Medications: 14:30 Drug: NS 0.9% 1000 ml Route: IV; Rate: 1000 ml; Site: right wrist; kc6 15:30 Follow up: Response: No adverse reaction; IV Status: Completed infusion; IV Intake: kc6 1000ml Medication: 15:57 VIS not applicable for this client. kc6 Intake: 15:30 IV: 1000ml; Total: 1000ml. kc6 Outcome: 15:16 Discharge ordered by . rn 15:55 Discharged to home ambulatory, with family. kc6 15:55 Condition: stable 15:55 Discharge instructions given to patient, family, Instructed on discharge instructions, follow up and referral plans. Demonstrated understanding of instructions, follow-up care. 15:57 Patient left the ED. kc6 Signatures: Mary Ivey mr Jm Collado MD MD rn Baxter, Heather, RN RN Daryl Martínez RN RN jd3 Campbell, Kaitlyn, RN RN kc6
--- NOTE | 2022-06-06 15:16 | EDPHYS ---
Physician Documentation [facility] Name: Vijaya Oneal Age: 76 yrs Sex: Female : 1945 Arrival Date: 06/06/2022 Time: 13:38 Bed 18 Private MD: Yuly Martínez ED Physician Jm Collado HPI: 06/06 14:54 This 76 yrs old Female presents to ER via Ambulatory with complaints of rn Vomiting. 14:54 The patient presents to the emergency department with vomiting. Onset: The rn symptoms/episode began/occurred 2 day(s) ago. Possible causes: flare up of bowel problem, esophageal stricture. The symptoms are aggravated by food , The symptoms are alleviated by nothing. Associated signs and symptoms: Pertinent positives: vomiting, Pertinent negatives: abdominal pain, fever, GI bleeding. Severity of symptoms: At their worst the symptoms were moderate in the emergency department the symptoms are unchanged. The patient has experienced similar episodes in the past. The patient has not recently seen a physician. Patient reports eating chicken 2 days ago, feels like piece of chicken got stuck. Able to drink fluids and protein shakes, but not solids. States if tries to eat solids, throws up. No blood in emesis. Does not feel ill. Brought in today because called PRODUCTION AIDE who told them to come in for GI evaluation. . Historical: - Allergies: 13:47 PENICILLINS; hb - PMHx: 13:47 Anemia; Cirrhosis; Diabetes - NIDDM; Hypertension; neuropathy; hb - Immunization history:: Adult Immunizations up to date. - Social history:: Smoking status: Patient denies any tobacco usage or history of. - Family history:: not pertinent. - Hospitalizations: : No recent hospitalization is reported. ROS: 14:54 Constitutional: Negative for fever, chills, and weight loss, Eyes: Negative for injury, rn pain, redness, and discharge, Neck: + foreign body sensation in neck/chest. Cardiovascular: Negative for chest pain, palpitations, and edema, Respiratory: Negative for shortness of breath, cough, wheezing, and pleuritic chest pain, Abdomen/GI: + vomiting MS/Extremity: Negative for injury and deformity, Skin: Negative for injury, rash, and discoloration, Neuro: Negative for headache, weakness, numbness, tingling, and seizure. Exam: 14:54 Constitutional: This is a well developed, well nourished patient who is awake, alert, rn and in no acute distress. Head/Face: Normocephalic, atraumatic. ENT: MMM Cardiovascular: Regular rate and rhythm. No pulse deficits. Respiratory: No increased work of breathing, no retractions or nasal flaring. Abdomen/GI: Soft, non-tender Skin: Warm, dry MS/ Extremity: Pulses equal, no cyanosis. Neuro: Awake and alert, GCS 15 Vital Signs: 13:46 BP 140 / 55; Pulse 67; Resp 16; Temp 97.7(O); Pulse Ox 100% on R/A; Weight 58.06 kg; hb Height 5 ft. 2 in. (157.48 cm); Pain 2/10; 14:33 BP 123 / 49; Pulse 70; Resp 16 S; Pulse Ox 99% on R/A; Pain 0/10; kc6 15:30 BP 112 / 52; Pulse 66; Resp 16 S; Pulse Ox 99% on R/A; kc6 13:46 Body Mass Index 23.41 (58.06 kg, 157.48 cm) hb MDM: 13:42 Patient medically screened. rn 15:13 Differential diagnosis: food bolus, esophageal foreign body, food impaction, esophageal rn stricture. Data reviewed: vital signs, nurses notes, lab test result(s), and as a result, I will discharge patient. Counseling: I had a detailed discussion with the patient and/or guardian regarding: the historical points, exam findings, and any diagnostic results supporting the discharge/admit diagnosis, the need for outpatient follow up, to return to the emergency department if symptoms worsen or persist or if there are any questions or concerns that arise at home. Response to treatment: the patient's symptoms have markedly improved after treatment, and as a result, I will discharge patient. Special discussion: Based on the history and exam findings, there is no indication for further emergent testing or inpatient evaluation. I discussed with the patient/guardian the need to see the analysis reporting developer for further evaluation of the symptoms. ED course: Offered transfer to medical center for food bolus/esophageal stricture to see her GI and for scope, after long discussion, daughter states seems better after fluids, is tolerated liquids, and would like to take her home since she does not believe that they will scope her tonight. Wants to take her home and will either take to [facility] tomorrow or call GI doctor tomorrow. . 06/06 14:03 Order name: CBC with Diff; Complete Time: 14:53 rn 06/06 14:03 Order name: Basic Metabolic Panel; Complete Time: 14:53 rn 06/06 14:03 Order name: IV Start; Complete Time: 14:22 rn Administered Medications: 14:30 Drug: NS 0.9% 1000 ml Route: IV; Rate: 1000 ml; Site: right wrist; kc6 15:30 Follow up: Response: No adverse reaction; IV Status: Completed infusion; IV Intake: kc6 1000ml Disposition Summary: 06/06/22 15:16 Discharge Ordered Location: Home rn Problem: an ongoing problem rn Symptoms: have improved rn Condition: Stable rn Diagnosis - Food in esophagus - Esophageal stricture rn Followup: rn - With: Private Physician - When: Tomorrow - Reason: Recheck today's complaints, Re-evaluation by your physician Discharge Instructions: - Discharge Summary Sheet rn - Esophageal Stricture rn Forms: - Medication Reconciliation Form rn - Thank You Letter rn - Antibiotic buffing turner and counter - Prescription Opioid Use rn Signatures: Dispatcher [employer] Jm Gloria MD MD rn Baxter, Heather, RN RN hb Campbell, Kaitlyn RN RN kc6
[2022-06-06 16:01] VITALS: TEMP 97.7
[2022-06-06 16:15] VITALS: O2SAT 99
[2022-06-06 16:16] VITALS: BP 112/52
== END 2022-06-06 15:57 | disposition home or self-care (01) ==
LOC: ER 13:35
DX: K22.2 Esophageal obstruction (principal); T18.128A Food in esophagus causing other injury, initial encounter; R11.10 Vomiting, unspecified; I10 Essential (primary) hypertension; Z88.0 Allergy status to penicillin
CPT/HCPCS: 85025; 80048; 36415; 96360; 99283; J7030

== ENCOUNTER → 2023-10-26 | Emergency (ER) | payer OTHER ==
[2023-10-26 10:23] LABS: Absolute Eosinophils 0.1 K/uL (0-0.5); Absolute Lymphocytes (CBC) 0.7 K/uL (0.7-4.9); Absolute Monocytes 0.4 K/uL (0.1-1.3); Absolute Neutrophil 3.3 K/uL (1.8-8.0); Basophils % 0.5 % (0-1.3); Eosinophils % 2.7 % (0-4.4); Hematocrit 23.8 % (36.0-45.0); Hemoglobin 7.9 g/dL (12.0-15.0); Lymphocytes % 15.3 % (15.3-44.8); MCH 22.2 pg (27.0-35.0); MCHC 33.2 g/dL (32.0-36.0); MPV 8.2 fL (7.6-11.3); Monocytes % 8.8 % (3.3-12.3); Neutrophils % 72.7 % (41.7-73.7); Platelets 90 thou/uL (152-406); RBC Red Blood Cell Count 3.55 M/uL (3.86-4.86); Red Cell Distribution Width 20.9 % (12.1-15.2)
--- NOTE | 2023-10-26 10:23 | RAD REPORT ---
EXAM DESCRIPTION: RAD - Chest Single View - 10/26/2023 10:10 am CLINICAL HISTORY: CHEST PAIN Chest pain. COMPARISON: Chest Pa And Lat (2 Views) dated 06/01/2023; Chest Single View dated 07/06/2020; Chest S marya View dated 09/15/2018; CHEST PA AND LAT 2 VIEW dated 10/05/2015 FINDINGS: Portable technique limits examination quality. Mild interstitial pulmonary edema. The heart is mildly enlarged in size. No displaced fractures. IMPRESSION: Mild CHF.
--- NOTE | 2023-10-26 10:32 | RAD REPORT ---
EXAM DESCRIPTION: CT - Abdomen Pelvis Wo Contrast - 10/26/2023 10:20 am CLINICAL HISTORY: Abdominal pain. ABD PAIN COMPARISON: Abdomen Pelvis W Contrast dated 07/06/2020 TECHNIQUE: CT imaging of the abdomen and pelvis was performed without contrast. Solid organ, bowel a nd vascular assessment is limited due to lack of IV and oral contrast. All CT scans are performed using dose optimization technique as appropriate and may include automated exposure control or mA/KV adjustment according to patient size. FINDINGS: Small nodules are present in the right lower lobe, largest measuring 5 mm. The liver is shrunken, nodular compatible with significant cirrhosis. The spleen is moderately enlarg ed. No ascites is present. Portal venous system appears enlarged. The pancreas, adrenal glands and ki dneys are within normal limits. No stone or hydronephrosis. No bowel obstruction, free air, free fluid or abscess. Sigmoid diverticulosis coli without diverticul itis. Significant stool retention throughout the colon. Segment of the ascending colon shows effaceme nt of the lumen with wall thickening noted (image 31/81). The appendix is normal. Moderate lumbar degenerative changes. IMPRESSION: Significant liver cirrhosis with evidence of portal hypertension and mild splenomegaly. No ascites. . Segment of the ascending colon along the right flank shows wall thickening and effacement of the lume n. Recommend nonemergent colonoscopy assessment if not recently performed. Small nodules are present in the posterior right lower lobe. A limited non-contrast examination was performed as detailed.
[2023-10-26 10:45] LABS: Albumin 2.7 g/dL (3.4-5.0); Albumin/Globulin Ratio 0.5 (1.1-1.8); Anion Gap 9.7 mEq/L (5.0-15.0); Bilirubin Total 0.8 mg/dL (0.2-1.0); Globulin 5.4 g/dL (2.3-3.5); Potassium 4.7 mEq/L (3.5-5.1); Protein, Total 8.1 g/dL (6.4-8.2); Troponin High Sensitivity 12.2 pg/mL (<58.9)
[2023-10-26 10:50] LABS: Anisocytosis 1+; Blood Morphology Comment NOTED (NOT SEEN); Hypochromasia 1+; Microcytosis 1+; Platelet Estimate DECR; Polychromasia 1+; White Blood Cell Scan OK (OK)
[2023-10-26 11:22] LABS: Specific Gravity 1.008 (1.005-1.030); Urine Bacteria None Seen /HPF (<20); Urine Bilirubin NEGATIVE (Negative); Urine Blood Negative (Negative); Urine Clarity Clear (Clear); Urine Color Light-Yellow (Yellow); Urine Glucose TRACE (Negative); Urine Protein NEGATIVE (Negative); Urine RBC None Seen /HPF (None Seen); Urine Urobilinogen Normal (Normal); Urine pH 6.5 (5.0-7.0)
--- NOTE | 2023-10-26 12:00 | EDPHYS ---
Physician Documentation [facility] Name: Vijaya Oneal Age: 78 yrs Sex: Female : 1945 Arrival Date: 10/26/2023 Time: 09:33 Bed 3 Private MD: Yuly Martínez ED Physician Nimesh Spence HPI: 10/25 09:52 This 78 yrs old Female presents to ER via Ambulatory with complaints of ec2 Abnormal Lab Results. 09:52 Patient arrives today for evaluation of abnormal lab results. Patient with history of ec2 anemia, hemoglobin typically 8-9, noted bleeding around 7.5. Patient without any changes in stools. Patient with history of anemia, cirrhosis, diabetes, hypertension. Denies any dark stools. Reports no urinary complaints. Daughter notes that she has been generally weak and fatigued and has had a couple falls recently.. Historical: - Allergies: 09:48 PENICILLINS; iw - Home Meds: 09:49 Lantus U-100 Insulin 100 unit/mL Sub-Q solution 44 units daily [Active]; gabapentin 400 iw mg oral capsule 2 times per day [Active]; propranolol 10 mg Oral tablet daily [Active]; Linzess 72 mcg oral capsule daily [Active]; Lisinopril Oral daily [Active]; Xifaxan 550 mg oral tablet 2 times per day [Active]; ursodiol 500 mg Oral tablet daily [Active]; omeprazole 40 mg Oral capsule,delayed release (e.c.) daily [Active]; Benadryl 25 mg Oral capsule daily [Active]; - PMHx: 09:48 Anemia; Cirrhosis; Diabetes - NIDDM; Hypertension; neuropathy; iw - Immunization history:: Adult Immunizations. - Social history:: Smoking status: Patient denies any tobacco usage or history of. ROS: 09:52 Constitutional: as per hpi ec2 Exam: 09:52 Constitutional: GEN: NAD Head: atraumatic Eyes: EOMI Ears: External ears are ec2 normal. CV: regular rate LUNGS: no respiratory distress ABD: non-distended, soft, nontender, not guarding, not rigid SKIN: no evidence of rashes MSK: no evidence of trauma NEURO: moves all extremities equally Vital Signs: 09:48 BP 124 / 63; Pulse 69; Resp 16; Pulse Ox 96% on R/A; iw 09:48 BP 124 / 63; Pulse 71; Resp 16; Pulse Ox 95% on R/A; Weight 55.34 kg; Height 5 ft. 2 iw in. ; 11:09 BP 126 / 65; Pulse 64; Resp 16 S; Pulse Ox 100% on R/A; kc6 11:53 BP 115 / 65; Pulse 62; Resp 15 S; Pulse Ox 100% on R/A; kc6 09:48 Body Mass Index 22.31 (55.34 kg, 157.48 cm) iw MDM: 09:46 Patient medically screened. ec2 09:52 Data reviewed: vital signs. ED course: Patient arrives today for evaluation of general ec2 weakness and confusion. Examination remarkable for well-appearing nontoxic individual is otherwise in no acute distress with a reassuring examination. Will obtain lab work, urine studies, CT imaging. Currently evaluated process such as anemia, electrolyte disturbance, renal dysfunction, hepatic encephalopathy.. 10:45 ED course: CBC with anemia noted at 7.9, this sounds similar to patient's baseline. CT ec2 abdomen pelvis shows liver cirrhosis which is expected, no ascites noted. Bowel thickening noted patient can follow-up outpatient for this, nodule noted in the right lung, can follow-up outpatient for this. Patient updated regarding these results. Chest x-ray shows no acute intrathoracic process. Ammonia level within normal ranges. EKG obtained, independently reviewed and interpreted by me, shows normal sinus rhythm, rate of 67, no acute ST segment elevations, nonconcerning intervals.. 10:46 ED course: Metabolic profile is reassuring, creatinine 1.14, GFR diminished at 49, ec2 lipase within normal ranges, troponin within normal ranges. . 11:58 ED course: On reassessment patient is well-appearing. Will discharge home. Return ec2 precautions given.. 03 09:51 Order name: CBC with Diff; Complete Time: 10:51 ec2 10/25 09:51 Order name: CMP; Complete Time: 10:46 ec2 10/25 09:51 Order name: Lipase; Complete Time: 10:46 ec2 10/25 09:51 Order name: AMMONIA; Complete Time: 10:44 ec2 10/25 09:51 Order name: UAM; Complete Time: 11:24 ec2 10/25 09:51 Order name: Type And Screen; Complete Time: 11:24 ec2 10/25 09:51 Order name: Troponin High Sensitivity; Complete Time: 10:46 ec2 10/25 10:30 Order name: CBC Smear Scan; Complete Time: 10:51 EDMS 10/25 09:51 Order name: CT Abd/Pelvis - Without Contrast; Complete Time: 10:44 ec2 10/25 09:51 Order name: CXR XRAY; Complete Time: 10:44 ec2 10/25 09:51 Order name: IV Saline Lock; Complete Time: 10:18 ec2 10/25 09:51 Order name: Labs collected and sent; Complete Time: 10:18 ec2 10/25 10:10 Order name: EKG - Nurse/Tech; Complete Time: 10:40 ec2 Administered Medications: No medications were administered Disposition Summary: 10/26/23 12:00 Discharge Ordered Notes: Location: Home ec2 Condition: Stable ec2 Diagnosis - Weakness ec2 Followup: ec2 - With: Private Physician - When: - Reason: Recheck today's complaints Discharge Instructions: - Discharge Summary Sheet ec2 - Weakness ec2 Forms: - Medication Reconciliation Form ec2 - Thank You Letter ec2 - Antibiotic Education ec2 - Prescription Opioid Use ec2 - Patient Portal Instructions ec2 - Leadership Thank You Letter ec2 Signatures: Dispatcher [employer] Keena Phillips RN RN iw Corral, Edwin, MD MD ec2 Corrections: (The following items were deleted from the chart) 11:08 10:53 Barlow ordered. ec2 kc6
--- NOTE | 2023-10-26 12:00 | ER ---
Nurse's Notes [facility] Name: Vijaya Oneal Age: 78 yrs Sex: Female : 1945 Arrival Date: 10/26/2023 Time: 09:33 Bed 3 Private MD: Yuly Martínez Diagnosis: Weakness Presentation: 10/25 09:47 Chief complaint: Patient's son or daughter states: she has had multiple falls and iw disorientation recently , her hgb was at 7.3. 09:47 Acuity: NELLY 3 iw 09:48 Coronavirus screen: At this time, the client does not indicate any symptoms associated iw with coronavirus-19. Ebola Screen: Patient negative for fever greater than or equal to 101.5 degrees Fahrenheit, and additional compatible Ebola Virus Disease symptoms Patient denies exposure to infectious person. Patient denies travel to an Ebola-affected area in the 21 days before illness onset. No symptoms or risks identified at this time. Initial Sepsis Screen: Does the patient meet any 2 criteria? No. Patient's initial sepsis screen is negative. Does the patient have a suspected source of infection? No. Patient's initial sepsis screen is negative. Risk Assessment: Do you want to hurt yourself or someone else? Patient reports no desire to harm self or others. 09:48 Method Of Arrival: Ambulatory iw Historical: - Allergies: 09:48 PENICILLINS; iw - Home Meds: 09:49 Lantus U-100 Insulin 100 unit/mL Sub-Q solution 44 units daily [Active]; gabapentin 400 iw mg oral capsule 2 times per day [Active]; propranolol 10 mg Oral tablet daily [Active]; Linzess 72 mcg oral capsule daily [Active]; Lisinopril Oral daily [Active]; Xifaxan 550 mg oral tablet 2 times per day [Active]; ursodiol 500 mg Oral tablet daily [Active]; omeprazole 40 mg Oral capsule,delayed release (e.c.) daily [Active]; Benadryl 25 mg Oral capsule daily [Active]; - PMHx: 09:48 Anemia; Cirrhosis; Diabetes - NIDDM; Hypertension; neuropathy; iw - Immunization history:: Adult Immunizations. - Social history:: Smoking status: Patient denies any tobacco usage or history of. Screenin:18 [facility] ED Fall Risk Assessment (Adult) History of falling in the last 3 months, kc6 including since admission Yes- fall prone (multiple falls) (3 pts) Confusion or Disorientation No (0 pts) Intoxicated or Sedated No (0 pts) Impaired Gait Yes (1 pt) Mobility Assist Device Used Yes (1 pt) Altered Elimination No (0 pt) Score/Fall Risk Level 3 or more points = High Risk. Abuse screen: Denies threats or abuse. Denies injuries from another. Nutritional screening: No deficits noted. Tuberculosis screening: No symptoms or risk factors identified. Assessment: 10:18 General: Appears in no apparent distress. comfortable, well groomed, well developed, kc6 Behavior is calm, cooperative, appropriate for age. Pain: Denies pain. Neuro: Level of Consciousness is awake, alert, obeys commands, Oriented to person, place, time, situation, Appropriate for age. Cardiovascular: Capillary refill < 3 seconds. Respiratory: Airway is patent Trachea midline Respiratory effort is even, unlabored, Respiratory pattern is regular, symmetrical. GI: No signs and/or symptoms were reported involving the gastrointestinal system. Abdomen is round non-distended, Bowel sounds present X 4 quads. Abd is soft and non tender X 4 quads. : No signs and/or symptoms were reported regarding the genitourinary system. EENT: No signs and/or symptoms were reported regarding the EENT system. Derm: Skin is intact, is healthy with good turgor, Skin is dry, Skin is jaundiced, Skin temperature is warm. Musculoskeletal: No signs and/or symptoms reported regarding the musculoskeletal system. Circulation, motion, and sensation intact. Capillary refill < 3 seconds, Range of motion: intact in all extremities. 11:09 Reassessment: Patient appears in no apparent distress at this time. No changes from kc6 previously documented assessment. Patient and/or family updated on plan of care and expected duration. Pain level reassessed. Patient is alert, oriented x 3, equal unlabored respirations, skin warm/dry/pink. 11:53 Reassessment: Patient appears in no apparent distress at this time. No changes from kc6 previously documented assessment. Patient and/or family updated on plan of care and expected duration. Pain level reassessed. Patient is alert, oriented x 3, equal unlabored respirations, skin warm/dry/pink. Vital Signs: 09:48 BP 124 / 63; Pulse 69; Resp 16; Pulse Ox 96% on R/A; iw 09:48 BP 124 / 63; Pulse 71; Resp 16; Pulse Ox 95% on R/A; Weight 55.34 kg; Height 5 ft. 2 iw in. ; 11:09 BP 126 / 65; Pulse 64; Resp 16 S; Pulse Ox 100% on R/A; kc6 11:53 BP 115 / 65; Pulse 62; Resp 15 S; Pulse Ox 100% on R/A; kc6 09:48 Body Mass Index 22.31 (55.34 kg, 157.48 cm) iw ED Course: 09:36 Patient arrived in ED. mr 09:36 Yuly Martínez is Private Physician. mr 09:37 Nimesh Spence MD is Attending Physician. ec2 09:47 Triage completed. iw 09:48 Arm band placed on. iw 10:12 CXR XRAY In Process Unspecified. EDMS 10:18 Kaycee Reza, RN is Primary Nurse. kc6 10:18 Patient has correct armband on for positive identification. Bed in low position. Call kc6 light in reach. Side rails up X2. Adult w/ patient. Client placed on continuous cardiac and pulse oximetry monitoring. NIBP monitoring applied. cardiac monitor technician on. 10:18 Inserted saline lock: 20 gauge in right forearm, using aseptic technique. Blood kc6 collected. Patient maintains SpO2 saturation greater than 95% on room air. 10:20 CT Abd/Pelvis - Without Contrast In Process Unspecified. EDMS 11:08 UAM Sent. kc6 Administered Medications: No medications were administered Outcome: 12:00 Discharge ordered by . ec2 12:43 Patient left the ED. iw Signatures: Dispatcher [employer] EDMS Mary Ivey, Reg Reg Keena Marshall RN RN iw Kaycee Reza RN RN kc6 Nimesh Spence MD MD ec2 Corrections: (The following items were deleted from the chart) 09:52 09:48 BP 124 / 63; Pulse 71bpm; Resp 16bpm; Pulse Ox 95% RA; iw iw
[2023-10-26 12:52] VITALS: BP 115/65; O2SAT 100
== END ==
LOC: ER 09:33
DX: R53.1 Weakness (principal); R53.83 Other fatigue; E11.9 Type 2 diabetes mellitus without complications; Z79.4 Long term (current) use of insulin; I10 Essential (primary) hypertension; K74.60 Unspecified cirrhosis of liver; Z88.0 Allergy status to penicillin
CPT/HCPCS: 36415; 71045; 74176; 80053; 81001; 82140; 83690; 84484; 85025; 86850; 86900; 86901; 93005

== ENCOUNTER 2023-12-20 09:36 | Emergency (ER) | payer OTHER ==
[2023-12-20] MEDS ORDERED: NA CHLORIDE 0.9% 1,000 ML ONE (10:05)
[2023-12-20 10:27] LABS: Absolute Lymphocytes (CBC) 0.5 K/uL (0.7-4.9); Absolute Monocytes 0.5 K/uL (0.1-1.3); Absolute Neutrophil 2.4 K/uL (1.8-8.0); Basophils % 0.5 % (0-1.3); Eosinophils % 0.9 % (0-4.4); Hematocrit 32.8 % (36.0-45.0); Hemoglobin 10.7 g/dL (12.0-15.0); Lymphocytes % 14.7 % (15.3-44.8); MCH 25.7 pg (27.0-35.0); MCHC 32.6 g/dL (32.0-36.0); MCV 78.9 fL (80-100); MPV 8.2 fL (7.6-11.3); Monocytes % 13.6 % (3.3-12.3); Neutrophils % 70.3 % (41.7-73.7); Nucleated Red Blood Cells % 0.2 % (0-0); Platelets 73 thou/uL (152-406); RBC Red Blood Cell Count 4.16 M/uL (3.86-4.86); Red Cell Distribution Width 27.6 % (12.1-15.2)
--- NOTE | 2023-12-20 10:29 | RAD REPORT ---
EXAM DESCRIPTION: CT - Abdomen Pelvis Wo Contrast - 12/20/2023 10:21 am CLINICAL HISTORY: Abdominal pain. ABD PAIN COMPARISON: Abdomen Pelvis Wo Contrast dated 10/26/2023 TECHNIQUE: CT imaging of the abdomen and pelvis was performed without contrast. Solid organ, bowel a nd vascular assessment is limited due to lack of IV and oral contrast. All CT scans are performed using dose optimization technique as appropriate and may include automated exposure control or mA/KV adjustment according to patient size. FINDINGS: 4 mm nodule is seen posterior right lung base. Moderate liver cirrhosis is present with [id number] splenomegaly.No intra or extrahepatic bilia ry tree dilatation seen. The pancreas, adrenal glands and kidneys are within normal limits. Small volume of ascites is present. No bowel obstruction, free air or abscess. Sigmoid diverticulosis coli with moderate stool retention. Metallic clip is seen within the rectum posteriorly. The appendi x is normal. The osseous structures are within normal limits. IMPRESSION: Moderate liver cirrhosis with splenomegaly present. Trace ascites. A limited non-contrast examination was performed as detailed.
[2023-12-20 11:21] LABS: Specific Gravity 1.006 (1.005-1.030); Urine Bilirubin NEGATIVE (Negative); Urine Blood Negative (Negative); Urine Clarity Clear (Clear); Urine Color Light-Yellow (Yellow); Urine Glucose NEGATIVE (Negative); Urine Ketones NEGATIVE (Negative); Urine Microscopic Reflex YN NO UMIC; Urine Nitrite NEGATIVE (Negative); Urine Protein NEGATIVE (Negative); Urine Urobilinogen Normal (Normal); Urine pH 6.5 (5.0-7.0)
[2023-12-20 11:46] LABS: Albumin 2.7 g/dL (3.4-5.0); Albumin/Globulin Ratio 0.5 (1.1-1.8); Anion Gap 4.7 mEq/L (5.0-15.0); Bilirubin Total 1.3 mg/dL (0.2-1.0); Globulin 5.7 g/dL (2.3-3.5); Potassium 4.7 mEq/L (3.5-5.1); Protein, Total 8.4 g/dL (6.4-8.2)
--- NOTE | 2023-12-20 11:52 | EDPHYS ---
Physician Documentation [facility] Ranjeet Name: Vijaya Oneal Age: 78 yrs Sex: Female : 1945 Arrival Date: 12/20/2023 Time: 09:36 Bed 15 Private MD: ED Physician Nimesh Spence HPI: 12/19 10:02 This 78 yrs old Female presents to ER via EMS with complaints of Bloody Stools.ec2 10:02 Patient arrives today due to concern for bloody red stools. Patient with history of ec2 liver disease, arrives today due to concern for generalized weakness as well as bloody stools. Patient with recent admission for rectal bleeding. Patient underwent 2 colonoscopies recently and was found to be no active variceal bleeding. Patient with history of liver disease. Patient reports no abdominal pain, no nausea or vomiting. Denies any issues with p.o. intake. No blood thinner use.. Historical: - Allergies: 09:46 PENICILLINS; kc6 - PMHx: 09:46 Anemia; Cirrhosis; Diabetes - NIDDM; Hypertension; neuropathy; varicies (neuropathy); kc6 Kidney disease; - Immunization history:: Adult Immunizations up to date. - Infectious Disease History:: Denies. - Social history:: Smoking status: Patient denies any tobacco usage or history of. ROS: 10:02 Constitutional: as per hpi ec2 Exam: 10:02 Constitutional: GEN: NAD Head: atraumatic Eyes: EOMI Ears: External ears are ec2 normal. CV: regular rate LUNGS: no respiratory distress ABD: non-distended, soft, nontender, no guarding, not rigid. examination: Performed under supervision, obvious external nonthrombosed hemorrhoids, no bright red blood per rectum, no melena on ANA LILIA. SKIN: no evidence of rashes MSK: no evidence of trauma NEURO: moves all extremities equally Vital Signs: 09:45 BP 119 / 49; Pulse 69; Resp 16 S; Temp 97.9(O); Pulse Ox 99% on R/A; Weight 54.43 kg kc6 (R); Height 5 ft. 2 in. (R); Pain 0/10; 10:46 BP 102 / 54; Pulse 70; Resp 15 S; Pulse Ox 99% on R/A; kc6 11:30 BP 108 / 60; Pulse 73; Resp 16 S; Pulse Ox 97% on R/A; kc6 09:45 Body Mass Index 21.95 (54.43 kg, 157.48 cm) kc6 09:45 Pain Scale: Adult kc6 MDM: 09:52 Patient medically screened. ec2 10:02 Data reviewed: vital signs. ED course: Patient arrives today for evaluation of bloody ec2 stools and generalized weakness. Examination remarkable for well-appearing nontoxic individual who has a examination as above with a benign abdomen otherwise. Will obtain lab work, CT imaging and give the patient crystalloid. Evaluating for anemia. Evaluate for UTI as well as electrolyte disturbances. Patient typically has hemoglobin in the 7-8 range.. 10:35 ED course: CT imaging shows expected cirrhosis along with splenomegaly, trace ascites ec2 noted.. 10:39 ED course: Hemoglobin at 10.7.. ec2 11:46 ED course: Urine noninfectious appearing. Patient remains well-appearing in no acute ec2 distress. Decision was made previously on recent hospitalization that they would be pursuing aggressive cares given the patient's significant cirrhosis, I do not feel that hospitalization will be beneficial at this time . Patient remains hemodynamically stable and appropriate.. 05 10:02 Order name: CBC with Diff ec2 12/19 10:02 Order name: CMP; Complete Time: 11:47 ec2 12/19 10:02 Order name: Lipase; Complete Time: 11:47 ec2 12/19 10:02 Order name: Urinalysis w/ reflexes; Complete Time: 11:46 ec2 12/19 10:02 Order name: Type And Screen; Complete Time: 11:46 ec2 12/19 10:02 Order name: CT Abd/Pelvis - Without Contrast; Complete Time: 10:35 ec2 12/19 10:02 Order name: IV Saline Lock; Complete Time: 10:20 ec2 12/19 10:02 Order name: Labs collected and sent; Complete Time: 10:20 ec2 12/19 10:32 Order name: Labs - recollect needed: T\T\S redraw requested; Complete Time: 10:43 ap3 12/19 10:50 Order name: Labs - recollect needed: recollect green top; Complete Time: 10:58 bd Administered Medications: 10:43 Drug: NS 0.9% IV 1000 ml IV at 1 bolus Per protocol; 1000 mL bolus Route: IV; Rate: 1 kc6 bolus; Site: right forearm; 12:10 Follow up: Response: No adverse reaction; IV Status: Completed infusion; IV Intake: kc6 500ml Disposition Summary: 12/20/23 11:51 Discharge Ordered Notes: Location: Home ec2 Condition: Stable ec2 Diagnosis - Rectal Bleeding ec2 - Weakness ec2 - Other hemorrhoids ec2 Followup: ec2 - With: Private Physician - When: - Reason: Re-evaluation by your physician Discharge Instructions: - Discharge Summary Sheet ec2 - Rectal Bleeding, [id number] ec2 Forms: - Medication Reconciliation Form ec2 - Antibiotic Education ec2 - Prescription Opioid Use ec2 - Patient Portal Instructions ec2 - Leadership Thank You Letter ec2 Signatures: Dispatcher [employer] Adriana Armstrong Amanda, RN RN [email or web address] Kaycee Reza RN RN kc6 Nimesh Spence MD MD ec2 Corrections: (The following items were deleted from the chart) 09:47 09:46 PSHx: esophageal and rectal varicies (neuropathy); kc6 kc6 10:02 10:02 CBC+H.LAB.BRZ ordered. EDMS EDMS 10:02 10:02 COMPREHENSIVE METABOLIC PANEL+C.LAB.BRZ ordered. EDMS EDMS 10:02 10:02 LIPASE+C.LAB.BRZ ordered. EDMS EDMS 10:02 10:02 Urinalysis+U.LAB.BRZ ordered. EDMS EDMS 10:02 10:02 TYPE AND SCREEN+BB.LAB.BRZ ordered. EDMS EDMS 10:02 10:02 Abdomen Pelvis Wo Con+CT.RAD.BRZ ordered. EDMS EDMS
--- NOTE | 2023-12-20 11:52 | ER ---
Nurse's Notes [facility] Name: Vijaya Oneal Age: 78 yrs Sex: Female : 1945 Arrival Date: 12/20/2023 Time: 09:36 Bed 15 Private MD: Diagnosis: Rectal Bleeding;Weakness;Other hemorrhoids Presentation: 12/19 09:45 Chief complaint: Patient states: she had blood stool this morning. states yesterday she kc6 was ok but wanted to come get checked out because she was recently discharged from [place] for GI bleed. Coronavirus screen: At this time, the client does not indicate any symptoms associated with coronavirus-19. Ebola Screen: No symptoms or risks identified at this time. Initial Sepsis Screen: Does the patient meet any 2 criteria? No. Patient's initial sepsis screen is negative. Does the patient have a suspected source of infection? No. Patient's initial sepsis screen is negative. Risk Assessment: Do you want to hurt yourself or someone else? Patient reports no desire to harm self or others. Onset of symptoms was December 20, 2023. 09:45 Method Of Arrival: EMS: [facility] kc6 09:45 Acuity: NELLY 3 kc6 Triage Assessment: 09:46 General: Appears in no apparent distress. comfortable, well groomed, well developed, kc6 Behavior is calm, cooperative, appropriate for age. Pain: Denies pain. EENT: No signs and/or symptoms were reported regarding the EENT system. Neuro: Level of Consciousness is awake, alert, obeys commands, Oriented to person, place, time, situation, Appropriate for age Reports weakness. Cardiovascular: Capillary refill < 3 seconds. Respiratory: Airway is patent Trachea midline Respiratory effort is even, unlabored, Respiratory pattern is regular, symmetrical. GI: Abdomen is flat, non-distended, Bowel sounds present X 4 quads. Abd is soft and non tender X 4 quads. Reports bloody stool, Patient currently denies abdominal pain, diarrhea, nausea, vomiting. : No signs and/or symptoms were reported regarding the genitourinary system. Derm: No signs and/or symptoms reported regarding the dermatologic system. Skin is intact, is fragile, is thin, Skin is dry, Skin is normal, Skin temperature is warm Bruising that is dark purple, on right arm and left arm. Musculoskeletal: No signs and/or symptoms reported regarding the musculoskeletal system. Circulation, motion, and sensation intact. Capillary refill < 3 seconds, Range of motion: intact in all extremities. Historical: - Allergies: 09:46 PENICILLINS; kc6 - PMHx: 09:46 Anemia; Cirrhosis; Diabetes - NIDDM; Hypertension; neuropathy; varicies (neuropathy); kc6 Kidney disease; - Immunization history:: Adult Immunizations up to date. - Infectious Disease History:: Denies. - Social history:: Smoking status: Patient denies any tobacco usage or history of. Screenin:[address] [facility] ED Fall Risk Assessment (Adult) History of falling in the last 3 months, kc6 including since admission No falls in past 3 months (0 pts) Confusion or Disorientation No (0 pts) Intoxicated or Sedated No (0 pts) Impaired Gait No (0 pts) Mobility Assist Device Used No (0 pt) Altered Elimination No (0 pt) Score/Fall Risk Level 0 - 2 = Low Risk. Abuse screen: Denies threats or abuse. Denies injuries from another. Nutritional screening: No deficits noted. Tuberculosis screening: No symptoms or risk factors identified. Assessment: 09:49 Reassessment: please see triage. kc6 10:45 Reassessment: Patient appears in no apparent distress at this time. No changes from [facility] previously documented assessment. Patient and/or family updated on plan of care and expected duration. Pain level reassessed. Patient is alert, oriented x 3, equal unlabored respirations, skin warm/dry/pink. 11:29 Reassessment: Patient appears in no apparent distress at this time. No changes from [facility] previously documented assessment. Patient and/or family updated on plan of care and expected duration. Pain level reassessed. Patient is alert, oriented x 3, equal unlabored respirations, skin warm/dry/pink. Vital Signs: 09:45 BP 119 / 49; Pulse 69; Resp 16 S; Temp 97.9(O); Pulse Ox 99% on R/A; Weight 54.43 kg kc6 (R); Height 5 ft. 2 in. (R); Pain 0/10; 10:46 BP 102 / 54; Pulse 70; Resp 15 S; Pulse Ox 99% on R/A; kc6 11:30 BP 108 / 60; Pulse 73; Resp 16 S; Pulse Ox 97% on R/A; kc6 09:45 Body Mass Index 21.95 (54.43 kg, 157.48 cm) kc6 09:45 Pain Scale: Adult kc6 ED Course: 09:38 Patient arrived in ED. bd 09:41 Nimesh Spence MD is Attending Physician. ec2 09:45 Kaycee Reza RN is Primary Nurse. kc6 09:46 Triage completed. kc6 09:46 Arm band placed on. kc6 09:49 Patient has correct armband on for positive identification. Bed in low position. Call kc6 light in reach. Side rails up X2. Adult w/ patient. Client placed on continuous cardiac and pulse oximetry monitoring. NIBP monitoring applied. Pillow given. 10:20 Inserted saline lock: 22 gauge in right forearm, using aseptic technique. Blood kc6 collected. 10:23 CT Abd/Pelvis - Without Contrast In Process Unspecified. EDMS 10:45 Straight cath inserted, using sterile technique, 14 Fr. Specimen obtained. Returned kc6 clear yellow urine. Patient tolerated well. 12:10 No provider procedures requiring assistance completed. IV discontinued, intact, kc6 bleeding controlled, No redness/swelling at site. Pressure dressing applied. Administered Medications: 10:43 Drug: NS 0.9% IV 1000 ml IV at 1 bolus Per protocol; 1000 mL bolus Route: IV; Rate: 1 kc6 bolus; Site: right forearm; 12:10 Follow up: Response: No adverse reaction; IV Status: Completed infusion; IV Intake: kc6 500ml Medication: 12:11 VIS not applicable for this client. kc6 Intake: 12:10 IV: 500ml; Total: 500ml. kc6 Outcome: 11:51 Discharge ordered by . ec2 12:10 Discharged to home via wheelchair, with family, kc6 12:10 Condition: good 12:10 Discharge instructions given to patient, family, Instructed on discharge instructions, follow up and referral plans. Demonstrated understanding of instructions, follow-up care, 12:11 Patient left the ED. kc6 Signatures: Dispatcher [employer] EDMS Adriana Rivas Kaitlyn, RN RN kc6 Nimesh Spence MD MD ec2 Corrections: (The following items were deleted from the chart) 09:47 09:46 PSHx: esophageal and rectal varicies (neuropathy); kc6 kc6
[2023-12-20 12:13] LABS: Platelet Estimate DECR; White Blood Cell Scan OK (OK)
[2023-12-20 12:14] LABS: Anisocytosis 3+; Blood Morphology Comment NOTED (NOT SEEN); Hypochromasia 1+; Microcytosis 1+
[2023-12-20 12:23] VITALS: TEMP 97.9
[2023-12-20 12:50] VITALS: BP 108/60; O2SAT 97
== END 2023-12-20 12:11 | disposition home or self-care (01) ==
LOC: ER 09:36
DX: K62.5 Hemorrhage of anus and rectum (principal); R53.1 Weakness; K64.8 Other hemorrhoids; Z88.0 Allergy status to penicillin
CPT/HCPCS: 85025; 36415; 86900; 86850; 86901; 81003; 83690; 80053; 74176; J7030

== ENCOUNTER 2025-03-07 13:32 | Inpatient (IN) | payer OTHER, MEDICAID ==
[2025-03-07] MEDS ORDERED: HYDROMORPHONE HCL 0.5 MG/0.5 ML INJ ONE ×2 (14:13→17:56)
[2025-03-07 14:16] LABS: Absolute Lymphocytes (CBC) 0.4 K/uL (0.7-4.9); Hematocrit 28.6 % (36.0-45.0); Hemoglobin 9.8 g/dL (12.0-15.0); MCH 24.6 pg (27.0-35.0); MCHC 34.4 g/dL (32.0-36.0); MCV 71.5 fL (80-100); MPV 8.0 fL (7.6-11.3); Nucleated RBC Absolute Count 0.0 (0-0); Nucleated Red Blood Cells % 0.2 % (0-0); RBC Red Blood Cell Count 4.01 M/uL (3.86-4.86); White Blood Count 7.50 thou/uL (4.3-10.9)
[2025-03-07 14:53] LABS: ALT/SGPT 25.0 U/L (13-56); AST/SGOT 44.0 U/L (15-37); Anion Gap 12.2 mEq/L (5.0-15.0); BUN Blood Urea Nitrogen 23.0 mg/dL (7-18); Glucose Level 209.0 mg/dL (74-106); Potassium 4.2 mEq/L (3.5-5.1)
[2025-03-07 14:54] LABS: Albumin 2.5 g/dL (3.4-5.0); Albumin/Globulin Ratio 0.4 (1.1-1.8); Alkaline Phosphatase 256.0 U/L (45-117); Bilirubin Indirect, Calculated 0.3 mg/dL (0.2-0.8); Globulin 5.9 g/dL (2.3-3.5); Magnesium 1.8; NT PRO-BNP 164.0 pg/mL (<450); Troponin High Sensitivity 15.0 (<58.9)
[2025-03-07 15:21] LABS: Blood Morphology Comment NOTED (NOT SEEN); Differential Total Cells Count 100; Segmented Neutrophils 86 % (40-80)
[2025-03-07 15:22] LABS: Anisocytosis 2+
--- NOTE | 2025-03-07 15:54 | RAD REPORT ---
EXAMINATION: Ribs Left VIEWS: Four views CLINICAL INDICATION: Female, 79 years old. PAIN COMPARISON: 12/30/2023 IMPRESSION: No displaced left-sided rib fractures identified. No pneumothorax.
--- NOTE | 2025-03-07 16:45 | RAD REPORT ---
EXAMINATION: CTA CHEST PE CLINICAL INDICATION: Female, 79 years old. Chest pain +d-dimer TECHNIQUE: This examination was performed according to an angiographic protocol with 3D post-processi ng. This involves 3D reconstructions, MIPs, volume rendered images and/or shaded surface rendering. One or more of the following dose reduction techniques were used: Automated exposure control, adjustm ent of the mA and/or kV according to patient size, and/or iterative reconstruction. Unless otherwise specified, incidental findings do not require dedicated imaging follow-up. [id number]. COMPARISON: CT 02/12/2025 FINDINGS: LOWER NECK: Visualized thyroid gland and soft tissues are normal. MEDIASTINUM AND LYMPH NODES: No mediastinal mass or fluid collection. Normal size mediastinal, hilar, and axillary lymph nodes. Moderate distal esophageal thickening which could reflect esophagitis. THORACIC AORTA: No thoracic aortic aneurysm. PULMONARY ARTERIES: Enlarged main pulmonary arteries could indicate pulmonary artery hypertension. No pulmonary emboli identified to the level of the segmental pulmonary arteries. The subsegmental pulmonary arteries cannot be adequately assessed due to motion/suboptimal contrast opacification. HEART: Normal heart size. No coronary calcifications.No significant pericardial effusion. Aortic valv e calcifications. LUNGS AND AIRWAYS: Patchy areas of groundglass and nodular airspace disease throughout the lungs. Mil d consolidation medial right lung base. Motion artifact limits evaluation for pulmonary nodule detection. PLEURA: No pleural effusions. No pneumothorax. OSSEOUS STRUCTURES AND CHEST WALL: Multiple subacute and chronic right-sided rib fractures. No acute left-sided rib fractures identified. UPPER ABDOMEN: Subacute T2 and T6 compression fractures. The remote T1 compression fracture. New T8 c ompression fracture with less than 20% loss of height.. IMPRESSION: Negative for pulmonary embolism to the level of the segmental pulmonary arteries. The subsegmental ve ssels cannot be adequate assessed. Ill-defined bilateral airspace disease concerning for pneumonia. Acute appearing T8 compression fracture with less than 20% loss of height. Subacute/chronic compressi on fractures again noted. Examination of subacute and chronic bilateral rib fractures. No acute rib fracture identified.
[2025-03-07] MEDS ORDERED: CEFTRIAXONE 2000 MG/VIAL ONE (17:35)
[2025-03-07] MEDS ORDERED: AZITHROMYCIN 500 MG INJ IVPB ONE (17:35)
[2025-03-07] MEDS ORDERED: NA CHLORIDE 0.9% 250 ML ONE (17:35)
[2025-03-07] MEDS ORDERED: NA CHLORIDE 0.9% 100 ML ONE (17:36)
--- NOTE | 2025-03-07 18:09 | EDPHYS ---
Physician Documentation [facility] Name: Vijaya Oneal Age: 79 yrs Sex: Female : 1945 Arrival Date: 03/07/2025 Time: 13:32 Bed 20 Private MD: MICHELLE Physician Wai Wong HPI: 03/07 14:14 Chief Complaint: Severe left-sided rib pain. History of Present Illness: The patient, nati who is accompanied by her daughter, presents with severe pain on the left side, following a fall two weeks ago at a long-term that resulted in a broken rib on the right side. The daughter is her power of cellular equipment repairer. The pain on the right side has improved, but the patient now reports new pain on the left side, which started yesterday. The pain is severe to the point that touching the area is intolerable, and she experiences difficulty breathing and swallowing. The patient has a history of cirrhosis and a large spleen. She had a CT scan when the ribs were initially broken and an ultrasound of the liver. She has been on oxygen intermittently since the fall due to shallow breathing. There is no concern of a new fall, as she requires assistance for mobility. Review of Systems: - Positive for severe left-sided chest pain, difficulty breathing, difficulty swallowing, and a history of rib fractures. - Positive for a history of cirrhosis and splenomegaly. - Reports not having any skin abnormalities noted upon examination. - ROS otherwise negative. . Historical: - Allergies: 13:53 PENICILLINS; jb4 - PMHx: 13:53 Anemia; Diabetes - NIDDM; Hypertension; Cirrhosis; neuropathy; kidney disease; jb4 13:53 Varices; jb4 - Immunization history:: Adult Immunizations up to date. - Infectious Disease History:: Denies. - Social history:: Smoking status: unknown. Exam: 14:14 Constitutional: This is a well developed, well nourished patient who is awake, alert, jr11 and in no acute distress. Head/Face: Normocephalic, atraumatic. Eyes: Extra-ocular motions intact. Lids and lashes normal. Conjunctiva and sclera are non-icteric and not injected. Cornea within normal limits. Periorbital areas with no swelling, redness, or edema. Neck: Trachea midline, no thyromegaly or masses palpated, and no cervical lymphadenopathy. Supple, full range of motion without nuchal rigidity, or vertebral point tenderness. No Meningismus. Chest/axilla: ttp l LATERAL AND ANTERIOR CHEST WALL, NO RASH Abdomen/GI: +ascites, no peritonitis MS/ Extremity: Pulses equal, no cyanosis. Neurovascular intact. Full, normal range of motion. Vital Signs: 13:51 BP 123 / 81; Pulse 103; Resp 24; Temp 97.9; Pulse Ox 97% on 3 lpm NC; Weight 57.61 kg; jb4 Height 5 ft. 2 in. ; Pain 10/10; 14:30 BP 124 / 56; Pulse 97; Resp 16; Pulse Ox 96% on 2 lpm NC; db 15:00 BP 107 / 63; Pulse 92; Resp 16; Pulse Ox 96% on 2 lpm NC; db 16:00 BP 118 / 71; Pulse 92; Resp 18; Pulse Ox 96% on 2 lpm NC; db 17:00 BP 137 / 69; Pulse 99; Resp 16; Pulse Ox 95% on R/A; db 17:56 BP 105 / 59; Pulse 93; Resp 18; Pulse Ox 97% 2 lpm ; db 18:30 BP 121 / 49; Pulse 99; Resp 18; Pulse Ox 99% 2 lpm ; db 19:30 BP 130 / 64; Pulse 98; Resp 16 S; Pulse Ox 100% on R/A; ss12 13:51 Body Mass Index 23.23 (57.61 kg, 157.48 cm) jb4 13:51 Pain Scale: Adult jb4 [place] Coma Score: 19:30 Eye Response: spontaneous(4). Motor Response: obeys commands(6). Verbal Response: ss12 confused(4). Total: 14. MDM: 13:59 Medical Screening Exam initiated jr11 14:14 Differential diagnosis: Medical Decision Makin. Rib fracture: Likely due to recent jr11 trauma and consistent with current symptoms. 2. Pneumonia: Less likely given clear lungs, but still a consideration due to shallow breathing and pain. 3. Pulmonary embolism: Needs to be ruled out due to risk factors and presenting symptoms. 4. Shingles: Considered due to severe pain, but no skin lesions identified. Plan: - Obtain imaging studies to assess for new rib fractures or other thoracic abnormalities. - Perform blood work to evaluate hemoglobin levels and liver function. - Continue oxygen therapy, adjusting to patient needs. - Consider pain management adjustments. - Monitor for any signs of infection or complications from splenomegaly. - Evaluate for potential pulmonary embolism. ED course: EKG interpreted by me shows normal sinus rhythm, OK prolonged at 200 otherwise T wave inversion in 3 and aVF no acute ST changes EKG nondiagnostic. youth nutritional monitor interpreted by me shows normal sinus rhythm rate of 98. 18:08 ED course: Dr Purdy accepted for PNA, hypoxia. 03/07 14:02 Order name: Basic Metabolic Panel; Complete Time: 15:24 [facility] 03/07 14:02 Order name: CBC with Diff; Complete Time: 15:24 03/07 14:02 Order name: D-Dimer; Complete Time: 14:37 03/07 14:02 Order name: LFT's; Complete Time: 15:24 [facility] 03/07 14:02 Order name: Magnesium; Complete Time: 15:24 [facility] 03/07 14:02 Order name: NT PRO-BNP; Complete Time: 15:24 [facility] 03/07 14:02 Order name: Troponin HS; Complete Time: 15:24 [facility] 03/07 14:21 Order name: Manual Differential; Complete Time: 15:24 [facility] 03/07 16:47 Order name: Blood Culture Adult (2) 03/07 16:47 Order name: Lactate w/ 2H reflex if indic. 03/07 19:19 Order name: CBC with Automated Diff [facility] 03/07 19:19 Order name: CBC with Automated Diff [facility] 03/07 19:19 Order name: Comprehensive Metabolic Panel [facility] 03/07 19:19 Order name: Comprehensive Metabolic Panel [facility] 03/07 19:19 Order name: Magnesium EDMS 03/07 19:19 Order name: Magnesium EDMS 03/07 19:19 Order name: Phosphorus EDMS 03/07 19:19 Order name: Phosphorus EDMS 03/07 14:02 Order name: Ribs Left XRAY; Complete Time: 16:02 [facility] 03/07 15:25 Order name: CT Chest For PE Angio; Complete Time: 16:46 03/07 14:02 Order name: Cardiac monitoring; Complete Time: 14:13 03/07 14:02 Order name: EKG - Nurse/Tech; Complete Time: 14:13 03/07 14:02 Order name: IV Saline Lock; Complete Time: 14:19 03/07 14:02 Order name: Labs collected and sent; Complete Time: 14:19 03/07 14:02 Order name: O2 Per Protocol; Complete Time: 14:13 03/07 14:02 Order name: O2 Sat Monitoring; Complete Time: 14:13 Administered Medications: 14:15 Drug: HYDROmorphone IVP 0.25 mg IVP once Route: IVP; Site: right antecubital; db 18:41 Follow up: Response: No adverse reaction; Pain is decreased db 17:56 Drug: HYDROmorphone IVP 0.25 mg IVP once Route: IVP; Site: right forearm; db 18:42 Follow up: Response: No adverse reaction; Pain is decreased db 17:58 Drug: Rocephin IV 2 grams IV at calculated rate once; Given slow IV push per pharmarcy db instructions Route: IV; Rate: calculated rate; Site: right forearm; 18:34 Follow up: Response: No adverse reaction; IV Status: Completed infusion; IV Intake: db 100ml 18:18 Drug: AZITHromycin IVPB 500 mg IVPB once over 1 hrs; (mix in 250 mL NS) Route: IVPB; db Infused Over: 1 hrs; Site: right antecubital; 20:00 Follow up: Response: No adverse reaction; IV Status: Completed infusion ha1 Disposition Summary: 03/07/25 18:10 Hospitalization Ordered Notes: Hospitalization Status: Inpatient Admission [facility] Provider: Adal Purdy [facility] Location: Telemetry/MedSurg (Inpatient)(03/07/25 18:10) [facility] Condition: Stable(03/07/25 18:10) [facility] Problem: new jr Symptoms: have improved [facility] Bed/Room Type: Standard [facility] Room Assignment: 405(03/07/25 19:34) vk Diagnosis - Other pneumonia, unspecified organism(03/07/25 18:10) jr - Acute respiratory failure with hypoxia(03/07/25 18:10) [facility] Forms: - Medication Reconciliation Form jr11 - SBAR form jr11 - Leadership Thank You Letter [facility] Signatures: Dispatcher [employer] Levi Chapman RN RN jb4 Wai Wong MD MD jr11 Charleen Espitia RN RN db Perla Silverio Shamaila RN RN ss12 Yaquelin Gannon RN ha1 Corrections: (The following items were deleted from the chart) 13:54 13:53 PMHx: Varices (kidney disease); jb4 jb4 14:02 14:02 BASIC METABOLIC PANEL+C.LAB.BRZ ordered. EDMS EDMS 14:02 14:02 CBC+H.LAB.BRZ ordered. EDMS EDMS 14:02 14:02 D-DIMER+COAG.LAB.BRZ ordered. EDMS EDMS 14:02 14:02 HEPATIC FUNCTION+C.LAB.BRZ ordered. EDMS EDMS 14:02 14:02 MAGNESIUM+C.LAB.BRZ ordered. EDMS EDMS 14:02 14:02 PROBNP+C.LAB.BRZ ordered. EDMS EDMS 14:02 14:02 Troponin High Sensitivity+C.LAB.BRZ ordered. EDMS EDMS 14:02 14:02 Ribs Left+RAD.RAD.BRZ ordered. EDMS EDMS 18:09 18:09 Home [facility] jr11 18:09 18:09 Stable [facility] jr11 18:09 18:09 Other pneumonia, unspecified organism [facility] jr11 18:09 18:09 Acute respiratory failure with hypoxia [facility] jr11 19:34 18:10 [facility] vk
--- NOTE | 2025-03-07 18:09 | ER ---
Nurse's Notes [facility] Name: Vijaya Oneal Age: 79 yrs Sex: Female : 1945 Arrival Date: 03/07/2025 Time: 13:32 Bed 20 Private MD: Diagnosis: Other pneumonia, unspecified organism;Acute respiratory failure with hypoxia Presentation: 03/07 13:50 Chief complaint: EMS states: Left lateral chest wall pain x 3 days, became severe jb4 today, unrelieved by Tramadol. Seen in ED 02/12 after fall + right rib fractures. Zofran 4mg, Fentanyl 50mcg, and NS 250 ml administered to 20g RFA HR SPECIALIST. SpO2 88% on room air, improved to 97% on 3LNC. 13:51 Coronavirus screen: At this time, the client does not indicate any symptoms associated jb4 with coronavirus-19. Ebola Screen: No symptoms or risks identified at this time. Initial Sepsis Screen: Does the patient meet any 2 criteria? No. Patient's initial sepsis screen is negative. Does the patient have a suspected source of infection? No. Patient's initial sepsis screen is negative. Risk Assessment: Do you want to hurt yourself or someone else? Patient reports no desire to harm self or others. Onset of symptoms was March 05, 2025. 13:51 Method Of Arrival: EMS: [facility] 4 13:51 Acuity: NELLY 2 jb4 13:54 Transition of care: patient was received from another setting of care (long-term care [facility]), [facility]. Historical: - Allergies: 13:53 PENICILLINS; jb4 - PMHx: 13:53 Anemia; Diabetes - NIDDM; Hypertension; Cirrhosis; neuropathy; kidney disease; jb4 13:53 Varices; jb4 - Immunization history:: Adult Immunizations up to date. - Infectious Disease History:: Denies. - Social history:: Smoking status: unknown. Screenin:21 [facility] ED Fall Risk Assessment (Adult) History of falling in the last 3 months, db including since admission Yes- single mechanical fall (1 pt) Confusion or Disorientation No (0 pts) Intoxicated or Sedated No (0 pts) Impaired Gait Yes (1 pt) Mobility Assist Device Used Yes (1 pt) Altered Elimination No (0 pt) Score/Fall Risk Level 3 or more points = High Risk Oriented to surroundings, Maintained a safe environment. Abuse screen: Denies threats or abuse. Denies injuries from another. Nutritional screening: No deficits noted. Tuberculosis screening: No symptoms or risk factors identified. Assessment: 14:18 Reassessment: Patient appears in no apparent distress at this time. Patient and/or db family updated on plan of care and expected duration. Pain level reassessed. Patient is alert, oriented x 3, equal unlabored respirations, skin warm/dry/pink. General: Appears in no apparent distress. comfortable, Behavior is calm, cooperative. Pain: Complains of pain in chest Pain does not radiate. Pain began gradually. Neuro: Cardiovascular: Capillary refill < 3 seconds Rhythm is sinus rhythm. 16:00 Reassessment: Patient appears in no apparent distress at this time. Patient and/or db family updated on plan of care and expected duration. Pain level reassessed. FAMILY IS AT PATIENT BEDSIDE. 17:19 Reassessment: Patient appears in no apparent distress at this time. Patient and/or db family updated on plan of care and expected duration. Pain level reassessed. Patient is alert, oriented x 3, equal unlabored respirations, skin warm/dry/pink. PT ASSISTED TO BEDPAN. THEN PURWICK PUT IN PLACE. 17:53 Reassessment: Patient appears in no apparent distress at this time. Patient and/or db family updated on plan of care and expected duration. Pain level reassessed. Patient is alert, oriented x 3, equal unlabored respirations, skin warm/dry/pink. PT COMPLAINS OF PAIN SEE MAR FOR MEDICATION ADMINISTRATION. 18:40 Reassessment: Patient appears in no apparent distress at this time. Patient and/or db family updated on plan of care and expected duration. Pain level reassessed. Patient is alert, oriented x 3, equal unlabored respirations, skin warm/dry/pink. FAMILY IS AT BEDSIDE Patient states symptoms have improved. 19:27 Reassessment: Patient appears in no apparent distress at this time. Patient and/or ss12 family updated on plan of care and expected duration. Pain level reassessed. Patient is alert, oriented x 3, equal unlabored respirations, skin warm/dry/pink. Vital Signs: 13:51 BP 123 / 81; Pulse 103; Resp 24; Temp 97.9; Pulse Ox 97% on 3 lpm NC; Weight 57.61 kg; jb4 Height 5 ft. 2 in. ; Pain 10/10; 14:30 BP 124 / 56; Pulse 97; Resp 16; Pulse Ox 96% on 2 lpm NC; db 15:00 BP 107 / 63; Pulse 92; Resp 16; Pulse Ox 96% on 2 lpm NC; db 16:00 BP 118 / 71; Pulse 92; Resp 18; Pulse Ox 96% on 2 lpm NC; db 17:00 BP 137 / 69; Pulse 99; Resp 16; Pulse Ox 95% on R/A; db 17:56 BP 105 / 59; Pulse 93; Resp 18; Pulse Ox 97% 2 lpm ; db 18:30 BP 121 / 49; Pulse 99; Resp 18; Pulse Ox 99% 2 lpm ; db 19:30 BP 130 / 64; Pulse 98; Resp 16 S; Pulse Ox 100% on R/A; ss12 13:51 Body Mass Index 23.23 (57.61 kg, 157.48 cm) jb4 13:51 Pain Scale: Adult jb4 [place] Coma Score: 19:30 Eye Response: spontaneous(4). Motor Response: obeys commands(6). Verbal Response: ss12 confused(4). Total: 14. ED Course: 13:49 Patient arrived in ED. jb4 13:50 Wai Wong MD is Attending Physician. jr11 13:53 Triage completed. jb4 13:54 Arm band placed on. jb4 14:01 Charleen Espitia, RN is Primary Nurse. db 14:05 Initial lab(s) drawn, by me, sent to lab. EKG done. Maintain EMS IV. Dressing intact. db Good blood return noted. Site clean \T\ dry. Gauge \T\ site: 20 G RAC. Flushed with 10 mL NS. 14:58 Ribs Left XRAY In Process Unspecified. EDMS 16:25 CT Chest For PE Angio In Process Unspecified. EDMS 17:20 First set of blood cultures drawn. db 17:21 Patient has correct armband on for positive identification. Placed in gown. Bed in low db position. Call light in reach. Side rails up X2. Client placed on continuous cardiac and pulse oximetry monitoring. NIBP monitoring applied. quality assurance monitor on. Pulse ox on. NIBP on. Warm blanket given. Pillow given. 17:48 Second set of blood cultures drawn. Inserted saline lock: 22 gauge in right antecubital db area, using aseptic technique. Blood collected. Flushed with 10 mL NS. 18:09 Adal Purdy is Hospitalizing Provider. [facility] 19:36 Provided Education on: plan of care. 12 19:36 Oxygen administration via nasal cannula \T\ 3L/min. ss12 19:36 No provider procedures requiring assistance completed. ss12 21:01 Patient admitted, IV remains in place. ha1 Administered Medications: 14:15 Drug: HYDROmorphone IVP 0.25 mg IVP once Route: IVP; Site: right antecubital; db 18:41 Follow up: Response: No adverse reaction; Pain is decreased db 17:56 Drug: HYDROmorphone IVP 0.25 mg IVP once Route: IVP; Site: right forearm; db 18:42 Follow up: Response: No adverse reaction; Pain is decreased db 17:58 Drug: Rocephin IV 2 grams IV at calculated rate once; Given slow IV push per pharmarcy db instructions Route: IV; Rate: calculated rate; Site: right forearm; 18:34 Follow up: Response: No adverse reaction; IV Status: Completed infusion; IV Intake: db 100ml 18:18 Drug: AZITHromycin IVPB 500 mg IVPB once over 1 hrs; (mix in 250 mL NS) Route: IVPB; db Infused Over: 1 hrs; Site: right antecubital; 20:00 Follow up: Response: No adverse reaction; IV Status: Completed infusion 1 Medication: 18:41 VIS not applicable for this client. db Intake: 18:34 IV: 100ml; Total: 100ml. db Outcome: 18:09 Discharge ordered by . [facility] 18:10 Decision to Hospitalize by Provider. [facility] 21:00 Admitted to Tele accompanied by tech, via stretcher, room 405, with chart, ha1 21:00 Condition: stable 21:00 Instructed on the need for admit, Demonstrated understanding of instructions, 21:01 Patient left the ED. ha1 Signatures: Dispatcher [employer] EDMS Levi Wooten RN RN jb4 Wai Wong MD MD [facility] Yaquelin Gannon RN RN ha1 Espitia, Charleen, RN RN db Shamaila, Shamaila, RN RN ss12 Corrections: (The following items were deleted from the chart) 13:53 13:50 Chief complaint: EMS states: Left lateral chest wall pain x 3 days, became severe jb4 today, unrelieved by Tramadol. Seen in ED 02/12 after fall + right rib fractures. Zofran 4mg, Fentanyl 50mcg, and NS 250 ml administered to 20g RFA HR SPECIALIST. SpO2 88% on room air, improved to n97% on 3LNC. jb4 13:54 13:53 PMHx: Varices (kidney disease); jb4 jb4 18:41 17:53 Reassessment: Patient appears in no apparent distress at this time. Patient db and/or family updated on plan of care and expected duration. Pain level reassessed. Patient is alert, oriented x 3, equal unlabored respirations, skin warm/dry/pink. db
--- NOTE | 2025-03-07 19:08 | P.HP ---
Certification for Inpatient Patient admitted to: Inpatient With expected LOS: >2 Midnights Practitioner: I am a practitioner with admitting privileges, knowledge of patient current condition, hospital course, and medical plan of care. Services: Services provided to patient in accordance with Admission requirements found in Title 42 Section 412.3 of the Code of Federal Regulations Patient History Date of Service: 03/07/25 Reason for admission: Chest Pain / SOB History of Present Illness: 79-year-old female with past medical history of hypertension, hyperlipidemia, diabetes, anemia, history of cirrhosis liver, neuropathy, CKD stage II, history of varices who had a recent fall 2 weeks ago and had severe left-sided rib pain. Patient had a fall 2 weeks ago in the long-term which resulted in broken rib on the right side. Patient also had pain in the left side as well for the last 1 week and has been progressively getting worse and was brought to ER associated with shortness of breath and difficulty in swallowing. Patient has a history of cirrhosis liver with hypersplenism. Patient is a poor historian hence most of the history is obtained from the chart review and also talking with the ER physician and the family members at the bedside. Patient was assessed in the ER and was admitted for further management of bibasilar pneumonia. Allergies Penicillins Allergy (Mild, Verified 09/15/18 21:23) Rash Home medications list reviewed: Yes Home Medications: Gabapentin [Neurontin*] 400 mg PO BID 04/04/17 Omeprazole [Prilosec] 40 mg PO DAILY 04/04/17 Rifaximin [Xifaxan] 550 mg PO BID 04/04/17 Saxagliptin HCl/Metformin HCl [Kombiglyze Xr 2.5-1,000 mg Tab] 1 tab PO DAILY 04/04/17 Glimepiride 2 mg PO DAILY 09/08/18 Prednisolone Gatifloxacin Bromfenac 1 drop OPTH QID 09/15/18 Ferrous Gluconate 240 mg PO DAILY 90 Days #90 tablet 09/18/18 - Past Medical/Surgical History Diabetic: Yes Past Medical History: Reviewed- Non-Contributory -: Anemia -: Cirrhosis -: DM NIDDM -: Nueropathy -: Hemorrhoids -: Esophageal Varices Past Surgical History: Reviewed- Non-Contributory -: Gall Bladder SX -: Csection x 3 -: Tonsillectomy -: Tubes tied - Family History Mother -: Hypertension Brother -: Diabetes Sister -: Diabetes - Social History Smoking Status: Never smoker Alcohol use: No CD- Drugs: No Caffeine use: Yes Review of Systems 10-point ROS is otherwise unremarkable Physical Examination - Vital Signs Temperature: 97.9 F Blood Pressure: 123/81 Pulse: 103 Respirations: 18 Pulse Ox (%): 94 - Physical Exam General: Alert, Cooperative, Moderate distress HEENT: Atraumatic, Normocephalic Neck: Supple, No Thyromegaly Respiratory: Diminished, Crackles/rales, Expiratory wheezes Cardiovascular: Regular rate/rhythm, Normal S1 S2 Capillary refill: <2 Seconds Gastrointestinal: Soft and benign, W/out hepatosplenomegaly Musculoskeletal: No clubbing, No swelling Integumentary: No rashes, No breakdown Neurological: Other (Awake alert no focal) Lymphatics: No axilla or inguinal lymphadenopathy - Studies Laboratory Data (last 24 hrs) 03/07/25 03/07/25 14:07 14:07 WBC 7.50 Hgb 9.8 L Hct 28.6 L Plt Count 97 L Sodium 129 L Potassium 4.2 BUN 23 H Creatinine 1.38 H Glucose 209 H Magnesium 1.8 Total Bilirubin 0.9 AST 44 H ALT 25 Alkaline Phosphatase 256 H Assessment and Plan - Plan Pneumonia bibasilar Started on IV antibiotics Monitor closely under telemetry Will obtain cultures Change antibiotic as per sensitivity History of fall and history of rib fractures CT chest findings noted Pain control Acute T8 compression fracture Pain control Supportive management for now Hypertension Antihypertensives titrated Continue home medications and titrate as needed Hyperlipidemia Continue statin CKD stage II Monitor renal parameters Electrolytes monitor and replace accordingly Diabetes Insulin sliding scale Accu-Chek before every meal and at bedtime Hyponatremia Monitor electrolytes and replace accordingly IV hydration in moderation given cirrhosis liver Cirrhosis liver Monitor liver enzymes Supportive management Continue home medications and titrate as needed Anemia of chronic disease Monitor H&H closely No overt bleeding at this time GI/DVT prophylaxis Advanced directive full code Discharge Plan: Home Plan to discharge in: 24 Hours - Advance Directives Does patient have a Living Will: No Does patient have a Durable POA for Healthcare: Yes - Code Status/Comfort Care Code Status: Full Code Time Spent Managing Pts Care (In Minutes): 48
[2025-03-07] MEDS ORDERED: ALBUTEROL 2.5 MG/3 ML NEB SOL NEB PRN (19:14)
[2025-03-07] MEDS ORDERED: ONDANSETRON 4 MG/2 ML VIAL IV PRN (19:14)
[2025-03-07 20:49] VITALS: BMI 23.2
[2025-03-08] MEDS: AZTREONAM 1 GM in NA CHLORIDE 0.9% 100 ML IV SCH (00:20)
[2025-03-08 04:39] LABS: Absolute Lymphocytes (CBC) 0.4 K/uL (0.7-4.9); Hematocrit 27.1 % (36.0-45.0); Hemoglobin 9.4 g/dL (12.0-15.0); MCH 24.8 pg (27.0-35.0); MCHC 34.5 g/dL (32.0-36.0); MCV 71.9 fL (80-100); MPV 8.3 fL (7.6-11.3); Nucleated RBC Absolute Count 0.0 (0-0); Nucleated Red Blood Cells % 0.0 % (0-0); RBC Red Blood Cell Count 3.77 M/uL (3.86-4.86); White Blood Count 12.60 thou/uL (4.3-10.9)
[2025-03-08 04:57] LABS: ALT/SGPT 21.0 U/L (13-56); AST/SGOT 37.0 U/L (15-37); Albumin 2.3 g/dL (3.4-5.0); Albumin/Globulin Ratio 0.4 (1.1-1.8); Alkaline Phosphatase 217.0 U/L (45-117); Anion Gap 9.5 mEq/L (5.0-15.0); BUN Blood Urea Nitrogen 22.0 mg/dL (7-18); Globulin 5.4 g/dL (2.3-3.5); Glucose Level 284.0 mg/dL (74-106); Magnesium 1.8 mg/dL (1.6-2.4); Potassium 4.5 mEq/L (3.5-5.1)
[2025-03-08] MEDS: ENOXAPARIN 40 MG/0.4 ML SQ SCH (08:33)
[2025-03-08] MEDS: AZITHROMYCIN IV 500 MG in NA CHLORIDE 0.9% 250 ML IVPB SCH (08:33)
[2025-03-08] MEDS: HYDROCODONE/APAP 5/325 MG TAB PO PRN (11:11)
[2025-03-08] MEDS: INSULIN REGULAR (HUMAN) 100 UNIT/ML SQ SCH (11:43)
[2025-03-08] MEDS: HYDROMORPHONE HCL 0.5 MG/0.5 ML INJ IV PRN (12:55)
--- NOTE | 2025-03-08 14:33 | RAD REPORT ---
EXAM: Foot Right 2 View HISTORY: Fall r/o fracture COMPARISON: 02/12/2025 FINDINGS: Bones: No acute fracture identified. Osteopenia which limits evaluation. The second through fifth pro ximal phalanges are not well assessed due to osteopenia and positioning. Alignment:No significant malalignment. Degenerative changes:Calcaneal spurs. Degenerative changes are present the first MTP joint. Other: n/a IMPRESSION: No acute osseous abnormality. Limited assessment of the second through fourth proximal phalanges due to positioning and osteopenia.
[2025-03-08] MEDS: HYDROCODONE/APAP 10/325 TAB PO PRN (15:15)
--- NOTE | 2025-03-08 16:20 | P.PN ---
Subjective Date of Service: 03/08/25 Chief Complaint: Chest Pain / SOB Patient complaining of left flank pain. History of rib fractures. No reported fever Physical Examination - Vital Signs Temperature: 98.1 F Blood Pressure: 106/46 Pulse: 93 Respirations: 16 Pulse Ox (%): 97 Assessment And Plan - Plan Physical examination General: Alert and oriented x 2, moderate distress due to pain. Neck: No elevated JVD Heart: Heart sounds 1 and 2 normal, regular rhythm, normal rate, no pedal edema Lungs: Clear to auscultation bilaterally, diminished breath sounds bilaterally, no rhonchi or crackles. Abdomen: Soft, nondistended, nontender, normal bowel sounds. Extremities: No tenderness, no deformity Skin: Normal skin turgor, no rash, no nodules or ulcers. Musculoskeletal: Left flank tenderness. Neuro: No focal motor deficit. Normal speech. Psychiatry: Dysphoric, no agitation. Plan: Bilateral pneumonia History of rib fractures Continue IV antibiotics Chest physiotherapy Incentive spirometry. Titrate analgesia for pain control Follow cultures. Acute T8 compression fracture Pain control Supportive measures for now. Hypertension Antihypertensives titrated Continue home medications and titrate as needed Hyperlipidemia Continue statin CKD stage II Stable Monitor renal parameters Diabetes mellitus Insulin sliding scale Accu-Chek before every meal and at bedtime Hyponatremia Unchanged and probably related to liver cirrhosis. Monitor. Cirrhosis liver Thrombocytopenia Monitor liver enzymes Continue home medications. Anemia of chronic disease Stable Monitor H&H closely DVT prophylaxis: SCD Advanced directive: Full code
[2025-03-08] MEDS ORDERED: HOME MED 1 EA UNK (Insulin Lispro [Humalog Kwikpen U-100] 100 UNIT/ML Insuln.Pen) SQ SCH (16:30)
[2025-03-08] MEDS: LACTULOSE 20 GM/30 ML UCUP PO SCH (17:17)
[2025-03-08] MEDS: MELATONIN 5 MG TABLET PO SCH (21:00)
[2025-03-08] MEDS: GABAPENTIN 300 MG CAP PO SCH (21:14)
[2025-03-09 07:09] LABS: Anion Gap 6.5 mEq/L (5.0-15.0); BUN Blood Urea Nitrogen 23.0 mg/dL (7-18); Glucose Level 233.0 mg/dL (74-106); Potassium 4.5 mEq/L (3.5-5.1)
[2025-03-09 07:32] LABS: Absolute Lymphocytes (CBC) 0.5 K/uL (0.7-4.9); Hematocrit 26.2 % (36.0-45.0); Hemoglobin 8.8 g/dL (12.0-15.0); MCH 24.4 pg (27.0-35.0); MCHC 33.5 g/dL (32.0-36.0); MCV 73.0 fL (80-100); MPV 9.0 fL (7.6-11.3); Nucleated RBC Absolute Count 0.0 (0-0); Nucleated Red Blood Cells % 0.3 % (0-0); RBC Red Blood Cell Count 3.59 M/uL (3.86-4.86); White Blood Count 5.60 thou/uL (4.3-10.9)
[2025-03-09] MEDS: SPIRONOLACTONE 25 MG TABLET PO SCH (08:35)
[2025-03-09] MEDS: INSULIN LISPRO 100 UNIT/1 ML SQ SCH (08:36)
[2025-03-09] MEDS: PANTOPRAZOLE 40MG TABLET PO SCH (08:36)
[2025-03-09] MEDS: FLUTICASONE IH SCH (08:38)
[2025-03-09] MEDS: POLYETHYL GLY 3350 17 GM/DOSE PO SCH (08:38)
[2025-03-09] MEDS: VILANTEROL IH SCH (08:38)
[2025-03-09] MEDS ORDERED: ENOXAPARIN 30 MG/0.3 ML SQ SCH (09:00)
[2025-03-09] MEDS ORDERED: HOME MED 1 EA UNK (Omeprazole [Prilosec] 40 MG Capsule.Dr) PO SCH (09:00)
[2025-03-09 09:08] LABS: Anisocytosis 3+; Blood Morphology Comment NOTED (NOT SEEN); White Blood Cell Scan OK (OK)
[2025-03-09 09:09] LABS: Microcytosis 2+
[2025-03-09] MEDS: ALBUTEROL 2.5 MG/3 ML NEB SOL NEB PRN (10:45)
[2025-03-09] MEDS: URSODIOL 500 MG PO SCH (12:00)
--- NOTE | 2025-03-09 14:15 | P.PN ---
Subjective Date of Service: 03/09/25 Chief Complaint: Chest Pain / SOB Patient reports her chest pain improved left flank pain are better controlled today. Oxygen saturation stable on 2 L of oxygen by nasal cannula. Physical Examination - Vital Signs Temperature: 98.0 F Blood Pressure: 113/51 Pulse: 91 Respirations: 18 Pulse Ox (%): 94 Assessment And Plan - Plan Physical examination General: Alert and oriented x 2, NAD. Neck: No elevated JVD Heart: Heart sounds 1 and 2 normal, regular rhythm, normal rate, no pedal edema Lungs: Clear to auscultation bilaterally, diminished breath sounds bilaterally, no rhonchi or crackles. Abdomen: Soft, nondistended, nontender, normal bowel sounds. Skin: Normal skin turgor, no rash. Musculoskeletal: Left flank tenderness. Neuro: No focal motor deficit. Normal speech. Psychiatry: Dysphoric, no agitation. Plan: Bilateral pneumonia History of rib fractures Continue IV antibiotics Chest physiotherapy Incentive spirometry. Pain better controlled today. Continue [place] and IV hydromorphone. Blood cultures: No growth. Acute T8 compression fracture Pain control Supportive measures for now. PT Acute kidney injury Hyponatremia I suspect hyponatremia is related to liver cirrhosis. Patient appears compensated. Renal function improved. I suspect dehydration contributing to TOSIN and hyponatremia. Trial of IV NS for hyponatremia Diabetes mellitus Insulin sliding scale Accu-Chek before every meal and at bedtime Cirrhosis liver Thrombocytopenia Monitor liver enzymes Continue home medications. Continue lactulose and Aldactone. Anemia of chronic disease Monitor H&H closely DVT prophylaxis: SCD Advanced directive: Full code
[2025-03-10 05:57] LABS: Absolute Lymphocytes (CBC) 0.3 K/uL (0.7-4.9); Hematocrit 27.4 % (36.0-45.0); Hemoglobin 9.2 g/dL (12.0-15.0); MCH 24.4 pg (27.0-35.0); MCHC 33.5 g/dL (32.0-36.0); MCV 73.0 fL (80-100); MPV 8.5 fL (7.6-11.3); Nucleated RBC Absolute Count 0.0 (0-0); Nucleated Red Blood Cells % 0.4 % (0-0); RBC Red Blood Cell Count 3.76 M/uL (3.86-4.86); White Blood Count 5.40 thou/uL (4.3-10.9)
[2025-03-10 06:19] LABS: ALT/SGPT 23.0 U/L (13-56); AST/SGOT 33.0 U/L (15-37); Albumin 2.3 g/dL (3.4-5.0); Albumin/Globulin Ratio 0.4 (1.1-1.8); Alkaline Phosphatase 194.0 U/L (45-117); Anion Gap 8.6 mEq/L (5.0-15.0); BUN Blood Urea Nitrogen 16.0 mg/dL (7-18); Globulin 5.7 g/dL (2.3-3.5); Glucose Level 298.0 mg/dL (74-106); Potassium 4.6 mEq/L (3.5-5.1)
--- NOTE | 2025-03-10 17:37 | P.PN ---
Subjective Date of Service: 03/10/25 Chief Complaint: Chest Pain / SOB Pulmonary report patient has been experiencing intermittent uncontrolled pain. They stated pain was worse last night. Patient oxygen requirement improved. She is currently requiring 1 L oxygen by nasal cannula. Physical Examination - Vital Signs Temperature: 97.9 F Blood Pressure: 115/61 Pulse: 99 Respirations: 16 Pulse Ox (%): 100 Assessment And Plan - Plan Physical examination General: Alert and oriented x 2, NAD. Neck: No elevated JVD Heart: Heart sounds 1 and 2 normal, regular rhythm, normal rate, no pedal edema Lungs: Clear to auscultation bilaterally, diminished breath sounds bilaterally, no rhonchi or crackles. Abdomen: Soft, nondistended, nontender, normal bowel sounds. Skin: Normal skin turgor, no rash. Musculoskeletal: Left flank tenderness. Neuro: No focal motor deficit. Normal speech. Psychiatry: Dysphoric, no agitation. Plan: Bilateral pneumonia History of rib fractures Continue IV antibiotics Chest physiotherapy Incentive spirometry. Pain better controlled today. Continue [employer] and IV hydromorphone. Blood cultures: No growth. Acute T8 compression fracture Pain control Supportive measures for now. PT Acute kidney injury Hyponatremia I suspect hyponatremia is related to liver cirrhosis. Patient appears compensated. Renal function improved. I suspect dehydration contributing to TOSIN and hyponatremia. Trial of IV NS for hyponatremia Diabetes mellitus Insulin sliding scale Accu-Chek before every meal and at bedtime Cirrhosis liver Thrombocytopenia Monitor liver enzymes Continue home medications. Continue lactulose and Aldactone. Anemia of chronic disease Monitor H&H closely 03/10 Patient pain is uncontrolled. Changed [employer] to oxycodone and increase dose to 50 mg every 6 hours. Continue oral gabapentin. IV hydromorphone as needed for breakthrough pain Hyponatremia has not improved. Hyponatremia likely secondary to liver cirrhosis. Check serum osmolality, urine electrolytes, urine osmolality. Check TSH. Patient has hyperglycemia. Continue insulin sliding Patient is on Lantus insulin 15 units daily. Will start Semglee at 10 units and titrate as patient oral intake improve. DVT prophylaxis: SCD Advanced directive: Full code
[2025-03-10] MEDS: OXYCODONE HCL 5 MG TAB PO SCH (18:00)
[2025-03-11 05:10] LABS: Absolute Lymphocytes (CBC) 0.5 K/uL (0.7-4.9); Hematocrit 26.4 % (36.0-45.0); Hemoglobin 9.0 g/dL (12.0-15.0); MCH 25.0 pg (27.0-35.0); MCHC 34.2 g/dL (32.0-36.0); MCV 73.0 fL (80-100); MPV 8.2 fL (7.6-11.3); Nucleated RBC Absolute Count 0.0 (0-0); Nucleated Red Blood Cells % 0.3 % (0-0); RBC Red Blood Cell Count 3.61 M/uL (3.86-4.86); White Blood Count 3.80 thou/uL (4.3-10.9)
[2025-03-11 05:23] LABS: Anion Gap 9.6 mEq/L (5.0-15.0); BUN Blood Urea Nitrogen 16.0 mg/dL (7-18); Glucose Level 292.0 mg/dL (74-106); Potassium 4.6 mEq/L (3.5-5.1)
[2025-03-11] MEDS: OXYCODONE HCL 5 MG TAB PO SCH (10:58)
[2025-03-11] MEDS: TRAMADOL HCL 50 MG TAB PO PRN (14:33)
[2025-03-11] MEDS: ACETAMINOPHEN 325 MG TABLET PO PRN (16:50)
--- NOTE | 2025-03-11 16:54 | P.PN ---
Subjective Date of Service: 03/11/25 Chief Complaint: Chest Pain / SOB Pulmonary report patient has been experiencing intermittent uncontrolled pain. They stated pain was worse last night. Patient oxygen requirement improved. She is currently requiring 1 L oxygen by nasal cannula. Physical Examination - Vital Signs Temperature: 98.3 F Blood Pressure: 160/88 Pulse: 114 Respirations: 17 Pulse Ox (%): 94 Assessment And Plan - Plan Physical examination General: Alert and oriented x 2, NAD. Neck: No elevated JVD Heart: Heart sounds 1 and 2 normal, regular rhythm, normal rate, no pedal edema Lungs: Clear to auscultation bilaterally, diminished breath sounds bilaterally, no rhonchi or crackles. Abdomen: Soft, nondistended, nontender, normal bowel sounds. Skin: Normal skin turgor, no rash. Musculoskeletal: Left flank tenderness. Neuro: No focal motor deficit. Normal speech. Psychiatry: Dysphoric, no agitation. Plan: Bilateral pneumonia History of rib fractures Continue IV antibiotics Chest physiotherapy Incentive spirometry. Pain better controlled today. Continue [place] and IV hydromorphone. Blood cultures: No growth. Acute T8 compression fracture Pain control Supportive measures for now. PT Acute kidney injury Hyponatremia I suspect hyponatremia is related to liver cirrhosis. Patient appears compensated. Renal function improved. I suspect dehydration contributing to TOSIN and hyponatremia. Trial of IV NS for hyponatremia Diabetes mellitus Insulin sliding scale Accu-Chek before every meal and at bedtime Cirrhosis liver Thrombocytopenia Monitor liver enzymes Continue home medications. Continue lactulose and Aldactone. Anemia of chronic disease Monitor H&H closely 03/10 Patient pain is uncontrolled. Changed [place] to oxycodone and increase dose to 50 mg every 6 hours. Continue oral gabapentin. IV hydromorphone as needed for breakthrough pain Hyponatremia has not improved. Hyponatremia likely secondary to liver cirrhosis. Check serum osmolality, urine electrolytes, urine osmolality. Check TSH. Patient has hyperglycemia. Continue insulin sliding Patient is on Lantus insulin 15 units daily. Will start Semglee at 10 units and titrate as patient oral intake improve. DVT prophylaxis: SCD Advanced directive: Full code
[2025-03-12 05:00] LABS: Thyroid Stimulating Hormone 5.81 uIU/mL (0.358-3.740)
[2025-03-12 08:17] LABS: Absolute Lymphocytes (CBC) 0.5 K/uL (0.7-4.9); Hematocrit 26.0 % (36.0-45.0); Hemoglobin 8.9 g/dL (12.0-15.0); MCH 25.3 pg (27.0-35.0); MCHC 34.0 g/dL (32.0-36.0); MCV 74.5 fL (80-100); MPV 8.3 fL (7.6-11.3); Nucleated RBC Absolute Count 0.0 (0-0); Nucleated Red Blood Cells % 0.2 % (0-0); RBC Red Blood Cell Count 3.50 M/uL (3.86-4.86); White Blood Count 4.70 thou/uL (4.3-10.9)
[2025-03-12 08:52] LABS: Albumin 2.1 g/dL (3.4-5.0); Anion Gap 8.5 mEq/L (5.0-15.0); BUN Blood Urea Nitrogen 19.0 mg/dL (7-18); Glucose Level 221.0 mg/dL (74-106); Magnesium 1.8 mg/dL (1.6-2.4); Potassium 4.5 mEq/L (3.5-5.1)
[2025-03-12 09:09] LABS: Anisocytosis 2+; Blood Morphology Comment NOTED (NOT SEEN); Macrocytosis 1+; Microcytosis SLIGHT; White Blood Cell Scan OK (OK)
--- NOTE | 2025-03-12 09:28 | P.PN ---
Date of Service: 03/12/25 Subjective: feeling slightly better today no new issues family updated at bedside hasn't gotten out of bed much since initial falls family state patient has been confused last few days Physical Exam: GEN: Alert, oriented, appears uncomfortable CV: Sinus tachycardia, trace lower extremity edema Pulm: Nonlabored respirations on room air, diminished bilaterally at bases ABD: soft, nontender, nondistended MSK: left-sided tenderness Problem List: Bilateral pneumonia Multiple Right-sided rib fractures Acute T8 compression fracture TOSIN, resolved Hyponatremia IDDM2 [facility] Cirrhosis Thrombocytopenia Iron deficiency anemia Hx esophageal varices / stricture requiring dilation Hx rectal varices s/p ligation Hx of partial portal vein thrombosis Bilateral pneumonia on admission, presented with worsening SOB, left-sided discomfort, difficulty swallowing CTA chest: No PE. Ill-defined bilateral airspace disease concerning for pneumonia. Acute appearing T8 compression fracture with less than 20% loss of height. Subacute T2 and T6 compression fractures Moderate distal esophageal thickening, Multiple subacute and chronic right- sided rib fractures. No acute left-sided rib fractures identified Continue IV azithromycin and aztreonam (03/08-) Blood cx: NGTD pain control, incentive spirometry chest physiotherapy confusion likely secondary to pain meds and cirrhosis Multiple Right-sided rib fractures Acute T8 compression fracture pain control, supportive care PT consult TOSIN, resolved Hyponatremia monitor renal function. Monitor and replete electrolytes as needed Hyponatremia possible related to liver cirrhosis / dehydration Sodium slightly worse today Monitor on telemetry IDDM2 accu-cheks, SSI continue lispro 6u daily; titrate as needed [facility] Cirrhosis Thrombocytopenia Iron deficiency anemia Hx esophageal varices / stricture requiring dilation Hx rectal varices s/p ligation confirm home meds, restart as appropriate Daily labs. Stable has needed IV iron in the past VTE: Code: Full Dispo: back to [place] Time Spent Managing Pts Care (In Minutes): 55
[2025-03-13 08:27] LABS: Absolute Lymphocytes (CBC) 0.4 K/uL (0.7-4.9); Hematocrit 26.1 % (36.0-45.0); Hemoglobin 8.9 g/dL (12.0-15.0); MCH 24.8 pg (27.0-35.0); MCHC 34.0 g/dL (32.0-36.0); MCV 73.1 fL (80-100); MPV 8.1 fL (7.6-11.3); Nucleated RBC Absolute Count 0.0 (0-0); Nucleated Red Blood Cells % 0.1 % (0-0); RBC Red Blood Cell Count 3.58 M/uL (3.86-4.86); White Blood Count 4.70 thou/uL (4.3-10.9)
[2025-03-13 08:52] LABS: ALT/SGPT 25.0 U/L (13-56); AST/SGOT 26.0 U/L (15-37); Albumin 2.1 g/dL (3.4-5.0); Albumin/Globulin Ratio 0.4 (1.1-1.8); Alkaline Phosphatase 175.0 U/L (45-117); Anion Gap 9.9 mEq/L (5.0-15.0); BUN Blood Urea Nitrogen 19.0 mg/dL (7-18); Globulin 5.4 g/dL (2.3-3.5); Glucose Level 323.0 mg/dL (74-106); Magnesium 1.8 mg/dL (1.6-2.4); Potassium 4.9 mEq/L (3.5-5.1)
[2025-03-13] MEDS: MAGNESIUM SULFATE 1 gm IVPB 1 GM/100 ML BAG IV ONE (12:25)
--- NOTE | 2025-03-13 12:30 | P.PN ---
Date of Service: 03/13/25 Subjective: sleeping comfortably daughter reports better pain control, but ~1 hour gap in medicine - starts to wear off and she is in tears when medication kicks in - she is sleepy, and still a bit confused more than baseline, but mild Physical Exam: GEN: resting comfortably CV: Sinus tachycardia, trace lower extremity edema Pulm: Nonlabored respirations on 2L NC, diminished bilaterally at bases ABD: soft, nontender, nondistended Problem List: Bilateral pneumonia Multiple Right-sided rib fractures Acute T8 compression fracture TOSIN, resolved Hyponatremia IDDM2 [facility] Cirrhosis Thrombocytopenia Iron deficiency anemia Hx esophageal varices / stricture requiring dilation Hx rectal varices s/p ligation Hx of partial portal vein thrombosis Bilateral pneumonia on admission, presented with worsening SOB, left-sided discomfort, difficulty swallowing CTA chest: No PE. Ill-defined bilateral airspace disease concerning for pneumonia. Acute appearing T8 compression fracture with less than 20% loss of height. Subacute T2 and T6 compression fractures Moderate distal esophageal thickening, Multiple subacute and chronic right- sided rib fractures. No acute left-sided rib fractures identified Continue IV azithromycin and aztreonam (03/08-) Blood cx: NGTD pain control, incentive spirometry chest physiotherapy confusion likely secondary to pain meds and cirrhosis check ammonia in AM Multiple Right-sided rib fractures Acute T8 compression fracture pain control, supportive care TOSIN, resolved Hyponatremia monitor renal function. Monitor and replete electrolytes as needed Hyponatremia possible related to liver cirrhosis / dehydration Sodium similar to yesterday Monitor on telemetry IDDM2 accu-cheks, SSI continue lispro 6u daily; titrate as needed [facility] Cirrhosis Thrombocytopenia Iron deficiency anemia Hx esophageal varices / stricture requiring dilation Hx rectal varices s/p ligation confirm home meds, restart as appropriate has needed IV iron in the past Daily labs. Stable VTE: Code: Full Dispo: back to [place] ~1-2 days Time Spent Managing Pts Care (In Minutes): 45
[2025-03-13] MEDS: OXYCODONE HCL 5 MG TAB PO SCH (17:56)
[2025-03-13] MEDS: GLUCERNA SHAKE 237 ML CAN PO SCH (21:00)
[2025-03-14 04:56] LABS: Hematocrit 26.1 % (36.0-45.0); Hemoglobin 9.2 g/dL (12.0-15.0); MCH 25.4 pg (27.0-35.0); MCHC 35.2 g/dL (32.0-36.0); MCV 72.3 fL (80-100); MPV 8.1 fL (7.6-11.3); RBC Red Blood Cell Count 3.61 M/uL (3.86-4.86); White Blood Count 5.20 thou/uL (4.3-10.9)
[2025-03-14 04:57] LABS: Absolute Lymphocytes (CBC) 0.5 K/uL (0.7-4.9); Nucleated RBC Absolute Count 0.0 (0-0); Nucleated Red Blood Cells % 0.2 % (0-0)
[2025-03-14 05:14] LABS: ALT/SGPT 22.0 U/L (13-56); AST/SGOT 36.0 U/L (15-37); Albumin 2.1 g/dL (3.4-5.0); Albumin/Globulin Ratio 0.4 (1.1-1.8); Alkaline Phosphatase 192.0 U/L (45-117); Anion Gap 7.9 mEq/L (5.0-15.0); BUN Blood Urea Nitrogen 22.0 mg/dL (7-18); Globulin 5.3 g/dL (2.3-3.5); Glucose Level 254.0 mg/dL (74-106); Magnesium 2.0 mg/dL (1.6-2.4); Potassium 4.9 mEq/L (3.5-5.1)
--- NOTE | 2025-03-14 09:07 | P.PN ---
Date of Service: 03/14/25 Subjective: doing okay per family family updated at bedside awake, eating breakfast had BM yesterday seems to be doing well after medication adjustments Physical Exam: GEN: resting comfortably CV: Sinus tachycardia, trace lower extremity edema Pulm: Nonlabored respirations on room air, diminished bilaterally at bases ABD: soft, nontender, nondistended Problem List: Bilateral pneumonia Multiple Right-sided rib fractures Acute T8 compression fracture TOSIN, resolved Hyponatremia IDDM2 [facility] Cirrhosis Thrombocytopenia Iron deficiency anemia Hx esophageal varices / stricture requiring dilation Hx rectal varices s/p ligation Hx of partial portal vein thrombosis Bilateral pneumonia on admission, presented with worsening SOB, left-sided discomfort, difficulty swallowing CTA chest: No PE. Ill-defined bilateral airspace disease concerning for pneumonia. Acute appearing T8 compression fracture with less than 20% loss of height. Subacute T2 and T6 compression fractures Moderate distal esophageal thickening, Multiple subacute and chronic right- sided rib fractures. No acute left-sided rib fractures identified Continue IV aztreonam (03/08-); DC azithro Blood cx: NGTD pain control, incentive spirometry chest physiotherapy confusion likely secondary to pain meds and cirrhosis Ammonia levels normal Multiple Right-sided rib fractures Acute T8 compression fracture pain control, supportive care Oxycodone switched to 10mg q8h from 15mg q8h Seems to be doing well after adjustments. Will see how she does throughout the day/evening. TOSIN, resolved Hyponatremia monitor renal function. Monitor and replete electrolytes as needed Hyponatremia possible related to liver cirrhosis / dehydration Sodium slightly better Monitor on telemetry IDDM2 accu-cheks, SSI continue lispro 6u daily; titrate as needed [facility] Cirrhosis Thrombocytopenia Iron deficiency anemia Hx esophageal varices / stricture requiring dilation Hx rectal varices s/p ligation confirm home meds, restart as appropriate has needed IV iron in the past Daily labs. Stable VTE: Code: Full Dispo: back to [place] ~1 day Family updated at bedside. Monitor Pt throughout the day/night. Time Spent Managing Pts Care (In Minutes): 45
[2025-03-15 06:18] LABS: Hematocrit 24.5 % (36.0-45.0); Hemoglobin 8.5 g/dL (12.0-15.0); MCH 25.2 pg (27.0-35.0); MCHC 34.6 g/dL (32.0-36.0); MCV 72.7 fL (80-100); MPV 7.9 fL (7.6-11.3); RBC Red Blood Cell Count 3.36 M/uL (3.86-4.86); White Blood Count 4.60 thou/uL (4.3-10.9)
[2025-03-15 06:36] LABS: ALT/SGPT 22.0 U/L (13-56); AST/SGOT 30.0 U/L (15-37); Albumin 2.0 g/dL (3.4-5.0); Albumin/Globulin Ratio 0.4 (1.1-1.8); Alkaline Phosphatase 173.0 U/L (45-117); Anion Gap 6.7 mEq/L (5.0-15.0); BUN Blood Urea Nitrogen 17.0 mg/dL (7-18); Globulin 5.1 g/dL (2.3-3.5); Glucose Level 257.0 mg/dL (74-106); Magnesium 1.7 mg/dL (1.6-2.4); Potassium 4.7 mEq/L (3.5-5.1)
[2025-03-15 08:20] VITALS: BP 167/74; TEMP 97.8
[2025-03-15 10:19] VITALS: O2SAT 95
--- NOTE | 2025-03-15 11:53 | P.DS ---
Admission Date: 03/07/25 Discharge Date: 03/15/25 Disposition: TRANSFER TO JAIL Discharge Condition: FAIR Reason for Admission: Chest Pain / SOB Brief History of Present Illness: 79yo F, PMH: hypertension, hyperlipidemia, diabetes, anemia, history of cirrhosis liver, neuropathy, CKD stage II, history of varices Patient had a recent fall 2 weeks ago and had severe left-sided rib pain. Patient had a [facility] 2 weeks ago in the [facility] which resulted in broken rib on the right side. Patient also had pain in the left side as well for the last 1 week and has been progressively getting worse and was brought to ER associated with shortness of breath and difficulty in swallowing. Patient has a history of cirrhosis liver with hypersplenism. Patient is a poor historian hence most of the history is obtained from the chart review and also talking with the ER physician and the family members at the bedside. Patient was assessed in the ER and was admitted for further management of bibasilar pneumonia. Hospital Course: Problem List: Bilateral pneumonia Multiple Right-sided rib fractures Acute T8 compression fracture TOSIN, resolved Hyponatremia IDDM2 [facility] Cirrhosis Thrombocytopenia Iron deficiency anemia Hx esophageal varices / stricture requiring dilation Hx rectal varices s/p ligation Hx of partial portal vein thrombosis Physician discharge instructions: Patient presented with worsening SOB, confusion, left-sided discomfort, difficulty swallowing. Suspect shortness of breath related to right-sided rib fractures leading to atelectasis, COPD, with possible pneumonia. CTA chest on admission was negative for PE but did note Ill-defined bilateral airspace disease concerning for possible pneumonia (Full report below). Blood cultures were without growth. She completed at least 1 week course of IV antibiotics (Aztreonam and Azithromycin) while hospitalized to treat possible infection. No further antibiotics warranted on discharge. Her respiratory status improved over course of her hospitalization. She did have occasional wheeze but was more upper airway. She did not have her Breo while in hospital. Recommend continued incentive spirometry at [facility] In regards to her confusion, suspect secondary to combination or pain medication and cirrhosis. Her home oxycodone was switched to 10 mg every 6 hours from 15 mg every 8 hours and she seemed to do better on new regimen Patient was noted to be slightly less confused and more awake and alert after medication changes. Pain was well controlled on new regimen, with some mild tolerable pain noted towards the end when her medication wears off. Patient was feeling better, breathing more comfortably on room air, afebrile without leukocytosis, confusion improved and was deemed stable back to [facility]. Overall goal is to continue weaning down her pain medication as tolerable at the [facility]. She was noted to have an TOSIN on admission with serum creatinine of 1.38 a ssociated with Hyponatremia (129). TOSIN quickly resolved and returned to normal over 48 hours with IV hydration however sodium remained persistently elevated throughout hospitalization. Suspect some degree on chronic hyponatremia related to liver cirrhosis and dehydration. Prior levels here in the fall/winter of 2023 were similar. Her sodium has remained relatively stable in 129-131 ranged over the last 48 hours off IV fluids. Recommend repeat blood work in 1 week to monitor renal function, electrolytes. Creatinine on discharge: 0.85, Sodium on discharge: 131 Medications: Oxycodone 10mg every 6 hours as needed for pain - scheduled for now continue to work on weaning these medications as tolerated. Follow up: PCP 3-5 days Nephrology in 1-2 weeks Please call to schedule / confirm appointments CTA chest 03/07 1. Negative for pulmonary embolism to the level of the segmental pulmonary arteries. The subsegmental vessels cannot be adequate assessed. 2. Ill-defined bilateral airspace disease concerning for pneumonia 3. Acute appearing T8 compression fracture with less than 20% loss of height. Subacute/chronic compression fractures again noted 4. Examination of subacute and chronic bilateral rib fractures. No acute rib fracture identified. Physical Exam: GEN: awake, alert, resting comfortably CV: Regular rate and rhythm, no edema Pulm: Nonlabored respirations on room air, clear bilaterally ABD: soft, nontender, nondistended Vital Signs/Physical Exam: Temp Pulse Resp BP Pulse Ox 97.8 F 104 H 18 167/74 H 95 03/15/25 08:00 03/15/25 09:19 03/15/25 08:00 03/15/25 09:19 03/15/25 08:00 Laboratory Data at Discharge: WBC 4.60 thou/uL (4.3-10.9) 03/15/25 05:57 Hgb 8.5 g/dL (12.0-15.0) L 03/15/25 05:57 Hct 24.5 % (36.0-45.0) L 03/15/25 05:57 Plt Count 92 thou/uL (152-406) L 03/15/25 05:57 Sodium 131 mEq/L (136-145) L 03/15/25 05:57 Potassium 4.7 mEq/L (3.5-5.1) 03/15/25 05:57 BUN 17 mg/dL (7-18) 03/15/25 05:57 Creatinine 0.85 mg/dL (0.55-1.02) 03/15/25 05:57 Glucose 257 mg/dL (74-106) H 03/15/25 05:57 Phosphorus Cancelled 03/12/25 08:15 Magnesium 1.7 mg/dL (1.6-2.4) 03/15/25 05:57 Total Bilirubin 0.8 mg/dL (0.2-1.0) 03/15/25 05:57 AST 30 U/L (15-37) 03/15/25 05:57 ALT 22 U/L (13-56) 03/15/25 05:57 Alkaline Phosphatase 173 U/L (45-117) H 03/15/25 05:57 Home Medications: Gabapentin [Neurontin*] 600 mg PO TID 04/04/17 Omeprazole [Prilosec] 40 mg PO DAILY 04/04/17 Rifaximin [Xifaxan] 550 mg PO BID 04/04/17 Fluticasone/Vilanterol [Breo Ellipta 200-25 Mcg Inhalr] 1 puff IH DAILY 03/08/25 Insulin Glargine,Hum.rec.anlog [Lantus] 50 unit SQ DAILY 03/08/25 Insulin Lispro [Humalog Kwikpen U-100] 6 unit SQ AC 03/08/25 Lactulose [Cephulac*] 15 ml PO DAILY 03/08/25 Melatonin 5 mg PO BEDTIME 03/08/25 Nitroglycerin [Nitrostat*] 0.4 mg SL PRN 03/08/25 Polyethyl Gly 3350 [Glycolax*] 17 gm PO DAILY 03/08/25 Spironolactone [Aldactone*] 25 mg PO DAILY 03/08/25 Tramadol HCl [Ultram] 50 mg PO BIDP PRN 03/08/25 ursodioL [Ursodiol] 500 mg PO LUNCH 03/08/25 Oxycodone HCl [Oxyir (Oxycodone HCl Imr)*] 10 mg PO Q6H #0 tab 03/15/25 New Medications: Oxycodone HCl [Oxyir (Oxycodone HCl Imr)*] 10 mg PO Q6H #0 tab Physician Discharge Instructions: Physician discharge instructions: Patient presented with worsening SOB, confusion, left-sided discomfort, difficulty swallowing. Suspect shortness of breath related to right-sided rib fractures leading to atelectasis, COPD, with possible pneumonia. CTA chest on admission was negative for PE but did note Ill-defined bilateral airspace disease concerning for possible pneumonia (Full report below). Blood cultures were without growth. She completed at least 1 week course of IV antibiotics (Aztreonam and Azithromycin) while hospitalized to treat possible infection. No further antibiotics warranted on discharge. Her respiratory status improved over course of her hospitalization. She did have occasional wheeze but was more upper airway. She did not have her Breo while in hospital. Recommend continued [facility] spirometry at [facility] In regards to her confusion, suspect secondary to combination or pain medication and cirrhosis. Her home oxycodone was switched to 10 mg every 6 hours from 15 mg every 8 hours and she seemed to do better on new regimen Patient was noted to be slightly less confused and more awake and alert after medication changes. Pain was well controlled on new regimen, with some mild tolerable pain noted towards the end when her medication wears off. Patient was feeling better, breathing more comfortably on room air, afebrile without leukocytosis, confusion improved and was deemed stable back to [facility]. Overall goal is to continue weaning down her pain medication as tolerable at the [facility]. She was noted to have an TOSIN on admission with serum creatinine of 1.38 associated with Hyponatremia (129). TOSIN quickly resolved and returned to normal over 48 hours with IV hydration however sodium remained persistently elevated throughout hospitalization. Suspect some degree on chronic hyponatremia related to liver cirrhosis and dehydration. Prior levels here in the fall/winter of 2023 were similar. Her sodium has remained relatively stable in 129-131 ranged over the last 48 hours off IV fluids. Recommend repeat blood work in 1 week to monitor renal function, electrolytes. Creatinine on discharge: 0.85, Sodium on discharge: 131 Medications: Oxycodone 10mg every 6 hours as needed for pain - scheduled for now continue to work on weaning these medications as tolerated. Follow up: PCP 3-5 days Nephrology in 1-2 weeks Please call to schedule / confirm appointments CTA chest 03/07 1. Negative for pulmonary embolism to the level of the segmental pulmonary arteries. The subsegmental vessels cannot be adequate assessed. 2. Ill-defined bilateral airspace disease concerning for pneumonia 3. Acute appearing T8 compression fracture with less than 20% loss of height. Subacute/chronic compression fractures again noted 4. Examination of subacute and chronic bilateral rib fractures. No acute rib fracture identified. Followup: Poli Newton MD [Primary Care Provider] - Time spent managing pt's care (in minutes): 45
[2025-03-15 14:37] LABS: Anisocytosis 3+; Blood Morphology Comment NOTED (NOT SEEN); White Blood Cell Scan OK (OK)
[2025-03-15 14:38] LABS: Microcytosis 3+
== END 2025-03-15 13:00 | DRG 194 ==
LOC: ER 13:32 → 4TH 19:14
PROVIDERS: ADMIT Family Medicine; ATTEND Hospitalist
DX: J18.9 Pneumonia, unspecified organism (principal); E87.1 Hypo-osmolality and hyponatremia; N17.9 Acute kidney failure, unspecified; E86.0 Dehydration; N81.2 Incomplete uterovaginal prolapse; K74.60 Unspecified cirrhosis of liver; D69.6 Thrombocytopenia, unspecified; E78.5 Hyperlipidemia, unspecified; I12.9 Hypertensive chronic kidney disease with stage 1 through stage 4 chronic kidney disease, or unspecified chronic kidney disease; N18.9 Chronic kidney disease, unspecified; E11.22 Type 2 diabetes mellitus with diabetic chronic kidney disease; E11.65 Type 2 diabetes mellitus with hyperglycemia; E11.40 Type 2 diabetes mellitus with diabetic neuropathy, unspecified; D63.1 Anemia in chronic kidney disease; D50.9 Iron deficiency anemia, unspecified; S22.41XD Multiple fractures of ribs, right side, subsequent encounter for fracture with routine healing; S22.069D Unspecified fracture of T7-T8 vertebra, subsequent encounter for fracture with routine healing; Z88.0 Allergy status to penicillin; Z79.84 Long term (current) use of oral hypoglycemic drugs; Z79.52 Long term (current) use of systemic steroids; Z79.899 Other long term (current) drug therapy
CPT/HCPCS: 36415; 71275; 80048; 80053; 80069; 80076; 82140; 82947; 83605; 83735; 83880; 83930; 84100; 84439; 84443; 84484; 85025; 85027; 85379; 87040; 93005; 94640; 99285; J0456; J0696; J1171; J1650; J1815; J3475; J7050; J7613; Q9967